=== PATIENT | male | born 1980 | race African-American/Black ===

== ENCOUNTER 2019-08-11 09:07 | Emergency (ER) | payer SELFPAY | END 2019-08-11 11:05 | disposition home or self-care (01) | LOC: EDUNIT# 09:07 → ERS 09:07 | DX: F19.10 Other psychoactive substance abuse, uncomplicated (principal); F43.10 Post-traumatic stress disorder, unspecified; Z87.891 Personal history of nicotine dependence | CPT/HCPCS: 99284 ==

== ENCOUNTER 2019-08-23 20:09 | Emergency (ER) | payer SELFPAY | END 2019-08-23 23:15 | disposition home or self-care (01) | LOC: ERS 20:09 → EDUNIT# 20:09 → ERS 23:15 | DX: F19.10 Other psychoactive substance abuse, uncomplicated (principal); Z87.891 Personal history of nicotine dependence | CPT/HCPCS: 93005 ==

== ENCOUNTER 2019-09-27 09:18 | Emergency (ER) | payer SELFPAY ==
--- NOTE | 2019-09-27 09:45 | RAD ---
EXAM: Single view of the chest HISTORY: Altered mental status COMPARISON: 04/01/2019 FINDINGS: Single view of the chest shows a normal sized cardiomediastinal silhouette. There is no zia dence of consolidation, mass, or pleural effusion. The bones are unremarkable. IMPRESSION: No evidence of acute cardiopulmonary disease
[2019-09-27 09:59] LABS: #Eosinphils 0.1 thou/uL (0.0-0.7); #Lymphocytes 1.1 thou/uL (1.20-3.40); #Monocytes 0.3 thou/uL (0.11-0.59); #Neutrophils 3.5 thou/uL (1.40-6.50); %Basophils 0.8 % (0.0-1.0); %Eosinophils 1.5 % (0.0-10.0); %Lymphocytes 21.8 % (21.0-51.0); %Monocytes 5.7 % (0.0-10.0); %Neutrophils 70.2 % (42.0-75.0); Hemoglobin 13.1 g/dL (14.0-18.0); Mean Corpuscular HGB CONC 33.8 g/dL (32.0-36.0); Mean Corpuscular Hemoglobin 31.5 pg (27.0-31.0); Mean Corpuscular Volume 92.9 fL (78.0-98.0); Mean Platelet Volume 10.2 fL (7.4-10.4); Platelet Count 141 thou/uL (130-400); RBC Distribution Width 12.2 % (11.5-14.5); Red Blood Cell (RBC) Count 4.16 mill/uL (4.70-6.10)
[2019-09-27 10:25] LABS: ALT (SGPT) 20 U/L (8-55); AST (SGOT) 16 U/L (5-34); Acetaminophen Less than 6.0 mcg/mL (10.0-30.0); Albumin 3.8 g/dL (3.5-5.0); Alcohol Less than 10 mg/dL (Less than 10); Alkaline Phosphatase 76 U/L (40-110); Anion Gap 10 mmol/L (10-20); BUN (Urea Nitrogen) 13 mg/dL (8.9-20.6); Bilirubin, Total 0.3 mg/dL (0.2-1.2); CK (CPK) 216 U/L (30-200); Calc. Creatinine Clearance 0 mL/min (70-130); Calcium 7.8 mg/dL (7.8-10.44); Carbon Dioxide 25 mmol/L (22-29); Chloride 109 mmol/L (98-107); Estimated GFR-MDRD Greater than 90; Globulin 2.4 g/dL (2.4-3.5); Glucose 113 mg/dL (70-105); Potassium 3.6 mmol/L (3.5-5.1); Protein, Total 6.2 g/dL (6.0-8.3); Salicylate Less than 8.0 mg/dL (15.0-30.0); Sodium 140 mmol/L (136-145)
--- NOTE | 2019-09-27 10:25 | CT ---
CT HEAD WITHOUT CONTRAST: Date: 09/27/2019 INDICATION: Mental status change. Comparison made to a recent head CT of 06/25/2019. FINDINGS: Prior craniotomy changes on the right again noted. Encephalomalacia involving the right frontal lobe and right temporal lobe have been previously described and remain stable in appearance. There is no evidence of acute intracranial hemorrhage, mass, or infarct. No significant interval montalvo ge. Visualized paranasal sinuses and mastoids appear clear. IMPRESSION: Stable postoperative changes with encephalomalacia involving the right frontal and temporal lobes. No acute interval change. POS: AH
[2019-09-27 12:50] LABS: Bilirubin Negative (Negative); Blood, Urine Negative (Negative); Clarity Clear (Clear); Glucose, Urine (Dipstick) Normal (Negative); Leukocyte Negative Leu/uL (Negative); Nitrite Negative (Negative); Protein, Urine (Dipstick) Negative (Neg-Trace); Urobilinogen Normal mg/dL (Less than 2)
[2019-09-27 13:00] LABS: Medtox Reader # READER 4
[2019-09-27 13:01] LABS: Amphetamine Not Detected (NotDetected); Barbiturates Screen Not Detected (NotDetected); Benzodiazepine Screen Not Detected (NotDetected); Cocaine Metabolite Screen Not Detected (NotDetected); Medtox Control Line Valid? VALID (VALID); Methadone Not Detected (NotDetected); Methamphetamine Not Detected (NotDetected); Opiate Screen Not Detected (NotDetected); Oxycodone Screen Not Detected (NotDetected); Phencyclidine (PCP) Not Detected (NotDetected); THC/Cannabinoid Screen Detected (NotDetected); Tricyclic Screen Not Detected (NotDetected)
--- NOTE | 2019-10-02 12:30 | EKG ---
Test Reason : UNRESPONSIVE Blood Pressure : / mmHG Vent. Rate : 090 BPM Atrial Rate : 090 BPM P-R Int : 160 ms QRS Dur : 080 ms QT Int : 358 ms P-R-T Axes : 044 -24 032 degrees QTc Int : 437 ms Normal sinus rhythm Normal ECG Confirmed by MATT KELLY DO ([id number]), society editor YANCI REYES ([id number]) on 10/02/2019 12:29:23 PM Referred By: Confirmed By:MATT KELLY DO
== END 2019-09-27 13:44 | disposition home or self-care (01) ==
LOC: ERS 09:18
DX: F12.10 Cannabis abuse, uncomplicated (principal); I95.9 Hypotension, unspecified; Z87.891 Personal history of nicotine dependence
CPT/HCPCS: 70450; 71045; 80053; 80306; 80307; 81003; 82550; 84484; 85025; 93005; 96360; 96361

== ENCOUNTER 2019-09-29 09:23 | Emergency (ER) | payer SELFPAY ==
[2019-09-29 10:20] LABS: #Eosinphils 0.1 thou/uL (0.0-0.7); #Lymphocytes 1.1 thou/uL (1.20-3.40); #Monocytes 0.3 thou/uL (0.11-0.59); #Neutrophils 3.6 thou/uL (1.40-6.50); %Basophils 0.5 % (0.0-1.0); %Eosinophils 1.8 % (0.0-10.0); %Lymphocytes 21.1 % (21.0-51.0); %Monocytes 6.1 % (0.0-10.0); %Neutrophils 70.5 % (42.0-75.0); Hemoglobin 13.8 g/dL (14.0-18.0); Mean Corpuscular HGB CONC 33.7 g/dL (32.0-36.0); Mean Corpuscular Hemoglobin 31.6 pg (27.0-31.0); Mean Corpuscular Volume 93.8 fL (78.0-98.0); Mean Platelet Volume 9.6 fL (7.4-10.4); Platelet Count 149 thou/uL (130-400); RBC Distribution Width 12.1 % (11.5-14.5); Red Blood Cell (RBC) Count 4.35 mill/uL (4.70-6.10); White Blood Cell (WBC) Count 5.2 thou/uL (4.8-10.8)
--- NOTE | 2019-09-29 10:31 | RAD ---
EXAM: Single view of the chest HISTORY: Altered mental status COMPARISON: 09/27/2019 FINDINGS: Single view of the chest shows a normal sized cardiomediastinal silhouette. There is no zia dence of consolidation, mass, or pleural effusion. The bones are unremarkable. IMPRESSION: No evidence of acute cardiopulmonary disease
[2019-09-29 10:59] LABS: ALT (SGPT) 20 U/L (8-55); AST (SGOT) 17 U/L (5-34); Albumin 4.1 g/dL (3.5-5.0); Alkaline Phosphatase 84 U/L (40-110); Anion Gap 13 mmol/L (10-20); BUN (Urea Nitrogen) 11 mg/dL (8.9-20.6); Bilirubin, Total 0.5 mg/dL (0.2-1.2); Calc. Creatinine Clearance 0 mL/min (70-130); Calcium 8.7 mg/dL (7.8-10.44); Carbon Dioxide 26 mmol/L (22-29); Chloride 106 mmol/L (98-107); Estimated GFR-MDRD Greater than 90; Globulin 2.8 g/dL (2.4-3.5); Glucose 110 mg/dL (70-105); Potassium 3.7 mmol/L (3.5-5.1); Protein, Total 6.9 g/dL (6.0-8.3); Sodium 141 mmol/L (136-145)
[2019-09-29 12:18] LABS: Bilirubin Negative (Negative); Blood, Urine Negative (Negative); Clarity Clear (Clear); Glucose, Urine (Dipstick) Normal (Negative); Leukocyte Negative Leu/uL (Negative); Nitrite Negative (Negative); Protein, Urine (Dipstick) 20 mg/dL (Neg-Trace); Urobilinogen Normal mg/dL (Less than 2)
[2019-09-29 12:29] LABS: Amphetamine Not Detected (NotDetected); Barbiturates Screen Not Detected (NotDetected); Benzodiazepine Screen Not Detected (NotDetected); Cocaine Metabolite Screen Not Detected (NotDetected); Medtox Control Line Valid? VALID (VALID); Medtox Reader # READER 1; Methadone Not Detected (NotDetected); Methamphetamine Not Detected (NotDetected); Opiate Screen Not Detected (NotDetected); Oxycodone Screen Not Detected (NotDetected); Phencyclidine (PCP) Not Detected (NotDetected); THC/Cannabinoid Screen Detected (NotDetected); Tricyclic Screen Not Detected (NotDetected)
--- NOTE | 2019-10-02 15:31 | EKG ---
Test Reason : Blood Pressure : / mmHG Vent. Rate : 076 BPM Atrial Rate : 076 BPM P-R Int : 174 ms QRS Dur : 092 ms QT Int : 382 ms P-R-T Axes : 047 001 039 degrees QTc Int : 429 ms Normal sinus rhythm Normal ECG Confirmed by NOA MILLER MD ([id number]), material expeditor YANCI REYES ([id number]) on 10/02/2019 3:30:48 PM Referred By: Confirmed By:NOA MILLER MD
== END 2019-09-29 12:05 | disposition home or self-care (01) ==
LOC: ERS 09:23
DX: R55 Syncope and collapse (principal); Z87.891 Personal history of nicotine dependence
CPT/HCPCS: 36415; 71045; 80053; 80306; 81003; 84484; 85025; 93005; 96360

== ENCOUNTER 2019-10-06 09:38 | Emergency (ER) | payer SELFPAY ==
--- NOTE | 2019-10-06 10:42 | CT ---
CT Brain WO Con: 10/06/2019 10:09 AM CLINICAL HISTORY: Altered mental status. IMAGING TECHNIQUE: Multiple CT images were obtained of the brain without IV contrast. COMPARISON: CT the brain dated September 27, 2019 FINDINGS: BRAIN: Evidence of acute infarct: None. Evidence of chronic ischemic change:There are areas of encephalomalacia involving the right frontal l obe and anterior right temporal lobe that are stable. Evidence of intracranial hemorrhage: None. Evidence of midline shift: Third ventricle and septum pellucidum are midline. Ventricles: Normal. No hydrocephalus. SKULL: There are stable craniotomy sites involving the right frontal and right parietal skull. VISUALIZED PARANASAL SINUSES: There are mucus retention cysts within the inferior aspects of both ma xillary sinuses. The ethmoid air cells, frontal sinus and sphenoid sinus are clear. MASTOID AIR CELLS: Clear. EXTRACRANIAL SOFT TISSUES: Normal. IMPRESSION: No acute intracranial abnormality.
[2019-10-06 11:10] LABS: #Eosinphils 0.1 thou/uL (0.0-0.7); #Lymphocytes 1.3 thou/uL (1.20-3.40); #Monocytes 0.3 thou/uL (0.11-0.59); #Neutrophils 3.7 thou/uL (1.40-6.50); %Basophils 0.3 % (0.0-1.0); %Eosinophils 1.8 % (0.0-10.0); %Lymphocytes 24.4 % (21.0-51.0); %Monocytes 5.2 % (0.0-10.0); %Neutrophils 68.3 % (42.0-75.0); Hemoglobin 15.1 g/dL (14.0-18.0); Mean Corpuscular HGB CONC 33.5 g/dL (32.0-36.0); Mean Corpuscular Hemoglobin 31.5 pg (27.0-31.0); Mean Corpuscular Volume 94.2 fL (78.0-98.0); Mean Platelet Volume 9.9 fL (7.4-10.4); Platelet Count 159 thou/uL (130-400); RBC Distribution Width 11.9 % (11.5-14.5); White Blood Cell (WBC) Count 5.4 thou/uL (4.8-10.8)
[2019-10-06 11:40] LABS: ALT (SGPT) 28 U/L (8-55); AST (SGOT) 19 U/L (5-34); Albumin 4.6 g/dL (3.5-5.0); Alkaline Phosphatase 104 U/L (40-110); Anion Gap 14 mmol/L (10-20); BUN (Urea Nitrogen) 14 mg/dL (8.9-20.6); Bilirubin, Total 0.3 mg/dL (0.2-1.2); Calc. Creatinine Clearance 0 mL/min (70-130); Calcium 9.3 mg/dL (7.8-10.44); Carbon Dioxide 27 mmol/L (22-29); Chloride 103 mmol/L (98-107); Estimated GFR-MDRD 82; Globulin 3.2 g/dL (2.4-3.5); Glucose 97 mg/dL (70-105); Potassium 4.5 mmol/L (3.5-5.1); Protein, Total 7.8 g/dL (6.0-8.3); Sodium 139 mmol/L (136-145)
== END 2019-10-06 17:42 | disposition home or self-care (01) ==
LOC: ERS 09:38
DX: T40.7X1A Poisoning by cannabis (derivatives), accidental (unintentional), initial encounter (principal); R41.82 Altered mental status, unspecified; Z87.891 Personal history of nicotine dependence
CPT/HCPCS: 70450; 80053; 85025

== ENCOUNTER 2019-10-07 10:45 | Emergency (ER) | payer SELFPAY | END 2019-10-07 17:21 | disposition home or self-care (01) | LOC: ERS 10:45 | DX: R41.82 Altered mental status, unspecified (principal); T40.7X5A Adverse effect of cannabis (derivatives), initial encounter; Z87.891 Personal history of nicotine dependence | CPT/HCPCS: 93005 ==

== ENCOUNTER 2019-10-10 14:31 | Emergency (ER) | payer SELFPAY ==
[2019-10-10] MEDS ORDERED: Naloxone HCl 2 mg/2 ml Syringe ONE (14:40)
[2019-10-10 14:59] LABS: #Eosinphils 0.1 thou/uL (0.0-0.7); #Lymphocytes 0.8 thou/uL (1.20-3.40); #Monocytes 0.5 thou/uL (0.11-0.59); %Basophils 0.3 % (0.0-1.0); %Eosinophils 1.3 % (0.0-10.0); %Lymphocytes 18.8 % (21.0-51.0); %Monocytes 11.9 % (0.0-10.0); %Neutrophils 67.8 % (42.0-75.0); Hemoglobin 13.9 g/dL (14.0-18.0); Mean Corpuscular HGB CONC 33.5 g/dL (32.0-36.0); Mean Corpuscular Hemoglobin 31.1 pg (27.0-31.0); Mean Corpuscular Volume 92.8 fL (78.0-98.0); Mean Platelet Volume 10.5 fL (7.4-10.4); Platelet Count 138 thou/uL (130-400); RBC Distribution Width 12.1 % (11.5-14.5); Red Blood Cell (RBC) Count 4.48 mill/uL (4.70-6.10); White Blood Cell (WBC) Count 4.4 thou/uL (4.8-10.8)
[2019-10-10 15:23] LABS: ALT (SGPT) 35 U/L (8-55); AST (SGOT) 26 U/L (5-34); Acetaminophen Less than 6.0 mcg/mL (10.0-30.0); Albumin 4.4 g/dL (3.5-5.0); Alcohol 32 mg/dL (Less than 10); Alkaline Phosphatase 94 U/L (40-110); Anion Gap 15 mmol/L (10-20); BUN (Urea Nitrogen) 11 mg/dL (8.9-20.6); Bilirubin, Total 0.3 mg/dL (0.2-1.2); CK (CPK) 231 U/L (30-200); Calc. Creatinine Clearance 0 mL/min (70-130); Calcium 8.7 mg/dL (7.8-10.44); Carbon Dioxide 24 mmol/L (22-29); Chloride 105 mmol/L (98-107); Estimated GFR-MDRD 87; Globulin 2.5 g/dL (2.4-3.5); Glucose 95 mg/dL (70-105); Potassium 3.9 mmol/L (3.5-5.1); Protein, Total 6.9 g/dL (6.0-8.3); Salicylate Less than 8.0 mg/dL (15.0-30.0); Sodium 140 mmol/L (136-145)
--- NOTE | 2019-10-10 15:54 | RAD ---
AP CHEST: History: Found unconscious. Comparison: 09-29-2019 FINDINGS: The lungs appear clear of infiltrate. Vascular markings upper normal, but stable from prior exam. Hea rt and mediastinum unremarkable. IMPRESSION: No acute process identified. POS: AGW
--- NOTE | 2019-10-10 17:00 | CT ---
CT HEAD WITHOUT CONTRAST: History: Mental status change. Comparison: 10-06-2019 FINDINGS: Encephalomalacia involving the left frontal lobe and left temporal lobe appears stable. No acute hemo rrhage or mass. No acute infarct. There are post-operative changes in the calvarium on the right. The paranasal sinuses and mastoids ar e clear. IMPRESSION: No acute finding or interval change. POS: AGW
[2019-10-10 18:15] LABS: Bilirubin Negative (Negative); Blood, Urine Negative (Negative); Clarity Clear (Clear); Glucose, Urine (Dipstick) Normal (Negative); Leukocyte Negative Leu/uL (Negative); Nitrite Negative (Negative); Protein, Urine (Dipstick) Negative (Neg-Trace); Urobilinogen Normal mg/dL (Less than 2)
[2019-10-10 18:25] LABS: Amphetamine Not Detected (NotDetected); Barbiturates Screen Not Detected (NotDetected); Benzodiazepine Screen Not Detected (NotDetected); Cocaine Metabolite Screen Not Detected (NotDetected); Medtox Control Line Valid? VALID (VALID); Medtox Reader # READER 1; Methadone Not Detected (NotDetected); Methamphetamine Not Detected (NotDetected); Opiate Screen Not Detected (NotDetected); Oxycodone Screen Not Detected (NotDetected); Phencyclidine (PCP) Not Detected (NotDetected); THC/Cannabinoid Screen Not Detected (NotDetected); Tricyclic Screen Not Detected (NotDetected)
== END 2019-10-10 17:47 | disposition home or self-care (01) ==
LOC: ERS 14:31
DX: F10.10 Alcohol abuse, uncomplicated (principal); E86.0 Dehydration; R41.82 Altered mental status, unspecified; Z87.891 Personal history of nicotine dependence
CPT/HCPCS: 70450; 71045; 80053; 80306; 80307; 81003; 82140; 82550; 82553; 83690; 84484; 85025; 93005; 96361; 96365; 96375; J2310; J3411

== ENCOUNTER 2019-10-18 11:45 | Emergency (ER) | payer SELFPAY ==
[2019-10-18 12:06] LABS: Analyzer IN Cardio ER; Base Excess (BEa) -2.8 mEq/L (-2.0 to +3.0); CO2 Tension 38.3 mmHg (35.0-45.0); Calcium, Ionized (arterial) 1.16 mmol/L (1.12-1.30); Carboxyhemoglobin (COHb) 0.8 gm% (0.0-3.0); Hemoglobin (Hb) 14.1 g/dL (14.0-18.0); O2 Tension (PaO2), arterial 64.1 mmHg (80.0-100.0); Potassium - ABG Lab 3.81 mmol/L (3.70-5.30); pH, Arterial 7.38 (7.35-7.45)
[2019-10-18 12:07] LABS: Puncture Site RBA
[2019-10-18 12:08] LABS: #Monocytes 0.2 thou/uL (0.11-0.59); #Neutrophils 1.7 thou/uL (1.40-6.50); %Eosinophils 0.7 % (0.0-10.0); %Lymphocytes 32.6 % (21.0-51.0); %Monocytes 7.8 % (0.0-10.0); %Neutrophils 58.9 % (42.0-75.0); Hemoglobin 14.8 g/dL (14.0-18.0); Mean Corpuscular HGB CONC 32.9 g/dL (32.0-36.0); Mean Corpuscular Hemoglobin 30.8 pg (27.0-31.0); Mean Corpuscular Volume 93.6 fL (78.0-98.0); Platelet Count 127 thou/uL (130-400); RBC Distribution Width 12.1 % (11.5-14.5); Red Blood Cell (RBC) Count 4.79 mill/uL (4.70-6.10); White Blood Cell (WBC) Count 2.9 thou/uL (4.8-10.8)
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
[2019-10-18 12:34] LABS: Bacteria/HPF None Seen HPF (None Seen); Bilirubin Negative (Negative); Blood, Urine Negative (Negative); Clarity Clear (Clear); Glucose, Urine (Dipstick) 70 mg/dL (Negative); Ketone, Urine Negative (Negative); Leukocyte Negative Leu/uL (Negative); Nitrite Negative (Negative); Protein, Urine (Dipstick) 50 mg/dL (Neg-Trace); RBC/HPF 0-3 HPF (0-3); Specific Gravity, Urine 1.029 (1.002-1.036); Squamous Epithelial 0-3 HPF (0-3); WBC/HPF 0-3 HPF (0-3); pH, Urine 5.5 (5.0-9.0)
[2019-10-18 12:39] LABS: Amphetamine Not Detected (NotDetected); Barbiturates Screen Not Detected (NotDetected); Benzodiazepine Screen Not Detected (NotDetected); Cocaine Metabolite Screen Not Detected (NotDetected); Medtox Control Line Valid? VALID (VALID); Medtox Reader # READER 4; Methadone Not Detected (NotDetected); Methamphetamine Not Detected (NotDetected); Opiate Screen Not Detected (NotDetected); Oxycodone Screen Not Detected (NotDetected); Phencyclidine (PCP) Not Detected (NotDetected); THC/Cannabinoid Screen Detected (NotDetected); Tricyclic Screen Not Detected (NotDetected)
[2019-10-18 12:39] LABS: Acetaminophen Less than 6.0 mcg/mL (10.0-30.0); Alcohol Less than 10 mg/dL (Less than 10); CK (CPK) 211 U/L (30-200); Salicylate Less than 8.0 mg/dL (15.0-30.0)
[2019-10-18 12:40] LABS: ALT (SGPT) 44 U/L (8-55); AST (SGOT) 32 U/L (5-34); Albumin 4.5 g/dL (3.5-5.0); Alkaline Phosphatase 105 U/L (40-110); Anion Gap 14 mmol/L (10-20); BUN (Urea Nitrogen) 8 mg/dL (8.9-20.6); Bilirubin, Total 0.4 mg/dL (0.2-1.2); Calc. Creatinine Clearance 0 mL/min (70-130); Calcium 9.1 mg/dL (7.8-10.44); Carbon Dioxide 23 mmol/L (22-29); Chloride 107 mmol/L (98-107); Estimated GFR-MDRD 76; Globulin 3.1 g/dL (2.4-3.5); Glucose 96 mg/dL (70-105); Lipase 25 U/L (8-78); Potassium 3.8 mmol/L (3.5-5.1); Protein, Total 7.6 g/dL (6.0-8.3); Sodium 140 mmol/L (136-145)
--- NOTE | 2019-10-18 14:15 | CT ---
BRAIN CT WITHOUT IV CONTRAST: Date: 10/18/2019 HISTORY: Altered mental status, found unresponsive on the ground. COMPARISON: 10/10/2019. FINDINGS: Postoperative craniotomy changes with some extensive right-sided frontal and temporal encephalomalaci a, stable. Bilateral maxillary and ethmoid sinus mucosal changes with bilateral artur bullosa. Small , stable right basal ganglia lacunar infarct. No mass or bleed, or other acute process. IMPRESSION: Stable postoperative changes with right-sided encephalomalacia. Stable sinus mucosal disease. No mass or bleed, or other acute process. POS: [facility]DI
== END 2019-10-18 14:40 | disposition home or self-care (01) ==
LOC: ERS 11:45
DX: F19.10 Other psychoactive substance abuse, uncomplicated (principal); Z87.891 Personal history of nicotine dependence
CPT/HCPCS: 36416; 51701; 70450; 71045; 80053; 80306; 80307; 81003; 81015; 82140; 82550; 82805; 83690; 84484; 85025; 93005; 96361; 96365; J3411

== ENCOUNTER 2019-10-27 11:39 | Emergency (ER) | payer SELFPAY ==
[2019-10-27] MEDS ORDERED: Fentanyl 100 MCG/2 ML VIAL ONE (13:22)
== END 2019-10-27 13:03 | disposition home or self-care (01) ==
LOC: ERS 11:39
DX: F12.10 Cannabis abuse, uncomplicated (principal)
CPT/HCPCS: 99284; J3010

== ENCOUNTER 2019-11-14 12:40 | Emergency (ER) | payer SELFPAY, OTHER ==
[2019-11-14] MEDS ORDERED: Ibuprofen 800 MG TAB ONE (13:16)
[2019-11-14 13:29] LABS: #Lymphocytes 1.1 thou/uL (1.20-3.40); #Monocytes 0.3 thou/uL (0.11-0.59); #Neutrophils 3.7 thou/uL (1.40-6.50); %Basophils 0.6 % (0.0-1.0); %Eosinophils 0.5 % (0.0-10.0); %Lymphocytes 22.1 % (21.0-51.0); %Monocytes 5.1 % (0.0-10.0); %Neutrophils 71.6 % (42.0-75.0); Hemoglobin 13.6 g/dL (14.0-18.0); Mean Corpuscular HGB CONC 33.4 g/dL (32.0-36.0); Mean Corpuscular Hemoglobin 31.1 pg (27.0-31.0); Mean Platelet Volume 10.2 fL (7.4-10.4); Platelet Count 150 thou/uL (130-400); RBC Distribution Width 12.2 % (11.5-14.5); Red Blood Cell (RBC) Count 4.39 mill/uL (4.70-6.10); White Blood Cell (WBC) Count 5.1 thou/uL (4.8-10.8)
[2019-11-14 13:46] LABS: ALT (SGPT) 22 U/L (8-55); AST (SGOT) 16 U/L (5-34); Albumin 4.3 g/dL (3.5-5.0); Alkaline Phosphatase 85 U/L (40-110); Anion Gap 12 mmol/L (10-20); BUN (Urea Nitrogen) 10 mg/dL (8.9-20.6); Bilirubin, Total 0.4 mg/dL (0.2-1.2); Calc. Creatinine Clearance 0 mL/min (70-130); Calcium 8.7 mg/dL (7.8-10.44); Carbon Dioxide 26 mmol/L (22-29); Chloride 107 mmol/L (98-107); Estimated GFR-MDRD 90; Globulin 2.6 g/dL (2.4-3.5); Glucose 98 mg/dL (70-105); Potassium 3.5 mmol/L (3.5-5.1); Protein, Total 6.9 g/dL (6.0-8.3); Sodium 141 mmol/L (136-145)
== END 2019-11-14 16:36 | disposition home or self-care (01) ==
LOC: ERS 12:40
DX: U07.1 COVID-19 (principal); F12.10 Cannabis abuse, uncomplicated; Z87.891 Personal history of nicotine dependence
CPT/HCPCS: 36415; 80053; 85025; 93005; 96360

== ENCOUNTER 2019-12-20 14:28 | Emergency (ER) | payer OTHER, SELFPAY ==
[2019-12-20 16:15] LABS: #Eosinphils 0.1 thou/uL (0.0-0.7); #Lymphocytes 1.7 thou/uL (1.20-3.40); #Monocytes 0.2 thou/uL (0.11-0.59); #Neutrophils 3.1 thou/uL (1.40-6.50); %Basophils 0.6 % (0.0-1.0); %Eosinophils 1.3 % (0.0-10.0); %Lymphocytes 33.1 % (21.0-51.0); %Monocytes 4.3 % (0.0-10.0); %Neutrophils 60.7 % (42.0-75.0); Hemoglobin 13.2 g/dL (14.0-18.0); Mean Corpuscular HGB CONC 34.7 g/dL (32.0-36.0); Mean Corpuscular Hemoglobin 32.4 pg (27.0-31.0); Mean Corpuscular Volume 93.3 fL (78.0-98.0); Mean Platelet Volume 10.6 fL (7.4-10.4); Platelet Count 152 thou/uL (130-400); RBC Distribution Width 11.7 % (11.5-14.5); Red Blood Cell (RBC) Count 4.08 mill/uL (4.70-6.10); White Blood Cell (WBC) Count 5.1 thou/uL (4.8-10.8)
[2019-12-20 16:34] LABS: ALT (SGPT) 19 U/L (8-55); AST (SGOT) 19 U/L (5-34); Alkaline Phosphatase 79 U/L (40-110); Anion Gap 18 mmol/L (10-20); BUN (Urea Nitrogen) 9 mg/dL (8.9-20.6); Bilirubin, Total 0.3 mg/dL (0.2-1.2); CK (CPK) 197 U/L (30-200); Calc. Creatinine Clearance 0 mL/min (70-130); Carbon Dioxide 19 mmol/L (22-29); Chloride 111 mmol/L (98-107); Estimated GFR-MDRD Greater than 90; Globulin 2.7 g/dL (2.4-3.5); Glucose 96 mg/dL (70-105); Protein, Total 6.7 g/dL (6.0-8.3); Sodium 144 mmol/L (136-145)
--- NOTE | 2019-12-20 17:07 | RAD ---
PORTABLE CHEST: Comparison: 10-18-2019 History: Covid positive. History of K2 abuse. FINDINGS: Heart size appears slightly enlarged. Some vague increased parenchymal density in the lung valladares. Th yovani could represent some minimal ground glass infiltrates, although I feel that it is probably within normal limits. Most questionable area is in the left midlung field. IMPRESSION: 1. Cardiomegaly. 2. No definitive infiltrative process. Some vague increased density in the lung bases. I feel this is more likely on the basis of chronic change. POS: OFF
--- NOTE | 2019-12-21 14:35 | EKG ---
Test Reason : Blood Pressure : / mmHG Vent. Rate : 096 BPM Atrial Rate : 096 BPM P-R Int : 174 ms QRS Dur : 092 ms QT Int : 352 ms P-R-T Axes : 039 -19 029 degrees QTc Int : 444 ms Normal sinus rhythm Normal ECG Confirmed by TONYA ALBERTS DO ([id number]), film editor ADELIA VIRK ([id number]) on 12/21/2019 2:34:28 PM Referred By: Confirmed By:TONYA ALBERTS DO
== END 2019-12-20 19:47 | disposition home or self-care (01) ==
LOC: ERS 14:28
DX: E86.0 Dehydration (principal); F19.10 Other psychoactive substance abuse, uncomplicated; Z87.891 Personal history of nicotine dependence
CPT/HCPCS: 36415; 71045; 80053; 82550; 85025; 93005; 96360; 96361

== ENCOUNTER 2020-01-07 16:31 | Emergency (ER) | payer SELFPAY ==
[~2020-01-07 16:31] MED LIST: Iopamidol-370 76% 500 ML 1 ML ONE
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
[2020-01-07 16:57] LABS: #Eosinphils 0.1 thou/uL (0.0-0.7); #Lymphocytes 2.3 thou/uL (1.20-3.40); #Monocytes 0.3 thou/uL (0.11-0.59); #Neutrophils 3.3 thou/uL (1.40-6.50); %Basophils 0.7 % (0.0-1.0); %Eosinophils 1.1 % (0.0-10.0); %Lymphocytes 37.2 % (21.0-51.0); %Monocytes 5.7 % (0.0-10.0); %Neutrophils 55.3 % (42.0-75.0); Hemoglobin 9.9 g/dL (14.0-18.0); Mean Corpuscular HGB CONC 34.7 g/dL (32.0-36.0); Mean Corpuscular Hemoglobin 32.8 pg (27.0-31.0); Mean Corpuscular Volume 94.4 fL (78.0-98.0); RBC Distribution Width 11.8 % (11.5-14.5); Red Blood Cell (RBC) Count 3.02 mill/uL (4.70-6.10)
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
[2020-01-07 17:11] LABS: ALT (SGPT) 11 U/L (8-55); AST (SGOT) 11 U/L (5-34); Albumin 2.4 g/dL (3.5-5.0); Alkaline Phosphatase 49 U/L (40-110); Anion Gap 11 mmol/L (10-20); BUN (Urea Nitrogen) 11 mg/dL (8.9-20.6); Bilirubin, Total Less than 0.2 mg/dL (0.2-1.2); Calc. Creatinine Clearance 0 mL/min (70-130); Carbon Dioxide 13 mmol/L (22-29); Chloride 125 mmol/L (98-107); Estimated GFR-MDRD Greater than 90; Globulin 1.3 g/dL (2.4-3.5); Glucose 65 mg/dL (70-105); Lipase 25 U/L (8-78); Protein, Total 3.7 g/dL (6.0-8.3); Sodium 146 mmol/L (136-145)
[2020-01-07 17:14] LABS: Acetaminophen Less than 6.0 mcg/mL (10.0-30.0); Alcohol 102 mg/dL (Less than 10); Salicylate Less than 8.0 mg/dL (15.0-30.0)
[2020-01-07 17:19] LABS: Calcium 4.8 mg/dL (7.8-10.44); Potassium 2.6 mmol/L (3.5-5.1)
[2020-01-07 17:44] LABS: MDiff Complete? YES; Mean Platelet Volume 10.5 fL (7.4-10.4); Platelet Count 114 thou/uL (130-400); Platelet Morphology Comment Appears Decreased; Polychromasia SLIGHT = 2-3 cells (100X) (0-2/hpf)
[2020-01-07 18:12] LABS: Amphetamine Not Detected (NotDetected); Barbiturates Screen Not Detected (NotDetected); Benzodiazepine Screen Not Detected (NotDetected); Cocaine Metabolite Screen Not Detected (NotDetected); Medtox Control Line Valid? VALID (VALID); Medtox Reader # READER 4; Methadone Not Detected (NotDetected); Methamphetamine Not Detected (NotDetected); Opiate Screen Not Detected (NotDetected); Oxycodone Screen Not Detected (NotDetected); Phencyclidine (PCP) Not Detected (NotDetected); THC/Cannabinoid Screen Detected (NotDetected); Tricyclic Screen Not Detected (NotDetected)
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
== END 2020-01-07 20:56 | disposition home or self-care (01) ==
LOC: ERS 16:31
DX: S09.90XA Unspecified injury of head, initial encounter (principal); S82.64XA Nondisplaced fracture of lateral malleolus of right fibula, initial encounter for closed fracture; S40.211A Abrasion of right shoulder, initial encounter; S70.311A Abrasion, right thigh, initial encounter; Z87.891 Personal history of nicotine dependence; V03.99XA Pedestrian with other conveyance injured in collision with car, pick-up truck or van, unspecified whether traffic or nontraffic accident, initial encounter
CPT/HCPCS: 29515; 36415; 70450; 71045; 71260; 72125; 74177; 80053; 80306; 80307; 83605; 83690; 85025; 86850; 86900; 86901; G0390; Q9967

== ENCOUNTER 2020-02-28 16:00 | Emergency (ER) | payer SELFPAY ==
--- NOTE | 2020-02-28 16:19 | RAD ---
XR Chest 1 View Portable History: Dyspnea Comparison: CT examination January 07, 2020 Findings: Abnormal appearance of the right costochondral junctions may be sequelae of recent injury. Scattered scar throughout the lungs. No pneumothorax. No significant effusion. Impression: Abnormally small right hemithorax relative to the left may be sequelae of recent costal c artilage junction injury and lung hypoinflation with atelectasis. Background parenchymal scarring.
[2020-02-28 16:21] LABS: #Basophils 0.1 thou/uL (0.0-0.2); #Eosinphils 0.1 thou/uL (0.0-0.7); #Lymphocytes 1.7 thou/uL (1.20-3.40); #Monocytes 0.4 thou/uL (0.11-0.59); #Neutrophils 3.7 thou/uL (1.40-6.50); %Eosinophils 1.4 % (0.0-10.0); %Lymphocytes 28.8 % (21.0-51.0); %Monocytes 6.7 % (0.0-10.0); %Neutrophils 62.1 % (42.0-75.0); Hemoglobin 13.3 g/dL (14.0-18.0); Mean Corpuscular HGB CONC 33.1 g/dL (32.0-36.0); Mean Corpuscular Hemoglobin 30.8 pg (27.0-31.0); Mean Corpuscular Volume 93.1 fL (78.0-98.0); Mean Platelet Volume 9.7 fL (7.4-10.4); Platelet Count 149 thou/uL (130-400); Red Blood Cell (RBC) Count 4.33 mill/uL (4.70-6.10); White Blood Cell (WBC) Count 5.9 thou/uL (4.8-10.8)
[2020-02-28] MEDS ORDERED: Naloxone HCl 0.4 mg/ml Vial ONE (16:24)
[2020-02-28 16:43] LABS: ALT (SGPT) 17 U/L (8-55); AST (SGOT) 17 U/L (5-34); Acetaminophen Less than 6.0 mcg/mL (10.0-30.0); Albumin 4.1 g/dL (3.5-5.0); Alcohol 65 mg/dL (Less than 10); Alkaline Phosphatase 88 U/L (40-110); Anion Gap 14 mmol/L (10-20); BUN (Urea Nitrogen) 11 mg/dL (8.9-20.6); Bilirubin, Total 0.2 mg/dL (0.2-1.2); CK (CPK) 396 U/L (30-200); Calc. Creatinine Clearance 0 mL/min (70-130); Calcium 8.7 mg/dL (7.8-10.44); Carbon Dioxide 27 mmol/L (22-29); Chloride 104 mmol/L (98-107); Estimated GFR-MDRD Greater than 90; Globulin 2.8 g/dL (2.4-3.5); Glucose 97 mg/dL (70-105); Potassium 3.6 mmol/L (3.5-5.1); Protein, Total 6.9 g/dL (6.0-8.3); Salicylate Less than 8.0 mg/dL (15.0-30.0); Sodium 141 mmol/L (136-145)
[2020-02-28 16:45] LABS: Bilirubin Negative (Negative); Blood, Urine Negative (Negative); Clarity Clear (Clear); Glucose, Urine (Dipstick) Normal (Negative); Ketone, Urine Negative (Negative); Leukocyte Negative Leu/uL (Negative); Nitrite Negative (Negative); Protein, Urine (Dipstick) Negative (Neg-Trace); Specific Gravity, Urine 1.003 (1.002-1.036); Urobilinogen Normal mg/dL (Less than 2); pH, Urine 5.5 (5.0-9.0)
[2020-02-28 16:55] LABS: Amphetamine Not Detected (NotDetected); Barbiturates Screen Not Detected (NotDetected); Benzodiazepine Screen Not Detected (NotDetected); Cocaine Metabolite Screen Not Detected (NotDetected); Medtox Control Line Valid? VALID (VALID); Medtox Reader # READER 1; Methadone Not Detected (NotDetected); Methamphetamine Not Detected (NotDetected); Opiate Screen Not Detected (NotDetected); Oxycodone Screen Not Detected (NotDetected); Phencyclidine (PCP) Not Detected (NotDetected); THC/Cannabinoid Screen Not Detected (NotDetected); Tricyclic Screen Not Detected (NotDetected)
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
[2020-02-28 19:29] LABS: Lactic Acid 1.5 mmol/L (0.5-2.2)
== END 2020-02-28 20:09 | disposition home or self-care (01) ==
LOC: ERS 16:00
DX: R41.82 Altered mental status, unspecified (principal); Z87.891 Personal history of nicotine dependence
CPT/HCPCS: 36415; 51701; 70450; 71045; 80053; 80306; 80307; 81003; 82550; 83605; 85025; 93005; 96374; J2310

== ENCOUNTER 2020-03-01 18:46 | Inpatient (IN) | payer MEDICARE, MEDICAID ==
[2020-03-01 19:23] LABS: #Lymphocytes 1.4 thou/uL (1.20-3.40); #Monocytes 0.4 thou/uL (0.11-0.59); #Neutrophils 3.9 thou/uL (1.40-6.50); %Basophils 0.3 % (0.0-1.0); %Eosinophils 0.8 % (0.0-10.0); %Lymphocytes 24.7 % (21.0-51.0); %Monocytes 6.2 % (0.0-10.0); %Neutrophils 68.1 % (42.0-75.0); Hemoglobin 11.2 g/dL (14.0-18.0); Mean Corpuscular Hemoglobin 30.9 pg (27.0-31.0); Mean Corpuscular Volume 93.6 fL (78.0-98.0); Mean Platelet Volume 10.2 fL (7.4-10.4); Platelet Count 124 thou/uL (130-400); RBC Distribution Width 11.8 % (11.5-14.5); Red Blood Cell (RBC) Count 3.62 mill/uL (4.70-6.10); White Blood Cell (WBC) Count 5.8 thou/uL (4.8-10.8)
[2020-03-01 19:36] LABS: Acetaminophen Less than 6.0 mcg/mL (10.0-30.0); Alcohol 107 mg/dL (Less than 10); CK (CPK) 122 U/L (30-200); Salicylate Less than 8.0 mg/dL (15.0-30.0)
[2020-03-01 19:50] LABS: ALT (SGPT) 7 U/L (8-55); AST (SGOT) 8 U/L (5-34); Albumin 2.1 g/dL (3.5-5.0); Alkaline Phosphatase 43 U/L (40-110); Anion Gap 11 mmol/L (10-20); BUN (Urea Nitrogen) 7 mg/dL (8.9-20.6); Bilirubin, Total Less than 0.2 mg/dL (0.2-1.2); Calc. Creatinine Clearance 0 mL/min (70-130); Carbon Dioxide 15 mmol/L (22-29); Chloride 123 mmol/L (98-107); Globulin 1.2 g/dL (2.4-3.5); Protein, Total 3.3 g/dL (6.0-8.3); Sodium 147 mmol/L (136-145)
[2020-03-01 19:56] LABS: Calcium 4.5 mg/dL (7.8-10.44); Glucose 53 mg/dL (70-105); Potassium 2.3 mmol/L (3.5-5.1)
[2020-03-01] MEDS ORDERED: Calcium Gluconate 13.8 MEQ in Sodium Chloride 0.9% 100 ML IVPB SCH (20:30)
[2020-03-01] MEDS ORDERED: NS 0.9% w/ 40 MEQ KCL 1,000 ML IV SCH (20:30)
[2020-03-01] MEDS ORDERED: D5 NS w/ 40 mEq KCl 1,000 ML IV SCH (20:45)
[2020-03-01] MEDS ORDERED: Famotidine/PF 20 mg/2ml Vial SLOW IVP SCH (21:00)
--- NOTE | 2020-03-01 21:15 | PDOC.BPN ---
- Brief Progress Note [id number] HP dictated
[2020-03-01] MEDS ORDERED: Lorazepam 2 MG/ML VIAL SLOW IVP PRN (21:17)
[2020-03-01 23:24] LABS: Amphetamine Not Detected (NotDetected); Barbiturates Screen Not Detected (NotDetected); Benzodiazepine Screen Not Detected (NotDetected); Cocaine Metabolite Screen Not Detected (NotDetected); Medtox Control Line Valid? VALID (VALID); Medtox Reader # READER 1; Methadone Not Detected (NotDetected); Methamphetamine Not Detected (NotDetected); Opiate Screen Not Detected (NotDetected); Oxycodone Screen Not Detected (NotDetected); Phencyclidine (PCP) Not Detected (NotDetected); THC/Cannabinoid Screen Not Detected (NotDetected); Tricyclic Screen Not Detected (NotDetected)
[2020-03-02] MEDS: Famotidine/PF 20 mg/2ml Vial SLOW IVP SCH ×3 (00:16→20:41)
[2020-03-02] MEDS: D5 NS w/ 40 mEq KCl 1,000 ML IV SCH ×3 (00:16→20:41)
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
[2020-03-02] MEDS ORDERED: Magnesium 2 GM/50 ML 2 GM in Premix Bag 1 BAG IVPB SCH (02:15)
[2020-03-02 04:28] LABS: #Eosinphils 0.1 thou/uL (0.0-0.7); #Lymphocytes 1.5 thou/uL (1.20-3.40); #Monocytes 0.4 thou/uL (0.11-0.59); #Neutrophils 3.5 thou/uL (1.40-6.50); %Basophils 0.3 % (0.0-1.0); %Eosinophils 1.7 % (0.0-10.0); %Lymphocytes 27.5 % (21.0-51.0); %Monocytes 6.9 % (0.0-10.0); %Neutrophils 63.7 % (42.0-75.0); Hemoglobin 14.2 g/dL (14.0-18.0); Mean Corpuscular HGB CONC 33.2 g/dL (32.0-36.0); Mean Corpuscular Hemoglobin 31.4 pg (27.0-31.0); Mean Corpuscular Volume 94.6 fL (78.0-98.0); Mean Platelet Volume 9.9 fL (7.4-10.4); Platelet Count 134 thou/uL (130-400); RBC Distribution Width 11.9 % (11.5-14.5); Red Blood Cell (RBC) Count 4.52 mill/uL (4.70-6.10); White Blood Cell (WBC) Count 5.5 thou/uL (4.8-10.8)
[2020-03-02 04:59] LABS: ALT (SGPT) 14 U/L (8-55); AST (SGOT) 13 U/L (5-34); Albumin 3.7 g/dL (3.5-5.0); Alkaline Phosphatase 82 U/L (40-110); Anion Gap 16 mmol/L (10-20); BUN (Urea Nitrogen) 10 mg/dL (8.9-20.6); Bilirubin, Total 0.3 mg/dL (0.2-1.2); Calc. Creatinine Clearance 174 mL/min (70-130); Calcium 8.7 mg/dL (7.8-10.44); Carbon Dioxide 23 mmol/L (22-29); Chloride 107 mmol/L (98-107); Globulin 2.8 g/dL (2.4-3.5); Glucose 90 mg/dL (70-105); Potassium 4.5 mmol/L (3.5-5.1); Protein, Total 6.5 g/dL (6.0-8.3); Sodium 141 mmol/L (136-145)
[2020-03-02] MEDS: Enoxaparin Sodium 40 MG/0.4 ML SYRINGE SC SCH (08:44)
[2020-03-02] MEDS ORDERED: Enoxaparin Sodium 40 MG/0.4 ML SYRINGE SC SCH (09:00)
[2020-03-02] MEDS ORDERED: FLU VACC QS2020-21(6MOS UP)/PF 60 MCG/0.5 ML SYRINGE IM ONE (09:00)
[2020-03-02] MEDS ORDERED: Lorazepam 2 MG/ML VIAL SLOW IVP PRN (09:07)
[2020-03-02 09:41] LABS: SARS-CoV-2 MS2 Positive; SARS-CoV-2 N Gene Negative; SARS-CoV-2 S Gene Negative; SARS-CoV-2 by NAA Not Detected (NotDetected); SARS-CoV-2 orf1ab Negative
[2020-03-02] MEDS: Diazepam 2 MG TAB PO SCH ×2 (10:08→20:42)
[2020-03-02] MEDS: Thiamine 100 MG TAB PO SCH (10:08)
[2020-03-02] MEDS: Folic Acid/Vit B Comp W-C PO SCH (10:08)
--- NOTE | 2020-03-02 11:36 | PDOC.HOSPP ---
- Subjective Encounter Date: 03/02/20 Encounter Time: 10:30 Subjective: Patient was seen and examined at the bedside. Patient was somewhat coherent and was able to answer my questions. Appeared to be lethargic. Patient reported no complaints. - Objective Vital Signs & Weight: Vital Signs (12 hours) Temp Pulse Resp BP Pulse Ox 03/02/20 07:49 97.3 F L 76 18 109/58 L 98 03/02/20 03:17 98.4 F 89 16 98/55 L 100 03/01/20 23:37 99 Weight Admit Weight 236 lb 9.6 oz Weight 236 lb 9.6 oz I&O: 03/01/20 03/02/20 03/03/20 06:59 06:59 06:59 Intake Total 1200 Output Total 700 Balance 500 Result Diagrams: 03/02/20 03:54 03/02/20 03:54 Additional Labs: Accuchecks 03/02/20 03/02/20 03/02/20 10:58 08:43 05:30 POC Glucose 107 H 98 99 03/02/20 03/02/20 03/01/20 03:52 01:53 23:20 POC Glucose 82 79 78 Hospitalist ROS - Review of Systems Constitutional: denies: fever, chills, weakness Respiratory: denies: cough, dry, shortness of breath, hemoptysis, SOB with excertion, pleuritic pain, sputum, wheezing Cardiovascular: denies: chest pain, palpitations, orthopnea, paroxysmal noc. dyspnea, edema, light headedness Gastrointestinal: denies: nausea, vomiting, abdominal pain, diarrhea, constipation - Medication Medications: Active Medications Generic Name Dose Route Start Last Admin Trade Name Freq PRN Reason Stop Dose Admin Diazepam 2.5 mg 03/02/20 09:00 03/02/20 10:08 Diazepam 2 Mg Tab PO 2.5 mg BID BLAZE Administration Enoxaparin Sodium 40 mg 03/02/20 09:00 03/02/20 08:44 Enoxaparin Sodium 40 Mg/0.4 Ml Syringe SC 40 mg 0900 BLAZE Administration Famotidine 20 mg 03/01/20 21:00 03/02/20 08:44 Famotidine/Pf 20 Mg/2ml Vial SLOW IVP 20 mg Q12HR BLAZE Administration Potassium Chloride/Dextrose/Sod Cl 1,000 mls @ 125 mls/hr 03/01/20 21:00 10:09 D5 Ns W/ 40 Meq Kcl IV 1,000 mls .Q8H BLAZE Administration Thiamine HCl 100 mg 03/02/20 09:00 03/02/20 10:08 Thiamine 100 Mg Tab PO 100 mg DAILY BLAZE Administration Vitamin B Complex/Vit C/Folic Acid 1 tab 03/02/20 09:00 03/02/20 10:08 Folic Acid/Vit B Comp W-C PO 1 tab DAILY BLAZE Administration - Exam General Appearance: awake alert Heart: RRR, no gallops, no rubs, normal peripheral pulses Respiratory: CTAB, no wheezes, no rales, no ronchi, normal chest expansion, no tachypnea, normal percussion Gastrointestinal: soft, non-tender, non-distended, normal bowel sounds, no palpable masses, no hepatomegaly, no splenomegaly, no bruit, no guarding, no rigidity Hosp A/P - Plan [facility] Metabolic cephalopathy -on admission patient had a blood alcohol level of 107 -could be from possible drug overdose given patient's past history of synthetic CBD use -Fall aspiration and seizure precautions -Magnesium to be replaced. -Check folate and B12 and vitamin D level and substitute as needed. Alcohol abuse -Counseling when able Care discussed with the student and agree with the plan.
[2020-03-02 16:48] LABS: Vitamin D, 25 Hydroxy 19.6 ng/ml (> 30.0)
[2020-03-02 16:53] LABS: Thyroid Stimulating Hormone 0.7478 uIU/mL (0.35-4.94)
[2020-03-03] MEDS: D5 NS w/ 40 mEq KCl 1,000 ML IV SCH ×2 (04:45→18:18)
[2020-03-03] MEDS ORDERED: Thiamine 100 MG TAB PO SCH (09:00)
[2020-03-03] MEDS ORDERED: Folic Acid/Vit B Comp W-C PO SCH (09:00)
[2020-03-03] MEDS: Diazepam 2 MG TAB PO SCH ×2 (09:42→20:22)
[2020-03-03] MEDS: Folic Acid/Vit B Comp W-C PO SCH (09:46)
[2020-03-03] MEDS: Thiamine 100 MG TAB PO SCH (09:48)
[2020-03-03] MEDS: Enoxaparin Sodium 40 MG/0.4 ML SYRINGE SC SCH (09:48)
[2020-03-03] MEDS: Famotidine/PF 20 mg/2ml Vial SLOW IVP SCH ×2 (09:49→20:23)
--- NOTE | 2020-03-03 11:32 | PDOC.HOSPP ---
- Subjective Encounter Date: 03/03/20 Encounter Time: 10:00 Subjective: Patient was seen and examined at the beside today. Patient is much more coherent than yesterday. He has no complaints and no overnight events occurred. His left arm looks quite swollen probably due to IV access x2 in the same. He is also getting more IV fluid. Him since he started to have a good p.o. intake will stop his IV fluid. - Objective Vital Signs & Weight: Vital Signs (12 hours) Temp Pulse Resp BP Pulse Ox 03/03/20 08:00 100 03/03/20 07:19 98.2 F 74 18 123/71 100 03/03/20 03:08 98.7 F 72 18 127/69 97 Weight Admit Weight 236 lb 9.6 oz Weight 236 lb 9.6 oz I&O: 03/02/20 03/03/20 03/04/20 06:59 06:59 06:59 Intake Total 1200 1290 Output Total 700 1475 Balance 500 -185 Result Diagrams: 03/02/20 03:54 03/02/20 03:54 Additional Labs: Accuchecks 03/03/20 03/03/20 03/02/20 10:39 05:45 20:41 POC Glucose 160 H 171 H 88 03/02/20 03/02/20 17:08 13:40 POC Glucose 87 100 Hospitalist ROS - Review of Systems Constitutional: denies: fever, chills Respiratory: denies: cough, dry, shortness of breath, hemoptysis, SOB with excertion, pleuritic pain, sputum, wheezing Cardiovascular: denies: chest pain, palpitations, orthopnea, paroxysmal noc. dyspnea, edema Gastrointestinal: denies: nausea, vomiting, abdominal pain, diarrhea - Medication Medications: Active Medications Generic Name Dose Route Start Last Admin Trade Name Freq PRN Reason Stop Dose Admin Diazepam 2.5 mg 03/02/20 09:00 03/03/20 09:42 Diazepam 2 Mg Tab PO 2.5 mg BID BLAZE Administration Enoxaparin Sodium 40 mg 03/02/20 09:00 03/03/20 09:48 Enoxaparin Sodium 40 Mg/0.4 Ml Syringe SC 40 mg 0900 BLAZE Administration Famotidine 20 mg 03/01/20 21:00 03/03/20 09:49 Famotidine/Pf 20 Mg/2ml Vial SLOW IVP 20 mg Q12HR BLAZE Administration Potassium Chloride/Dextrose/Sod Cl 1,000 mls @ 125 mls/hr 03/01/20 21:00 03/03/20 04:45 D5 Ns W/ 40 Meq Kcl IV 1,000 mls .Q8H BLAZE Administration Thiamine HCl 100 mg 03/02/20 09:00 03/03/20 09:48 Thiamine 100 Mg Tab PO 100 mg DAILY BLAZE Administration Vitamin B Complex/Vit C/Folic Acid 1 tab 03/02/20 09:00 03/03/20 09:46 Folic Acid/Vit B Comp W-C PO 1 tab DAILY BLAZE Administration - Exam General Appearance: awake alert Heart: RRR, no murmur, no gallops, no rubs, normal peripheral pulses Respiratory: CTAB, no wheezes, no rales, no ronchi, normal chest expansion, no tachypnea, normal percussion Gastrointestinal: soft, non-tender, non-distended, normal bowel sounds, no palpable masses, no hepatomegaly, no splenomegaly, no bruit, no guarding, no rigidity Extremities: no edema Extremities - other findings: Left arm swollen probably due to to IV access in the same arm. Neurological: no focal deficits Psychiatric: A&O x 3 Hosp A/P - Plan [facility] Metabolic cephalopathy -on admission patient had a blood alcohol level of 107 -could be from possible drug overdose given patient's past history of synthetic CBD use -Fall aspiration and seizure precautions -Magnesium to be replaced. -Check folate and B12 and vitamin D level and substitute as needed. Alcohol abuse -Counseling when able Care discussed with the student and agree with the plan. Metabolic encephalopathy -currently stable -no electrolyte abnormalities noted folate and B12 and TSH normal range vitamin D deficiency -Supplement started Regular diet Alcohol abuse -Counseling when able Physical therapy consult -If continued improvement he can be discharged home tomorrow. I discussed with the student and agree with the above management.
[2020-03-04] MEDS: Enoxaparin Sodium 40 MG/0.4 ML SYRINGE SC SCH (10:31)
[2020-03-04] MEDS: Famotidine/PF 20 mg/2ml Vial SLOW IVP SCH ×2 (10:31→20:24)
[2020-03-04] MEDS: Folic Acid/Vit B Comp W-C PO SCH (10:31)
[2020-03-04] MEDS: Thiamine 100 MG TAB PO SCH (10:32)
[2020-03-04] MEDS: Cholecalciferol 1,000 UNITS (25 MCG) TAB PO SCH (10:32)
[2020-03-04] MEDS: Diazepam 2 MG TAB PO SCH (10:54)
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
--- NOTE | 2020-03-04 15:34 | EKG ---
Test Reason : Blood Pressure : / mmHG Vent. Rate : 089 BPM Atrial Rate : 089 BPM P-R Int : 176 ms QRS Dur : 098 ms QT Int : 392 ms P-R-T Axes : 041 -14 033 degrees QTc Int : 476 ms Normal sinus rhythm Early repolarization Normal ECG Doubt ST elevation-MO Confirmed by JOSE LUIS BO, NIR Humphrey ([id number]), editor managing newspaper YANCI REYES ([id number]) on 03/04/2020 3:34:30 PM Referred By: Confirmed By:NIR AMAYA MD
[2020-03-04] MEDS: Acetaminophen 325 MG TAB PO PRN (20:22)
--- NOTE | 2020-03-04 20:34 | RAD ---
Portable frontal chest radiograph: 03/04/2020 COMPARISON: 02/28/2020 HISTORY: Evaluate for lung infection FINDINGS: Heart and mediastinal contours are stable. Nonspecific mild linear density noted in the per ihilar regions and both lung bases. No pneumothorax. No lobar consolidation or alveolar edema. Linear perihilar and bibasilar densities noted on the prior examination are less conspicuous on this examination. There is marked widening of the right acromioclavicular and coracoclavicular interspace consistent wi th a grade 3 AC joint injury. IMPRESSION: Evidence of grade 3 AC joint injury. Orthopedic consultation advised. No focal consolidat ion or alveolar edema.
[2020-03-04 22:51] LABS: Bacteria/HPF 4+ HPF (None Seen); Bilirubin Negative (Negative); Blood, Urine Negative (Negative); Clarity Clear (Clear); Glucose, Urine (Dipstick) Normal (Negative); Ketone, Urine Negative (Negative); Leukocyte Negative Leu/uL (Negative); Nitrite Negative (Negative); Protein, Urine (Dipstick) Negative (Neg-Trace); RBC/HPF None Seen HPF (0-3); Specific Gravity, Urine 1.021 (1.002-1.036); Squamous Epithelial 0-3 HPF (0-3); WBC/HPF 0-3 HPF (0-3)
[2020-03-04] MEDS ORDERED: Sodium Chloride 0.9% 1,000 ML IV SCH (23:30)
[2020-03-04] MEDS ORDERED: Ibuprofen 100 MG/5 ML UDCUP PO SCH (23:45)
[2020-03-04 23:56] LABS: Hemoglobin 14.7 g/dL (14.0-18.0); Mean Corpuscular HGB CONC 33.1 g/dL (32.0-36.0); Mean Corpuscular Hemoglobin 30.7 pg (27.0-31.0); Mean Corpuscular Volume 92.6 fL (78.0-98.0); Red Blood Cell (RBC) Count 4.79 mill/uL (4.70-6.10); White Blood Cell (WBC) Count 13.2 thou/uL (4.8-10.8)
[2020-03-04 23:57] LABS: Lactic Acid 2.2 mmol/L (0.5-2.2)
[2020-03-05 00:03] LABS: ALT (SGPT) 31 U/L (8-55); AST (SGOT) 23 U/L (5-34); Albumin 4.1 g/dL (3.5-5.0); Alkaline Phosphatase 97 U/L (40-110); Anion Gap 17 mmol/L (10-20); BUN (Urea Nitrogen) 13 mg/dL (8.9-20.6); Bilirubin, Total 0.4 mg/dL (0.2-1.2); Calc. Creatinine Clearance 122 mL/min (70-130); Carbon Dioxide 22 mmol/L (22-29); Chloride 97 mmol/L (98-107); Globulin 3.2 g/dL (2.4-3.5); Glucose 155 mg/dL (70-105); Lipase 41 U/L (8-78); Protein, Total 7.3 g/dL (6.0-8.3); Sodium 132 mmol/L (136-145)
[2020-03-05 00:04] LABS: Band 23 % (5-11); Large Platelets SLIGHT; Lymphocytes 3 % (21-51); MDiff Complete? YES; Mean Platelet Volume 9.8 fL (7.4-10.4); Monocytes 3 % (0-10); Neutrophil 71 % (42-75); Platelet Count 122 thou/uL (130-400); Platelet Morphology Comment Appears Adequate
[2020-03-05] MEDS: Piperacillin/Tazobactam 4.5 GM in Sodium Chloride 0.9% 100 ML IVPB SCH ×4 (00:51→20:56)
--- NOTE | 2020-03-05 01:04 | PDOC.EVN ---
Event Note - Event Note Event Note: Patient with Temp of 103.3, despite tylenol given for Temp of 100.1 earlier in the evening. UA done and unremarkable. CXR did not show any definite source for infection. Labs done and show WCC 14.2, bands 23, lactic acid 2.2. Blood cultures done. Will start broad spectrum coverage with Zosyn while results pending. No clear source for infection at present. Ibuprofen ordered for temp to be alternated with Tylenol. Will start IV fluids. Tachycardic, will obtain EKG. CTA Chest.
[2020-03-05] MEDS ORDERED: Diazepam 5 MG TAB PO PRN (01:11)
[2020-03-05] MEDS ORDERED: Diazepam 5 MG TAB PO SCH (01:15)
[2020-03-05] MEDS ORDERED: Thiamine HCl 200 MG/2 ML VIAL IM SCH (01:15)
[2020-03-05] MEDS: Acetaminophen 325 MG TAB PO PRN ×2 (01:34→05:38)
[2020-03-05] MEDS: Multivitamin W/ Minerals 1 TAB PO SCH (08:24)
[2020-03-05] MEDS: Folic Acid/Vit B Comp W-C PO SCH (08:24)
[2020-03-05] MEDS: Famotidine/PF 20 mg/2ml Vial SLOW IVP SCH ×2 (08:24→20:55)
[2020-03-05] MEDS: Thiamine 100 MG TAB PO SCH (08:24)
[2020-03-05] MEDS: Folic Acid 1 MG TAB PO SCH (08:24)
[2020-03-05] MEDS: Cholecalciferol 1,000 UNITS (25 MCG) TAB PO SCH (08:25)
[2020-03-05] MEDS: Enoxaparin Sodium 40 MG/0.4 ML SYRINGE SC SCH (08:35)
--- NOTE | 2020-03-05 08:40 | PDOC.HOSPP ---
- Subjective Encounter Date: 03/05/20 Encounter Time: 08:38 Subjective: F/u: fever The patient was febrile overnight to 103. Blood cultures pending, UA negative, chest Xray unremarkable. The patient denies cough, shortness of berath, abdominal pain, nausea, vomiting , diarrhea He is no longer shaking Discussed with patient that after dc, parents do not want him to come home. The patient is not wanting to go to rehab - Objective Vital Signs & Weight: Vital Signs (12 hours) Temp Pulse Resp BP BP Pulse Ox 03/05/20 07:30 98.8 F 101 H 16 100/50 L 95 03/05/20 03:10 100 F H 109 H 20 139/60 139/60 95 03/05/20 00:45 101 F H 03/04/20 23:42 103.1 F H 03/04/20 23:10 103.1 F H 160 H 32 H 130/60 130/60 94 L Weight Admit Weight 236 lb 9.6 oz Weight 231 lb 9.6 oz I&O: 03/04/20 03/05/20 03/06/20 06:59 06:59 06:59 Intake Total 2238 2660 Output Total 1999 1550 Balance 238 1110 Result Diagrams: 03/04/20 23:32 03/04/20 23:32 Additional Labs: Accuchecks 03/04/20 03/04/20 18:08 10:41 POC Glucose 156 H 130 H Hospitalist ROS - Review of Systems Constitutional: denies: fever, chills - Medication Medications: Active Medications Generic Name Dose Route Start Last Admin Trade Name Nakita PRN Reason Stop Dose Admin Acetaminophen 650 mg 03/04/20 20:01 03/05/20 05:38 Acetaminophen 325 Mg Tab PO 650 mg Q4H PRN Administration Fever or Pain Cholecalciferol 2,000 units 03/04/20 09:00 03/05/20 08:25 Cholecalciferol 1,000 Units (25 Mcg) Tab PO 2,000 units DAILY BLAZE Administration Enoxaparin Sodium 40 mg 03/02/20 09:00 03/04/20 10:31 Enoxaparin Sodium 40 Mg/0.4 Ml Syringe SC 40 mg 0900 BLAZE Administration Famotidine 20 mg 03/01/20 21:00 03/05/20 08:24 Famotidine/Pf 20 Mg/2ml Vial SLOW IVP 20 mg Q12HR BLAZE Administration Folic Acid 1 mg 03/05/20 09:00 03/05/20 08:24 Folic Acid 1 Mg Tab PO 1 mg DAILY BLAZE Administration Piperacillin Sod/Tazobactam 100 mls @ 200 mls/hr 03/05/20 02:00 03/05/20 08:23 Sod 4.5 gm/ Sodium Chloride IVPB 100 mls 0200,0800,1400,2000 BLAZE Administration Iron/Minerals/Multivitamins 1 tab 03/05/20 09:00 03/05/20 08:24 Multivitamin W/ Minerals 1 Tab PO 1 tab DAILY BLAZE Administration Thiamine HCl 100 mg 03/02/20 09:00 03/05/20 08:24 Thiamine 100 Mg Tab PO 100 mg DAILY BLAZE Administration Vitamin B Complex/Vit C/Folic Acid 1 tab 03/02/20 09:00 03/05/20 08:24 Folic Acid/Vit B Comp W-C PO 1 tab DAILY BLAZE Administration - Exam General Appearance: NAD, awake alert Eye: PERRL, anicteric sclera ENT: normocephalic atraumatic, no oropharyngeal lesions Neck: no JVD Heart: RRR, no murmur, no gallops, no rubs Respiratory: CTAB, no wheezes, no rales, no ronchi Gastrointestinal: soft, non-tender, non-distended, normal bowel sounds Extremities: no cyanosis, no clubbing, no edema Extremities - other findings: patient's arms raised above ihs head, no shoulder tenderness Skin: normal turgor, no lesions, no rashes Neurological: cranial nerve grossly intact, normal sensation to touch Musculoskeletal: normal tone, normal strength, no muscle wasting Psychiatric: A&O x 3 Hosp A/P - Plan Chest X ray: bibasilar densities less conspicuous This is a 39 year old male who presented with encephalopathy, found to be hypotensive, hypoglycemia, hypocalcemic, hypokalemic, and with alcoholic intoxication. He was originally admitted to [facility]. He was transferred to telemetry SIRS- unclear etiology - patient spiked temp to 103 overnight. Started on empiric zosyn, f/u blood cultures. UA negative - will repeat COVID swab Grade 3 AC joint injury - noted on chest X ray denies arm pain currently and has good range of motion, but will place ortho consult Acute metabolic encephalopathy - resolving - secondary to multiple electrolyte disturbances - he is oriented times three currently - B12/folate and TSH are normal Alcohol abuse with possible withdrawal - continue ASE protocol - he got benzo last night Vitamin D deficiency - continue supplementation Physical deconditioning - PT evaluated the patient and recommended a walker Developmental disability - patient's family is unable to take care of the patient - will place case management consult for [facility] placement Dispo: case management consult for [facility] placement
--- NOTE | 2020-03-05 13:54 | CON ---
DATE OF CONSULTATION: 03/05/2020 HISTORY OF PRESENT ILLNESS: The patient is a 39-year-old right-handed male, who was admitted 4 days ago for acute encephalopathy, drug overdose, hypoglycemia, hypocalcemia, hypokalemia, volume depletion that has been corrected over the last several days. The patient had a chest x-ray performed yesterday which showed the radiologist recognized grade 3 acromioclavicular separation on the right shoulder and recommended orthopedic consultation. The patient is somewhat poor historian, but reports that he has no pain in the right shoulder. He cannot tell me how long he has had this problem, but it has been for quite some time. It is not acute. PHYSICAL EXAMINATION: The distal aspect of the right clavicle is easily palpable and is seen under the skin, but is not tenting the skin. The skin is in good condition. The patient is able to fully elevate the right shoulder actively without pain. He is nontender over the acromioclavicular region. IMPRESSION: Chronic grade 3 acromioclavicular separation. PLAN: I would not recommend any surgery for this patient. He is asymptomatic with it. He is functioning quite well with the shoulder and no followup is needed. Job ID: [id number]
[2020-03-05 18:43] LABS: SARS-CoV-2 MS2 Positive; SARS-CoV-2 N Gene Negative; SARS-CoV-2 S Gene Negative; SARS-CoV-2 by NAA Not Detected (NotDetected); SARS-CoV-2 orf1ab Negative
[2020-03-06] MEDS: Piperacillin/Tazobactam 4.5 GM in Sodium Chloride 0.9% 100 ML IVPB SCH ×4 (02:25→21:09)
[2020-03-06] MEDS ORDERED: Diazepam 5 MG TAB PO PRN (04:00)
[2020-03-06 04:49] LABS: Hemoglobin 13.6 g/dL (14.0-18.0); Mean Corpuscular HGB CONC 31.2 g/dL (32.0-36.0); Mean Corpuscular Hemoglobin 29.1 pg (27.0-31.0); Mean Corpuscular Volume 93.2 fL (78.0-98.0); Mean Platelet Volume 10.1 fL (7.4-10.4); Platelet Count 112 thou/uL (130-400); RBC Distribution Width 11.9 % (11.5-14.5); Red Blood Cell (RBC) Count 4.69 mill/uL (4.70-6.10); White Blood Cell (WBC) Count 6.5 thou/uL (4.8-10.8)
[2020-03-06 05:08] LABS: ALT (SGPT) 44 U/L (8-55); AST (SGOT) 40 U/L (5-34); Albumin 3.7 g/dL (3.5-5.0); Alkaline Phosphatase 111 U/L (40-110); Anion Gap 16 mmol/L (10-20); BUN (Urea Nitrogen) 13 mg/dL (8.9-20.6); Bilirubin, Total 0.3 mg/dL (0.2-1.2); Calc. Creatinine Clearance 118 mL/min (70-130); Calcium 8.5 mg/dL (7.8-10.44); Carbon Dioxide 21 mmol/L (22-29); Chloride 103 mmol/L (98-107); Globulin 3.3 g/dL (2.4-3.5); Glucose 181 mg/dL (70-105); Potassium 4.1 mmol/L (3.5-5.1); Sodium 136 mmol/L (136-145)
[2020-03-06] MEDS: Famotidine/PF 20 mg/2ml Vial SLOW IVP SCH ×2 (08:23→21:09)
[2020-03-06] MEDS: Folic Acid 1 MG TAB PO SCH (08:24)
[2020-03-06] MEDS: Magnesium Oxide 400 MG TAB PO SCH (08:24)
[2020-03-06] MEDS: Folic Acid/Vit B Comp W-C PO SCH (08:24)
[2020-03-06] MEDS: Multivitamin W/ Minerals 1 TAB PO SCH (08:24)
[2020-03-06] MEDS: Thiamine 100 MG TAB PO SCH (08:24)
[2020-03-06] MEDS: Cholecalciferol 1,000 UNITS (25 MCG) TAB PO SCH (08:25)
[2020-03-06] MEDS ORDERED: Thiamine 100 MG TAB PO SCH (09:00)
[2020-03-06] MEDS: Enoxaparin Sodium 40 MG/0.4 ML SYRINGE SC SCH (09:03)
--- NOTE | 2020-03-06 17:55 | PDOC.HOSPP ---
- Subjective Encounter Date: 03/06/20 Encounter Time: 11:45 Subjective: F/u: sepsis The patient is sitting in bed with no complaints. He denies tremors, hallucinations, chest pain, dysuria, cough, shortness of breath. I met with the patient's mother today and she is still wanting him to go to a prison. She states she just got [employer] insurance. I advised her to go to financial services to have her insurance card uploaded so we can expedite placement. The patient states he does not want to go to a prison. I advised the patient to convince her son to be on the same page. - Objective Vital Signs & Weight: Vital Signs (12 hours) Temp Pulse Pulse Pulse Resp BP BP 03/06/20 15:39 98.3 F 89 14 03/06/20 13:18 91 86 135/79 122/62 03/06/20 12:48 98.5 F 92 15 03/06/20 07:16 98.7 F 103 H 16 BP BP BP BP Pulse Ox Pulse Ox Pulse Ox 03/06/20 15:39 111/62 96 03/06/20 13:18 99 98 03/06/20 12:48 118/77 124/80 129/87 97 03/06/20 07:16 116/66 93 L Weight Admit Weight 236 lb 9.6 oz Weight 237 lb I&O: 03/05/20 03/06/20 03/07/20 06:59 06:59 06:59 Intake Total 2660 1880 640 Output Total 1550 850 600 Balance 1110 1030 40 Result Diagrams: 03/06/20 03:55 03/06/20 03:55 Hospitalist ROS - Review of Systems Constitutional: denies: fever, chills - Medication Medications: Active Medications Generic Name Dose Route Start Last Admin Trade Name Freq PRN Reason Stop Dose Admin Acetaminophen 650 mg 03/04/20 20:01 03/05/20 05:38 Acetaminophen 325 Mg Tab PO 650 mg Q4H PRN Administration Fever or Pain Cholecalciferol 2,000 units 03/04/20 09:00 03/06/20 08:25 Cholecalciferol 1,000 Units (25 Mcg) Tab PO 2,000 units DAILY BLAZE Administration Enoxaparin Sodium 40 mg 03/02/20 09:00 03/06/20 09:03 Enoxaparin Sodium 40 Mg/0.4 Ml Syringe SC Not Given 0900 PENDING SALE TO [facility] Famotidine 20 mg 03/01/20 21:00 03/06/20 08:23 Famotidine/Pf 20 Mg/2ml Vial SLOW IVP 20 mg Q12HR BLAZE Administration Folic Acid 1 mg 03/05/20 09:00 03/06/20 08:24 Folic Acid 1 Mg Tab PO 1 mg DAILY BLAZE Administration Piperacillin Sod/Tazobactam 100 mls @ 200 mls/hr 03/05/20 02:00 03/06/20 15:33 Sod 4.5 gm/ Sodium Chloride IVPB 100 mls 0200,0800,1400,2000 BLAZE Administration Iron/Minerals/Multivitamins 1 tab 03/05/20 09:00 03/06/20 08:24 Multivitamin W/ Minerals 1 Tab PO 1 tab DAILY BLAZE Administration Magnesium Oxide 400 mg 03/06/20 09:00 03/06/20 08:24 Magnesium Oxide 400 Mg Tab PO 400 mg DAILY BLAZE Administration Thiamine HCl 100 mg 03/02/20 09:00 03/06/20 08:24 Thiamine 100 Mg Tab PO 100 mg DAILY BLAZE Administration Vitamin B Complex/Vit C/Folic Acid 1 tab 03/02/20 09:00 03/06/20 08:24 Folic Acid/Vit B Comp W-C PO 1 tab DAILY BLAZE Administration - Exam General Appearance: NAD, awake alert Eye: PERRL, anicteric sclera ENT: normocephalic atraumatic, no oropharyngeal lesions Neck: no JVD Heart: RRR, no murmur, no gallops, no rubs Respiratory: CTAB, no wheezes, no rales, no ronchi Gastrointestinal: soft, non-tender, non-distended, normal bowel sounds Extremities: no cyanosis, no clubbing, no edema Skin: normal turgor, no lesions, no rashes Neurological: cranial nerve grossly intact, normal sensation to touch, no weakness Musculoskeletal: normal tone, normal strength, no muscle wasting Musculoskeletal - other findings: no arm tremors on extension Psychiatric: normal affect, oriented to person Hosp A/P - Plan Chest X ray: bibasilar densities less conspicuous This is a 39 year old male who presented with encephalopathy, found to be hypotensive, hypoglycemia, hypocalcemic, hypokalemic, and with alcoholic intoxication. He was originally admitted to [facility]. He was transferred to telemetry Sepsis secondary to Klebsiella pneumonia - continue IV zosyn pending blood cultures and sensitivities. Repeat UA negative - two COVID swabs are negative Grade 3 AC joint injury - noted on chest X ray denies arm pain currently and has good range of motion. Ortho consulted, no intervention Acute metabolic encephalopathy - resolving - secondary to multiple electrolyte disturbances - he is oriented times three currently - B12/folate and TSH are normal Alcohol abuse with possible withdrawal - continue ASE protocol - he got benzo last night Vitamin D deficiency - continue supplementation Physical deconditioning - PT evaluated the patient and recommended a walker Developmental disability - patient's family is unable to take care of the patient - will place case management consult for prison placement Dispo: transfer to medical , will need placement
[2020-03-07] MEDS: Piperacillin/Tazobactam 4.5 GM in Sodium Chloride 0.9% 100 ML IVPB SCH ×4 (01:39→20:11)
[2020-03-07] MEDS: Magnesium Oxide 400 MG TAB PO SCH (08:25)
[2020-03-07] MEDS: Multivitamin W/ Minerals 1 TAB PO SCH (08:25)
[2020-03-07] MEDS: Thiamine 100 MG TAB PO SCH (08:25)
[2020-03-07] MEDS: Cholecalciferol 1,000 UNITS (25 MCG) TAB PO SCH (08:25)
[2020-03-07] MEDS: Folic Acid 1 MG TAB PO SCH (08:25)
[2020-03-07] MEDS: Folic Acid/Vit B Comp W-C PO SCH (08:25)
[2020-03-07] MEDS: Enoxaparin Sodium 40 MG/0.4 ML SYRINGE SC SCH (08:26)
[2020-03-07] MEDS: Famotidine/PF 20 mg/2ml Vial SLOW IVP SCH ×2 (08:51→20:11)
--- NOTE | 2020-03-07 17:34 | PDOC.HOSPP ---
- Subjective Encounter Date: 03/07/20 Encounter Time: 09:00 Subjective: F/u: sepsis Patient is afebrile. He denies any cough, shortness of breath, abdominal pain, nausea vomiting or dysuria. Patient is currently pending placement. Patient's insurance card was not verified appropriately therefore unable to place referrals for placement. Patient does not want to go to a alf, however his parents are not able to take care of him - Objective Vital Signs & Weight: Vital Signs (12 hours) Temp Pulse Resp BP BP Pulse Ox 03/07/20 12:00 97.9 F 88 18 114/73 95 03/07/20 08:00 96 03/07/20 07:34 98.2 F 82 20 105/68 96 Weight Admit Weight 236 lb 9.6 oz Weight 232 lb 3.2 oz I&O: 03/06/20 03/07/20 03/08/20 06:59 06:59 06:59 Intake Total 1880 1520 Output Total 850 1500 Balance 1030 20 Result Diagrams: 03/06/20 03:55 03/06/20 03:55 Hospitalist ROS - Review of Systems Constitutional: denies: fever, chills - Medication Medications: Active Medications Generic Name Dose Route Start Last Admin Trade Name Freq PRN Reason Stop Dose Admin Acetaminophen 650 mg 03/04/20 20:01 03/05/20 05:38 Acetaminophen 325 Mg Tab PO 650 mg Q4H PRN Administration Fever or Pain Cholecalciferol 2,000 units 03/04/20 09:00 03/07/20 08:25 Cholecalciferol 1,000 Units (25 Mcg) Tab PO 2,000 units DAILY BLAZE Administration Enoxaparin Sodium 40 mg 03/02/20 09:00 03/07/20 08:26 Enoxaparin Sodium 40 Mg/0.4 Ml Syringe SC Not Given 09 BLAZE Famotidine 20 mg 03/01/20 21:00 03/07/20 08:51 Famotidine/Pf 20 Mg/2ml Vial SLOW IVP 20 mg Q12HR BLAZE Administration Folic Acid 1 mg 03/05/20 09:00 03/07/20 08:25 Folic Acid 1 Mg Tab PO 1 mg DAILY BLAZE Administration Piperacillin Sod/Tazobactam 100 mls @ 200 mls/hr 03/05/20 02:00 03/07/20 14:18 Sod 4.5 gm/ Sodium Chloride IVPB 100 mls 0200,0800,1400,2000 BLAZE Administration Iron/Minerals/Multivitamins 1 tab 03/05/20 09:00 03/07/20 08:25 Multivitamin W/ Minerals 1 Tab PO 1 tab DAILY BLAZE Administration Magnesium Oxide 400 mg 03/06/20 09:00 03/07/20 08:25 Magnesium Oxide 400 Mg Tab PO 400 mg DAILY BLAZE Administration Thiamine HCl 100 mg 03/02/20 09:00 03/07/20 08:25 Thiamine 100 Mg Tab PO 100 mg DAILY BLAZE Administration Vitamin B Complex/Vit C/Folic Acid 1 tab 03/02/20 09:00 03/07/20 08:25 Folic Acid/Vit B Comp W-C PO 1 tab DAILY BLAZE Administration - Exam General Appearance: NAD, awake alert Eye: PERRL, anicteric sclera ENT: normocephalic atraumatic, no oropharyngeal lesions Neck: no JVD Heart: RRR, no murmur, no gallops, no rubs Respiratory: CTAB, no wheezes, no rales, no ronchi Gastrointestinal: soft, non-tender, non-distended, normal bowel sounds Extremities: no cyanosis, no clubbing, no edema Skin: normal turgor, no lesions, no rashes Neurological: cranial nerve grossly intact, normal sensation to touch, no weakness Hosp A/P - Plan Chest X ray: bibasilar densities less conspicuous This is a 39 year old male who presented with encephalopathy, found to be hypotensive, hypoglycemia, hypocalcemic, hypokalemic, and with alcoholic intoxication. He was originally admitted to [facility]. He was transferred to telemetry Sepsis secondary to Klebsiella pneumonia - continue IV zosyn pending blood cultures and sensitivities. Repeat UA negative - two COVID swabs are negative Grade 3 AC joint injury - noted on chest X ray denies arm pain currently and has good range of motion. Ortho consulted, no intervention Acute metabolic encephalopathy - resolving - secondary to multiple electrolyte disturbances - he is oriented times three currently - B12/folate and TSH are normal Alcohol abuse with possible withdrawal - continue ASE protocol - he got benzo last night Vitamin D deficiency - continue supplementation Physical deconditioning - PT evaluated the patient and recommended a walker Developmental disability - patient's family is unable to take care of the patient -case management consult for alf placement Dispo: Pending placement and blood culture sensitivities
[2020-03-08] MEDS: Piperacillin/Tazobactam 4.5 GM in Sodium Chloride 0.9% 100 ML IVPB SCH ×2 (01:24→08:33)
[2020-03-08 07:39] LABS: Hemoglobin 14.5 g/dL (14.0-18.0); Mean Corpuscular HGB CONC 32.9 g/dL (32.0-36.0); Mean Corpuscular Hemoglobin 31.1 pg (27.0-31.0); Mean Corpuscular Volume 94.5 fL (78.0-98.0); Mean Platelet Volume 9.7 fL (7.4-10.4); Platelet Count 149 thou/uL (130-400); RBC Distribution Width 12.1 % (11.5-14.5); Red Blood Cell (RBC) Count 4.68 mill/uL (4.70-6.10)
[2020-03-08] MEDS: Cholecalciferol 1,000 UNITS (25 MCG) TAB PO SCH (08:47)
[2020-03-08] MEDS: Enoxaparin Sodium 40 MG/0.4 ML SYRINGE SC SCH (08:48)
[2020-03-08] MEDS: Magnesium Oxide 400 MG TAB PO SCH (08:48)
[2020-03-08] MEDS: Folic Acid/Vit B Comp W-C PO SCH (08:48)
[2020-03-08] MEDS: Thiamine 100 MG TAB PO SCH (08:49)
[2020-03-08] MEDS: Folic Acid 1 MG TAB PO SCH (08:49)
[2020-03-08] MEDS: Multivitamin W/ Minerals 1 TAB PO SCH (08:49)
[2020-03-08] MEDS: Famotidine/PF 20 mg/2ml Vial SLOW IVP SCH ×2 (08:51→20:06)
--- NOTE | 2020-03-08 09:19 | EKG ---
Test Reason : Blood Pressure : / mmHG Vent. Rate : 112 BPM Atrial Rate : 112 BPM P-R Int : 154 ms QRS Dur : 080 ms QT Int : 314 ms P-R-T Axes : 055 -25 055 degrees QTc Int : 428 ms Sinus tachycardia Otherwise normal ECG When compared with ECG of 04-MAR-2020 17:33, (Unconfirmed) No significant change was found Confirmed by RICCI TOLEDO MD ([id number]) on 03/08/2020 9:18:57 AM Referred By: PINKY Confirmed By:RICCI TOLEDO MD
--- NOTE | 2020-03-08 09:19 | EKG ---
Test Reason : Blood Pressure : / mmHG Vent. Rate : 116 BPM Atrial Rate : 116 BPM P-R Int : 160 ms QRS Dur : 074 ms QT Int : 308 ms P-R-T Axes : 064 -46 072 degrees QTc Int : 428 ms Sinus tachycardia Left axis deviation Abnormal ECG Confirmed by RICCI TOLEDO MD ([id number]) on 03/08/2020 9:18:37 AM Referred By: PINKY Confirmed By:RICCI TOLEDO MD
--- NOTE | 2020-03-08 16:46 | PDOC.HOSPP ---
- Subjective Encounter Date: 03/08/20 Encounter Time: 09:00 Subjective: F/u: sepsis The patient has been afebrile. Blood culture sensitivities have resulted . He denies abdominal pain, fevers, chills, dysuria The patient has no complaints. He is oriented times three. Per case management, the patient doesn't qualify for senior care or rehab because he does not have a skilled need. Family refuses to take him home because of his impulsivity, agitation and danger to himself. [facility] has been consulted and are planning on sending a referral to [facility] - Objective Vital Signs & Weight: Vital Signs (12 hours) Temp Pulse Resp BP Pulse Ox 03/08/20 08:00 98.2 F 95 18 131/78 95 Weight Admit Weight 236 lb 9.6 oz Weight 232 lb 3.2 oz I&O: 03/07/20 03/08/20 03/09/20 06:59 06:59 06:59 Intake Total 1520 1320 720 Output Total 1500 3450 Balance 20 -2130 720 Result Diagrams: 03/08/20 07:08 03/06/20 03:55 Additional Labs: Accuchecks 03/07/20 19:28 POC Glucose 149 H Hospitalist ROS - Review of Systems Constitutional: denies: fever, chills - Medication Medications: Active Medications Generic Name Dose Route Start Last Admin Trade Name Freq PRN Reason Stop Dose Admin Acetaminophen 650 mg 03/04/20 20:01 03/05/20 05:38 Acetaminophen 325 Mg Tab PO 650 mg Q4H PRN Administration Fever or Pain Cholecalciferol 2,000 units 03/04/20 09:00 03/08/20 08:47 Cholecalciferol 1,000 Units (25 Mcg) Tab PO 2,000 units DAILY BLAZE Administration Enoxaparin Sodium 40 mg 03/02/20 09:00 03/08/20 08:48 Enoxaparin Sodium 40 Mg/0.4 Ml Syringe SC 40 mg 0900 BLAZE Administration Famotidine 20 mg 03/01/20 21:00 03/08/20 08:51 Famotidine/Pf 20 Mg/2ml Vial SLOW IVP 20 mg Q12HR BLAZE Administration Folic Acid 1 mg 03/05/20 09:00 03/08/20 08:49 Folic Acid 1 Mg Tab PO 1 mg DAILY BLAZE Administration Iron/Minerals/Multivitamins 1 tab 03/05/20 09:00 03/08/20 08:49 Multivitamin W/ Minerals 1 Tab PO 1 tab DAILY BLAZE Administration Magnesium Oxide 400 mg 03/06/20 09:00 03/08/20 08:48 Magnesium Oxide 400 Mg Tab PO 400 mg DAILY BLAZE Administration Thiamine HCl 100 mg 03/02/20 09:00 03/08/20 08:49 Thiamine 100 Mg Tab PO 100 mg DAILY BLAZE Administration Vitamin B Complex/Vit C/Folic Acid 1 tab 03/02/20 09:00 03/08/20 08:48 Folic Acid/Vit B Comp W-C PO 1 tab DAILY BLAZE Administration - Exam General Appearance: NAD, awake alert Eye: anicteric sclera ENT: normocephalic atraumatic, no oropharyngeal lesions Neck: no JVD Heart: RRR, no murmur, no gallops, no rubs Respiratory: CTAB, no wheezes, no rales, no ronchi Gastrointestinal: soft, non-tender, non-distended, normal bowel sounds Extremities: no cyanosis, no clubbing, no edema Skin: no lesions, no rashes Hosp A/P - Plan Chest X ray: bibasilar densities less conspicuous This is a 39 year old male who presented with encephalopathy, found to be hypotensive, hypoglycemia, hypocalcemic, hypokalemic, and with alcoholic intoxication. He was originally admitted to [facility]. He was transferred to [facility]. He developed sepsis on 03/05 and was started on IV zosyn. Heart rate has stabiliazed and he is now transferred to medical. He is pending placement. Sepsis secondary to Klebsiella pneumonia - patient had fever, tachycardia, blood cultures positive for Klebsiella. Repeat blood cultures negative. Two COVID swabs negative - Patient will be switched to oral levaquin today since blood culture sensitivities have resulted. He will need 11 more days of antibiotics. Grade 3 AC joint injury - noted on chest X ray denies arm pain currently and has good range of motion. Ortho consulted, no intervention Acute metabolic encephalopathy - resolved - secondary to multiple electrolyte disturbances - he is oriented times three currently - B12/folate and TSH are normal Developmental disability - patient's family is unable to take care of the patient. He does not qualify for senior care - [facility] consulted, they will look into sending him to [facility] Alcohol abuse - continue ASE protocol. Does not appear to be withdrawing any longer Vitamin D deficiency - continue supplementation Physical deconditioning - PT evaluated the patient and recommended a walker Dispo: pending referral to [facility] for placement
[2020-03-09] MEDS: Thiamine 100 MG TAB PO SCH (08:37)
[2020-03-09] MEDS: Multivitamin W/ Minerals 1 TAB PO SCH (08:37)
[2020-03-09] MEDS: Folic Acid 1 MG TAB PO SCH (08:37)
[2020-03-09] MEDS: Folic Acid/Vit B Comp W-C PO SCH (08:37)
[2020-03-09] MEDS: Magnesium Oxide 400 MG TAB PO SCH (08:37)
[2020-03-09] MEDS: Cholecalciferol 1,000 UNITS (25 MCG) TAB PO SCH (08:38)
[2020-03-09] MEDS: Enoxaparin Sodium 40 MG/0.4 ML SYRINGE SC SCH (08:39)
[2020-03-09] MEDS: Famotidine/PF 20 mg/2ml Vial SLOW IVP SCH (08:39)
--- NOTE | 2020-03-09 10:19 | PDOC.HOSPP ---
- Subjective Encounter Date: 03/09/20 Encounter Time: 10:15 Subjective: f/u for ETOH abuse/intoxication/sepsis with Klebsiella spp awaiting placement at [facility]. No new events reported. - Objective Vital Signs & Weight: Vital Signs (12 hours) Temp Pulse Resp BP BP BP BP 03/09/20 08:00 98.1 F 95 16 128/88 03/09/20 04:25 97.9 F 92 16 129/88 03/09/20 04:00 129/88 03/09/20 00:00 120/74 03/08/20 23:39 98.1 F 89 16 120/74 Pulse Ox 03/09/20 08:00 96 03/09/20 04:25 95 03/09/20 04:00 03/09/20 00:00 03/08/20 23:39 95 Weight Admit Weight 236 lb 9.6 oz Weight 232 lb 3.2 oz I&O: 03/08/20 03/09/20 03/10/20 06:59 06:59 06:59 Intake Total 1320 2770 Output Total 3450 1400 Balance -2130 1370 Result Diagrams: 03/08/20 07:08 03/06/20 03:55 Additional Labs: Microbiology 03/04/20 20:46 Venous blood - Right Hand Blood Culture - Final Klebsiella pneumoniae ssp pneu 03/04/20 20:46 Venous blood - Right Arm Blood Culture - Final Klebsiella pneumoniae ssp pneu 03/07/20 09:14 Venous blood - Right Arm Blood Culture - Preliminary Specimen has been received and culture in progress. No Growth to date. 03/07/20 09:14 Venous blood - Left Arm Blood Culture - Preliminary Specimen has been received and culture in progress. No Growth to date. Laboratory Tests 03/01/20 03/01/20 03/05/20 18:54 22:41 12:00 Plasma Alcohol 107 H SARS-CoV-2 (PCR) Not Detected Not Detected Hospitalist ROS - Medication Medications: Active Medications Generic Name Dose Route Start Last Admin Trade Name Freq PRN Reason Stop Dose Admin Acetaminophen 650 mg 03/04/20 20:01 03/05/20 05:38 Acetaminophen 325 Mg Tab PO 650 mg Q4H PRN Administration Fever or Pain Cholecalciferol 2,000 units 03/04/20 09:00 03/09/20 08:38 Cholecalciferol 1,000 Units (25 Mcg) Tab PO 2,000 units DAILY BLAZE Administration Enoxaparin Sodium 40 mg 03/02/20 09:00 03/09/20 08:39 Enoxaparin Sodium 40 Mg/0.4 Ml Syringe SC 40 mg 0900 BLAZE Administration Famotidine 20 mg 03/01/20 21:00 03/09/20 08:39 Famotidine/Pf 20 Mg/2ml Vial SLOW IVP 20 mg Q12HR BLAZE Administration Folic Acid 1 mg 03/05/20 09:00 03/09/20 08:37 Folic Acid 1 Mg Tab PO 1 mg DAILY BLAZE Administration Iron/Minerals/Multivitamins 1 tab 03/05/20 09:00 03/09/20 08:37 Multivitamin W/ Minerals 1 Tab PO 1 tab DAILY BLAZE Administration Levofloxacin 750 mg 03/09/20 06:00 03/09/20 05:15 Levofloxacin 750 Mg Tab PO 750 mg 0600 BLAZE Administration Magnesium Oxide 400 mg 03/06/20 09:00 03/09/20 08:37 Magnesium Oxide 400 Mg Tab PO 400 mg DAILY BLAZE Administration Thiamine HCl 100 mg 03/02/20 09:00 03/09/20 08:37 Thiamine 100 Mg Tab PO 100 mg DAILY BLAZE Administration Vitamin B Complex/Vit C/Folic Acid 1 tab 03/02/20 09:00 03/09/20 08:37 Folic Acid/Vit B Comp W-C PO 1 tab DAILY BLAZE Administration - Exam General Appearance: NAD, awake alert Eye: PERRL, anicteric sclera ENT: normocephalic atraumatic, no oropharyngeal lesions Neck: supple, symmetric, no JVD, no thyromegaly, no lymphadenopathy Heart: RRR, no murmur, no gallops, no rubs, normal peripheral pulses Heart - other findings: S1, S2 Respiratory: CTAB, no wheezes, no rales, no ronchi, normal chest expansion, no tachypnea Gastrointestinal: soft, non-tender, non-distended, normal bowel sounds, no palpable masses Extremities: no cyanosis, no clubbing, no edema Skin: normal turgor, no lesions Neurological: cranial nerve grossly intact, no new deficit Musculoskeletal: normal tone, normal strength, no muscle wasting Psychiatric: A&O x 3, flat affect Hosp A/P (1) Klebsiella pneumoniae sepsis Code(s): A41.4 - SEPSIS DUE TO ANAEROBES Status: Acute Plan: Continue Levaquin for total of 2 weeks of therapy (2) Alcohol abuse Code(s): F10.10 - ALCOHOL ABUSE, UNCOMPLICATED Status: Acute Plan: Awaiting approval for [facility], continue MVI/Thiamine/Folate (3) Acute metabolic encephalopathy Code(s): G93.41 - METABOLIC ENCEPHALOPATHY Status: Acute Plan: Improved, continue supportive mgmt (4) Developmental disability Status: Chronic (5) Acromioclavicular joint injury Code(s): S49.90XA - UNSP INJURY OF SHOULDER AND UPPER ARM, UNSP ARM, INIT ENCNTR Status: Acute Qualifiers: Laterality: right Plan: Non-operative mgmt per Ortho recommendations - Plan continue antibiotics, 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
[2020-03-09] MEDS: Famotidine 20 MG TAB PO SCH (20:01)
[2020-03-10] MEDS: Famotidine 20 MG TAB PO SCH ×2 (08:31→20:39)
[2020-03-10] MEDS: Multivitamin W/ Minerals 1 TAB PO SCH (08:31)
[2020-03-10] MEDS: Cholecalciferol 1,000 UNITS (25 MCG) TAB PO SCH (08:31)
[2020-03-10] MEDS: Folic Acid/Vit B Comp W-C PO SCH (08:31)
[2020-03-10] MEDS: Folic Acid 1 MG TAB PO SCH (08:31)
[2020-03-10] MEDS: Enoxaparin Sodium 40 MG/0.4 ML SYRINGE SC SCH (08:31)
[2020-03-10] MEDS: Thiamine 100 MG TAB PO SCH (08:31)
[2020-03-10] MEDS: Magnesium Oxide 400 MG TAB PO SCH (08:31)
--- NOTE | 2020-03-10 09:13 | PDOC.HOSPP ---
- Subjective Encounter Date: 03/10/20 Encounter Time: 09:10 Subjective: f/u for AMS/ETOH abuse/cognitive delay/sepsis with Klebsiella spp and pending transfer to [facility] as family unable to care for pt at home. - Objective Vital Signs & Weight: Vital Signs (12 hours) Temp Pulse Resp BP BP Pulse Ox 03/10/20 07:22 97.6 F 78 18 112/70 97 03/10/20 04:00 97.9 F 80 16 120/82 97 03/10/20 00:00 106/66 03/09/20 23:57 98.2 F 81 16 106/66 96 Weight Admit Weight 236 lb 9.6 oz Weight 232 lb 3.2 oz I&O: 03/09/20 03/10/20 03/11/20 06:59 06:59 06:59 Intake Total 2770 1500 Output Total 1400 Balance 1370 1500 Result Diagrams: 03/08/20 07:08 03/06/20 03:55 Additional Labs: Microbiology 03/04/20 20:46 Venous blood - Right Hand Blood Culture - Final Klebsiella pneumoniae ssp pneu 03/04/20 20:46 Venous blood - Right Arm Blood Culture - Final Klebsiella pneumoniae ssp pneu 03/07/20 09:14 Venous blood - Right Arm Blood Culture - Preliminary Specimen has been received and culture in pr ogress. No Growth to date. 03/07/20 09:14 Venous blood - Left Arm Blood Culture - Preliminary Specimen has been received and culture in progress. No Growth to date. Laboratory Tests 03/01/20 03/01/20 03/05/20 18:54 22:41 12:00 Plasma Alcohol 107 H SARS-CoV-2 (PCR) Not Detected Not Detected Hospitalist ROS - Medication Medications: Active Medications Generic Name Dose Route Start Last Admin Trade Name Freq PRN Reason Stop Dose Admin Acetaminophen 650 mg 03/04/20 20:01 03/05/20 05:38 Acetaminophen 325 Mg Tab PO 650 mg Q4H PRN Administration Fever or Pain Cholecalciferol 2,000 units 03/04/20 09:00 03/10/20 08:31 Cholecalciferol 1,000 Units (25 Mcg) Tab PO 2,000 units DAILY BLAZE Administration Enoxaparin Sodium 40 mg 03/02/20 09:00 03/10/20 08:31 Enoxaparin Sodium 40 Mg/0.4 Ml Syringe SC 40 mg 0900 BLAZE Administration Famotidine 20 mg 03/09/20 21:00 03/10/20 08:31 Famotidine 20 Mg Tab PO 20 mg BID BLAZE Administration Folic Acid 1 mg 03/05/20 09:00 03/10/20 08:31 Folic Acid 1 Mg Tab PO 1 mg DAILY BLAZE Administration Iron/Minerals/Multivitamins 1 tab 03/05/20 09:00 03/10/20 08:31 Multivitamin W/ Minerals 1 Tab PO 1 tab DAILY BLAZE Administration Levofloxacin 750 mg 03/09/20 06:00 03/10/20 05:03 Levofloxacin 750 Mg Tab PO 750 mg 0600 BLAZE Administration Magnesium Oxide 400 mg 03/06/20 09:00 03/10/20 08:31 Magnesium Oxide 400 Mg Tab PO 400 mg DAILY BLAZE Administration Thiamine HCl 100 mg 03/02/20 09:00 03/10/20 08:31 Thiamine 100 Mg Tab PO 100 mg DAILY BLAZE Administration Vitamin B Complex/Vit C/Folic Acid 1 tab 03/02/20 09:00 03/10/20 08:31 Folic Acid/Vit B Comp W-C PO 1 tab DAILY BLAZE Administration - Exam General Appearance: NAD, awake alert Eye: PERRL, anicteric sclera ENT: normocephalic atraumatic, no oropharyngeal lesions Neck: supple, symmetric, no JVD, no thyromegaly, no lymphadenopathy Heart: RRR, no murmur, no gallops, no rubs, normal peripheral pulses Heart - other findings: S1, S2 Respiratory: CTAB, no wheezes, no rales, no ronchi, normal chest expansion, no tachypnea Gastrointestinal: soft, non-tender, non-distended, normal bowel sounds, no palpable masses Extremities: no cyanosis, no clubbing, no edema Skin: normal turgor, no lesions Neurological: cranial nerve grossly intact, no new deficit Musculoskeletal: normal tone, normal strength, no muscle wasting Psychiatric: A&O x 3, flat affect Hosp A/P (1) Klebsiella pneumoniae sepsis Code(s): A41.4 - SEPSIS DUE TO ANAEROBES Status: Acute Plan: Continue Levaquin for 2 week course of treatment (2) Alcohol abuse Code(s): F10.10 - ALCOHOL ABUSE, UNCOMPLICATED Status: Acute Plan: Cessation resources, pending [facility] placement (3) Acute metabolic encephalopathy Code(s): G93.41 - METABOLIC ENCEPHALOPATHY Status: Acute Plan: Improved, baseline cognitive/developemental delay (4) Developmental disability Status: Chronic Plan: Family unable to continue to care for pt at home, [facility] placement pending with [facility] (5) Acromioclavicular joint injury Code(s): S49.90XA - UNSP INJURY OF SHOULDER AND UPPER ARM, UNSP ARM, INIT ENCNTR Status: Acute Qualifiers: Laterality: right Plan: Non-operative mgmt, supportive care - 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
--- NOTE | 2020-03-11 08:40 | PDOC.HOSPP ---
- Subjective Encounter Date: 03/11/20 Encounter Time: 11:30 Subjective: Patient without complaints. Awaiting placement. - Objective Vital Signs & Weight: Vital Signs (12 hours) Temp Pulse Resp BP BP BP Pulse Ox 03/11/20 08:04 98.1 F 81 18 114/73 96 03/11/20 08:00 98.1 F 81 18 114/73 96 03/11/20 04:00 97.6 F 60 18 132/75 132/75 96 03/11/20 00:00 98.0 F 82 16 107/66 107/66 99 Weight Admit Weight 236 lb 9.6 oz Weight 232 lb 3.2 oz I&O: 03/10/20 03/11/20 03/12/20 06:59 06:59 06:59 Intake Total 1500 1950 Output Total 1425 Balance 1500 525 Result Diagrams: 03/08/20 07:08 03/06/20 03:55 Hospitalist ROS - Review of Systems Constitutional: denies: fever, chills Respiratory: denies: cough, shortness of breath Cardiovascular: denies: chest pain, palpitations Gastrointestinal: denies: nausea, vomiting, abdominal pain - Medication Medications: Active Medications Generic Name Dose Route Start Last Admin Trade Name Freq PRN Reason Stop Dose Admin Acetaminophen 650 mg 03/04/20 20:01 03/05/20 05:38 Acetaminophen 325 Mg Tab PO 650 mg Q4H PRN Administration Fever or Pain Cholecalciferol 2,000 units 03/04/20 09:00 03/10/20 08:31 Cholecalciferol 1,000 Units (25 Mcg) Tab PO 2,000 units DAILY BLAZE Administration Enoxaparin Sodium 40 mg 03/02/20 09:00 03/10/20 08:31 Enoxaparin Sodium 40 Mg/0.4 Ml Syringe SC 40 mg 0900 BLAZE Administration Famotidine 20 mg 03/09/20 21:00 03/10/20 20:39 Famotidine 20 Mg Tab PO 20 mg BID BLAZE Administration Folic Acid 1 mg 03/05/20 09:00 03/10/20 08:31 Folic Acid 1 Mg Tab PO 1 mg DAILY BLAZE Administration Iron/Minerals/Multivitamins 1 tab 03/05/20 09:00 03/10/20 08:31 Multivitamin W/ Minerals 1 Tab PO 1 tab DAILY BLAZE Administration Levofloxacin 750 mg 03/09/20 06:00 03/11/20 05:38 Levofloxacin 750 Mg Tab PO 750 mg 0600 [facility] Administration Magnesium Oxide 400 mg 03/06/20 09:00 03/10/20 08:31 Magnesium Oxide 400 Mg Tab PO 400 mg DAILY BLAZE Administration Thiamine HCl 100 mg 03/02/20 09:00 03/10/20 08:31 Thiamine 100 Mg Tab PO 100 mg DAILY BLAZE Administration Vitamin B Complex/Vit C/Folic Acid 1 tab 03/02/20 09:00 03/10/20 08:31 Folic Acid/Vit B Comp W-C PO 1 tab DAILY BLAZE Administration - Exam General Appearance: NAD, awake alert ENT: moist mucosa Heart: RRR, no murmur, no gallops, no rubs Respiratory: CTAB, no wheezes, no rales, no ronchi Gastrointestinal: soft, non-tender, non-distended, normal bowel sounds Psychiatric: normal affect, normal behavior Hosp A/P - Plan (1) Klebsiella pneumoniae sepsis Code(s): A41.4 - SEPSIS DUE TO ANAEROBES Status: Acute Plan: Continue Levaquin for 2 week course of treatment (2) Alcohol abuse Code(s): F10.10 - ALCOHOL ABUSE, UNCOMPLICATED Status: Acute Plan: Cessation resources, pending [facility] placement (3) Acute metabolic encephalopathy Code(s): G93.41 - METABOLIC ENCEPHALOPATHY Status: Acute Plan: Improved, baseline cognitive/developemental delay (4) Developmental disability Status: Chronic Plan: Family unable to continue to care for pt at home, [facility] placement pending with [facility] (5) Acromioclavicular joint injury Code(s): S49.90XA - UNSP INJURY OF SHOULDER AND UPPER ARM, UNSP ARM, INIT ENCNTR Status: Chronic per ortho Qualifiers: Laterality: right Plan: Non-operative mgmt, supportive care - Plan Stable currently Continue Levaquin 750mg po daily OOB/ambulate [facility] for placement option at [facility] Pepcid 20mg po BID
[2020-03-11] MEDS: Magnesium Oxide 400 MG TAB PO SCH (09:04)
[2020-03-11] MEDS: Folic Acid/Vit B Comp W-C PO SCH (09:05)
[2020-03-11] MEDS: Thiamine 100 MG TAB PO SCH (09:05)
[2020-03-11] MEDS: Folic Acid 1 MG TAB PO SCH (09:05)
[2020-03-11] MEDS: Cholecalciferol 1,000 UNITS (25 MCG) TAB PO SCH (09:05)
[2020-03-11] MEDS: Enoxaparin Sodium 40 MG/0.4 ML SYRINGE SC SCH (09:05)
[2020-03-11] MEDS: Famotidine 20 MG TAB PO SCH ×2 (09:05→19:42)
[2020-03-11] MEDS: Multivitamin W/ Minerals 1 TAB PO SCH (09:05)
[2020-03-12] MEDS: Enoxaparin Sodium 40 MG/0.4 ML SYRINGE SC SCH (07:58)
[2020-03-12] MEDS: Multivitamin W/ Minerals 1 TAB PO SCH (07:59)
[2020-03-12] MEDS: Magnesium Oxide 400 MG TAB PO SCH (07:59)
[2020-03-12] MEDS: Famotidine 20 MG TAB PO SCH ×2 (07:59→19:41)
[2020-03-12] MEDS: Folic Acid 1 MG TAB PO SCH (07:59)
[2020-03-12] MEDS: Thiamine 100 MG TAB PO SCH (07:59)
[2020-03-12] MEDS: Cholecalciferol 1,000 UNITS (25 MCG) TAB PO SCH (07:59)
[2020-03-12] MEDS: Folic Acid/Vit B Comp W-C PO SCH (07:59)
--- NOTE | 2020-03-12 15:07 | PDOC.HOSPP ---
- Subjective Encounter Date: 03/12/20 Encounter Time: 15:00 Subjective: f/u for ETOH abuse/Klebsiella sepsis on Levaquin/AMS now awaiting transfer to [facility]. No new issues reported. - Objective Vital Signs & Weight: Vital Signs (12 hours) Temp Pulse Resp BP BP Pulse Ox 03/12/20 12:37 97.9 F 102 H 18 121/79 95 03/12/20 08:00 114/74 94 L 03/12/20 07:53 97.9 F 86 18 114/74 94 L 03/12/20 05:00 97.6 F 85 16 113/74 96 Weight Admit Weight 236 lb 9.6 oz Weight 232 lb 3.2 oz I&O: 03/11/20 03/12/20 03/13/20 06:59 06:59 06:59 Intake Total 1950 960 Output Total 1425 1150 Balance 525 -190 Result Diagrams: 03/08/20 07:08 03/06/20 03:55 Additional Labs: Microbiology 03/04/20 20:46 Venous blood - Right Hand Blood Culture - Final Klebsiella pneumoniae ssp pneu 03/04/20 20:46 Venous blood - Right Arm Blood Culture - Final Klebsiella pneumoniae ssp pneu 03/07/20 09:14 Venous blood - Right Arm Blood Culture - Preliminary Specimen has been received and culture in progress. No Growth to date. 03/07/20 09:14 Venous blood - Left Arm Blood Culture - Preliminary Specimen has been received and culture in progress. No Growth to date. Laboratory Tests 03/01/20 03/01/20 03/05/20 18:54 22:41 12:00 Plasma Alcohol 107 H SARS-CoV-2 (PCR) Not Detected Not Detected Hospitalist ROS - Medication Medications: Active Medications Generic Name Dose Route Start Last Admin Trade Name Freq PRN Reason Stop Dose Admin Acetaminophen 650 mg 03/04/20 20:01 03/05/20 05:38 Acetaminophen 325 Mg Tab PO 650 mg Q4H PRN Administration Fever or Pain Cholecalciferol 2,000 units 03/04/20 09:00 03/12/20 07:59 Cholecalciferol 1,000 Units (25 Mcg) Tab PO 2,000 units DAILY BLAZE Administration Enoxaparin Sodium 40 mg 03/02/20 09:00 03/12/20 07:58 Enoxaparin Sodium 40 Mg/0.4 Ml Syringe SC 40 mg 0900 BLAZE Administration Famotidine 20 mg 03/09/20 21:00 03/12/20 07:59 Famotidine 20 Mg Tab PO 20 mg BID BLAZE Administration Folic Acid 1 mg 03/05/20 09:00 03/12/20 07:59 Folic Acid 1 Mg Tab PO 1 mg DAILY BLAZE Administration Iron/Minerals/Multivitamins 1 tab 03/05/20 09:00 03/12/20 07:59 Multivitamin W/ Minerals 1 Tab PO 1 tab DAILY BLAZE Administration Levofloxacin 750 mg 03/09/20 06:00 03/12/20 05:03 Levofloxacin 750 Mg Tab PO 750 mg 0600 BLAZE Administration Magnesium Oxide 400 mg 03/06/20 09:00 03/12/20 07:59 Magnesium Oxide 400 Mg Tab PO 400 mg DAILY BLAZE Administration Thiamine HCl 100 mg 03/02/20 09:00 03/12/20 07:59 Thiamine 100 Mg Tab PO 100 mg DAILY BLAZE Administration Vitamin B Complex/Vit C/Folic Acid 1 tab 03/02/20 09:00 03/12/20 07:59 Folic Acid/Vit B Comp W-C PO 1 tab DAILY BLAZE Administration - Exam General Appearance: NAD, awake alert Eye: PERRL, anicteric sclera ENT: normocephalic atraumatic, no oropharyngeal lesions Neck: supple, symmetric, no JVD, no thyromegaly, no lymphadenopathy Heart: RRR, no murmur, no gallops, no rubs, normal peripheral pulses Heart - other findings: S1, S2 Respiratory: CTAB, no wheezes, no rales, no ronchi, normal chest expansion, no tachypnea Gastrointestinal: soft, non-tender, non-distended, normal bowel sounds, no palpable masses Extremities: no cyanosis, no clubbing, no edema Skin: normal turgor, no lesions Neurological: cranial nerve grossly intact, no new deficit Musculoskeletal: normal tone, normal strength, no muscle wasting Psychiatric: A&O x 3, flat affect Hosp A/P (1) Klebsiella pneumoniae sepsis Code(s): A41.4 - SEPSIS DUE TO ANAEROBES Status: Acute Plan: Continue Levaquin 750mg po daily for 2-week course (2) Alcohol abuse Code(s): F10.10 - ALCOHOL ABUSE, UNCOMPLICATED Status: Acute Plan: Continue MVI/Thiamine/Folate/Ativan PRN (3) Acute metabolic encephalopathy Code(s): G93.41 - METABOLIC ENCEPHALOPATHY Status: Acute (4) Developmental disability Status: Chronic (5) Acromioclavicular joint injury Code(s): S49.90XA - UNSP INJURY OF SHOULDER AND UPPER ARM, UNSP ARM, INIT ENCNTR Status: Acute Qualifiers: Laterality: right Plan: Conservative mgmt, non-operative - 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 transfer in 24h
[2020-03-13] MEDS: Cholecalciferol 1,000 UNITS (25 MCG) TAB PO SCH (08:25)
[2020-03-13] MEDS: Famotidine 20 MG TAB PO SCH ×2 (08:25→21:52)
[2020-03-13] MEDS: Magnesium Oxide 400 MG TAB PO SCH (08:25)
[2020-03-13] MEDS: Folic Acid/Vit B Comp W-C PO SCH (08:25)
[2020-03-13] MEDS: Multivitamin W/ Minerals 1 TAB PO SCH (08:25)
[2020-03-13] MEDS: Folic Acid 1 MG TAB PO SCH (08:26)
[2020-03-13] MEDS: Thiamine 100 MG TAB PO SCH (08:26)
[2020-03-13] MEDS: Enoxaparin Sodium 40 MG/0.4 ML SYRINGE SC SCH (10:03)
[2020-03-13 13:00] VITALS: BMI 35.3
--- NOTE | 2020-03-13 16:57 | PDOC.HOSPP ---
- Subjective Encounter Date: 03/13/20 Encounter Time: 16:45 Subjective: f/u for AMS/ETOH intoxication/Developemental delay awaiting [facility] transfer. No new issues reported. - Objective Vital Signs & Weight: Vital Signs (12 hours) Temp Pulse Resp BP BP Pulse Ox 03/13/20 16:13 97.9 F 82 16 113/73 98 03/13/20 16:00 97.9 F 113/73 03/13/20 12:00 98.0 F 87 101/65 03/13/20 11:03 98.0 F 87 16 101/65 98 03/13/20 08:00 98.1 F 85 111/75 96 03/13/20 07:33 98.1 F 85 16 111/73 96 Weight Admit Weight 236 lb 9.6 oz Weight 232 lb 3.2 oz I&O: 03/12/20 03/13/20 03/14/20 06:59 06:59 06:59 Intake Total 960 2200 960 Output Total 1150 1300 700 Balance -190 900 260 Result Diagrams: 03/08/20 07:08 03/06/20 03:55 Additional Labs: Microbiology 03/04/20 20:46 Venous blood - Right Hand Blood Culture - Final Klebsiella pneumoniae ssp pneu 03/04/20 20:46 Venous blood - Right Arm Blood Culture - Final Klebsiella pneumoniae ssp pneu 03/07/20 09:14 Venous blood - Right Arm Blood Culture - Preliminary Specimen has been received and culture in progress. No Growth to date. 03/07/20 09:14 Venous blood - Left Arm Blood Culture - Preliminary Specimen has been received and culture in progress. No Growth to date. Laboratory Tests 03/01/20 03/01/20 03/05/20 18:54 22:41 12:00 Plasma Alcohol 107 H SARS-CoV-2 (PCR) Not Detected Not Detected Hospitalist ROS - Medication Medications: Active Medications Generic Name Dose Route Start Last Admin Trade Name Freq PRN Reason Stop Dose Admin Acetaminophen 650 mg 03/04/20 20:01 03/05/20 05:38 Acetaminophen 325 Mg Tab PO 650 mg Q4H PRN Administration Fever or Pain Cholecalciferol 2,000 units 03/04/20 09:00 03/13/20 08:25 Cholecalciferol 1,000 Units (25 Mcg) Tab PO 2,000 units DAILY BLAZE Administration Enoxaparin Sodium 40 mg 03/02/20 09:00 03/13/20 10:03 Enoxaparin Sodium 40 Mg/0.4 Ml Syringe SC 40 mg 0900 BLAZE Administration Famotidine 20 mg 03/09/20 21:00 03/13/20 08:25 Famotidine 20 Mg Tab PO 20 mg BID BLAZE Administration Folic Acid 1 mg 03/05/20 09:00 03/13/20 08:26 Folic Acid 1 Mg Tab PO 1 mg DAILY BLAZE Administration Iron/Minerals/Multivitamins 1 tab 03/05/20 09:00 03/13/20 08:25 Multivitamin W/ Minerals 1 Tab PO 1 tab DAILY BLAZE Administration Levofloxacin 750 mg 03/09/20 06:00 03/13/20 05:08 Levofloxacin 750 Mg Tab PO 03/20/20 09:00 750 mg 0600 BLAZE Administration Magnesium Oxide 400 mg 03/06/20 09:00 03/13/20 08:25 Magnesium Oxide 400 Mg Tab PO 400 mg DAILY BLAZE Administration Thiamine HCl 100 mg 03/02/20 09:00 03/13/20 08:26 Thiamine 100 Mg Tab PO 100 mg DAILY BLAZE Administration Vitamin B Complex/Vit C/Folic Acid 1 tab 03/02/20 09:00 03/13/20 08:25 Folic Acid/Vit B Comp W-C PO 1 tab DAILY BLAZE Administration - Exam General Appearance: NAD, awake alert Eye: PERRL, anicteric sclera ENT: normocephalic atraumatic, no oropharyngeal lesions Neck: supple, symmetric, no JVD, no thyromegaly, no lymphadenopathy Heart: RRR, no murmur, no gallops, no rubs, normal peripheral pulses Heart - other findings: S1, S2 Respiratory: CTAB, no wheezes, no rales, no ronchi, normal chest expansion, no tachypnea Gastrointestinal: soft, non-tender, non-distended, normal bowel sounds, no palpable masses Extremities: no cyanosis, no clubbing, no edema Skin: normal turgor, no lesions Neurological: cranial nerve grossly intact, no new deficit Musculoskeletal: normal tone, no muscle wasting Psychiatric: A&O x 3, flat affect Hosp A/P (1) Klebsiella pneumoniae sepsis Code(s): A41.4 - SEPSIS DUE TO ANAEROBES Status: Acute Plan: Stable currently, continue Levaquin (2) Alcohol abuse Code(s): F10.10 - ALCOHOL ABUSE, UNCOMPLICATED Status: Acute (3) Acute metabolic encephalopathy Code(s): G93.41 - METABOLIC ENCEPHALOPATHY Status: Acute (4) Developmental disability Status: Chronic (5) Acromioclavicular joint injury Code(s): S49.90XA - UNSP INJURY OF SHOULDER AND UPPER ARM, UNSP ARM, INIT ENCNTR Status: Acute Qualifiers: Laterality: right - Plan continue antibiotics, PT/OT, foster care social worker, out of bed/ambulate, DVT proph w/SCDs Stable currently Continue Levaquin 750mg po daily OOB/ambulate MH for placement option at [facility] Pepcid 20mg po BID Care delay on [facility]
[2020-03-14] MEDS: Folic Acid 1 MG TAB PO SCH (08:15)
[2020-03-14] MEDS: Famotidine 20 MG TAB PO SCH ×2 (08:15→21:16)
[2020-03-14] MEDS: Cholecalciferol 1,000 UNITS (25 MCG) TAB PO SCH (08:15)
[2020-03-14] MEDS: Multivitamin W/ Minerals 1 TAB PO SCH (08:16)
[2020-03-14] MEDS: Thiamine 100 MG TAB PO SCH (08:16)
[2020-03-14] MEDS: Enoxaparin Sodium 40 MG/0.4 ML SYRINGE SC SCH (08:16)
[2020-03-14] MEDS: Magnesium Oxide 400 MG TAB PO SCH (08:16)
[2020-03-14] MEDS: Folic Acid/Vit B Comp W-C PO SCH (08:16)
--- NOTE | 2020-03-14 12:03 | PDOC.HOSPP ---
- Subjective Encounter Date: 03/14/20 Encounter Time: 12:00 Subjective: f/u for AMS/Developemental delay/hx of SI and ? HI per [facility]. Awaiting inpt psych options. No new issues reported. - Objective Vital Signs & Weight: Vital Signs (12 hours) Temp Pulse Resp BP BP BP Pulse Ox 03/14/20 11:32 97.8 F 72 17 108/74 96 03/14/20 08:15 94 L 03/14/20 08:00 114/78 03/14/20 07:19 98 F 87 19 114/78 94 L 03/14/20 04:00 98.0 F 82 20 110/70 110/70 96 Weight Admit Weight 236 lb 9.6 oz Weight 232 lb 3.2 oz I&O: 03/13/20 03/14/20 03/15/20 06:59 06:59 06:59 Intake Total 2200 1440 Output Total 1300 1120 Balance 900 320 Result Diagrams: 03/08/20 07:08 03/06/20 03:55 Additional Labs: Microbiology 03/04/20 20:46 Venous blood - Right Hand Blood Culture - Final Klebsiella pneumoniae ssp pneu 03/04/20 20:46 Venous blood - Right Arm Blood Culture - Final Klebsiella pneumoniae ssp pneu 03/07/20 09:14 Venous blood - Right Arm Blood Culture - Preliminary Specimen has been received and culture in progress. No Growth to date. 03/07/20 09:14 Venous blood - Left Arm Blood Culture - Preliminary Specimen has been received and culture in progress. No Growth to date. Laboratory Tests 03/01/20 03/01/20 03/05/20 18:54 22:41 12:00 Plasma Alcohol 107 H SARS-CoV-2 (PCR) Not Detected Not Detected Hospitalist ROS - Medication Medications: Active Medications Generic Name Dose Route Start Last Admin Trade Name Freq PRN Reason Stop Dose Admin Acetaminophen 650 mg 03/04/20 20:01 03/05/20 05:38 Acetaminophen 325 Mg Tab PO 650 mg Q4H PRN Administration Fever or Pain Cholecalciferol 2,000 units 03/04/20 09:00 03/14/20 08:15 Cholecalciferol 1,000 Units (25 Mcg) Tab PO 2,000 units DAILY BLAZE Administration Enoxaparin Sodium 40 mg 03/02/20 09:00 03/14/20 08:16 Enoxaparin Sodium 40 Mg/0.4 Ml Syringe SC 40 mg 0900 BLAZE Administration Famotidine 20 mg 03/09/20 21:00 03/14/20 08:15 Famotidine 20 Mg Tab PO 20 mg BID BLAZE Administration Folic Acid 1 mg 03/05/20 09:00 03/14/20 08:15 Folic Acid 1 Mg Tab PO 1 mg DAILY BLAZE Administration Iron/Minerals/Multivitamins 1 tab 03/05/20 09:00 03/14/20 08:16 Multivitamin W/ Minerals 1 Tab PO 1 tab DAILY BLAZE Administration Levofloxacin 750 mg 03/09/20 06:00 03/14/20 05:57 Levofloxacin 750 Mg Tab PO 03/20/20 09:00 750 mg 0600 BLAZE Administration Magnesium Oxide 400 mg 03/06/20 09:00 03/14/20 08:16 Magnesium Oxide 400 Mg Tab PO 400 mg DAILY BLAZE Administration Thiamine HCl 100 mg 03/02/20 09:00 03/14/20 08:16 Thiamine 100 Mg Tab PO 100 mg DAILY BLAZE Administration Vitamin B Complex/Vit C/Folic Acid 1 tab 03/02/20 09:00 03/14/20 08:16 Folic Acid/Vit B Comp W-C PO 1 tab DAILY BLAZE Administration - Exam General Appearance: NAD, awake alert Eye: PERRL, anicteric sclera ENT: normocephalic atraumatic, no oropharyngeal lesions Neck: supple, symmetric, no JVD, no thyromegaly, no lymphadenopathy Heart: RRR, no murmur, no gallops, no rubs, normal peripheral pulses Heart - other findings: S1, S2 Respiratory: CTAB, no wheezes, no rales, no ronchi, normal chest expansion, no tachypnea Gastrointestinal: soft, non-tender, non-distended, normal bowel sounds, no palpable masses Extremities: no cyanosis, no clubbing, no edema Skin: normal turgor, no lesions Neurological: cranial nerve grossly intact, no new deficit Musculoskeletal: normal tone, normal strength Psychiatric: A&O x 3, flat affect Hosp A/P (1) Klebsiella pneumoniae sepsis Code(s): A41.4 - SEPSIS DUE TO ANAEROBES Status: Acute Plan: Resolving, continue Levaquin another 24h then d/c (2) Alcohol abuse Code(s): F10.10 - ALCOHOL ABUSE, UNCOMPLICATED Status: Acute (3) Acute metabolic encephalopathy Code(s): G93.41 - METABOLIC ENCEPHALOPATHY Status: Acute (4) Developmental disability Status: Chronic (5) Acromioclavicular joint injury Code(s): S49.90XA - UNSP INJURY OF SHOULDER AND UPPER ARM, UNSP ARM, INIT ENCNTR Status: Acute Qualifiers: Laterality: right - Plan continue antibiotics, 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
[2020-03-15] MEDS: Folic Acid/Vit B Comp W-C PO SCH (09:27)
[2020-03-15] MEDS: Multivitamin W/ Minerals 1 TAB PO SCH (09:27)
[2020-03-15] MEDS: Cholecalciferol 1,000 UNITS (25 MCG) TAB PO SCH (09:27)
[2020-03-15] MEDS: Magnesium Oxide 400 MG TAB PO SCH (09:27)
[2020-03-15] MEDS: Enoxaparin Sodium 40 MG/0.4 ML SYRINGE SC SCH (09:28)
[2020-03-15] MEDS: Famotidine 20 MG TAB PO SCH ×2 (09:29→20:08)
[2020-03-15] MEDS: Thiamine 100 MG TAB PO SCH (09:29)
[2020-03-15] MEDS: Folic Acid 1 MG TAB PO SCH (09:29)
--- NOTE | 2020-03-15 12:45 | PDOC.HOSPP ---
- Subjective Encounter Date: 03/15/20 Encounter Time: 12:30 Subjective: f/u for AMS/ETOH abuse/? SI/HI per MR. Awaiting inpt psych approval. No new complaints. - Objective Vital Signs & Weight: Vital Signs (12 hours) Temp Pulse Resp BP BP Pulse Ox 03/15/20 11:53 98.0 F 76 16 128/80 97 03/15/20 08:00 98.1 F 80 16 119/85 95 Weight Admit Weight 236 lb 9.6 oz Weight 232 lb 3.2 oz I&O: 03/14/20 03/15/20 03/16/20 06:59 06:59 06:59 Intake Total 1440 480 Output Total 1120 Balance 320 480 Result Diagrams: 03/08/20 07:08 03/06/20 03:55 Additional Labs: Microbiology 03/04/20 20:46 Venous blood - Right Hand Blood Culture - Final Klebsiella pneumoniae ssp pneu 03/04/20 20:46 Venous blood - Right Arm Blood Culture - Final Klebsiella pneumoniae ssp pneu 03/07/20 09:14 Venous blood - Right Arm Blood Culture - Preliminary Specimen has been received and culture in progress. No Growth to date. 03/07/20 09:14 Venous blood - Left Arm Blood Culture - Preliminary Specimen has been received and culture in progress. No Growth to date. Laboratory Tests 03/01/20 03/01/20 03/05/20 18:54 22:41 12:00 Plasma Alcohol 107 H SARS-CoV-2 (PCR) Not Detected Not Detected Hospitalist ROS - Medication Medications: Active Medications Generic Name Dose Route Start Last Admin Trade Name Jimq PRN Reason Stop Dose Admin Acetaminophen 650 mg 03/04/20 20:01 03/05/20 05:38 Acetaminophen 325 Mg Tab PO 650 mg Q4H PRN Administration Fever or Pain Cholecalciferol 2,000 units 03/04/20 09:00 03/15/20 09:27 Cholecalciferol 1,000 Units (25 Mcg) Tab PO 2,000 units DAILY BLAZE Administration Enoxaparin Sodium 40 mg 03/02/20 09:00 03/15/20 09:28 Enoxaparin Sodium 40 Mg/0.4 Ml Syringe SC 40 mg 0900 BLAZE Administration Famotidine 20 mg 03/09/20 21:00 03/15/20 09:29 Famotidine 20 Mg Tab PO 20 mg BID BLAZE Administration Folic Acid 1 mg 03/05/20 09:00 03/15/20 09:29 Folic Acid 1 Mg Tab PO 1 mg DAILY BLAZE Administration Iron/Minerals/Multivitamins 1 tab 03/05/20 09:00 03/15/20 09:27 Multivitamin W/ Minerals 1 Tab PO 1 tab DAILY BLAZE Administration Levofloxacin 750 mg 03/09/20 06:00 03/15/20 05:42 Levofloxacin 750 Mg Tab PO 03/20/20 09:00 750 mg 0600 BLAZE Administration Magnesium Oxide 400 mg 03/06/20 09:00 03/15/20 09:27 Magnesium Oxide 400 Mg Tab PO 400 mg DAILY BLAZE Administration Thiamine HCl 100 mg 03/02/20 09:00 03/15/20 09:29 Thiamine 100 Mg Tab PO 100 mg DAILY BLAZE Administration Vitamin B Complex/Vit C/Folic Acid 1 tab 03/02/20 09:00 03/15/20 09:27 Folic Acid/Vit B Comp W-C PO 1 tab DAILY BLAZE Administration - Exam General Appearance: NAD, awake alert Eye: PERRL, anicteric sclera ENT: normocephalic atraumatic, no oropharyngeal lesions Neck: supple, symmetric, no JVD, no thyromegaly, no lymphadenopathy Heart: RRR, no murmur, no gallops, no rubs, normal peripheral pulses Heart - other findings: S1, S2 Respiratory: CTAB, no wheezes, no rales, no ronchi, normal chest expansion, no tachypnea Gastrointestinal: soft, non-tender, non-distended, normal bowel sounds, no palpable masses Extremities: no cyanosis, no clubbing, no edema Skin: normal turgor, no lesions Neurological: cranial nerve grossly intact, no new deficit Musculoskeletal: normal tone, generalized weakness Psychiatric: A&O x 3, flat affect Hosp A/P (1) Klebsiella pneumoniae sepsis Code(s): A41.4 - SEPSIS DUE TO ANAEROBES Status: Acute Plan: D/C Levaquin, resolved (2) Alcohol abuse Code(s): F10.10 - ALCOHOL ABUSE, UNCOMPLICATED Status: Acute Plan: Cessation resources, await inpt psych approval (3) Acute metabolic encephalopathy Code(s): G93.41 - METABOLIC ENCEPHALOPATHY Status: Acute (4) Developmental disability Status: Chronic (5) Acromioclavicular joint injury Code(s): S49.90XA - UNSP INJURY OF SHOULDER AND UPPER ARM, UNSP ARM, INIT ENCNTR Status: Acute Qualifiers: Laterality: right - Plan bilingual social worker, out of bed/ambulate, DVT proph w/SCDs Stable currently D/C Levaquin OOB/ambulate [facility] for placement options, likely inpt psych unit Pepcid 20mg po BID Care delay on placement options
[2020-03-16] MEDS: Folic Acid 1 MG TAB PO SCH (08:19)
[2020-03-16] MEDS: Folic Acid/Vit B Comp W-C PO SCH (08:19)
[2020-03-16] MEDS: Famotidine 20 MG TAB PO SCH ×2 (08:19→19:39)
[2020-03-16] MEDS: Magnesium Oxide 400 MG TAB PO SCH (08:19)
[2020-03-16] MEDS: Cholecalciferol 1,000 UNITS (25 MCG) TAB PO SCH (08:19)
[2020-03-16] MEDS: Multivitamin W/ Minerals 1 TAB PO SCH (08:19)
[2020-03-16] MEDS: Thiamine 100 MG TAB PO SCH (08:20)
[2020-03-16] MEDS: Enoxaparin Sodium 40 MG/0.4 ML SYRINGE SC SCH (08:20)
--- NOTE | 2020-03-16 10:44 | PDOC.HOSPP ---
- Subjective Encounter Date: 03/16/20 Encounter Time: 09:30 Subjective: f/u for metabolic encephalopathy, alcohol abuse, suicidal/homicidal ideations per [facility] - today condition stable and awaiting placement at an inpatient psychiatric facility. No new complaints. - Objective Vital Signs & Weight: Vital Signs (12 hours) Temp Pulse Resp BP Pulse Ox 03/16/20 07:27 97.8 F 87 18 120/80 94 L Weight Admit Weight 236 lb 9.6 oz Weight 232 lb 3.2 oz I&O: 03/15/20 03/16/20 03/17/20 06:59 06:59 06:59 Intake Total 480 Output Total 2500 Balance 480 -2500 Result Diagrams: 03/08/20 07:08 03/06/20 03:55 Hospitalist ROS - Review of Systems Constitutional: denies: fever, chills, sweats, weakness, malaise, other Respiratory: denies: cough, dry, shortness of breath, hemoptysis, SOB with excertion, pleuritic pain, sputum, wheezing, other Cardiovascular: denies: chest pain, palpitations, orthopnea, paroxysmal noc. dyspnea, edema, light headedness, other - Medication Medications: Active Medications Generic Name Dose Route Start Last Admin Trade Name Freq PRN Reason Stop Dose Admin Acetaminophen 650 mg 03/04/20 20:01 03/05/20 05:38 Acetaminophen 325 Mg Tab PO 650 mg Q4H PRN Administration Fever or Pain Cholecalciferol 2,000 units 03/04/20 09:00 03/16/20 08:19 Cholecalciferol 1,000 Units (25 Mcg) Tab PO 2,000 units DAILY BLAZE Administration Enoxaparin Sodium 40 mg 03/02/20 09:00 03/16/20 08:20 Enoxaparin Sodium 40 Mg/0.4 Ml Syringe SC 40 mg 0900 BLAZE Administration Famotidine 20 mg 03/09/20 21:00 03/16/20 08:19 Famotidine 20 Mg Tab PO 20 mg BID BLAZE Administration Folic Acid 1 mg 03/05/20 09:00 03/16/20 08:19 Folic Acid 1 Mg Tab PO 1 mg DAILY BLAZE Administration Iron/Minerals/Multivitamins 1 tab 03/05/20 09:00 03/16/20 08:19 Multivitamin W/ Minerals 1 Tab PO 1 tab DAILY BLAZE Administration Magnesium Oxide 400 mg 03/06/20 09:00 03/16/20 08:19 Magnesium Oxide 400 Mg Tab PO 400 mg DAILY BLAZE Administration Thiamine HCl 100 mg 03/02/20 09:00 03/16/20 08:20 Thiamine 100 Mg Tab PO 100 mg DAILY BLAZE Administration Vitamin B Complex/Vit C/Folic Acid 1 tab 03/02/20 09:00 03/16/20 08:19 Folic Acid/Vit B Comp W-C PO 1 tab DAILY BLAZE Administration - Exam General Appearance: awake alert Heart: RRR, no murmur, no gallops, no rubs, normal peripheral pulses Respiratory: CTAB, no wheezes, no rales, no ronchi, normal chest expansion, no tachypnea, normal percussion Gastrointestinal: soft, non-tender, non-distended, normal bowel sounds, no palpable masses, no hepatomegaly, no splenomegaly, no bruit Hosp A/P (1) Klebsiella pneumoniae sepsis Code(s): A41.4 - SEPSIS DUE TO ANAEROBES Status: Acute Plan: resolved (2) Alcohol abuse Code(s): F10.10 - ALCOHOL ABUSE, UNCOMPLICATED Status: Acute Plan: awaiting inpatient psych approval (3) Acute metabolic encephalopathy Code(s): G93.41 - METABOLIC ENCEPHALOPATHY Status: Acute (4) Developmental disability Status: Chronic (5) Acromioclavicular joint injury Code(s): S49.90XA - UNSP INJURY OF SHOULDER AND UPPER ARM, UNSP ARM, INIT ENCNTR Status: Acute Qualifiers: Laterality: right - Plan old records reviewed/req, social work msw, out of bed/ambulate, DVT proph w/SCDs Condition stable OOB/ambulate Awaiting on [facility] for placement options, probably at an inpatient psych facility Care delayed by placement options
[2020-03-17] MEDS: Enoxaparin Sodium 40 MG/0.4 ML SYRINGE SC SCH (08:11)
[2020-03-17] MEDS: Cholecalciferol 1,000 UNITS (25 MCG) TAB PO SCH (08:11)
[2020-03-17] MEDS: Famotidine 20 MG TAB PO SCH ×2 (08:12→19:43)
[2020-03-17] MEDS: Folic Acid 1 MG TAB PO SCH (08:12)
[2020-03-17] MEDS: Folic Acid/Vit B Comp W-C PO SCH (08:12)
[2020-03-17] MEDS: Multivitamin W/ Minerals 1 TAB PO SCH (08:12)
[2020-03-17] MEDS: Magnesium Oxide 400 MG TAB PO SCH (08:12)
[2020-03-17] MEDS: Thiamine 100 MG TAB PO SCH (08:12)
--- NOTE | 2020-03-17 10:01 | PDOC.HOSPP ---
- Subjective Encounter Date: 03/17/20 Encounter Time: 07:30 Subjective: Patient seen and examined. No new complaints. No overnight events - Objective Vital Signs & Weight: Vital Signs (12 hours) Temp Pulse Resp BP Pulse Ox 03/17/20 07:24 79 19 116/76 96 03/17/20 05:23 97.7 F 101 H 18 120/83 96 Weight Admit Weight 236 lb 9.6 oz Weight 232 lb 3.2 oz I&O: 03/16/20 03/17/20 03/18/20 06:59 06:59 06:59 Intake Total 960 Output Total 2500 750 Balance -2500 210 Result Diagrams: 03/08/20 07:08 03/06/20 03:55 Hospitalist ROS - Review of Systems Respiratory: denies: cough, dry, shortness of breath, hemoptysis, SOB with excertion, pleuritic pain, sputum, wheezing, other Cardiovascular: denies: chest pain, palpitations, orthopnea, paroxysmal noc. dyspnea, edema, light headedness, other Gastrointestinal: denies: nausea, vomiting, abdominal pain, diarrhea, constipation, melena, hematochezia, other Genitourinary: denies: dysuria, frequency, incontinence, hematuria, retention, other Musculoskeletal: denies: neck pain, shoulder pain, arm pain, back pain, hand pain, leg pain, foot pain, other - Medication Medications: Active Medications Generic Name Dose Route Start Last Admin Trade Name Freq PRN Reason Stop Dose Admin Acetaminophen 650 mg 03/04/20 20:01 03/05/20 05:38 Acetaminophen 325 Mg Tab PO 650 mg Q4H PRN Administration Fever or Pain Cholecalciferol 2,000 units 03/04/20 09:00 03/17/20 08:11 Cholecalciferol 1,000 Units (25 Mcg) Tab PO 2,000 units DAILY BLAZE Administration Enoxaparin Sodium 40 mg 03/02/20 09:00 03/17/20 08:11 Enoxaparin Sodium 40 Mg/0.4 Ml Syringe SC 40 mg 0900 BLAZE Administration Famotidine 20 mg 03/09/20 21:00 03/17/20 08:12 Famotidine 20 Mg Tab PO 20 mg BID BLAZE Administration Folic Acid 1 mg 03/05/20 09:00 03/17/20 08:12 Folic Acid 1 Mg Tab PO 1 mg DAILY BLAZE Administration Iron/Minerals/Multivitamins 1 tab 03/05/20 09:00 03/17/20 08:12 Multivitamin W/ Minerals 1 Tab PO 1 tab DAILY BLAZE Administration Magnesium Oxide 400 mg 03/06/20 09:00 03/17/20 08:12 Magnesium Oxide 400 Mg Tab PO 400 mg DAILY BLAZE Administration Thiamine HCl 100 mg 03/02/20 09:00 03/17/20 08:12 Thiamine 100 Mg Tab PO 100 mg DAILY BLAZE Administration Vitamin B Complex/Vit C/Folic Acid 1 tab 03/02/20 09:00 03/17/20 08:12 Folic Acid/Vit B Comp W-C PO 1 tab DAILY BLAZE Administration - Exam General Appearance: NAD, awake alert Eye: PERRL, anicteric sclera ENT: normocephalic atraumatic, no oropharyngeal lesions Neck: supple, symmetric, no JVD, no thyromegaly Heart: RRR, no murmur, no gallops, no rubs Respiratory: no wheezes, no rales, no ronchi Gastrointestinal: soft, non-tender, non-distended, normal bowel sounds, no palpable masses, no hepatomegaly, no splenomegaly, no bruit Extremities: no clubbing, no edema Skin: normal turgor, no lesions Neurological: no focal deficits Musculoskeletal: normal tone, normal strength Psychiatric: normal affect, normal behavior Hosp A/P (1) Klebsiella pneumoniae sepsis Code(s): A41.4 - SEPSIS DUE TO ANAEROBES Status: Resolved (2) Alcohol abuse Code(s): F10.10 - ALCOHOL ABUSE, UNCOMPLICATED Status: Chronic (3) Acute metabolic encephalopathy Code(s): G93.41 - METABOLIC ENCEPHALOPATHY Status: Resolved (4) Developmental disability Status: Chronic (5) Acromioclavicular joint injury Code(s): S49.90XA - UNSP INJURY OF SHOULDER AND UPPER ARM, UNSP ARM, INIT ENCNTR Status: Acute Qualifiers: Laterality: right (6) Obesity (BMI 30-39.9) Code(s): E66.9 - OBESITY, UNSPECIFIED Status: Chronic - Plan old records reviewed/req Patient has completed antibiotic course while in hospital, his repeat blood culture is negative, At this point [facility] trying to find inpatient psych given his suicidal and homicidal ideation, patient currently denies any suicidal homicidal ideation at this point, Because of difficulty finding inpatient psych, his care delay significantly delayed.
[2020-03-18] MEDS: Famotidine 20 MG TAB PO SCH ×2 (08:44→20:01)
[2020-03-18] MEDS: Enoxaparin Sodium 40 MG/0.4 ML SYRINGE SC SCH (08:44)
[2020-03-18] MEDS: Folic Acid/Vit B Comp W-C PO SCH (08:44)
[2020-03-18] MEDS: Magnesium Oxide 400 MG TAB PO SCH (08:44)
[2020-03-18] MEDS: Folic Acid 1 MG TAB PO SCH (08:44)
[2020-03-18] MEDS: Multivitamin W/ Minerals 1 TAB PO SCH (08:45)
[2020-03-18] MEDS: Cholecalciferol 1,000 UNITS (25 MCG) TAB PO SCH (08:45)
[2020-03-18] MEDS: Thiamine 100 MG TAB PO SCH (08:45)
--- NOTE | 2020-03-18 09:46 | PDOC.HOSPP ---
- Subjective Encounter Date: 03/18/20 Encounter Time: 08:00 Subjective: Patient seen and examined bedside today, no overnight event, no new complaint, patient does not have any suicidal or homicidal ideation - Objective Vital Signs & Weight: Vital Signs (12 hours) Temp Pulse Resp BP Pulse Ox 03/18/20 08:00 96 03/18/20 07:29 97.5 F L 89 16 124/86 96 Weight Admit Weight 236 lb 9.6 oz Weight 232 lb 3.2 oz I&O: 03/17/20 03/18/20 03/19/20 06:59 06:59 06:59 Intake Total 960 1680 Output Total 750 2800 Balance 210 -1120 Result Diagrams: 03/08/20 07:08 03/06/20 03:55 Hospitalist ROS - Review of Systems ENT: denies: ear pain, ear discharge, nose pain, nose discharge, nose con gestion, mouth pain, mouth swelling, throat pain, throat swelling, other Respiratory: denies: cough, dry, shortness of breath, hemoptysis, SOB with excertion, pleuritic pain, sputum, wheezing, other Cardiovascular: denies: chest pain, palpitations, orthopnea, paroxysmal noc. dyspnea, edema, light headedness, other Gastrointestinal: denies: nausea, vomiting, abdominal pain, diarrhea, constipation, melena, hematochezia, other Genitourinary: denies: dysuria, frequency, incontinence, hematuria, retention, other Musculoskeletal: denies: neck pain, shoulder pain, arm pain, back pain, hand pain, leg pain, foot pain, other - Medication Medications: Active Medications Generic Name Dose Route Start Last Admin Trade Name aNkita PRN Reason Stop Dose Admin Acetaminophen 650 mg 03/04/20 20:01 03/05/20 05:38 Acetaminophen 325 Mg Tab PO 650 mg Q4H PRN Administration Fever or Pain Cholecalciferol 2,000 units 03/04/20 09:00 03/18/20 08:45 Cholecalciferol 1,000 Units (25 Mcg) Tab PO 2,000 units DAILY BLAZE Administration Enoxaparin Sodium 40 mg 03/02/20 09:00 03/18/20 08:44 Enoxaparin Sodium 40 Mg/0.4 Ml Syringe SC 40 mg 09 BLAZE Administration Famotidine 20 mg 03/09/20 21:00 03/18/20 08:44 Famotidine 20 Mg Tab PO 20 mg BID BLAZE Administration Folic Acid 1 mg 03/05/20 09:00 03/18/20 08:44 Folic Acid 1 Mg Tab PO 1 mg DAILY BLAZE Administration Iron/Minerals/Multivitamins 1 tab 03/05/20 09:00 03/18/20 08:45 Multivitamin W/ Minerals 1 Tab PO 1 tab DAILY BLAZE Administration Magnesium Oxide 400 mg 03/06/20 09:00 03/18/20 08:44 Magnesium Oxide 400 Mg Tab PO 400 mg DAILY BLAZE Administration Thiamine HCl 100 mg 03/02/20 09:00 03/18/20 08:45 Thiamine 100 Mg Tab PO 100 mg DAILY BLAZE Administration Vitamin B Complex/Vit C/Folic Acid 1 tab 03/02/20 09:00 03/18/20 08:44 Folic Acid/Vit B Comp W-C PO 1 tab DAILY BLAZE Administration - Exam General Appearance: NAD, awake alert Eye: PERRL, anicteric sclera ENT: normocephalic atraumatic, no oropharyngeal lesions Neck: supple, symmetric, no JVD, no thyromegaly Heart: RRR, no murmur, no gallops, no rubs Respiratory: no wheezes, no rales, no ronchi Gastrointestinal: soft, non-tender, non-distended, normal bowel sounds Extremities: no cyanosis, no clubbing, no edema Skin: normal turgor, no lesions Neurological: no focal deficits Musculoskeletal: normal tone, normal strength Psychiatric: normal affect, normal behavior Hosp A/P (1) Klebsiella pneumoniae sepsis Code(s): A41.4 - SEPSIS DUE TO ANAEROBES Status: Resolved (2) Alcohol abuse Code(s): F10.10 - ALCOHOL ABUSE, UNCOMPLICATED Status: Chronic (3) Acute metabolic encephalopathy Code(s): G93.41 - METABOLIC ENCEPHALOPATHY Status: Resolved (4) Developmental disability Status: Chronic (5) Acromioclavicular joint injury Code(s): S49.90XA - UNSP INJURY OF SHOULDER AND UPPER ARM, UNSP ARM, INIT ENCNTR Status: Acute Qualifiers: Laterality: right (6) Obesity (BMI 30-39.9) Code(s): E66.9 - OBESITY, UNSPECIFIED Status: Chronic - Plan 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
[2020-03-19] MEDS: Multivitamin W/ Minerals 1 TAB PO SCH (09:13)
[2020-03-19] MEDS: Thiamine 100 MG TAB PO SCH (09:13)
[2020-03-19] MEDS: Folic Acid 1 MG TAB PO SCH (09:13)
[2020-03-19] MEDS: Cholecalciferol 1,000 UNITS (25 MCG) TAB PO SCH (09:13)
[2020-03-19] MEDS: Famotidine 20 MG TAB PO SCH ×2 (09:13→19:45)
[2020-03-19] MEDS: Folic Acid/Vit B Comp W-C PO SCH (09:13)
[2020-03-19] MEDS: Magnesium Oxide 400 MG TAB PO SCH (09:13)
[2020-03-19] MEDS: Enoxaparin Sodium 40 MG/0.4 ML SYRINGE SC SCH (12:00)
--- NOTE | 2020-03-19 14:48 | PDOC.HOSPP ---
- Subjective Encounter Date: 03/19/20 Encounter Time: 10:00 Subjective: F/u: encephalopathy, placement The patient has no complaints today. He is oriented times three. He asked me to call his mother while in the room to pick him up, but she did not answer. I called a second time and was not able to get a hold of her. He denies suicidal or homicidal thoughts Still pending psych placement - Objective Vital Signs & Weight: Vital Signs (12 hours) Temp Pulse Resp BP BP Pulse Ox 03/19/20 12:00 97.6 F 80 16 128/79 94 L 03/19/20 08:00 93 L 03/19/20 07:55 98.1 F 90 16 128/78 93 L Weight Admit Weight 236 lb 9.6 oz Weight 232 lb 3.2 oz I&O: 03/18/20 03/19/20 03/20/20 06:59 06:59 06:59 Intake Total 1680 960 Output Total 2800 600 Balance -1120 360 Result Diagrams: 03/08/20 07:08 03/06/20 03:55 Hospitalist ROS - Review of Systems Constitutional: denies: fever, chills - Medication Medications: Active Medications Generic Name Dose Route Start Last Admin Trade Name Freq PRN Reason Stop Dose Admin Acetaminophen 650 mg 03/04/20 20:01 03/05/20 05:38 Acetaminophen 325 Mg Tab PO 650 mg Q4H PRN Administration Fever or Pain Cholecalciferol 2,000 units 03/04/20 09:00 03/19/20 09:13 Cholecalciferol 1,000 Units (25 Mcg) Tab PO 2,000 units DAILY BLAZE Administration Enoxaparin Sodium 40 mg 03/02/20 09:00 03/19/20 12:00 Enoxaparin Sodium 40 Mg/0.4 Ml Syringe SC 40 mg 0900 BLAZE Administration Famotidine 20 mg 03/09/20 21:00 03/19/20 09:13 Famotidine 20 Mg Tab PO 20 mg BID BLAZE Administration Folic Acid 1 mg 03/05/20 09:00 03/19/20 09:13 Folic Acid 1 Mg Tab PO 1 mg DAILY BLAZE Administration Iron/Minerals/Multivitamins 1 tab 03/05/20 09:00 03/19/20 09:13 Multivitamin W/ Minerals 1 Tab PO 1 tab DAILY BLAZE Administration Magnesium Oxide 400 mg 03/06/20 09:00 03/19/20 09:13 Magnesium Oxide 400 Mg Tab PO 400 mg DAILY BLAZE Administration Thiamine HCl 100 mg 03/02/20 09:00 03/19/20 09:13 Thiamine 100 Mg Tab PO 100 mg DAILY BLAZE Administration Vitamin B Complex/Vit C/Folic Acid 1 tab 03/02/20 09:00 03/19/20 09:13 Folic Acid/Vit B Comp W-C PO 1 tab DAILY BLAZE Administration - Exam General Appearance: NAD, awake alert Eye: PERRL, anicteric sclera ENT: normocephalic atraumatic, no oropharyngeal lesions Neck: no JVD Heart: RRR, no murmur, no gallops, no rubs Respiratory: CTAB, no wheezes, no rales, no ronchi Gastrointestinal: soft, non-tender, non-distended, normal bowel sounds Extremities: no cyanosis, no clubbing, no edema Skin: normal turgor, no lesions, no rashes Neurological: cranial nerve grossly intact, normal sensation to touch, no weakness Musculoskeletal: normal tone, normal strength, no muscle wasting Hosp A/P - Plan Chest X ray: bibasilar densities less conspicuous This is a 39 year old male who presented with encephalopathy, found to be hypotensive, hypoglycemia, hypocalcemic, hypokalemic, and with alcoholic intoxication. He was originally admitted to [facility]. He was transferred to telemet . He developed sepsis on 03/05 and was started on IV zosyn. Heart rate has stabiliazed and he is now transferred to medical. He is pending placement. Sepsis secondary to Klebsiella pneumonia - patient had fever, tachycardia, blood cultures positive for Klebsiella. Re peat blood cultures negative. Two COVID swabs negative - he received seven days of levaquin, discontinued Developmental disability - patient's family is unable to take care of the patient. He does not qualify for longterm - [facility] consulted, they will look into sending him to [facility] Grade 3 AC joint injury - noted on chest X ray denies arm pain currently and has good range of motion. Ortho consulted, no intervention Acute metabolic encephalopathy - resolved - secondary to multiple electrolyte disturbances - he is oriented times three currently - B12/folate and TSH are normal Alcohol abuse - no longer withdrawing Vitamin D deficiency - continue supplementation Physical deconditioning - PT evaluated the patient and recommended a walker Dispo: pending referral to [facility] for placement
[2020-03-20] MEDS: Folic Acid/Vit B Comp W-C PO SCH (09:20)
[2020-03-20] MEDS: Thiamine 100 MG TAB PO SCH (09:20)
[2020-03-20] MEDS: Magnesium Oxide 400 MG TAB PO SCH (09:20)
[2020-03-20] MEDS: Folic Acid 1 MG TAB PO SCH (09:20)
[2020-03-20] MEDS: Enoxaparin Sodium 40 MG/0.4 ML SYRINGE SC SCH (09:20)
[2020-03-20] MEDS: Cholecalciferol 1,000 UNITS (25 MCG) TAB PO SCH (09:20)
[2020-03-20] MEDS: Famotidine 20 MG TAB PO SCH ×2 (09:20→19:52)
[2020-03-20] MEDS: Multivitamin W/ Minerals 1 TAB PO SCH (09:20)
--- NOTE | 2020-03-20 18:34 | PDOC.HOSPP ---
- Subjective Encounter Date: 03/21/20 Encounter Time: 09:00 Subjective: F/u: encephalopathy Patient oriented times three. He has no complaints. He is pending placement still. He asked for his mom to pick him up, his mother did not answer the phone. He asked me to call his sister. His sister explained to him that his mother is not coming to pick him up, and sister stated she cannot take care of him either. Patient then shut down and appeared angry - Objective Vital Signs & Weight: Vital Signs (12 hours) Temp Pulse Resp BP Pulse Ox 03/20/20 08:00 95 03/20/20 07:38 98.0 F 80 20 122/79 95 Weight Admit Weight 236 lb 9.6 oz Weight 232 lb 3.2 oz I&O: 03/19/20 03/20/20 03/21/20 06:59 06:59 06:59 Intake Total 960 1000 Output Total 600 700 Balance 360 300 Result Diagrams: 03/08/20 07:08 03/06/20 03:55 Hospitalist ROS - Review of Systems Constitutional: reports: fever, chills - Medication Medications: Active Medications Generic Name Dose Route Start Last Admin Trade Name Freq PRN Reason Stop Dose Admin Acetaminophen 650 mg 03/04/20 20:01 03/05/20 05:38 Acetaminophen 325 Mg Tab PO 650 mg Q4H PRN Administration Fever or Pain Cholecalciferol 2,000 units 03/04/20 09:00 03/20/20 09:20 Cholecalciferol 1,000 Units (25 Mcg) Tab PO 2,000 units DAILY BLAZE Administration Enoxaparin Sodium 40 mg 03/02/20 09:00 03/20/20 09:20 Enoxaparin Sodium 40 Mg/0.4 Ml Syringe SC 40 mg 0900 BLAZE Administration Famotidine 20 mg 03/09/20 21:00 03/20/20 09:20 Famotidine 20 Mg Tab PO 20 mg BID BLAZE Administration Folic Acid 1 mg 03/05/20 09:00 03/20/20 09:20 Folic Acid 1 Mg Tab PO 1 mg DAILY BLAZE Administration Iron/Minerals/Multivitamins 1 tab 03/05/20 09:00 03/20/20 09:20 Multivitamin W/ Minerals 1 Tab PO 1 tab DAILY BLAZE Administration Magnesium Oxide 400 mg 03/06/20 09:00 03/20/20 09:20 Magnesium Oxide 400 Mg Tab PO 400 mg DAILY BLAZE Administration Thiamine HCl 100 mg 03/02/20 09:00 03/20/20 09:20 Thiamine 100 Mg Tab PO 100 mg DAILY BLAZE Administration Vitamin B Complex/Vit C/Folic Acid 1 tab 03/02/20 09:00 03/20/20 09:20 Folic Acid/Vit B Comp W-C PO 1 tab DAILY BLAZE Administration - Exam General Appearance: NAD, awake alert Eye: PERRL, anicteric sclera ENT: normocephalic atraumatic, no oropharyngeal lesions Neck: symmetric, no lymphadenopathy. negative: supple, no JVD, no thyromegaly, no carotid bruit, JVD Heart: RRR, no murmur, no gallops Respiratory: CTAB, no wheezes, no rales, normal chest expansion Gastrointestinal: soft, non-tender, non-distended, normal bowel sounds Extremities: no cyanosis, no clubbing, no edema Skin: normal turgor, no lesions, no rashes Neurological: cranial nerve grossly intact, normal sensation to touch, no weakness, no focal deficits Musculoskeletal: normal tone, normal strength, no muscle wasting Psychiatric: normal affect, normal behavior, A&O x 3 Hosp A/P - Plan Chest X ray: bibasilar densities less conspicuous This is a 39 year old male who presented with encephalopathy, found to be hypotensive, hypoglycemia, hypocalcemic, hypokalemic, and with alcoholic intoxication. He was originally admitted to [facility]. He was transferred to telemetry. He developed sepsis on 03/05 and was started on IV zosyn. Heart rate has stabiliazed and he is now transferred to medical. He is pending placement. Sepsis secondary to Klebsiella pneumonia - s/p 7 days of levaquin Developmental disability - patient's family is unable to take care of the patient. He does not qualify for half-way - [facility] consulted, they will look into sending him to [facility] Grade 3 AC joint injury - noted on chest X ray denies arm pain currently and has good range of motion. Ortho consulted, no intervention Acute metabolic encephalopathy - resolved - secondary to multiple electrolyte disturbances - he is oriented times three currently - B12/folate and TSH are normal Alcohol abuse - no longer withdrawing Vitamin D deficiency - continue supplementation Physical deconditioning - PT evaluated the patient and recommended a walker Dispo: pending referral to [facility] for placement
[2020-03-21] MEDS: Folic Acid/Vit B Comp W-C PO SCH (08:39)
[2020-03-21] MEDS: Magnesium Oxide 400 MG TAB PO SCH (08:39)
[2020-03-21] MEDS: Famotidine 20 MG TAB PO SCH ×2 (08:39→20:53)
[2020-03-21] MEDS: Cholecalciferol 1,000 UNITS (25 MCG) TAB PO SCH (08:40)
[2020-03-21] MEDS: Enoxaparin Sodium 40 MG/0.4 ML SYRINGE SC SCH (08:40)
[2020-03-21] MEDS: Multivitamin W/ Minerals 1 TAB PO SCH (08:40)
[2020-03-21] MEDS: Folic Acid 1 MG TAB PO SCH (08:40)
[2020-03-21] MEDS: Thiamine 100 MG TAB PO SCH (08:40)
--- NOTE | 2020-03-21 11:21 | PDOC.HOSPP ---
- Subjective Encounter Date: 03/21/20 Encounter Time: 09:00 Subjective: F/u: Psych placement The patient has no complaints. Still awaiting placement. I contacted patient's aunt who did not answer the phone. Explained to the patient that family does not want him back because he is impulsive and a threat to himself. THe patient states that his family is lying - Objective Vital Signs & Weight: Vital Signs (12 hours) Temp Pulse Resp BP Pulse Ox 03/21/20 07:06 97.5 F L 75 18 105/66 95 Weight Admit Weight 236 lb 9.6 oz Weight 232 lb 3.2 oz I&O: 03/20/20 03/21/20 03/22/20 06:59 06:59 06:59 Intake Total 1000 960 Output Total 700 800 Balance 300 160 Result Diagrams: 03/08/20 07:08 03/06/20 03:55 Hospitalist ROS - Review of Systems Constitutional: denies: fever, chills - Medication Medications: Active Medications Generic Name Dose Route Start Last Admin Trade Name Freq PRN Reason Stop Dose Admin Acetaminophen 650 mg 03/04/20 20:01 03/05/20 05:38 Acetaminophen 325 Mg Tab PO 650 mg Q4H PRN Administration Fever or Pain Cholecalciferol 2,000 units 03/04/20 09:00 03/21/20 08:40 Cholecalciferol 1,000 Units (25 Mcg) Tab PO 2,000 units DAILY BLAZE Administration Enoxaparin Sodium 40 mg 03/02/20 09:00 03/21/20 08:40 Enoxaparin Sodium 40 Mg/0.4 Ml Syringe SC 40 mg 09 BLAZE Administration Famotidine 20 mg 03/09/20 21:00 03/21/20 08:39 Famotidine 20 Mg Tab PO 20 mg BID BLAZE Administration Folic Acid 1 mg 03/05/20 09:00 03/21/20 08:40 Folic Acid 1 Mg Tab PO 1 mg DAILY BLAZE Administration Iron/Minerals/Multivitamins 1 tab 03/05/20 09:00 03/21/20 08:40 Multivitamin W/ Minerals 1 Tab PO 1 tab DAILY BLAZE Administration Magnesium Oxide 400 mg 03/06/20 09:00 03/21/20 08:39 Magnesium Oxide 400 Mg Tab PO 400 mg DAILY BLAZE Administration Thiamine HCl 100 mg 03/02/20 09:00 03/21/20 08:40 Thiamine 100 Mg Tab PO 100 mg DAILY BLAZE Administration Vitamin B Complex/Vit C/Folic Acid 1 tab 03/02/20 09:00 03/21/20 08:39 Folic Acid/Vit B Comp W-C PO 1 tab DAILY BLAZE Administration - Exam General Appearance: NAD, awake alert Eye: PERRL, anicteric sclera ENT: normocephalic atraumatic, no oropharyngeal lesions Neck: no JVD Heart: RRR, normal peripheral pulses Respiratory: CTAB, no wheezes, no rales, no ronchi, rales Gastrointestinal: soft, non-tender, non-distended, normal bowel sounds Extremities: no cyanosis, no clubbing, no edema Skin: normal turgor, no lesions, no rashes Neurological: cranial nerve grossly intact, normal sensation to touch, no weakness Psychiatric: normal affect, normal behavior, A&O x 3, oriented to person Hosp A/P - Plan Chest X ray: bibasilar densities less conspicuous This is a 39 year old male who presented with encephalopathy, found to be hypotensive, hypoglycemia, hypocalcemic, hypokalemic, and with alcoholic intoxication. He was originally admitted to [facility]. He was transferred to telemetry. He developed sepsis on 03/05 and was started on IV zosyn. Heart rate has stabiliazed and he is now transferred to medical. He is pending placement. Sepsis secondary to Klebsiella pneumonia - s/p 7 days of levaquin Developmental disability - patient's family is unable to take care of the patient. He does not qualify for alf - [facility] consulted, they will look into sending him to [facility] Grade 3 AC joint injury - noted on chest X ray denies arm pain currently and has good range of motion. Ortho consulted, no intervention Acute metabolic encephalopathy - resolved - secondary to multiple electrolyte disturbances - he is oriented times three currently - B12/folate and TSH are normal Alcohol abuse - no longer withdrawing Vitamin D deficiency - continue supplementation Physical deconditioning - PT evaluated the patient and recommended a walker Dispo: pending placement
[2020-03-22] MEDS: Folic Acid/Vit B Comp W-C PO SCH (07:47)
[2020-03-22] MEDS: Thiamine 100 MG TAB PO SCH (07:48)
[2020-03-22] MEDS: Cholecalciferol 1,000 UNITS (25 MCG) TAB PO SCH (07:48)
[2020-03-22] MEDS: Famotidine 20 MG TAB PO SCH ×2 (07:49→19:52)
[2020-03-22] MEDS: Enoxaparin Sodium 40 MG/0.4 ML SYRINGE SC SCH (07:49)
[2020-03-22] MEDS: Folic Acid 1 MG TAB PO SCH (07:49)
[2020-03-22] MEDS: Multivitamin W/ Minerals 1 TAB PO SCH (07:49)
[2020-03-22] MEDS: Magnesium Oxide 400 MG TAB PO SCH (07:49)
--- NOTE | 2020-03-22 17:25 | PDOC.HOSPP ---
- Subjective Encounter Date: 03/22/20 Encounter Time: 09:00 Subjective: F/u: placement The patient has no complaints, denies suicidal or homicidal ideation. Case management looking into [facility] setting, however this may take a long time so MR trying to convince family to take him home temporarily - Objective Vital Signs & Weight: Vital Signs (12 hours) Temp Pulse Resp BP BP Pulse Ox 03/22/20 08:00 96 03/22/20 07:56 97.8 F 88 17 125/87 94 L 03/22/20 07:21 97.5 F L 83 18 125/83 96 03/22/20 04:00 97.4 F L 81 20 109/72 96 Weight Admit Weight 236 lb 9.6 oz Weight 232 lb 3.2 oz I&O: 03/21/20 03/22/20 03/23/20 06:59 06:59 06:59 Intake Total 960 500 Output Total 800 700 Balance 160 -200 Result Diagrams: 03/08/20 07:08 03/06/20 03:55 Hospitalist ROS - Review of Systems Constitutional: denies: fever, chills - Medication Medications: Active Medications Generic Name Dose Route Start Last Admin Trade Name Freq PRN Reason Stop Dose Admin Acetaminophen 650 mg 03/04/20 20:01 03/05/20 05:38 Acetaminophen 325 Mg Tab PO 650 mg Q4H PRN Administration Fever or Pain Cholecalciferol 2,000 units 03/04/20 09:00 03/22/20 07:48 Cholecalciferol 1,000 Units (25 Mcg) Tab PO 2,000 units DAILY BLAZE Administration Enoxaparin Sodium 40 mg 03/02/20 09:00 03/22/20 07:49 Enoxaparin Sodium 40 Mg/0.4 Ml Syringe SC 40 mg 09 BLAZE Administration Famotidine 20 mg 03/09/20 21:00 03/22/20 07:49 Famotidine 20 Mg Tab PO 20 mg BID BLAZE Administration Folic Acid 1 mg 03/05/20 09:00 03/22/20 07:49 Folic Acid 1 Mg Tab PO 1 mg DAILY BLAZE Administration Iron/Minerals/Multivitamins 1 tab 03/05/20 09:00 03/22/20 07:49 Multivitamin W/ Minerals 1 Tab PO 1 tab DAILY BLAZE Administration Magnesium Oxide 400 mg 03/06/20 09:00 03/22/20 07:49 Magnesium Oxide 400 Mg Tab PO 400 mg DAILY BLAZE Administration Thiamine HCl 100 mg 03/02/20 09:00 03/22/20 07:48 Thiamine 100 Mg Tab PO 100 mg DAILY BLAZE Administration Vitamin B Complex/Vit C/Folic Acid 1 tab 03/02/20 09:00 03/22/20 07:47 Folic Acid/Vit B Comp W-C PO 1 tab DAILY BLAZE Administration - Exam General Appearance: NAD, awake alert Heart: normal peripheral pulses Respiratory: normal chest expansion Gastrointestinal: non-distended Extremities: no edema Hosp A/P - Plan Chest X ray: bibasilar densities less conspicuous This is a 39 year old male who presented with encephalopathy, found to be hypotensive, hypoglycemia, hypocalcemic, hypokalemic, and with alcoholic intoxication. He was originally admitted to [facility]. He was transferred to telemetry. He developed sepsis on 03/05 and was started on IV zosyn. Heart rate has stabiliazed and he is now transferred to medical. He is pending placement. Sepsis secondary to Klebsiella pneumonia - s/p 7 days of levaquin Developmental disability - patient's family is unable to take care of the patient. He does not qualify for retirement. He has been denied from over 9 psychiatric hospitals. Trying to look into setting him up in a [facility] Grade 3 AC joint injury - noted on chest X ray denies arm pain currently and has good range of motion. Ortho consulted, no intervention Acute metabolic encephalopathy - resolved - secondary to multiple electrolyte disturbances - he is oriented times three currently - B12/folate and TSH are normal Alcohol abuse - no longer withdrawing Vitamin D deficiency - continue supplementation Physical deconditioning - PT evaluated the patient and recommended a walker Dispo: pending placement at a [facility]
[2020-03-23] MEDS: Enoxaparin Sodium 40 MG/0.4 ML SYRINGE SC SCH (08:50)
[2020-03-23] MEDS: Folic Acid/Vit B Comp W-C PO SCH (08:50)
[2020-03-23] MEDS: Magnesium Oxide 400 MG TAB PO SCH (08:50)
[2020-03-23] MEDS: Cholecalciferol 1,000 UNITS (25 MCG) TAB PO SCH (08:50)
[2020-03-23] MEDS: Thiamine 100 MG TAB PO SCH (08:50)
[2020-03-23] MEDS: Multivitamin W/ Minerals 1 TAB PO SCH (08:50)
[2020-03-23] MEDS: Famotidine 20 MG TAB PO SCH ×2 (08:50→20:46)
[2020-03-23] MEDS: Folic Acid 1 MG TAB PO SCH (08:51)
--- NOTE | 2020-03-23 16:34 | PDOC.HOSPP ---
- Subjective Encounter Date: 03/23/20 Encounter Time: 11:00 Subjective: F/u: placement The patient has no complaints. Per case management, [facility] is trying to do a family meeting with the family to take the patient back home temporarily - Objective Vital Signs & Weight: Vital Signs (12 hours) Temp Pulse Resp BP Pulse Ox 03/23/20 08:00 94 L 03/23/20 07:57 97.9 F 99 16 115/75 94 L Weight Admit Weight 236 lb 9.6 oz Weight 232 lb 3.2 oz I&O: 03/22/20 03/23/20 03/24/20 06:59 06:59 06:59 Intake Total 500 440 Output Total 700 Balance -200 440 Result Diagrams: 03/08/20 07:08 03/06/20 03:55 Hospitalist ROS - Review of Systems Constitutional: denies: fever, chills - Medication Medications: Active Medications Generic Name Dose Route Start Last Admin Trade Name Freq PRN Reason Stop Dose Admin Acetaminophen 650 mg 03/04/20 20:01 03/05/20 05:38 Acetaminophen 325 Mg Tab PO 650 mg Q4H PRN Administration Fever or Pain Cholecalciferol 2,000 units 03/04/20 09:00 03/23/20 08:50 Cholecalciferol 1,000 Units (25 Mcg) Tab PO 2,000 units DAILY BLAZE Administration Enoxaparin Sodium 40 mg 03/02/20 09:00 03/23/20 08:50 Enoxaparin Sodium 40 Mg/0.4 Ml Syringe SC 40 mg 0900 BLAZE Administration Famotidine 20 mg 03/09/20 21:00 03/23/20 08:50 Famotidine 20 Mg Tab PO 20 mg BID BLAZE Administration Folic Acid 1 mg 03/05/20 09:00 03/23/20 08:51 Folic Acid 1 Mg Tab PO 1 mg DAILY BLAZE Administration Iron/Minerals/Multivitamins 1 tab 03/05/20 09:00 03/23/20 08:50 Multivitamin W/ Minerals 1 Tab PO 1 tab DAILY BLAZE Administration Magnesium Oxide 400 mg 03/06/20 09:00 03/23/20 08:50 Magnesium Oxide 400 Mg Tab PO 400 mg DAILY BLAZE Administration Thiamine HCl 100 mg 03/02/20 09:00 03/23/20 08:50 Thiamine 100 Mg Tab PO 100 mg DAILY BLAZE Administration Vitamin B Complex/Vit C/Folic Acid 1 tab 03/02/20 09:00 03/23/20 08:50 Folic Acid/Vit B Comp W-C PO 1 tab DAILY BLAZE Administration - Exam General Appearance: NAD, awake alert Eye: PERRL, anicteric sclera ENT: normocephalic atraumatic, no oropharyngeal lesions Neck: no JVD Heart: RRR, no murmur, no gallops, no rubs Respiratory - other findings: lungs clear to auscultation Gastrointestinal: soft, non-distended Extremities: no edema Hosp A/P - Plan Chest X ray: bibasilar densities less conspicuous This is a 39 year old male who presented with encephalopathy, found to be hypotensive, hypoglycemia, hypocalcemic, hypokalemic, and with alcoholic intoxication. He was originally admitted to [facility]. He was transferred to telemetry. He developed sepsis on 03/05 and was started on IV zosyn. Heart rate has stabiliazed and he is now transferred to medical. He is pending placement. Sepsis secondary to Klebsiella pneumonia - s/p 7 days of levaquin Developmental disability - patient's family is unable to take care of the patient. He does not qualify for correction. He has been denied from over 9 psychiatric hospitals. [facility] to look into trying to get into go home, alternatively consider filing APS case Grade 3 AC joint injury - noted on chest X ray denies arm pain currently and has good range of motion. Ortho consulted, no intervention Acute metabolic encephalopathy - resolved - secondary to multiple electrolyte disturbances - he is oriented times three currently - B12/folate and TSH are normal Alcohol abuse - no longer withdrawing Vitamin D deficiency - continue supplementation Physical deconditioning - PT evaluated the patient and recommended a walker Dispo: pending placement at a [facility]
[2020-03-24] MEDS: Magnesium Oxide 400 MG TAB PO SCH (08:44)
[2020-03-24] MEDS: Folic Acid 1 MG TAB PO SCH (08:45)
[2020-03-24] MEDS: Thiamine 100 MG TAB PO SCH (08:45)
[2020-03-24] MEDS: Multivitamin W/ Minerals 1 TAB PO SCH (08:45)
[2020-03-24] MEDS: Folic Acid/Vit B Comp W-C PO SCH (08:45)
[2020-03-24] MEDS: Cholecalciferol 1,000 UNITS (25 MCG) TAB PO SCH (08:45)
[2020-03-24] MEDS: Enoxaparin Sodium 40 MG/0.4 ML SYRINGE SC SCH (08:45)
[2020-03-24] MEDS: Famotidine 20 MG TAB PO SCH ×2 (08:46→19:51)
--- NOTE | 2020-03-24 16:11 | PDOC.HOSPP ---
- Subjective Encounter Date: 03/24/20 Encounter Time: 10:00 Subjective: F/u: placement The patient is doing well, has no complaints. APS was filed this morning and they offered for him to go to a nursing home, but the patient declined. They are discussing with [facility] again about alternative placement options - Objective Vital Signs & Weight: Vital Signs (12 hours) Pulse Resp BP Pulse Ox 03/24/20 08:00 95 03/24/20 07:13 91 16 125/74 95 Weight Admit Weight 236 lb 9.6 oz Weight 232 lb 3.2 oz I&O: 03/23/20 03/24/20 03/25/20 06:59 06:59 06:59 Intake Total 680 480 Balance 680 480 Result Diagrams: 03/08/20 07:08 03/06/20 03:55 Hospitalist ROS - Review of Systems Constitutional: denies: fever, chills - Medication Medications: Active Medications Generic Name Dose Route Start Last Admin Trade Name Freq PRN Reason Stop Dose Admin Acetaminophen 650 mg 03/04/20 20:01 03/05/20 05:38 Acetaminophen 325 Mg Tab PO 650 mg Q4H PRN Administration Fever or Pain Cholecalciferol 2,000 units 03/04/20 09:00 03/24/20 08:45 Cholecalciferol 1,000 Units (25 Mcg) Tab PO 2,000 units DAILY BLAZE Administration Enoxaparin Sodium 40 mg 03/02/20 09:00 03/24/20 08:45 Enoxaparin Sodium 40 Mg/0.4 Ml Syringe SC 40 mg 0900 BLAZE Administration Famotidine 20 mg 03/09/20 21:00 03/24/20 08:46 Famotidine 20 Mg Tab PO 20 mg BID BLAZE Administration Folic Acid 1 mg 03/05/20 09:00 03/24/20 08:45 Folic Acid 1 Mg Tab PO 1 mg DAILY BLAZE Administration Iron/Minerals/Multivitamins 1 tab 03/05/20 09:00 03/24/20 08:45 Multivitamin W/ Minerals 1 Tab PO 1 tab DAILY BLAZE Administration Magnesium Oxide 400 mg 03/06/20 09:00 03/24/20 08:44 Magnesium Oxide 400 Mg Tab PO 400 mg DAILY BLAZE Administration Thiamine HCl 100 mg 03/02/20 09:00 03/24/20 08:45 Thiamine 100 Mg Tab PO 100 mg DAILY BLAZE Administration Vitamin B Complex/Vit C/Folic Acid 1 tab 03/02/20 09:00 03/24/20 08:45 Folic Acid/Vit B Comp W-C PO 1 tab DAILY BLAZE Administration - Exam General Appearance: NAD, awake alert Eye: PERRL, anicteric sclera ENT: normocephalic atraumatic, no oropharyngeal lesions Heart: RRR Respiratory: normal chest expansion Gastrointestinal: non-distended Extremities: no edema Hosp A/P - Plan Chest X ray: bibasilar densities less conspicuous This is a 39 year old male who presented with encephalopathy, found to be hypotensive, hypoglycemia, hypocalcemic, hypokalemic, and with alcoholic intoxication. He was originally admitted to [facility]. He was transferred to [facility]. He developed sepsis on 03/05 and was started on IV zosyn. Heart rate has stabiliazed and he is now transferred to medical. He is pending placement. Sepsis secondary to Klebsiella pneumonia - s/p 7 days of levaquin Developmental disability - patient's family is unable to take care of the patient. Mother and sister do not want to take the patient home. He does not qualify for prison. He has been denied from over 9 psychiatric hospitals. APS has been filed, still working with [facility] for placement Grade 3 AC joint injury - noted on chest X ray denies arm pain currently and has good range of motion. Ortho consulted, no intervention Acute metabolic encephalopathy - resolved - secondary to multiple electrolyte disturbances. B12/folate and TSH are normal Alcohol abuse - no longer withdrawing Vitamin D deficiency: - continue supplementation Physical deconditioning: PT evaluated the patient and recommended a walker. Does not need rehab. Dispo: pending placement at a nursing home??
[2020-03-25] MEDS: Multivitamin W/ Minerals 1 TAB PO SCH (08:38)
[2020-03-25] MEDS: Famotidine 20 MG TAB PO SCH ×2 (08:38→21:38)
[2020-03-25] MEDS: Folic Acid 1 MG TAB PO SCH (08:39)
[2020-03-25] MEDS: Folic Acid/Vit B Comp W-C PO SCH (08:39)
[2020-03-25] MEDS: Cholecalciferol 1,000 UNITS (25 MCG) TAB PO SCH (08:39)
[2020-03-25] MEDS: Enoxaparin Sodium 40 MG/0.4 ML SYRINGE SC SCH (08:39)
[2020-03-25] MEDS: Magnesium Oxide 400 MG TAB PO SCH (08:39)
[2020-03-25] MEDS: Thiamine 100 MG TAB PO SCH (08:39)
--- NOTE | 2020-03-25 10:15 | PDOC.HOSPP ---
- Subjective Encounter Date: 03/25/20 Subjective: The patient denies any new complaints today. - Objective Vital Signs & Weight: Vital Signs (12 hours) Temp Pulse Resp BP Pulse Ox 03/25/20 07:38 97.9 F 75 20 104/67 98 Weight Admit Weight 236 lb 9.6 oz Weight 232 lb 3.2 oz I&O: 03/24/20 03/25/20 03/26/20 06:59 06:59 06:59 Intake Total 680 720 Balance 680 720 Result Diagrams: 03/08/20 07:08 03/06/20 03:55 Hospitalist ROS - Medication Medications: Active Medications Generic Name Dose Route Start Last Admin Trade Name Freq PRN Reason Stop Dose Admin Acetaminophen 650 mg 03/04/20 20:01 03/05/20 05:38 Acetaminophen 325 Mg Tab PO 650 mg Q4H PRN Administration Fever or Pain Cholecalciferol 2,000 units 03/04/20 09:00 03/25/20 08:39 Cholecalciferol 1,000 Units (25 Mcg) Tab PO 2,000 units DAILY BLAZE Administration Enoxaparin Sodium 40 mg 03/02/20 09:00 03/25/20 08:39 Enoxaparin Sodium 40 Mg/0.4 Ml Syringe SC 40 mg 0900 BLAZE Administration Famotidine 20 mg 03/09/20 21:00 03/25/20 08:38 Famotidine 20 Mg Tab PO 20 mg BID BLAZE Administration Folic Acid 1 mg 03/05/20 09:00 03/25/20 08:39 Folic Acid 1 Mg Tab PO 1 mg DAILY BLAZE Administration Iron/Minerals/Multivitamins 1 tab 03/05/20 09:00 03/25/20 08:38 Multivitamin W/ Minerals 1 Tab PO 1 tab DAILY BLAZE Administration Magnesium Oxide 400 mg 03/06/20 09:00 03/25/20 08:39 Magnesium Oxide 400 Mg Tab PO 400 mg DAILY BLAZE Administration Thiamine HCl 100 mg 03/02/20 09:00 03/25/20 08:39 Thiamine 100 Mg Tab PO 100 mg DAILY BLAZE Administration Vitamin B Complex/Vit C/Folic Acid 1 tab 03/02/20 09:00 03/25/20 08:39 Folic Acid/Vit B Comp W-C PO 1 tab DAILY BLAZE Administration - Exam General Appearance: awake alert ENT: normocephalic atraumatic Neck: supple, no JVD Respiratory: normal chest expansion, no tachypnea Gastrointestinal: soft Neurological: cranial nerve grossly intact Hosp A/P (1) Klebsiella pneumoniae sepsis Code(s): A41.4 - SEPSIS DUE TO ANAEROBES Status: Resolved (2) Acromioclavicular joint injury Code(s): S49.90XA - UNSP INJURY OF SHOULDER AND UPPER ARM, UNSP ARM, INIT ENCNTR Status: Acute Qualifiers: Laterality: right (3) Alcohol abuse Code(s): F10.10 - ALCOHOL ABUSE, UNCOMPLICATED Status: Chronic (4) Developmental disability Status: Chronic (5) Acute metabolic encephalopathy Code(s): G93.41 - METABOLIC ENCEPHALOPATHY Status: Resolved - Plan This patient is a 39-year-old male with history of mental disability, drug abuse, alcohol abuse, and seizures who was admitted to the hospital initially for altered mental status and intoxication with alcohol and presumptively K2 and spice illicit drugs. He was found to be volume depleted and multiple alkali disturbances were noted. He was managed supportively with fluids and elec trolyte replacements. His hospitalization was complicated by sepsis due to Klebsiella infection status post completed course of antibiotics. His repeat cultures were negative. During his initial work-up chest x-ray revealed grade 3 acromioclavicular joint separation on the right shoulder. Orthopedic service consulted and did not recommend any surgical intervention at this time as the patient is functioning well and is asymptomatic. The patient's family apparently unable to take care of the patient and placement was requested and currently pending.
[2020-03-26] MEDS: Magnesium Oxide 400 MG TAB PO SCH (08:58)
[2020-03-26] MEDS: Multivitamin W/ Minerals 1 TAB PO SCH (08:59)
[2020-03-26] MEDS: Famotidine 20 MG TAB PO SCH ×2 (08:59→19:57)
[2020-03-26] MEDS: Folic Acid 1 MG TAB PO SCH (09:00)
[2020-03-26] MEDS: Thiamine 100 MG TAB PO SCH (09:00)
[2020-03-26] MEDS: Enoxaparin Sodium 40 MG/0.4 ML SYRINGE SC SCH (09:02)
[2020-03-26] MEDS: Cholecalciferol 1,000 UNITS (25 MCG) TAB PO SCH (09:06)
[2020-03-26] MEDS: Folic Acid/Vit B Comp W-C PO SCH (09:10)
--- NOTE | 2020-03-26 14:20 | PDOC.HOSPP ---
- Subjective Encounter Date: 03/26/20 Subjective: No new events overnight. The patient is ambulating well and has no new complaints. We are awaiting placement. - Objective Vital Signs & Weight: Vital Signs (12 hours) Temp Pulse Resp BP Pulse Ox 03/26/20 08:35 98.1 F 93 20 118/81 97 Weight Admit Weight 236 lb 9.6 oz Weight 232 lb 3.2 oz I&O: 03/25/20 03/26/20 03/27/20 06:59 06:59 06:59 Intake Total 720 Balance 720 Result Diagrams: 03/08/20 07:08 03/06/20 03:55 Hospitalist ROS - Medication Medications: Active Medications Generic Name Dose Route Start Last Admin Trade Name Freq PRN Reason Stop Dose Admin Acetaminophen 650 mg 03/04/20 20:01 03/05/20 05:38 Acetaminophen 325 Mg Tab PO 650 mg Q4H PRN Administration Fever or Pain Cholecalciferol 2,000 units 03/04/20 09:00 03/26/20 09:06 Cholecalciferol 1,000 Units (25 Mcg) Tab PO 2,000 units DAILY BLAZE Administration Enoxaparin Sodium 40 mg 03/02/20 09:00 03/26/20 09:02 Enoxaparin Sodium 40 Mg/0.4 Ml Syringe SC 40 mg 09 BLAZE Administration Famotidine 20 mg 03/09/20 21:00 03/26/20 08:59 Famotidine 20 Mg Tab PO 20 mg BID BLAZE Administration Folic Acid 1 mg 03/05/20 09:00 03/26/20 09:00 Folic Acid 1 Mg Tab PO 1 mg DAILY BLAZE Administration Iron/Minerals/Multivitamins 1 tab 03/05/20 09:00 03/26/20 08:59 Multivitamin W/ Minerals 1 Tab PO 1 tab DAILY BLAZE Administration Magnesium Oxide 400 mg 03/06/20 09:00 03/26/20 08:58 Magnesium Oxide 400 Mg Tab PO 400 mg DAILY BLAZE Administration Thiamine HCl 100 mg 03/02/20 09:00 03/26/20 09:00 Thiamine 100 Mg Tab PO 100 mg DAILY BLAZE Administration Vitamin B Complex/Vit C/Folic Acid 1 tab 03/02/20 09:00 03/26/20 09:10 Folic Acid/Vit B Comp W-C PO 1 tab DAILY BLAZE Administration Hosp A/P (1) Klebsiella pneumoniae sepsis Code(s): A41.4 - SEPSIS DUE TO ANAEROBES Status: Resolved (2) Acromioclavicular joint injury Code(s): S49.90XA - UNSP INJURY OF SHOULDER AND UPPER ARM, UNSP ARM, INIT ENCNTR Status: Acute Qualifiers: Laterality: right (3) Alcohol abuse Code(s): F10.10 - ALCOHOL ABUSE, UNCOMPLICATED Status: Chronic (4) Developmental disability Status: Chronic (5) Acute metabolic encephalopathy Code(s): G93.41 - METABOLIC ENCEPHALOPATHY Status: Resolved - Plan This patient is a 39-year-old male with history of mental disability, drug abuse, alcohol abuse, and seizures who was admitted to the hospital initially for altered mental status and intoxication with alcohol and presumptively K2 and spice illicit drugs. He was found to be volume depleted and multiple alkali disturbances were noted. He was managed supportively with fluids and electrolyte replacements. His hospitalization was complicated by sepsis due to Klebsiella infection status post completed course of antibiotics. His repeat cultures were negative. During his initial work-up chest x-ray revealed grade 3 acromioclavicular joint separation on the right shoulder. Orthopedic service consulted and did not recommend any surgical intervention at this time as the patient is functioning well and is asymptomatic. The patient's family apparently unable to take care of the patient and placement was requested and currently pending.
[2020-03-27] MEDS: Famotidine 20 MG TAB PO SCH ×2 (08:43→20:19)
[2020-03-27] MEDS: Cholecalciferol 1,000 UNITS (25 MCG) TAB PO SCH (08:43)
[2020-03-27] MEDS: Multivitamin W/ Minerals 1 TAB PO SCH (08:43)
[2020-03-27] MEDS: Thiamine 100 MG TAB PO SCH (08:43)
[2020-03-27] MEDS: Folic Acid 1 MG TAB PO SCH (08:44)
[2020-03-27] MEDS: Folic Acid/Vit B Comp W-C PO SCH (08:44)
[2020-03-27] MEDS: Enoxaparin Sodium 40 MG/0.4 ML SYRINGE SC SCH (08:44)
[2020-03-27] MEDS: Magnesium Oxide 400 MG TAB PO SCH (08:44)
--- NOTE | 2020-03-27 18:52 | PDOC.HOSPP ---
- Subjective Encounter Date: 03/27/20 Subjective: No new events since yesterday. The patient is clinically stable. Pending placement. - Objective Vital Signs & Weight: Vital Signs (12 hours) Temp Pulse Resp BP Pulse Ox 03/27/20 08:00 98 03/27/20 07:24 97.0 F L 78 18 126/77 98 Weight Admit Weight 236 lb 9.6 oz Weight 232 lb 3.2 oz I&O: 03/26/20 03/27/20 03/28/20 06:59 06:59 06:59 Intake Total 1570 1100 Balance 1570 1100 Result Diagrams: 03/08/20 07:08 03/06/20 03:55 Hospitalist ROS - Medication Medications: Active Medications Generic Name Dose Route Start Last Admin Trade Name Freq PRN Reason Stop Dose Admin Acetaminophen 650 mg 03/04/20 20:01 03/05/20 05:38 Acetaminophen 325 Mg Tab PO 650 mg Q4H PRN Administration Fever or Pain Cholecalciferol 2,000 units 03/04/20 09:00 03/27/20 08:43 Cholecalciferol 1,000 Units (25 Mcg) Tab PO 2,000 units DAILY BLAZE Administration Enoxaparin Sodium 40 mg 03/02/20 09:00 03/27/20 08:44 Enoxaparin Sodium 40 Mg/0.4 Ml Syringe SC 40 mg 09 BLAZE Administration Famotidine 20 mg 03/09/20 21:00 03/27/20 08:43 Famotidine 20 Mg Tab PO 20 mg BID BLAZE Administration Folic Acid 1 mg 03/05/20 09:00 03/27/20 08:44 Folic Acid 1 Mg Tab PO 1 mg DAILY BLAZE Administration Iron/Minerals/Multivitamins 1 tab 03/05/20 09:00 03/27/20 08:43 Multivitamin W/ Minerals 1 Tab PO 1 tab DAILY BLAZE Administration Magnesium Oxide 400 mg 03/06/20 09:00 03/27/20 08:44 Magnesium Oxide 400 Mg Tab PO 400 mg DAILY BLAZE Administration Thiamine HCl 100 mg 03/02/20 09:00 03/27/20 08:43 Thiamine 100 Mg Tab PO 100 mg DAILY BLAZE Administration Vitamin B Complex/Vit C/Folic Acid 1 tab 03/02/20 09:00 03/27/20 08:44 Folic Acid/Vit B Comp W-C PO 1 tab DAILY BLAZE Administration - Exam General Appearance: awake alert ENT: normocephalic atraumatic Neck: supple, no JVD Respiratory: normal chest expansion, no tachypnea Extremities: no cyanosis, no clubbing Neurological: cranial nerve grossly intact, no focal deficits Hosp A/P (1) Klebsiella pneumoniae sepsis Code(s): A41.4 - SEPSIS DUE TO ANAEROBES Status: Resolved (2) Acromioclavicular joint injury Code(s): S49.90XA - UNSP INJURY OF SHOULDER AND UPPER ARM, UNSP ARM, INIT ENCNTR Status: Acute Qualifiers: Laterality: right (3) Alcohol abuse Code(s): F10.10 - ALCOHOL ABUSE, UNCOMPLICATED Status: Chronic (4) Developmental disability Status: Chronic (5) Acute metabolic encephalopathy Code(s): G93.41 - METABOLIC ENCEPHALOPATHY Status: Resolved - Plan This patient is a 39-year-old male with history of mental disability, drug abuse , alcohol abuse, and seizures who was admitted to the hospital initially for altered mental status and intoxication with alcohol and presumptively K2 and spice illicit drugs. He was found to be volume depleted and multiple alkali disturbances were noted. He was managed supportively with fluids and electrolyte replacements. His hospitalization was complicated by sepsis due to Klebsiella infection status post completed course of antibiotics. His repeat cultures were negative. During his initial work-up chest x-ray revealed grade 3 acromioclavicular joint separation on the right shoulder. Orthopedic service consulted and did not recommend any surgical intervention at this time as the patient is functioning well and is asymptomatic. The patient's family apparently unable to take care of the patient and placement was requested and currently pending.
[2020-03-28] MEDS: Thiamine 100 MG TAB PO SCH (08:32)
[2020-03-28] MEDS: Multivitamin W/ Minerals 1 TAB PO SCH (08:32)
[2020-03-28] MEDS: Famotidine 20 MG TAB PO SCH ×2 (08:32→20:48)
[2020-03-28] MEDS: Magnesium Oxide 400 MG TAB PO SCH (08:32)
[2020-03-28] MEDS: Enoxaparin Sodium 40 MG/0.4 ML SYRINGE SC SCH (08:32)
[2020-03-28] MEDS: Folic Acid 1 MG TAB PO SCH (08:32)
[2020-03-28] MEDS: Cholecalciferol 1,000 UNITS (25 MCG) TAB PO SCH (08:32)
[2020-03-28] MEDS: Folic Acid/Vit B Comp W-C PO SCH (08:32)
--- NOTE | 2020-03-28 17:51 | PDOC.HOSPP ---
- Subjective Encounter Date: 03/28/20 Subjective: No new complaints. Pending placement. - Objective Vital Signs & Weight: Vital Signs (12 hours) Temp Pulse Resp BP Pulse Ox 03/28/20 08:00 97 03/28/20 07:14 98.3 F 84 16 122/89 97 Weight Admit Weight 236 lb 9.6 oz Weight 232 lb 3.2 oz I&O: 03/27/20 03/28/20 03/29/20 06:59 06:59 06:59 Intake Total 1570 1100 Balance 1570 1100 Result Diagrams: 03/08/20 07:08 03/06/20 03:55 Hospitalist ROS - Medication Medications: Active Medications Generic Name Dose Route Start Last Admin Trade Name Freq PRN Reason Stop Dose Admin Acetaminophen 650 mg 03/04/20 20:01 03/05/20 05:38 Acetaminophen 325 Mg Tab PO 650 mg Q4H PRN Administration Fever or Pain Cholecalciferol 2,000 units 03/04/20 09:00 03/28/20 08:32 Cholecalciferol 1,000 Units (25 Mcg) Tab PO 2,000 units DAILY BLAZE Administration Enoxaparin Sodium 40 mg 03/02/20 09:00 03/28/20 08:32 Enoxaparin Sodium 40 Mg/0.4 Ml Syringe SC 40 mg 09 BLAZE Administration Famotidine 20 mg 03/09/20 21:00 03/28/20 08:32 Famotidine 20 Mg Tab PO 20 mg BID BLAZE Administration Folic Acid 1 mg 03/05/20 09:00 03/28/20 08:32 Folic Acid 1 Mg Tab PO 1 mg DAILY BLAZE Administration Iron/Minerals/Multivitamins 1 tab 03/05/20 09:00 03/28/20 08:32 Multivitamin W/ Minerals 1 Tab PO 1 tab DAILY BLAZE Administration Magnesium Oxide 400 mg 03/06/20 09:00 03/28/20 08:32 Magnesium Oxide 400 Mg Tab PO 400 mg DAILY BLAZE Administration Thiamine HCl 100 mg 03/02/20 09:00 03/28/20 08:32 Thiamine 100 Mg Tab PO 100 mg DAILY BLAZE Administration Vitamin B Complex/Vit C/Folic Acid 1 tab 03/02/20 09:00 03/28/20 08:32 Folic Acid/Vit B Comp W-C PO 1 tab DAILY BLAZE Administration - Exam General Appearance: awake alert ENT: normocephalic atraumatic Neck: supple Respiratory: normal chest expansion, no tachypnea Extremities: no cyanosis, no clubbing Hosp A/P (1) Klebsiella pneumoniae sepsis Code(s): A41.4 - SEPSIS DUE TO ANAEROBES Status: Resolved (2) Acromioclavicular joint injury Code(s): S49.90XA - UNSP INJURY OF SHOULDER AND UPPER ARM, UNSP ARM, INIT ENCNTR Status: Acute Qualifiers: Laterality: right (3) Alcohol abuse Code(s): F10.10 - ALCOHOL ABUSE, UNCOMPLICATED Status: Chronic (4) Developmental disability Status: Chronic (5) Acute metabolic encephalopathy Code(s): G93.41 - METABOLIC ENCEPHALOPATHY Status: Resolved - Plan This patient is a 39-year-old male with history of mental disability, drug abuse, alcohol abuse, and seizures who was admitted to the hospital initially for altered mental status and intoxication with alcohol and presumptively K2 and spice illicit drugs. He was found to be volume depleted and multiple alkali disturbances were noted. He was managed supportively with fluids and electrolyte replacements. His hospitalization was complicated by sepsis due to Klebsiella infection status post completed course of antibiotics. His repeat cultures were negative. During his initial work-up chest x-ray revealed grade 3 acromioclavicular joint separation on the right shoulder. Orthopedic service consulted and did not recommend any surgical intervention at this time as the patient is functioning well and is asymptomatic. The patient's family apparently unable to take care of the patient and placement was requested and currently pending.
[2020-03-29] MEDS: Folic Acid/Vit B Comp W-C PO SCH (08:34)
[2020-03-29] MEDS: Folic Acid 1 MG TAB PO SCH (08:34)
[2020-03-29] MEDS: Cholecalciferol 1,000 UNITS (25 MCG) TAB PO SCH (08:34)
[2020-03-29] MEDS: Multivitamin W/ Minerals 1 TAB PO SCH (08:34)
[2020-03-29] MEDS: Thiamine 100 MG TAB PO SCH (08:34)
[2020-03-29] MEDS: Enoxaparin Sodium 40 MG/0.4 ML SYRINGE SC SCH (08:35)
[2020-03-29] MEDS: Magnesium Oxide 400 MG TAB PO SCH (08:35)
[2020-03-29] MEDS: Famotidine 20 MG TAB PO SCH ×2 (08:35→19:36)
--- NOTE | 2020-03-29 16:23 | PDOC.HOSPP ---
- Subjective Encounter Date: 03/29/20 Subjective: No acute events since yesterday. Awaiting placement. Ethics committee consulted. - Objective Vital Signs & Weight: Vital Signs (12 hours) Temp Pulse Resp BP Pulse Ox 03/29/20 07:20 98.6 F 104 H 16 132/85 96 03/29/20 05:37 100 16 130/71 95 Weight Admit Weight 236 lb 9.6 oz Weight 232 lb 3.2 oz I&O: 03/28/20 03/29/20 03/30/20 06:59 06:59 06:59 Intake Total 1100 1200 120 Balance 1100 1200 120 Result Diagrams: 03/08/20 07:08 03/06/20 03:55 Hospitalist ROS - Medication Medications: Active Medications Generic Name Dose Route Start Last Admin Trade Name Freq PRN Reason Stop Dose Admin Acetaminophen 650 mg 03/04/20 20:01 03/05/20 05:38 Acetaminophen 325 Mg Tab PO 650 mg Q4H PRN Administration Fever or Pain Cholecalciferol 2,000 units 03/04/20 09:00 03/29/20 08:34 Cholecalciferol 1,000 Units (25 Mcg) Tab PO 2,000 units DAILY BLAZE Administration Enoxaparin Sodium 40 mg 03/02/20 09:00 03/29/20 08:35 Enoxaparin Sodium 40 Mg/0.4 Ml Syringe SC 40 mg 0900 BLAZE Administration Famotidine 20 mg 03/09/20 21:00 03/29/20 08:35 Famotidine 20 Mg Tab PO 20 mg BID BLAZE Administration Folic Acid 1 mg 03/05/20 09:00 03/29/20 08:34 Folic Acid 1 Mg Tab PO 1 mg DAILY BLAZE Administration Iron/Minerals/Multivitamins 1 tab 03/05/20 09:00 03/29/20 08:34 Multivitamin W/ Minerals 1 Tab PO 1 tab DAILY BLAZE Administration Magnesium Oxide 400 mg 03/06/20 09:00 03/29/20 08:35 Magnesium Oxide 400 Mg Tab PO 400 mg DAILY BLAZE Administration Thiamine HCl 100 mg 03/02/20 09:00 03/29/20 08:34 Thiamine 100 Mg Tab PO 100 mg DAILY BLAZE Administration Vitamin B Complex/Vit C/Folic Acid 1 tab 03/02/20 09:00 03/29/20 08:34 Folic Acid/Vit B Comp W-C PO 1 tab DAILY BLAZE Administration - Exam General Appearance: awake alert Neck: supple, no JVD Respiratory: normal chest expansion, no tachypnea Extremities: no cyanosis, no clubbing Hosp A/P (1) Klebsiella pneumoniae sepsis Code(s): A41.4 - SEPSIS DUE TO ANAEROBES Status: Resolved (2) Acromioclavicular joint injury Code(s): S49.90XA - UNSP INJURY OF SHOULDER AND UPPER ARM, UNSP ARM, INIT ENCNTR Status: Acute Qualifiers: Laterality: right (3) Alcohol abuse Code(s): F10.10 - ALCOHOL ABUSE, UNCOMPLICATED Status: Chronic (4) Developmental disability Status: Chronic (5) Acute metabolic encephalopathy Code(s): G93.41 - METABOLIC ENCEPHALOPATHY Status: Resolved - Plan This patient is a 39-year-old male with history of mental disability, drug abuse, alcohol abuse, and seizures who was admitted to the hospital initially for altered mental status and intoxication with alcohol and presumptively K2 and spice illicit drugs. He was found to be volume depleted and multiple alkali disturbances were noted. He was managed supportively with fluids and electrolyte replacements. His hospitalization was complicated by sepsis due to Klebsiella infection status post completed course of antibiotics. His repeat cultures were negative. During his initial work-up chest x-ray revealed grade 3 acromioclavicular joint separation on the right shoulder. Orthopedic service consulted and did not recommend any surgical intervention at this time as the patient is functioning well and is asymptomatic. The patient's family apparently unable to take care of the patient and placement was requested and currently pending.
[2020-03-30] MEDS: Folic Acid/Vit B Comp W-C PO SCH (08:06)
[2020-03-30] MEDS: Folic Acid 1 MG TAB PO SCH (08:06)
[2020-03-30] MEDS: Magnesium Oxide 400 MG TAB PO SCH (08:06)
[2020-03-30] MEDS: Thiamine 100 MG TAB PO SCH (08:06)
[2020-03-30] MEDS: Multivitamin W/ Minerals 1 TAB PO SCH (08:06)
[2020-03-30] MEDS: Cholecalciferol 1,000 UNITS (25 MCG) TAB PO SCH (08:06)
[2020-03-30] MEDS: Famotidine 20 MG TAB PO SCH ×2 (08:06→20:09)
[2020-03-30] MEDS: Enoxaparin Sodium 40 MG/0.4 ML SYRINGE SC SCH (08:06)
--- NOTE | 2020-03-30 16:35 | PDOC.HOSPP ---
- Subjective Encounter Date: 03/30/20 Subjective: The patient is ambulating well and has no new complaints. Disposition remains pending. Ethics committee consulted yesterday. - Objective Vital Signs & Weight: Vital Signs (12 hours) Temp Pulse Resp BP Pulse Ox 03/30/20 07:27 98.0 F 86 16 123/82 98 Weight Admit Weight 236 lb 9.6 oz Weight 232 lb 3.2 oz I&O: 03/29/20 03/30/20 03/31/20 06:59 06:59 06:59 Intake Total 1200 360 480 Balance 1200 360 480 Result Diagrams: 03/08/20 07:08 03/06/20 03:55 Hospitalist ROS - Medication Medications: Active Medications Generic Name Dose Route Start Last Admin Trade Name Freq PRN Reason Stop Dose Admin Acetaminophen 650 mg 03/04/20 20:01 03/05/20 05:38 Acetaminophen 325 Mg Tab PO 650 mg Q4H PRN Administration Fever or Pain Cholecalciferol 2,000 units 03/04/20 09:00 03/30/20 08:06 Cholecalciferol 1,000 Units (25 Mcg) Tab PO 2,000 units DAILY BLAZE Administration Enoxaparin Sodium 40 mg 03/02/20 09:00 03/30/20 08:06 Enoxaparin Sodium 40 Mg/0.4 Ml Syringe SC 40 mg 0900 BLAZE Administration Famotidine 20 mg 03/09/20 21:00 03/30/20 08:06 Famotidine 20 Mg Tab PO 20 mg BID BLAZE Administration Folic Acid 1 mg 03/05/20 09:00 03/30/20 08:06 Folic Acid 1 Mg Tab PO 1 mg DAILY BLAZE Administration Iron/Minerals/Multivitamins 1 tab 03/05/20 09:00 03/30/20 08:06 Multivitamin W/ Minerals 1 Tab PO 1 tab DAILY BLAZE Administration Magnesium Oxide 400 mg 03/06/20 09:00 03/30/20 08:06 Magnesium Oxide 400 Mg Tab PO 400 mg DAILY BLAZE Administration Thiamine HCl 100 mg 03/02/20 09:00 03/30/20 08:06 Thiamine 100 Mg Tab PO 100 mg DAILY BLAZE Administration Vitamin B Complex/Vit C/Folic Acid 1 tab 03/02/20 09:00 03/30/20 08:06 Folic Acid/Vit B Comp W-C PO 1 tab DAILY BLAZE Administration - Exam General Appearance: awake alert ENT: normocephalic atraumatic Neck: supple Respiratory: normal chest expansion, no tachypnea Extremities: no cyanosis, no clubbing Hosp A/P (1) Klebsiella pneumoniae sepsis Code(s): A41.4 - SEPSIS DUE TO ANAEROBES Status: Resolved (2) Acromioclavicular joint injury Code(s): S49.90XA - UNSP INJURY OF SHOULDER AND UPPER ARM, UNSP ARM, INIT ENCNTR Status: Acute Qualifiers: Laterality: right (3) Alcohol abuse Code(s): F10.10 - ALCOHOL ABUSE, UNCOMPLICATED Status: Chronic (4) Developmental disability Status: Chronic (5) Acute metabolic encephalopathy Code(s): G93.41 - METABOLIC ENCEPHALOPATHY Status: Resolved - Plan This patient is a 39-year-old male with history of mental disability, drug abuse, alcohol abuse, and seizures who was admitted to the hospital initially for altered mental status and intoxication with alcohol and presumptively K2 and spice illicit drugs. He was found to be volume depleted and multiple alkali disturbances were noted. He was managed supportively with fluids and electrolyte replacements. His hospitalization was complicated by sepsis due to Klebsiella infection status post completed course of antibiotics. His repeat cultures were negative. During his initial work-up chest x-ray revealed grade 3 acromioclavicular joint separation on the right shoulder. Orthopedic service consulted and did not recommend any surgical intervention at this time as the patient is functioning well and is asymptomatic. The patient's family apparently unable to take care of the patient and placement was requested and currently pending.
[2020-03-31] MEDS: Magnesium Oxide 400 MG TAB PO SCH (08:52)
[2020-03-31] MEDS: Folic Acid 1 MG TAB PO SCH (08:53)
[2020-03-31] MEDS: Thiamine 100 MG TAB PO SCH (08:53)
[2020-03-31] MEDS: Cholecalciferol 1,000 UNITS (25 MCG) TAB PO SCH (08:53)
[2020-03-31] MEDS: Multivitamin W/ Minerals 1 TAB PO SCH (08:53)
[2020-03-31] MEDS: Famotidine 20 MG TAB PO SCH ×2 (08:53→20:18)
[2020-03-31] MEDS: Enoxaparin Sodium 40 MG/0.4 ML SYRINGE SC SCH (08:53)
[2020-03-31] MEDS: Folic Acid/Vit B Comp W-C PO SCH (09:01)
--- NOTE | 2020-03-31 14:45 | PDOC.HOSPP ---
- Subjective Encounter Date: 03/31/20 Subjective: No new complaints. Pending placement. - Objective Vital Signs & Weight: Vital Signs (12 hours) Temp Pulse Resp BP Pulse Ox 03/31/20 11:41 97.7 F 112 H 18 141/82 H 95 03/31/20 07:59 96.2 F L 97 18 140/97 H 95 Weight Admit Weight 236 lb 9.6 oz Weight 232 lb 3.2 oz I&O: 03/30/20 03/31/20 04/01/20 06:59 06:59 06:59 Intake Total 360 1000 Balance 360 1000 Result Diagrams: 03/08/20 07:08 03/06/20 03:55 Hospitalist ROS - Medication Medications: Active Medications Generic Name Dose Route Start Last Admin Trade Name Freq PRN Reason Stop Dose Admin Acetaminophen 650 mg 03/04/20 20:01 03/05/20 05:38 Acetaminophen 325 Mg Tab PO 650 mg Q4H PRN Administration Fever or Pain Cholecalciferol 2,000 units 03/04/20 09:00 03/31/20 08:53 Cholecalciferol 1,000 Units (25 Mcg) Tab PO 2,000 units DAILY BLAZE Administration Enoxaparin Sodium 40 mg 03/02/20 09:00 03/31/20 08:53 Enoxaparin Sodium 40 Mg/0.4 Ml Syringe SC 40 mg 0900 BLAZE Administration Famotidine 20 mg 03/09/20 21:00 03/31/20 08:53 Famotidine 20 Mg Tab PO 20 mg BID BLAZE Administration Folic Acid 1 mg 03/05/20 09:00 03/31/20 08:53 Folic Acid 1 Mg Tab PO 1 mg DAILY BLAZE Administration Iron/Minerals/Multivitamins 1 tab 03/05/20 09:00 03/31/20 08:53 Multivitamin W/ Minerals 1 Tab PO 1 tab DAILY BLAZE Administration Magnesium Oxide 400 mg 03/06/20 09:00 03/31/20 08:52 Magnesium Oxide 400 Mg Tab PO 400 mg DAILY BLAZE Administration Thiamine HCl 100 mg 03/02/20 09:00 03/31/20 08:53 Thiamine 100 Mg Tab PO 100 mg DAILY BLAZE Administration Vitamin B Complex/Vit C/Folic Acid 1 tab 03/02/20 09:00 03/31/20 09:01 Folic Acid/Vit B Comp W-C PO 1 tab DAILY BLAZE Administration - Exam General Appearance: awake alert Neck: supple Respiratory: normal chest expansion, no tachypnea Hosp A/P (1) Klebsiella pneumoniae sepsis Code(s): A41.4 - SEPSIS DUE TO ANAEROBES Status: Resolved (2) Acromioclavicular joint injury Code(s): S49.90XA - UNSP INJURY OF SHOULDER AND UPPER ARM, UNSP ARM, INIT ENCNTR Status: Acute Qualifiers: Laterality: right (3) Alcohol abuse Code(s): F10.10 - ALCOHOL ABUSE, UNCOMPLICATED Status: Chronic (4) Developmental disability Status: Chronic (5) Acute metabolic encephalopathy Code(s): G93.41 - METABOLIC ENCEPHALOPATHY Status: Resolved - Plan This patient is a 39-year-old male with history of mental disability, drug abuse, alcohol abuse, and seizures who was admitted to the hospital initially for altered mental status and intoxication with alcohol and presumptively K2 and spice illicit drugs. He was found to be volume depleted and multiple alkali dis turbances were noted. He was managed supportively with fluids and electrolyte replacements. His hospitalization was complicated by sepsis due to Klebsiella infection status post completed course of antibiotics. His repeat cultures were negative. During his initial work-up chest x-ray revealed grade 3 acromioclavicular joint separation on the right shoulder. Orthopedic service consulted and did not recommend any surgical intervention at this time as the patient is functioning well and is asymptomatic. The patient's family apparently unable to take care of the patient and placement was requested and currently pending. The patient is clinically stable and ready for discharge once placement is available.
[2020-04-01] MEDS: Cholecalciferol 1,000 UNITS (25 MCG) TAB PO SCH (08:26)
[2020-04-01] MEDS: Folic Acid/Vit B Comp W-C PO SCH (08:26)
[2020-04-01] MEDS: Magnesium Oxide 400 MG TAB PO SCH (08:26)
[2020-04-01] MEDS: Folic Acid 1 MG TAB PO SCH (08:26)
[2020-04-01] MEDS: Enoxaparin Sodium 40 MG/0.4 ML SYRINGE SC SCH (08:26)
[2020-04-01] MEDS: Famotidine 20 MG TAB PO SCH ×2 (08:26→20:21)
[2020-04-01] MEDS: Multivitamin W/ Minerals 1 TAB PO SCH (08:26)
[2020-04-01] MEDS: Thiamine 100 MG TAB PO SCH (08:26)
--- NOTE | 2020-04-01 14:07 | PDOC.HOSPP ---
- Subjective Encounter Date: 04/01/20 Subjective: The patient was walking down the [place] today with out any difficulty. No new events since yesterday. - Objective Vital Signs & Weight: Vital Signs (12 hours) Temp Pulse Resp BP Pulse Ox 04/01/20 11:16 97.1 F L 81 20 125/77 96 04/01/20 08:00 97 04/01/20 07:53 97.3 F L 79 18 106/72 97 04/01/20 04:35 98.2 F 82 16 112/73 98 Weight Admit Weight 236 lb 9.6 oz Weight 232 lb 3.2 oz I&O: 03/31/20 04/01/20 04/02/20 06:59 06:59 06:59 Intake Total 1000 Balance 1000 Result Diagrams: 03/08/20 07:08 03/06/20 03:55 Hospitalist ROS - Medication Medications: Active Medications Generic Name Dose Route Start Last Admin Trade Name Freq PRN Reason Stop Dose Admin Acetaminophen 650 mg 03/04/20 20:01 03/05/20 05:38 Acetaminophen 325 Mg Tab PO 650 mg Q4H PRN Administration Fever or Pain Cholecalciferol 2,000 units 03/04/20 09:00 04/01/20 08:26 Cholecalciferol 1,000 Units (25 Mcg) Tab PO 2,000 units DAILY BLAZE Administration Enoxaparin Sodium 40 mg 03/02/20 09:00 04/01/20 08:26 Enoxaparin Sodium 40 Mg/0.4 Ml Syringe SC 40 mg 0900 LBAZE Administration Famotidine 20 mg 03/09/20 21:00 04/01/20 08:26 Famotidine 20 Mg Tab PO 20 mg BID BLAZE Administration Folic Acid 1 mg 03/05/20 09:00 04/01/20 08:26 Folic Acid 1 Mg Tab PO 1 mg DAILY BLAZE Administration Iron/Minerals/Multivitamins 1 tab 03/05/20 09:00 04/01/20 08:26 Multivitamin W/ Minerals 1 Tab PO 1 tab DAILY BLAZE Administration Magnesium Oxide 400 mg 03/06/20 09:00 04/01/20 08:26 Magnesium Oxide 400 Mg Tab PO 400 mg DAILY BLAZE Administration Thiamine HCl 100 mg 03/02/20 09:00 04/01/20 08:26 Thiamine 100 Mg Tab PO 100 mg DAILY BLAZE Administration Vitamin B Complex/Vit C/Folic Acid 1 tab 03/02/20 09:00 04/01/20 08:26 Folic Acid/Vit B Comp W-C PO 1 tab DAILY BLAZE Administration - Exam General Appearance: awake alert ENT: normocephalic atraumatic Neck: supple, no JVD Respiratory: normal chest expansion, no tachypnea Extremities: no cyanosis, no clubbing Neurological: cranial nerve grossly intact, no focal deficits Hosp A/P (1) Klebsiella pneumoniae sepsis Code(s): A41.4 - SEPSIS DUE TO ANAEROBES Status: Resolved (2) Acromioclavicular joint injury Code(s): S49.90XA - UNSP INJURY OF SHOULDER AND UPPER ARM, UNSP ARM, INIT ENCNTR Status: Acute Qualifiers: Laterality: right (3) Alcohol abuse Code(s): F10.10 - ALCOHOL ABUSE, UNCOMPLICATED Status: Chronic (4) Developmental disability Status: Chronic (5) Acute metabolic encephalopathy Code(s): G93.41 - METABOLIC ENCEPHALOPATHY Status: Resolved - Plan This patient is a 39-year-old male with history of mental disability, drug abu se, alcohol abuse, and seizures who was admitted to the hospital initially for altered mental status and intoxication with alcohol and presumptively K2 and spice illicit drugs. He was found to be volume depleted and multiple alkali disturbances were noted. He was managed supportively with fluids and electrolyte replacements. His hospitalization was complicated by sepsis due to Klebsiella infection status post completed course of antibiotics. His repeat cultures were negative. During his initial work-up chest x-ray revealed grade 3 acromioclavicular joint separation on the right shoulder. Orthopedic service consulted and did not recommend any surgical intervention at this time as the pa tient is functioning well and is asymptomatic. The patient's family apparently unable to take care of the patient and placement was requested and currently pending. The patient is clinically stable and ready for discharge once placement is available.
[2020-04-02] MEDS: Magnesium Oxide 400 MG TAB PO SCH (07:57)
[2020-04-02] MEDS: Cholecalciferol 1,000 UNITS (25 MCG) TAB PO SCH (07:57)
[2020-04-02] MEDS: Thiamine 100 MG TAB PO SCH (07:57)
[2020-04-02] MEDS: Folic Acid/Vit B Comp W-C PO SCH (07:57)
[2020-04-02] MEDS: Multivitamin W/ Minerals 1 TAB PO SCH (07:57)
[2020-04-02] MEDS: Famotidine 20 MG TAB PO SCH ×2 (07:57→20:53)
[2020-04-02] MEDS: Folic Acid 1 MG TAB PO SCH (07:57)
[2020-04-02] MEDS: Enoxaparin Sodium 40 MG/0.4 ML SYRINGE SC SCH (07:57)
--- NOTE | 2020-04-02 17:39 | PDOC.HOSPP ---
- Subjective Encounter Date: 04/02/20 Subjective: No new complaints or events since yesterday. The patient is asymptomatic. Awaiting ethics consult. - Objective Vital Signs & Weight: Vital Signs (12 hours) Temp Pulse Resp BP BP BP Pulse Ox 04/02/20 15:04 98.9 F 107 H 20 132/72 95 04/02/20 11:28 98.7 F 100 18 117/73 97 04/02/20 08:00 95 04/02/20 07:21 98.2 F 89 16 131/85 95 Weight Admit Weight 236 lb 9.6 oz Weight 232 lb 3.2 oz Result Diagrams: 03/08/20 07:08 03/06/20 03:55 Hospitalist ROS - Medication Medications: Active Medications Generic Name Dose Route Start Last Admin Trade Name Freq PRN Reason Stop Dose Admin Acetaminophen 650 mg 03/04/20 20:01 03/05/20 05:38 Acetaminophen 325 Mg Tab PO 650 mg Q4H PRN Administration Fever or Pain Cholecalciferol 2,000 units 03/04/20 09:00 04/02/20 07:57 Cholecalciferol 1,000 Units (25 Mcg) Tab PO 2,000 units DAILY BLAZE Administration Enoxaparin Sodium 40 mg 03/02/20 09:00 04/02/20 07:57 Enoxaparin Sodium 40 Mg/0.4 Ml Syringe SC 40 mg 0900 BLAZE Administration Famotidine 20 mg 03/09/20 21:00 04/02/20 07:57 Famotidine 20 Mg Tab PO 20 mg BID BLAZE Administration Folic Acid 1 mg 03/05/20 09:00 04/02/20 07:57 Folic Acid 1 Mg Tab PO 1 mg DAILY BLAZE Administration Iron/Minerals/Multivitamins 1 tab 03/05/20 09:00 04/02/20 07:57 Multivitamin W/ Minerals 1 Tab PO 1 tab DAILY BLAZE Administration Magnesium Oxide 400 mg 03/06/20 09:00 04/02/20 07:57 Magnesium Oxide 400 Mg Tab PO 400 mg DAILY BLAZE Administration Thiamine HCl 100 mg 03/02/20 09:00 04/02/20 07:57 Thiamine 100 Mg Tab PO 100 mg DAILY BLAZE Administration Vitamin B Complex/Vit C/Folic Acid 1 tab 03/02/20 09:00 04/02/20 07:57 Folic Acid/Vit B Comp W-C PO 1 tab DAILY BLAZE Administration - Exam General Appearance: awake alert ENT: normocephalic atraumatic Neck: supple, no JVD Respiratory: normal chest expansion, no tachypnea Neurological: cranial nerve grossly intact, no focal deficits Hosp A/P (1) Klebsiella pneumoniae sepsis Code(s): A41.4 - SEPSIS DUE TO ANAEROBES Status: Resolved (2) Acromioclavicular joint injury Code(s): S49.90XA - UNSP INJURY OF SHOULDER AND UPPER ARM, UNSP ARM, INIT ENCNTR Status: Acute Qualifiers: Laterality: right (3) Alcohol abuse Code(s): F10.10 - ALCOHOL ABUSE, UNCOMPLICATED Status: Chronic (4) Developmental disability Status: Chronic (5) Acute metabolic encephalopathy Code(s): G93.41 - METABOLIC ENCEPHALOPATHY Status: Resolved - Plan This patient is a 39-year-old male with history of mental disability, drug abuse, alcohol abuse, and seizures who was admitted to the hospital initially f or altered mental status and intoxication with alcohol and presumptively K2 and spice illicit drugs. He was found to be volume depleted and multiple alkali disturbances were noted. He was managed supportively with fluids and electrolyte replacements. His hospitalization was complicated by sepsis due to Klebsiella infection status post completed course of antibiotics. His repeat cultures were negative. During his initial work-up chest x-ray revealed grade 3 acromioclavicular joint separation on the right shoulder. Orthopedic service consulted and did not recommend any surgical intervention at this time as the patient is functioning well and is asymptomatic. The patient's family apparen tly unable to take care of the patient and placement was requested and currently pending. The patient is clinically stable and ready for discharge once placement is available.
[2020-04-03] MEDS: Thiamine 100 MG TAB PO SCH (08:23)
[2020-04-03] MEDS: Multivitamin W/ Minerals 1 TAB PO SCH (08:23)
[2020-04-03] MEDS: Famotidine 20 MG TAB PO SCH ×2 (08:23→20:36)
[2020-04-03] MEDS: Enoxaparin Sodium 40 MG/0.4 ML SYRINGE SC SCH (08:23)
[2020-04-03] MEDS: Cholecalciferol 1,000 UNITS (25 MCG) TAB PO SCH (08:23)
[2020-04-03] MEDS: Folic Acid 1 MG TAB PO SCH (08:23)
[2020-04-03] MEDS: Folic Acid/Vit B Comp W-C PO SCH (08:23)
[2020-04-03] MEDS: Magnesium Oxide 400 MG TAB PO SCH (08:23)
--- NOTE | 2020-04-03 10:36 | PDOC.HOSPP ---
- Subjective Encounter Date: 04/03/20 Encounter Time: 10:36 Subjective: alert, no complaints - Objective Vital Signs & Weight: Vital Signs (12 hours) Temp Pulse Resp BP Pulse Ox 04/03/20 08:00 95 04/03/20 07:43 97.7 F 93 14 119/82 95 Weight Admit Weight 236 lb 9.6 oz Weight 232 lb 3.2 oz Result Diagrams: 03/08/20 07:08 03/06/20 03:55 Hospitalist ROS - Medication Medications: Active Medications Generic Name Dose Route Start Last Admin Trade Name Freq PRN Reason Stop Dose Admin Acetaminophen 650 mg 03/04/20 20:01 03/05/20 05:38 Acetaminophen 325 Mg Tab PO 650 mg Q4H PRN Administration Fever or Pain Cholecalciferol 2,000 units 03/04/20 09:00 04/03/20 08:23 Cholecalciferol 1,000 Units (25 Mcg) Tab PO 2,000 units DAILY BLAZE Administration Enoxaparin Sodium 40 mg 03/02/20 09:00 04/03/20 08:23 Enoxaparin Sodium 40 Mg/0.4 Ml Syringe SC 40 mg 0900 BLAZE Administration Famotidine 20 mg 03/09/20 21:00 04/03/20 08:23 Famotidine 20 Mg Tab PO 20 mg BID BLAZE Administration Folic Acid 1 mg 03/05/20 09:00 04/03/20 08:23 Folic Acid 1 Mg Tab PO 1 mg DAILY BLAZE Administration Iron/Minerals/Multivitamins 1 tab 03/05/20 09:00 04/03/20 08:23 Multivitamin W/ Minerals 1 Tab PO 1 tab DAILY BLAZE Administration Magnesium Oxide 400 mg 03/06/20 09:00 04/03/20 08:23 Magnesium Oxide 400 Mg Tab PO 400 mg DAILY BLAZE Administration Thiamine HCl 100 mg 03/02/20 09:00 04/03/20 08:23 Thiamine 100 Mg Tab PO 100 mg DAILY BLAZE Administration Vitamin B Complex/Vit C/Folic Acid 1 tab 03/02/20 09:00 04/03/20 08:23 Folic Acid/Vit B Comp W-C PO 1 tab DAILY BLAZE Administration - Exam General Appearance: awake alert Neck: no JVD Heart: RRR, no murmur Respiratory: CTAB Gastrointestinal: soft, normal bowel sounds Extremities: no edema Hosp A/P (1) Acromioclavicular joint injury Code(s): S49.90XA - UNSP INJURY OF SHOULDER AND UPPER ARM, UNSP ARM, INIT ENCNTR Status: Acute Qualifiers: Laterality: right (2) Developmental disability Status: Chronic (3) Acute metabolic encephalopathy Code(s): G93.41 - METABOLIC ENCEPHALOPATHY Status: Resolved (4) Klebsiella pneumoniae sepsis Code(s): A41.4 - SEPSIS DUE TO ANAEROBES Status: Resolved - Plan stable post therapy for sepsis placement pending
[2020-04-04] MEDS: Thiamine 100 MG TAB PO SCH (08:19)
[2020-04-04] MEDS: Cholecalciferol 1,000 UNITS (25 MCG) TAB PO SCH (08:19)
[2020-04-04] MEDS: Acetaminophen 325 MG TAB PO PRN (08:19)
[2020-04-04] MEDS: Multivitamin W/ Minerals 1 TAB PO SCH (08:20)
[2020-04-04] MEDS: Folic Acid 1 MG TAB PO SCH (08:20)
[2020-04-04] MEDS: Enoxaparin Sodium 40 MG/0.4 ML SYRINGE SC SCH (08:20)
[2020-04-04] MEDS: Magnesium Oxide 400 MG TAB PO SCH (08:20)
[2020-04-04] MEDS: Folic Acid/Vit B Comp W-C PO SCH (08:20)
[2020-04-04] MEDS: Famotidine 20 MG TAB PO SCH ×2 (08:20→19:39)
--- NOTE | 2020-04-04 08:49 | PDOC.HOSPP ---
- Subjective Encounter Date: 04/04/20 Encounter Time: 08:47 Subjective: no distress, no change - Objective Vital Signs & Weight: Vital Signs (12 hours) Temp Pulse Resp BP Pulse Ox 04/04/20 08:17 97.5 F L 82 20 112/75 96 Weight Admit Weight 236 lb 9.6 oz Weight 232 lb 3.2 oz Result Diagrams: 03/08/20 07:08 03/06/20 03:55 Hospitalist ROS - Medication Medications: Active Medications Generic Name Dose Route Start Last Admin Trade Name Freq PRN Reason Stop Dose Admin Acetaminophen 650 mg 03/04/20 20:01 04/04/20 08:19 Acetaminophen 325 Mg Tab PO 650 mg Q4H PRN Administration Fever or Pain Cholecalciferol 2,000 units 03/04/20 09:00 04/04/20 08:19 Cholecalciferol 1,000 Units (25 Mcg) Tab PO 2,000 units DAILY BLAZE Administration Enoxaparin Sodium 40 mg 03/02/20 09:00 04/04/20 08:20 Enoxaparin Sodium 40 Mg/0.4 Ml Syringe SC 40 mg 0900 BLAZE Administration Famotidine 20 mg 03/09/20 21:00 04/04/20 08:20 Famotidine 20 Mg Tab PO 20 mg BID BLAZE Administration Folic Acid 1 mg 03/05/20 09:00 04/04/20 08:20 Folic Acid 1 Mg Tab PO 1 mg DAILY BLAZE Administration Iron/Minerals/Multivitamins 1 tab 03/05/20 09:00 04/04/20 08:20 Multivitamin W/ Minerals 1 Tab PO 1 tab DAILY BLAZE Administration Magnesium Oxide 400 mg 03/06/20 09:00 04/04/20 08:20 Magnesium Oxide 400 Mg Tab PO 400 mg DAILY BLAZE Administration Thiamine HCl 100 mg 03/02/20 09:00 04/04/20 08:19 Thiamine 100 Mg Tab PO 100 mg DAILY BLAZE Administration Vitamin B Complex/Vit C/Folic Acid 1 tab 03/02/20 09:00 04/04/20 08:20 Folic Acid/Vit B Comp W-C PO 1 tab DAILY BLAZE Administration - Exam General Appearance: awake alert Neck: no JVD Heart: RRR, no murmur Respiratory: CTAB Gastrointestinal: soft, normal bowel sounds Extremities: no edema Hosp A/P (1) Acromioclavicular joint injury Code(s): S49.90XA - UNSP INJURY OF SHOULDER AND UPPER ARM, UNSP ARM, INIT ENCNTR Status: Acute Qualifiers: Laterality: right (2) Developmental disability Status: Chronic (3) Acute metabolic encephalopathy Code(s): G93.41 - METABOLIC ENCEPHALOPATHY Status: Resolved (4) Klebsiella pneumoniae sepsis Code(s): A41.4 - SEPSIS DUE TO ANAEROBES Status: Resolved - Plan stable post therapy for sepsis placement pending
--- NOTE | 2020-04-04 15:56 | PDOC.BPN ---
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 He is not competent to make decisions for himself.
[2020-04-05] MEDS: Thiamine 100 MG TAB PO SCH (08:17)
[2020-04-05] MEDS: Folic Acid 1 MG TAB PO SCH (08:17)
[2020-04-05] MEDS: Multivitamin W/ Minerals 1 TAB PO SCH (08:17)
[2020-04-05] MEDS: Famotidine 20 MG TAB PO SCH ×2 (08:17→20:39)
[2020-04-05] MEDS: Cholecalciferol 1,000 UNITS (25 MCG) TAB PO SCH (08:17)
[2020-04-05] MEDS: Magnesium Oxide 400 MG TAB PO SCH (08:17)
[2020-04-05] MEDS: Folic Acid/Vit B Comp W-C PO SCH (08:17)
[2020-04-05] MEDS: Enoxaparin Sodium 40 MG/0.4 ML SYRINGE SC SCH (08:17)
--- NOTE | 2020-04-05 08:22 | PDOC.HOSPP ---
- Subjective Encounter Date: 04/05/20 Encounter Time: 08:20 Subjective: no distress, mental status unchanged - Objective Vital Signs & Weight: Vital Signs (12 hours) Temp Pulse Resp BP Pulse Ox 04/05/20 08:12 98.0 F 78 20 134/80 99 Weight Admit Weight 236 lb 9.6 oz Weight 232 lb 3.2 oz I&O: 04/04/20 04/05/20 04/06/20 06:59 06:59 06:59 Intake Total 1200 Balance 1200 Result Diagrams: 03/08/20 07:08 03/06/20 03:55 Hospitalist ROS - Medication Medications: Active Medications Generic Name Dose Route Start Last Admin Trade Name Freq PRN Reason Stop Dose Admin Acetaminophen 650 mg 03/04/20 20:01 04/04/20 08:19 Acetaminophen 325 Mg Tab PO 650 mg Q4H PRN Administration Fever or Pain Cholecalciferol 2,000 units 03/04/20 09:00 04/05/20 08:17 Cholecalciferol 1,000 Units (25 Mcg) Tab PO 2,000 units DAILY BLAZE Administration Enoxaparin Sodium 40 mg 03/02/20 09:00 04/05/20 08:17 Enoxaparin Sodium 40 Mg/0.4 Ml Syringe SC 40 mg 0900 BLAZE Administration Famotidine 20 mg 03/09/20 21:00 04/05/20 08:17 Famotidine 20 Mg Tab PO 20 mg BID BLAZE Administration Folic Acid 1 mg 03/05/20 09:00 04/05/20 08:17 Folic Acid 1 Mg Tab PO 1 mg DAILY BLAZE Administration Iron/Minerals/Multivitamins 1 tab 03/05/20 09:00 04/05/20 08:17 Multivitamin W/ Minerals 1 Tab PO 1 tab DAILY BLAZE Administration Magnesium Oxide 400 mg 03/06/20 09:00 04/05/20 08:17 Magnesium Oxide 400 Mg Tab PO 400 mg DAILY BLAZE Administration Thiamine HCl 100 mg 03/02/20 09:00 04/05/20 08:17 Thiamine 100 Mg Tab PO 100 mg DAILY BLAZE Administration Vitamin B Complex/Vit C/Folic Acid 1 tab 03/02/20 09:00 04/05/20 08:17 Folic Acid/Vit B Comp W-C PO 1 tab DAILY BLAZE Administration - Exam General Appearance: awake alert Neck: no JVD Heart: RRR, no murmur Respiratory: CTAB Gastrointestinal: soft, normal bowel sounds Extremities: no edema Hosp A/P (1) Acromioclavicular joint injury Code(s): S49.90XA - UNSP INJURY OF SHOULDER AND UPPER ARM, UNSP ARM, INIT ENCNTR Status: Acute Qualifiers: Laterality: right (2) Developmental disability Status: Chronic (3) Acute metabolic encephalopathy Code(s): G93.41 - METABOLIC ENCEPHALOPATHY Status: Resolved (4) Klebsiella pneumoniae sepsis Code(s): A41.4 - SEPSIS DUE TO ANAEROBES Status: Resolved - Plan stable post therapy for sepsis placement pending
[2020-04-06] MEDS: Folic Acid/Vit B Comp W-C PO SCH (09:05)
[2020-04-06] MEDS: Thiamine 100 MG TAB PO SCH (09:05)
[2020-04-06] MEDS: Enoxaparin Sodium 40 MG/0.4 ML SYRINGE SC SCH (09:05)
[2020-04-06] MEDS: Folic Acid 1 MG TAB PO SCH (09:05)
[2020-04-06] MEDS: Magnesium Oxide 400 MG TAB PO SCH (09:05)
[2020-04-06] MEDS: Multivitamin W/ Minerals 1 TAB PO SCH (09:05)
[2020-04-06] MEDS: Famotidine 20 MG TAB PO SCH ×2 (09:05→20:03)
[2020-04-06] MEDS: Cholecalciferol 1,000 UNITS (25 MCG) TAB PO SCH (09:05)
--- NOTE | 2020-04-06 13:59 | PDOC.HOSPP ---
- Subjective Encounter Date: 04/06/20 Subjective: The patient has no new complaints today. - Objective Vital Signs & Weight: Vital Signs (12 hours) Temp Pulse Resp BP Pulse Ox 04/06/20 08:29 98.1 F 91 20 126/82 95 04/06/20 08:00 95 Weight Admit Weight 236 lb 9.6 oz Weight 232 lb 3.2 oz I&O: 04/05/20 04/06/20 04/07/20 06:59 06:59 06:59 Intake Total 1200 1100 240 Balance 1200 1100 240 Result Diagrams: 03/08/20 07:08 03/06/20 03:55 Hospitalist ROS - Medication Medications: Active Medications Generic Name Dose Route Start Last Admin Trade Name Freq PRN Reason Stop Dose Admin Acetaminophen 650 mg 03/04/20 20:01 04/04/20 08:19 Acetaminophen 325 Mg Tab PO 650 mg Q4H PRN Administration Fever or Pain Cholecalciferol 2,000 units 03/04/20 09:00 04/06/20 09:05 Cholecalciferol 1,000 Units (25 Mcg) Tab PO 2,000 units DAILY BLAZE Administration Enoxaparin Sodium 40 mg 03/02/20 09:00 04/06/20 09:05 Enoxaparin Sodium 40 Mg/0.4 Ml Syringe SC 40 mg 09 BLAZE Administration Famotidine 20 mg 03/09/20 21:00 04/06/20 09:05 Famotidine 20 Mg Tab PO 20 mg BID BLAZE Administration Folic Acid 1 mg 03/05/20 09:00 04/06/20 09:05 Folic Acid 1 Mg Tab PO 1 mg DAILY BLAZE Administration Iron/Minerals/Multivitamins 1 tab 03/05/20 09:00 04/06/20 09:05 Multivitamin W/ Minerals 1 Tab PO 1 tab DAILY BLAZE Administration Magnesium Oxide 400 mg 03/06/20 09:00 04/06/20 09:05 Magnesium Oxide 400 Mg Tab PO 400 mg DAILY BLAZE Administration Thiamine HCl 100 mg 03/02/20 09:00 04/06/20 09:05 Thiamine 100 Mg Tab PO 100 mg DAILY BLAZE Administration Vitamin B Complex/Vit C/Folic Acid 1 tab 03/02/20 09:00 04/06/20 09:05 Folic Acid/Vit B Comp W-C PO 1 tab DAILY BLAZE Administration - Exam General Appearance: awake alert ENT: normocephalic atraumatic Neck: supple Respiratory: normal chest expansion, no tachypnea Gastrointestinal: soft Extremities: no cyanosis, no clubbing Neurological: cranial nerve grossly intact, no focal deficits Hosp A/P (1) Klebsiella pneumoniae sepsis Code(s): A41.4 - SEPSIS DUE TO ANAEROBES Status: Resolved (2) Acromioclavicular joint injury Code(s): S49.90XA - UNSP INJURY OF SHOULDER AND UPPER ARM, UNSP ARM, INIT ENCNTR Status: Acute Qualifiers: Laterality: right (3) Alcohol abuse Code(s): F10.10 - ALCOHOL ABUSE, UNCOMPLICATED Status: Chronic (4) Developmental disability Status: Chronic (5) Acute metabolic encephalopathy Code(s): G93.41 - METABOLIC ENCEPHALOPATHY Status: Resolved - Plan This patient is a 39-year-old male with history of mental disability, drug abu se, alcohol abuse, and seizures who was admitted to the hospital initially for altered mental status and intoxication with alcohol and presumptively K2 and spice illicit drugs. He was found to be volume depleted and multiple alkali disturbances were noted. He was managed supportively with fluids and electrolyte replacements. His hospitalization was complicated by sepsis due to Klebsiella infection status post completed course of antibiotics. His repeat cultures were negative. During his initial work-up chest x-ray revealed grade 3 acromioclavicular joint separation on the right shoulder. Orthopedic service consulted and did not recommend any surgical intervention at this time as the pa tient is functioning well and is asymptomatic. The patient's family apparently unable to take care of the patient and placement was requested and currently pending. The patient is clinically stable and ready for discharge once placement is available.
[2020-04-07] MEDS: Multivitamin W/ Minerals 1 TAB PO SCH (09:41)
[2020-04-07] MEDS: Enoxaparin Sodium 40 MG/0.4 ML SYRINGE SC SCH (09:41)
[2020-04-07] MEDS: Magnesium Oxide 400 MG TAB PO SCH (09:41)
[2020-04-07] MEDS: Thiamine 100 MG TAB PO SCH (09:41)
[2020-04-07] MEDS: Folic Acid 1 MG TAB PO SCH (09:41)
[2020-04-07] MEDS: Cholecalciferol 1,000 UNITS (25 MCG) TAB PO SCH (09:42)
[2020-04-07] MEDS: Famotidine 20 MG TAB PO SCH ×2 (09:42→21:56)
[2020-04-07] MEDS: Folic Acid/Vit B Comp W-C PO SCH (09:42)
--- NOTE | 2020-04-07 09:49 | PDOC.HOSPP ---
- Subjective Encounter Date: 04/07/20 Subjective: No new events overnight. No new symptoms or signs. We are waiting on placement. - Objective Vital Signs & Weight: Vital Signs (12 hours) Temp Pulse Resp BP Pulse Ox 04/07/20 07:33 98.5 F 98 20 122/83 96 Weight Admit Weight 236 lb 9.6 oz Weight 232 lb 3.2 oz I&O: 04/06/20 04/07/20 04/08/20 06:59 06:59 06:59 Intake Total 1100 1680 Balance 1100 1680 Result Diagrams: 03/08/20 07:08 03/06/20 03:55 Hospitalist ROS - Medication Medications: Active Medications Generic Name Dose Route Start Last Admin Trade Name Freq PRN Reason Stop Dose Admin Acetaminophen 650 mg 03/04/20 20:01 04/04/20 08:19 Acetaminophen 325 Mg Tab PO 650 mg Q4H PRN Administration Fever or Pain Cholecalciferol 2,000 units 03/04/20 09:00 04/07/20 09:42 Cholecalciferol 1,000 Units (25 Mcg) Tab PO 2,000 units DAILY BLAZE Administration Enoxaparin Sodium 40 mg 03/02/20 09:00 04/07/20 09:41 Enoxaparin Sodium 40 Mg/0.4 Ml Syringe SC 40 mg 09 BLAZE Administration Famotidine 20 mg 03/09/20 21:00 04/07/20 09:42 Famotidine 20 Mg Tab PO 20 mg BID BLAZE Administration Folic Acid 1 mg 03/05/20 09:00 04/07/20 09:41 Folic Acid 1 Mg Tab PO 1 mg DAILY BLAZE Administration Iron/Minerals/Multivitamins 1 tab 03/05/20 09:00 04/07/20 09:41 Multivitamin W/ Minerals 1 Tab PO 1 tab DAILY BLAZE Administration Magnesium Oxide 400 mg 03/06/20 09:00 04/07/20 09:41 Magnesium Oxide 400 Mg Tab PO 400 mg DAILY BLAZE Administration Thiamine HCl 100 mg 03/02/20 09:00 04/07/20 09:41 Thiamine 100 Mg Tab PO 100 mg DAILY BLAZE Administration Vitamin B Complex/Vit C/Folic Acid 1 tab 03/02/20 09:00 04/07/20 09:42 Folic Acid/Vit B Comp W-C PO 1 tab DAILY BLAZE Administration - Exam General Appearance: awake alert Neck: supple, no JVD Respiratory: normal chest expansion, no tachypnea Extremities: no cyanosis, no clubbing Neurological: no weakness, no focal deficits Hosp A/P (1) Klebsiella pneumoniae sepsis Code(s): A41.4 - SEPSIS DUE TO ANAEROBES Status: Resolved (2) Acromioclavicular joint injury Code(s): S49.90XA - UNSP INJURY OF SHOULDER AND UPPER ARM, UNSP ARM, INIT ENCNTR Status: Acute Qualifiers: Laterality: right (3) Alcohol abuse Code(s): F10.10 - ALCOHOL ABUSE, UNCOMPLICATED Status: Chronic (4) Developmental disability Status: Chronic (5) Acute metabolic encephalopathy Code(s): G93.41 - METABOLIC ENCEPHALOPATHY Status: Resolved - Plan This patient is a 39-year-old male with history of mental disability, drug abuse, alcohol abuse, and seizures who was admitted to the hospital initially for altered mental status and intoxication with alcohol and presumptively K2 and spice illicit drugs. He was found to be volume depleted and multiple alkali disturbances were noted. He was managed supportively with fluids and brooke ctrolyte replacements. His hospitalization was complicated by sepsis due to Klebsiella infection status post completed course of antibiotics. His repeat cultures were negative. During his initial work-up chest x-ray revealed grade 3 acromioclavicular joint separation on the right shoulder. Orthopedic service consulted and did not recommend any surgical intervention at this time as the patient is functioning well and is asymptomatic. The patient's family apparently unable to take care of the patient and placement was requested and currently pending. The patient is clinically stable and ready for discharge once placement is available.
[2020-04-08] MEDS: Famotidine 20 MG TAB PO SCH ×2 (12:20→20:49)
[2020-04-08] MEDS: Cholecalciferol 1,000 UNITS (25 MCG) TAB PO SCH (12:23)
[2020-04-08] MEDS: Folic Acid 1 MG TAB PO SCH (12:24)
[2020-04-08] MEDS: Folic Acid/Vit B Comp W-C PO SCH (12:24)
[2020-04-08] MEDS: Multivitamin W/ Minerals 1 TAB PO SCH (12:24)
[2020-04-08] MEDS: Thiamine 100 MG TAB PO SCH (12:25)
[2020-04-08] MEDS: Enoxaparin Sodium 40 MG/0.4 ML SYRINGE SC SCH (12:26)
[2020-04-08] MEDS: Magnesium Oxide 400 MG TAB PO SCH (12:26)
--- NOTE | 2020-04-08 17:40 | PDOC.HOSPP ---
- Subjective Encounter Date: 04/08/20 Encounter Time: 17:30 Subjective: f/u for ETOH/polysubstance abuse, mental disability and inability to live independently. Prolonged hospital course without clear-cut placement options. - Objective Vital Signs & Weight: Vital Signs (12 hours) Temp Pulse Resp BP Pulse Ox 04/08/20 08:00 97 04/08/20 07:19 96.0 F L 88 16 114/70 97 Weight Admit Weight 236 lb 9.6 oz Weight 232 lb 3.2 oz I&O: 04/07/20 04/08/20 04/09/20 06:59 06:59 06:59 Intake Total 1680 1274 Balance 1680 1274 Result Diagrams: 03/08/20 07:08 03/06/20 03:55 Hospitalist ROS - Medication Medications: Active Medications Generic Name Dose Route Start Last Admin Trade Name Freq PRN Reason Stop Dose Admin Acetaminophen 650 mg 03/04/20 20:01 04/04/20 08:19 Acetaminophen 325 Mg Tab PO 650 mg Q4H PRN Administration Fever or Pain Cholecalciferol 2,000 units 03/04/20 09:00 04/08/20 12:23 Cholecalciferol 1,000 Units (25 Mcg) Tab PO 2,000 units DAILY BLAZE Administration Enoxaparin Sodium 40 mg 03/02/20 09:00 04/08/20 12:26 Enoxaparin Sodium 40 Mg/0.4 Ml Syringe SC 40 mg 0900 BLAZE Administration Famotidine 20 mg 03/09/20 21:00 04/08/20 12:20 Famotidine 20 Mg Tab PO 20 mg BID BLAZE Administration Folic Acid 1 mg 03/05/20 09:00 04/08/20 12:24 Folic Acid 1 Mg Tab PO 1 mg DAILY BLAZE Administration Iron/Minerals/Multivitamins 1 tab 03/05/20 09:00 04/08/20 12:24 Multivitamin W/ Minerals 1 Tab PO 1 tab DAILY BLAZE Administration Magnesium Oxide 400 mg 03/06/20 09:00 04/08/20 12:26 Magnesium Oxide 400 Mg Tab PO 400 mg DAILY BLAZE Administration Thiamine HCl 100 mg 03/02/20 09:00 04/08/20 12:25 Thiamine 100 Mg Tab PO 100 mg DAILY BLAZE Administration Vitamin B Complex/Vit C/Folic Acid 1 tab 03/02/20 09:00 04/08/20 12:24 Folic Acid/Vit B Comp W-C PO 1 tab DAILY BLAZE Administration - Exam General Appearance: NAD, awake alert Eye: PERRL, anicteric sclera ENT: normocephalic atraumatic, no oropharyngeal lesions Neck: supple, symmetric, no JVD, no thyromegaly, no lymphadenopathy Heart: RRR, no murmur, no gallops, no rubs, normal peripheral pulses Heart - other findings: S1, S2 Respiratory: CTAB, no wheezes, no rales, no ronchi, normal chest expansion Gastrointestinal: soft, non-tender, non-distended, normal bowel sounds, no palpable masses Extremities: no cyanosis, no clubbing, no edema Skin: normal turgor, no lesions Neurological: cranial nerve grossly intact, no new deficit Musculoskeletal: normal tone, normal strength Psychiatric: A&O x 3, flat affect Hosp A/P (1) Klebsiella pneumoniae sepsis Code(s): A41.4 - SEPSIS DUE TO ANAEROBES Status: Resolved (2) Alcohol abuse Code(s): F10.10 - ALCOHOL ABUSE, UNCOMPLICATED Status: Chronic (3) Acute metabolic encephalopathy Code(s): G93.41 - METABOLIC ENCEPHALOPATHY Status: Resolved (4) Developmental disability Status: Chronic (5) Acromioclavicular joint injury Code(s): S49.90XA - UNSP INJURY OF SHOULDER AND UPPER ARM, UNSP ARM, INIT ENCNTR Status: Acute Qualifiers: Laterality: right - Plan Stable currently Care delay on placement options Prolonged hospital stay due to lack of options for placement given limited resources
[2020-04-09] MEDS: Acetaminophen 325 MG TAB PO PRN (08:13)
[2020-04-09] MEDS: Magnesium Oxide 400 MG TAB PO SCH (08:14)
[2020-04-09] MEDS: Cholecalciferol 1,000 UNITS (25 MCG) TAB PO SCH (08:14)
[2020-04-09] MEDS: Folic Acid/Vit B Comp W-C PO SCH (08:14)
[2020-04-09] MEDS: Multivitamin W/ Minerals 1 TAB PO SCH (08:14)
[2020-04-09] MEDS: Enoxaparin Sodium 40 MG/0.4 ML SYRINGE SC SCH (08:14)
[2020-04-09] MEDS: Folic Acid 1 MG TAB PO SCH (08:14)
[2020-04-09] MEDS: Famotidine 20 MG TAB PO SCH ×2 (08:14→20:49)
[2020-04-09] MEDS: Thiamine 100 MG TAB PO SCH (08:14)
--- NOTE | 2020-04-09 14:50 | PDOC.HOSPP ---
- Subjective Encounter Date: 04/09/20 Encounter Time: 14:40 Subjective: f/u for ETOH/polysubstance abuse with prolonged hospital course(Hospital day #39) due to inability to place patient and family not wanting to take patient back home. Pt was declared incompetent and without capacity for decision making. - Objective Vital Signs & Weight: Vital Signs (12 hours) Temp Pulse Resp BP Pulse Ox 04/09/20 07:10 98.7 F 91 18 129/77 95 Weight Admit Weight 236 lb 9.6 oz Weight 232 lb 3.2 oz I&O: 04/08/20 04/09/20 04/10/20 06:59 06:59 06:59 Intake Total 1274 Balance 1274 Result Diagrams: 03/08/20 07:08 03/06/20 03:55 Hospitalist ROS - Medication Medications: Active Medications Generic Name Dose Route Start Last Admin Trade Name Freq PRN Reason Stop Dose Admin Acetaminophen 650 mg 03/04/20 20:01 04/09/20 08:13 Acetaminophen 325 Mg Tab PO 650 mg Q4H PRN Administration Fever or Pain Cholecalciferol 2,000 units 03/04/20 09:00 04/09/20 08:14 Cholecalciferol 1,000 Units (25 Mcg) Tab PO 2,000 units DAILY BLAZE Administration Enoxaparin Sodium 40 mg 03/02/20 09:00 04/09/20 08:14 Enoxaparin Sodium 40 Mg/0.4 Ml Syringe SC 40 mg 0900 BLAZE Administration Famotidine 20 mg 03/09/20 21:00 04/09/20 08:14 Famotidine 20 Mg Tab PO 20 mg BID BLAZE Administration Folic Acid 1 mg 03/05/20 09:00 04/09/20 08:14 Folic Acid 1 Mg Tab PO 1 mg DAILY BLAZE Administration Iron/Minerals/Multivitamins 1 tab 03/05/20 09:00 04/09/20 08:14 Multivitamin W/ Minerals 1 Tab PO 1 tab DAILY BLAZE Administration Magnesium Oxide 400 mg 03/06/20 09:00 04/09/20 08:14 Magnesium Oxide 400 Mg Tab PO 400 mg DAILY BLAZE Administration Thiamine HCl 100 mg 03/02/20 09:00 04/09/20 08:14 Thiamine 100 Mg Tab PO 100 mg DAILY BLAZE Administration Vitamin B Complex/Vit C/Folic Acid 1 tab 03/02/20 09:00 04/09/20 08:14 Folic Acid/Vit B Comp W-C PO 1 tab DAILY BLAZE Administration - Exam General Appearance: NAD, awake alert Eye: PERRL, anicteric sclera ENT: normocephalic atraumatic, no oropharyngeal lesions Neck: supple, symmetric, no JVD, no thyromegaly, no lymphadenopathy Heart: RRR, no murmur, no gallops, no rubs, normal peripheral pulses Heart - other findings: S1, S2 Respiratory: CTAB, no wheezes, no rales, no ronchi, normal chest expansion, no tachypnea Gastrointestinal: soft, non-tender, non-distended, normal bowel sounds, no palpable masses Extremities: no cyanosis, no clubbing, no edema Skin: normal turgor, no lesions Neurological: cranial nerve grossly intact, no new deficit Musculoskeletal: normal tone, normal strength, no muscle wasting Psychiatric: A&O x 3, flat affect Hosp A/P (1) Klebsiella pneumoniae sepsis Code(s): A41.4 - SEPSIS DUE TO ANAEROBES Status: Resolved (2) Alcohol abuse Code(s): F10.10 - ALCOHOL ABUSE, UNCOMPLICATED Status: Chronic (3) Acute metabolic encephalopathy Code(s): G93.41 - METABOLIC ENCEPHALOPATHY Status: Resolved (4) Developmental disability Status: Chronic (5) Acromioclavicular joint injury Code(s): S49.90XA - UNSP INJURY OF SHOULDER AND UPPER ARM, UNSP ARM, INIT ENCNTR Status: Acute Qualifiers: Laterality: right - 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
[2020-04-10] MEDS: Folic Acid/Vit B Comp W-C PO SCH (08:27)
[2020-04-10] MEDS: Multivitamin W/ Minerals 1 TAB PO SCH (08:27)
[2020-04-10] MEDS: Magnesium Oxide 400 MG TAB PO SCH (08:27)
[2020-04-10] MEDS: Folic Acid 1 MG TAB PO SCH (08:27)
[2020-04-10] MEDS: Famotidine 20 MG TAB PO SCH ×2 (08:27→20:13)
[2020-04-10] MEDS: Cholecalciferol 1,000 UNITS (25 MCG) TAB PO SCH (08:27)
[2020-04-10] MEDS: Thiamine 100 MG TAB PO SCH (08:27)
[2020-04-10] MEDS: Enoxaparin Sodium 40 MG/0.4 ML SYRINGE SC SCH (08:28)
--- NOTE | 2020-04-10 16:39 | PDOC.HOSPP ---
- Subjective Encounter Date: 04/10/20 Encounter Time: 16:35 Subjective: f/u for polysubstance use with prolonged hospital stay(Day #40). Awaiting placement options. - Objective Vital Signs & Weight: Vital Signs (12 hours) Temp Pulse Resp BP Pulse Ox 04/10/20 07:28 97.5 F L 75 20 120/74 96 Weight Admit Weight 236 lb 9.6 oz Weight 232 lb 3.2 oz Result Diagrams: 03/08/20 07:08 03/06/20 03:55 Hospitalist ROS - Medication Medications: Active Medications Generic Name Dose Route Start Last Admin Trade Name Freq PRN Reason Stop Dose Admin Acetaminophen 650 mg 03/04/20 20:01 04/09/20 08:13 Acetaminophen 325 Mg Tab PO 650 mg Q4H PRN Administration Fever or Pain Cholecalciferol 2,000 units 03/04/20 09:00 04/10/20 08:27 Cholecalciferol 1,000 Units (25 Mcg) Tab PO 2,000 units DAILY BLAZE Administration Enoxaparin Sodium 40 mg 03/02/20 09:00 04/10/20 08:28 Enoxaparin Sodium 40 Mg/0.4 Ml Syringe SC 40 mg 0900 BLAZE Administration Famotidine 20 mg 03/09/20 21:00 04/10/20 08:27 Famotidine 20 Mg Tab PO 20 mg BID BLAZE Administration Folic Acid 1 mg 03/05/20 09:00 04/10/20 08:27 Folic Acid 1 Mg Tab PO 1 mg DAILY BLAZE Administration Iron/Minerals/Multivitamins 1 tab 03/05/20 09:00 04/10/20 08:27 Multivitamin W/ Minerals 1 Tab PO 1 tab DAILY BLAZE Administration Magnesium Oxide 400 mg 03/06/20 09:00 04/10/20 08:27 Magnesium Oxide 400 Mg Tab PO 400 mg DAILY BLAZE Administration Thiamine HCl 100 mg 03/02/20 09:00 04/10/20 08:27 Thiamine 100 Mg Tab PO 100 mg DAILY BLAZE Administration Vitamin B Complex/Vit C/Folic Acid 1 tab 03/02/20 09:00 04/10/20 08:27 Folic Acid/Vit B Comp W-C PO 1 tab DAILY BLAZE Administration - Exam General Appearance: NAD, awake alert Eye: PERRL, anicteric sclera ENT: normocephalic atraumatic, no oropharyngeal lesions Neck: supple, symmetric, no JVD, no thyromegaly, no lymphadenopathy Heart: RRR, no murmur, no gallops, no rubs, normal peripheral pulses Heart - other findings: S1, S2 Respiratory: CTAB, no wheezes, no rales, no ronchi, normal chest expansion, no tachypnea Gastrointestinal: soft, non-tender, non-distended, normal bowel sounds, no palpable masses Extremities: no cyanosis, no clubbing, no edema Skin: normal turgor, no lesions Neurological: cranial nerve grossly intact, no new deficit Musculoskeletal: normal tone, normal strength Psychiatric: A&O x 3, flat affect Hosp A/P (1) Klebsiella pneumoniae sepsis Code(s): A41.4 - SEPSIS DUE TO ANAEROBES Status: Resolved (2) Alcohol abuse Code(s): F10.10 - ALCOHOL ABUSE, UNCOMPLICATED Status: Chronic (3) Acute metabolic encephalopathy Code(s): G93.41 - METABOLIC ENCEPHALOPATHY Status: Resolved (4) Developmental disability Status: Chronic (5) Acromioclavicular joint injury Code(s): S49.90XA - UNSP INJURY OF SHOULDER AND UPPER ARM, UNSP ARM, INIT ENCNTR Status: Acute Qualifiers: Laterality: right - 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
[2020-04-11] MEDS: Cholecalciferol 1,000 UNITS (25 MCG) TAB PO SCH (09:10)
[2020-04-11] MEDS: Thiamine 100 MG TAB PO SCH (09:10)
[2020-04-11] MEDS: Folic Acid 1 MG TAB PO SCH (09:10)
[2020-04-11] MEDS: Famotidine 20 MG TAB PO SCH ×2 (09:10→20:13)
[2020-04-11] MEDS: Multivitamin W/ Minerals 1 TAB PO SCH (09:10)
[2020-04-11] MEDS: Folic Acid/Vit B Comp W-C PO SCH (09:10)
[2020-04-11] MEDS: Magnesium Oxide 400 MG TAB PO SCH (09:10)
[2020-04-11] MEDS: Enoxaparin Sodium 40 MG/0.4 ML SYRINGE SC SCH (09:10)
--- NOTE | 2020-04-11 12:08 | PDOC.HOSPP ---
- Subjective Encounter Date: 04/11/20 Encounter Time: 12:00 Subjective: f/u for prolonged hospital stay Day # 41 and unable to dispo to [facility] or d/c home as family refusing to take him back. - Objective Vital Signs & Weight: Vital Signs (12 hours) Temp Pulse Resp BP Pulse Ox 04/11/20 07:43 98.7 F 85 16 129/84 96 Weight Admit Weight 236 lb 9.6 oz Weight 232 lb 3.2 oz Result Diagrams: 03/08/20 07:08 03/06/20 03:55 Hospitalist ROS - Medication Medications: Active Medications Generic Name Dose Route Start Last Admin Trade Name Freq PRN Reason Stop Dose Admin Acetaminophen 650 mg 03/04/20 20:01 04/09/20 08:13 Acetaminophen 325 Mg Tab PO 650 mg Q4H PRN Administration Fever or Pain Cholecalciferol 2,000 units 03/04/20 09:00 04/11/20 09:10 Cholecalciferol 1,000 Units (25 Mcg) Tab PO 2,000 units DAILY BLAZE Administration Enoxaparin Sodium 40 mg 03/02/20 09:00 04/11/20 09:10 Enoxaparin Sodium 40 Mg/0.4 Ml Syringe SC 40 mg 0900 BLAZE Administration Famotidine 20 mg 03/09/20 21:00 04/11/20 09:10 Famotidine 20 Mg Tab PO 20 mg BID BLAZE Administration Folic Acid 1 mg 03/05/20 09:00 04/11/20 09:10 Folic Acid 1 Mg Tab PO 1 mg DAILY BLAZE Administration Iron/Minerals/Multivitamins 1 tab 03/05/20 09:00 04/11/20 09:10 Multivitamin W/ Minerals 1 Tab PO 1 tab DAILY BLAZE Administration Magnesium Oxide 400 mg 03/06/20 09:00 04/11/20 09:10 Magnesium Oxide 400 Mg Tab PO 400 mg DAILY BLAZE Administration Thiamine HCl 100 mg 03/02/20 09:00 04/11/20 09:10 Thiamine 100 Mg Tab PO 100 mg DAILY BLAZE Administration Vitamin B Complex/Vit C/Folic Acid 1 tab 03/02/20 09:00 04/11/20 09:10 Folic Acid/Vit B Comp W-C PO 1 tab DAILY BLAZE Administration - Exam General Appearance: NAD, awake alert Eye: PERRL, anicteric sclera ENT: normocephalic atraumatic, no oropharyngeal lesions Neck: supple, symmetric, no JVD, no thyromegaly, no lymphadenopathy Heart: RRR, no murmur, no gallops, no rubs, normal peripheral pulses Heart - other findings: S1, S2 Respiratory: CTAB, no wheezes, no rales, no ronchi, normal chest expansion, no tachypnea Gastrointestinal: soft, non-tender, non-distended, normal bowel sounds, no palpable masses Extremities: no cyanosis, no clubbing, no edema Skin: normal turgor, no lesions Neurological: cranial nerve grossly intact, no new deficit Musculoskeletal: normal tone, normal strength, no muscle wasting Psychiatric: A&O x 3, flat affect Hosp A/P (1) Klebsiella pneumoniae sepsis Code(s): A41.4 - SEPSIS DUE TO ANAEROBES Status: Resolved (2) Alcohol abuse Code(s): F10.10 - ALCOHOL ABUSE, UNCOMPLICATED Status: Chronic (3) Acute metabolic encephalopathy Code(s): G93.41 - METABOLIC ENCEPHALOPATHY Status: Resolved (4) Developmental disability Status: Chronic (5) Acromioclavicular joint injury Code(s): S49.90XA - UNSP INJURY OF SHOULDER AND UPPER ARM, UNSP ARM, INIT ENCNTR Status: Acute Qualifiers: Laterality: right - Plan aids social worker Stable currently Care delay on placement options, pt has been stable for d/c for over 2-3 weeks Prolonged hospital stay due to lack of options for placement given limited resources Awaiting court appointed guardian after official court determination of lack of capacity to make decisions
[2020-04-12] MEDS: Cholecalciferol 1,000 UNITS (25 MCG) TAB PO SCH (09:50)
[2020-04-12] MEDS: Folic Acid/Vit B Comp W-C PO SCH (09:50)
[2020-04-12] MEDS: Enoxaparin Sodium 40 MG/0.4 ML SYRINGE SC SCH (09:50)
[2020-04-12] MEDS: Thiamine 100 MG TAB PO SCH (09:50)
[2020-04-12] MEDS: Multivitamin W/ Minerals 1 TAB PO SCH (09:50)
[2020-04-12] MEDS: Famotidine 20 MG TAB PO SCH ×2 (09:50→20:14)
[2020-04-12] MEDS: Magnesium Oxide 400 MG TAB PO SCH (09:50)
[2020-04-12] MEDS: Folic Acid 1 MG TAB PO SCH (09:50)
--- NOTE | 2020-04-12 18:25 | PDOC.HOSPP ---
- Subjective Encounter Date: 04/12/20 Encounter Time: 15:00 Subjective: f/u for polysubstance use/mental delay awaiting placement options. - Objective Vital Signs & Weight: Vital Signs (12 hours) Temp Pulse Resp BP Pulse Ox 04/12/20 07:57 97.8 F 83 16 126/84 97 Weight Admit Weight 236 lb 9.6 oz Weight 232 lb 3.2 oz I&O: 04/11/20 04/12/20 04/13/20 06:59 06:59 06:59 Intake Total 980 Balance 980 Result Diagrams: 03/08/20 07:08 03/06/20 03:55 Additional Labs: Microbiology 03/04/20 20:46 Venous blood - Right Hand Blood Culture - Final Klebsiella pneumoniae ssp pneu 03/04/20 20:46 Venous blood - Right Arm Blood Culture - Final Klebsiella pneumoniae ssp pneu 03/07/20 09:14 Venous blood - Right Arm Blood Culture - Preliminary Specimen has been received and culture in progress. No Growth to date. 03/07/20 09:14 Venous blood - Left Arm Blood Culture - Preliminary Specimen has been received and culture in progress. No Growth to date. Laboratory Tests 03/01/20 03/01/20 03/05/20 18:54 22:41 12:00 Plasma Alcohol 107 H SARS-CoV-2 (PCR) Not Detected Not Detected Hospitalist ROS - Medication Medications: Active Medications Generic Name Dose Route Start Last Admin Trade Name Freq PRN Reason Stop Dose Admin Acetaminophen 650 mg 03/04/20 20:01 04/09/20 08:13 Acetaminophen 325 Mg Tab PO 650 mg Q4H PRN Administration Fever or Pain Cholecalciferol 2,000 units 03/04/20 09:00 04/12/20 09:50 Cholecalciferol 1,000 Units (25 Mcg) Tab PO 2,000 units DAILY BLAZE Administration Famotidine 20 mg 03/09/20 21:00 04/12/20 09:50 Famotidine 20 Mg Tab PO 20 mg BID BLAZE Administration Folic Acid 1 mg 03/05/20 09:00 04/12/20 09:50 Folic Acid 1 Mg Tab PO 1 mg DAILY BLAZE Administration Iron/Minerals/Multivitamins 1 tab 03/05/20 09:00 04/12/20 09:50 Multivitamin W/ Minerals 1 Tab PO 1 tab DAILY BLAZE Administration Magnesium Oxide 400 mg 03/06/20 09:00 04/12/20 09:50 Magnesium Oxide 400 Mg Tab PO 400 mg DAILY BLAZE Administration Thiamine HCl 100 mg 03/02/20 09:00 04/12/20 09:50 Thiamine 100 Mg Tab PO 100 mg DAILY BLAZE Administration Vitamin B Complex/Vit C/Folic Acid 1 tab 03/02/20 09:00 04/12/20 09:50 Folic Acid/Vit B Comp W-C PO 1 tab DAILY BLAZE Administration - Exam General Appearance: NAD, awake alert Eye: PERRL, anicteric sclera ENT: normocephalic atraumatic, no oropharyngeal lesions Neck: supple, symmetric, no JVD, no thyromegaly, no lymphadenopathy Heart: RRR, no gallops, no rubs, normal peripheral pulses Heart - other findings: S1, S2 Respiratory: CTAB, no wheezes, no rales, no ronchi, normal chest expansion, no tachypnea Gastrointestinal: soft, non-tender, non-distended, normal bowel sounds, no palpable masses Extremities: no cyanosis, no clubbing, no edema Skin: normal turgor, no lesions, no rashes Neurological: cranial nerve grossly intact, no new deficit Musculoskeletal: normal tone, normal strength, no muscle wasting Psychiatric: A&O x 3, flat affect Hosp A/P (1) Klebsiella pneumoniae sepsis Code(s): A41.4 - SEPSIS DUE TO ANAEROBES Status: Resolved (2) Alcohol abuse Code(s): F10.10 - ALCOHOL ABUSE, UNCOMPLICATED Status: Chronic (3) Acute metabolic encephalopathy Code(s): G93.41 - METABOLIC ENCEPHALOPATHY Status: Resolved (4) Developmental disability Status: Chronic (5) Acromioclavicular joint injury Code(s): S49.90XA - UNSP INJURY OF SHOULDER AND UPPER ARM, UNSP ARM, INIT ENCNTR Status: Acute Qualifiers: Laterality: right - Plan certified social workers in health care Stable currently Care delay on placement options, pt has been stable for d/c for over 2-3 weeks Prolonged hospital stay due to lack of options for placement given limited r esources Awaiting court appointed guardian after official court determination of lack of capacity to make decisions
[2020-04-13] MEDS: Folic Acid 1 MG TAB PO SCH (09:20)
[2020-04-13] MEDS: Folic Acid/Vit B Comp W-C PO SCH (09:20)
[2020-04-13] MEDS: Cholecalciferol 1,000 UNITS (25 MCG) TAB PO SCH (09:20)
[2020-04-13] MEDS: Magnesium Oxide 400 MG TAB PO SCH (09:20)
[2020-04-13] MEDS: Famotidine 20 MG TAB PO SCH ×2 (09:20→19:56)
[2020-04-13] MEDS: Multivitamin W/ Minerals 1 TAB PO SCH (09:20)
[2020-04-13] MEDS: Thiamine 100 MG TAB PO SCH (09:21)
--- NOTE | 2020-04-13 14:46 | PDOC.HOSPP ---
- Subjective Encounter Date: 04/13/20 Encounter Time: 14:00 Subjective: f/u for polysubstance use and prolonged hospital stay day #43. Awaiting dispo with CM assistance. - Objective Vital Signs & Weight: Vital Signs (12 hours) Temp Pulse Resp BP Pulse Ox 04/13/20 08:55 100 04/13/20 08:00 97.8 F 76 16 121/79 100 Weight Admit Weight 236 lb 9.6 oz Weight 232 lb 3.2 oz I&O: 04/12/20 04/13/20 04/14/20 06:59 06:59 06:59 Intake Total 980 Balance 980 Result Diagrams: 03/08/20 07:08 03/06/20 03:55 Hospitalist ROS - Medication Medications: Active Medications Generic Name Dose Route Start Last Admin Trade Name Freq PRN Reason Stop Dose Admin Acetaminophen 650 mg 03/04/20 20:01 04/09/20 08:13 Acetaminophen 325 Mg Tab PO 650 mg Q4H PRN Administration Fever or Pain Cholecalciferol 2,000 units 03/04/20 09:00 04/13/20 09:20 Cholecalciferol 1,000 Units (25 Mcg) Tab PO 2,000 units DAILY BLAZE Administration Famotidine 20 mg 03/09/20 21:00 04/13/20 09:20 Famotidine 20 Mg Tab PO 20 mg BID BLAZE Administration Folic Acid 1 mg 03/05/20 09:00 04/13/20 09:20 Folic Acid 1 Mg Tab PO 1 mg DAILY BLAZE Administration Iron/Minerals/Multivitamins 1 tab 03/05/20 09:00 04/13/20 09:20 Multivitamin W/ Minerals 1 Tab PO 1 tab DAILY BLAZE Administration Magnesium Oxide 400 mg 03/06/20 09:00 04/13/20 09:20 Magnesium Oxide 400 Mg Tab PO 400 mg DAILY BLAZE Administration Thiamine HCl 100 mg 03/02/20 09:00 04/13/20 09:21 Thiamine 100 Mg Tab PO 100 mg DAILY BLAZE Administration Vitamin B Complex/Vit C/Folic Acid 1 tab 03/02/20 09:00 04/13/20 09:20 Folic Acid/Vit B Comp W-C PO 1 tab DAILY BLAZE Administration - Exam General Appearance: NAD, awake alert Eye: PERRL, anicteric sclera ENT: normocephalic atraumatic, no oropharyngeal lesions Neck: supple, symmetric, no JVD, no thyromegaly, no lymphadenopathy Heart: RRR, no murmur, no gallops, no rubs, normal peripheral pulses Heart - other findings: S1, S2 Respiratory: CTAB, no wheezes, no rales, no ronchi, normal chest expansion Gastrointestinal: soft, non-tender, non-distended, normal bowel sounds, no palpable masses Extremities: no cyanosis, no clubbing, no edema Skin: normal turgor, no lesions Neurological: cranial nerve grossly intact, no new deficit Musculoskeletal: normal tone, normal strength, no muscle wasting Psychiatric: A&O x 3, flat affect Hosp A/P (1) Klebsiella pneumoniae sepsis Code(s): A41.4 - SEPSIS DUE TO ANAEROBES Status: Resolved (2) Alcohol abuse Code(s): F10.10 - ALCOHOL ABUSE, UNCOMPLICATED Status: Chronic (3) Acute metabolic encephalopathy Code(s): G93.41 - METABOLIC ENCEPHALOPATHY Status: Resolved (4) Developmental disability Status: Chronic (5) Acromioclavicular joint injury Code(s): S49.90XA - UNSP INJURY OF SHOULDER AND UPPER ARM, UNSP ARM, INIT ENCNTR Status: Acute Qualifiers: Laterality: right - 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
[2020-04-14] MEDS: Folic Acid/Vit B Comp W-C PO SCH (09:21)
[2020-04-14] MEDS: Magnesium Oxide 400 MG TAB PO SCH (09:21)
[2020-04-14] MEDS: Famotidine 20 MG TAB PO SCH ×2 (09:21→21:57)
[2020-04-14] MEDS: Cholecalciferol 1,000 UNITS (25 MCG) TAB PO SCH (09:21)
[2020-04-14] MEDS: Folic Acid 1 MG TAB PO SCH (09:21)
[2020-04-14] MEDS: Thiamine 100 MG TAB PO SCH (09:21)
[2020-04-14] MEDS: Multivitamin W/ Minerals 1 TAB PO SCH (09:21)
--- NOTE | 2020-04-14 15:09 | PDOC.HOSPP ---
- Subjective Encounter Date: 04/14/20 Encounter Time: 14:50 Subjective: f/u for developmental delay and prolonged hospital day#44. No firm dispo plannnig curently - Objective Vital Signs & Weight: Vital Signs (12 hours) Temp Pulse Resp BP BP Pulse Ox 04/14/20 12:18 97.4 F L 118 H 12 119/79 93 L 04/14/20 09:30 96 04/14/20 07:43 98.3 F 97 18 114/79 96 Weight Admit Weight 236 lb 9.6 oz Weight 232 lb 3.2 oz Result Diagrams: 03/08/20 07:08 03/06/20 03:55 Hospitalist ROS - Medication Medications: Active Medications Generic Name Dose Route Start Last Admin Trade Name Freq PRN Reason Stop Dose Admin Acetaminophen 650 mg 03/04/20 20:01 04/09/20 08:13 Acetaminophen 325 Mg Tab PO 650 mg Q4H PRN Administration Fever or Pain Cholecalciferol 2,000 units 03/04/20 09:00 04/14/20 09:21 Cholecalciferol 1,000 Units (25 Mcg) Tab PO 2,000 units DAILY BLAZE Administration Famotidine 20 mg 03/09/20 21:00 04/14/20 09:21 Famotidine 20 Mg Tab PO 20 mg BID BLAZE Administration Folic Acid 1 mg 03/05/20 09:00 04/14/20 09:21 Folic Acid 1 Mg Tab PO 1 mg DAILY BLAZE Administration Iron/Minerals/Multivitamins 1 tab 03/05/20 09:00 04/14/20 09:21 Multivitamin W/ Minerals 1 Tab PO 1 tab DAILY BLAZE Administration Magnesium Oxide 400 mg 03/06/20 09:00 04/14/20 09:21 Magnesium Oxide 400 Mg Tab PO 400 mg DAILY BLAZE Administration Thiamine HCl 100 mg 03/02/20 09:00 04/14/20 09:21 Thiamine 100 Mg Tab PO 100 mg DAILY BLAZE Administration Vitamin B Complex/Vit C/Folic Acid 1 tab 03/02/20 09:00 04/14/20 09:21 Folic Acid/Vit B Comp W-C PO 1 tab DAILY BLAZE Administration - Exam General Appearance: NAD, awake alert Eye: PERRL, anicteric sclera ENT: normocephalic atraumatic, no oropharyngeal lesions Neck: supple, symmetric, no JVD, no thyromegaly, no lymphadenopathy Heart: RRR, no gallops, no rubs, normal peripheral pulses Heart - other findings: S1, S2 Respiratory: CTAB, no wheezes, no rales, no ronchi, normal chest expansion Gastrointestinal: soft, non-tender, non-distended, normal bowel sounds, no palpable masses Extremities: no cyanosis, no clubbing, no edema Skin: normal turgor, no lesions Neurological: cranial nerve grossly intact, no new deficit Musculoskeletal: normal tone, generalized weakness Psychiatric: A&O x 3, flat affect Hosp A/P (1) Klebsiella pneumoniae sepsis Code(s): A41.4 - SEPSIS DUE TO ANAEROBES Status: Resolved (2) Alcohol abuse Code(s): F10.10 - ALCOHOL ABUSE, UNCOMPLICATED Status: Chronic (3) Acute metabolic encephalopathy Code(s): G93.41 - METABOLIC ENCEPHALOPATHY Status: Resolved (4) Developmental disability Status: Chronic (5) Acromioclavicular joint injury Code(s): S49.90XA - UNSP INJURY OF SHOULDER AND UPPER ARM, UNSP ARM, INIT ENCNTR Status: Acute Qualifiers: Laterality: right - Plan director social welfare, 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
[2020-04-15] MEDS: Cholecalciferol 1,000 UNITS (25 MCG) TAB PO SCH (09:45)
[2020-04-15] MEDS: Magnesium Oxide 400 MG TAB PO SCH (09:45)
[2020-04-15] MEDS: Famotidine 20 MG TAB PO SCH ×2 (09:45→21:55)
[2020-04-15] MEDS: Folic Acid/Vit B Comp W-C PO SCH (09:45)
[2020-04-15] MEDS: Folic Acid 1 MG TAB PO SCH (09:46)
[2020-04-15] MEDS: Thiamine 100 MG TAB PO SCH (09:46)
[2020-04-15] MEDS: Multivitamin W/ Minerals 1 TAB PO SCH (09:46)
--- NOTE | 2020-04-15 16:30 | PDOC.HOSPP ---
- Subjective Subjective: no new event. - Objective Vital Signs & Weight: Vital Signs (12 hours) Temp Pulse Resp BP Pulse Ox 04/15/20 09:30 98 04/15/20 07:20 96.8 F L 83 18 114/75 98 Weight Admit Weight 236 lb 9.6 oz Weight 232 lb 3.2 oz Result Diagrams: 03/08/20 07:08 03/06/20 03:55 Radiology Reviewed by me: Yes EKG Reviewed by me: Yes Hospitalist ROS - Medication Medications: Active Medications Generic Name Dose Route Start Last Admin Trade Name Freq PRN Reason Stop Dose Admin Acetaminophen 650 mg 03/04/20 20:01 04/09/20 08:13 Acetaminophen 325 Mg Tab PO 650 mg Q4H PRN Administration Fever or Pain Cholecalciferol 2,000 units 03/04/20 09:00 04/15/20 09:45 Cholecalciferol 1,000 Units (25 Mcg) Tab PO 2,000 units DAILY BLAZE Administration Famotidine 20 mg 03/09/20 21:00 04/15/20 09:45 Famotidine 20 Mg Tab PO 20 mg BID BLAZE Administration Folic Acid 1 mg 03/05/20 09:00 04/15/20 09:46 Folic Acid 1 Mg Tab PO 1 mg DAILY BLAZE Administration Iron/Minerals/Multivitamins 1 tab 03/05/20 09:00 04/15/20 09:46 Multivitamin W/ Minerals 1 Tab PO 1 tab DAILY BLAZE Administration Magnesium Oxide 400 mg 03/06/20 09:00 04/15/20 09:45 Magnesium Oxide 400 Mg Tab PO 400 mg DAILY BLAZE Administration Thiamine HCl 100 mg 03/02/20 09:00 04/15/20 09:46 Thiamine 100 Mg Tab PO 100 mg DAILY BLAZE Administration Vitamin B Complex/Vit C/Folic Acid 1 tab 03/02/20 09:00 04/15/20 09:45 Folic Acid/Vit B Comp W-C PO 1 tab DAILY BLAZE Administration - Exam General Appearance: NAD Eye: PERRL ENT: normocephalic atraumatic Neck: supple Heart: RRR Respiratory: CTAB Gastrointestinal: soft Extremities: no cyanosis Skin: normal turgor Neurological: cranial nerve grossly intact, no new deficit Musculoskeletal: normal tone Psychiatric: normal affect, normal behavior, A&O x 3 Hosp A/P - Plan (1) Klebsiella pneumoniae sepsis Code(s): A41.4 - SEPSIS DUE TO ANAEROBES Status: Resolved (2) Alcohol abuse Code(s): F10.10 - ALCOHOL ABUSE, UNCOMPLICATED Status: Chronic (3) Acute metabolic encephalopathy Code(s): G93.41 - METABOLIC ENCEPHALOPATHY Status: Resolved (4) Developmental disability Status: Chronic (5) Acromioclavicular joint injury Code(s): S49.90XA - UNSP INJURY OF SHOULDER AND UPPER ARM, UNSP ARM, INIT ENCNTR Status: Acute Qualifiers: Laterality: right - Plan Pt has been medically stable to discharge for the last 2-3 weeks Prolonged hospital stay due to lack of options for placement given limited resources Awaiting court appointed guardian after official court determination of lack of capacity to make decisions
[2020-04-16] MEDS: Famotidine 20 MG TAB PO SCH ×2 (09:20→19:51)
[2020-04-16] MEDS: Magnesium Oxide 400 MG TAB PO SCH (09:20)
[2020-04-16] MEDS: Folic Acid 1 MG TAB PO SCH (09:20)
[2020-04-16] MEDS: Cholecalciferol 1,000 UNITS (25 MCG) TAB PO SCH (09:20)
[2020-04-16] MEDS: Thiamine 100 MG TAB PO SCH (09:20)
[2020-04-16] MEDS: Folic Acid/Vit B Comp W-C PO SCH (09:20)
[2020-04-16] MEDS: Multivitamin W/ Minerals 1 TAB PO SCH (09:20)
--- NOTE | 2020-04-16 16:21 | PDOC.HOSPP ---
- Subjective Subjective: no new event. d/w nursing staff. - Objective Vital Signs & Weight: Vital Signs (12 hours) Temp Pulse Resp BP Pulse Ox 04/16/20 09:20 96 04/16/20 07:40 97.8 F 93 20 141/83 H 96 Weight Admit Weight 236 lb 9.6 oz Weight 232 lb 3.2 oz I&O: 04/15/20 04/16/20 04/17/20 06:59 06:59 06:59 Intake Total 1050 Balance 1050 Result Diagrams: 03/08/20 07:08 03/06/20 03:55 Radiology Reviewed by me: Yes EKG Reviewed by me: Yes Hospitalist ROS - Medication Medications: Active Medications Generic Name Dose Route Start Last Admin Trade Name Freq PRN Reason Stop Dose Admin Acetaminophen 650 mg 03/04/20 20:01 04/09/20 08:13 Acetaminophen 325 Mg Tab PO 650 mg Q4H PRN Administration Fever or Pain Cholecalciferol 2,000 units 03/04/20 09:00 04/16/20 09:20 Cholecalciferol 1,000 Units (25 Mcg) Tab PO 2,000 units DAILY BLAZE Administration Famotidine 20 mg 03/09/20 21:00 04/16/20 09:20 Famotidine 20 Mg Tab PO 20 mg BID BLAZE Administration Folic Acid 1 mg 03/05/20 09:00 04/16/20 09:20 Folic Acid 1 Mg Tab PO 1 mg DAILY BLAZE Administration Iron/Minerals/Multivitamins 1 tab 03/05/20 09:00 04/16/20 09:20 Multivitamin W/ Minerals 1 Tab PO 1 tab DAILY BLAZE Administration Magnesium Oxide 400 mg 03/06/20 09:00 04/16/20 09:20 Magnesium Oxide 400 Mg Tab PO 400 mg DAILY BLAZE Administration Thiamine HCl 100 mg 03/02/20 09:00 04/16/20 09:20 Thiamine 100 Mg Tab PO 100 mg DAILY BLAZE Administration Vitamin B Complex/Vit C/Folic Acid 1 tab 03/02/20 09:00 04/16/20 09:20 Folic Acid/Vit B Comp W-C PO 1 tab DAILY BLAZE Administration - Exam General Appearance: NAD Eye: PERRL ENT: normocephalic atraumatic Neck: supple Heart: RRR Respiratory: CTAB Gastrointestinal: soft Extremities: no cyanosis Skin: normal turgor Neurological: cranial nerve grossly intact Musculoskeletal: normal tone Hosp A/P - Plan (1) Klebsiella pneumoniae sepsis Code(s): A41.4 - SEPSIS DUE TO ANAEROBES Status: Resolved (2) Alcohol abuse Code(s): F10.10 - ALCOHOL ABUSE, UNCOMPLICATED Status: Chronic (3) Acute metabolic encephalopathy Code(s): G93.41 - METABOLIC ENCEPHALOPATHY Status: Resolved (4) Developmental disability Status: Chronic (5) Acromioclavicular joint injury Code(s): S49.90XA - UNSP INJURY OF SHOULDER AND UPPER ARM, UNSP ARM, INIT ENCNTR Status: Acute Qualifiers: Laterality: right - Plan Pt has been medically stable to discharge for the last 2-3 weeks Prolonged hospital stay due to lack of options for placement given limited r esources Awaiting court appointed guardian after official court determination of lack of capacity to make decisions
[2020-04-17] MEDS: Folic Acid 1 MG TAB PO SCH (09:07)
[2020-04-17] MEDS: Multivitamin W/ Minerals 1 TAB PO SCH (09:07)
[2020-04-17] MEDS: Folic Acid/Vit B Comp W-C PO SCH (09:07)
[2020-04-17] MEDS: Famotidine 20 MG TAB PO SCH ×2 (09:07→20:59)
[2020-04-17] MEDS: Cholecalciferol 1,000 UNITS (25 MCG) TAB PO SCH (09:07)
[2020-04-17] MEDS: Magnesium Oxide 400 MG TAB PO SCH (09:07)
[2020-04-17] MEDS: Thiamine 100 MG TAB PO SCH (09:08)
--- NOTE | 2020-04-17 16:24 | PDOC.HOSPP ---
- Subjective Subjective: no acute changes. d/w CM - Objective Vital Signs & Weight: Vital Signs (12 hours) Temp Pulse Resp BP Pulse Ox 04/17/20 08:00 99 04/17/20 07:57 97.1 F L 88 20 111/74 99 Weight Admit Weight 236 lb 9.6 oz Weight 232 lb 3.2 oz I&O: 04/16/20 04/17/20 04/18/20 06:59 06:59 06:59 Intake Total 1050 240 Balance 1050 240 Result Diagrams: 03/08/20 07:08 03/06/20 03:55 Hospitalist ROS - Medication Medications: Active Medications Generic Name Dose Route Start Last Admin Trade Name Freq PRN Reason Stop Dose Admin Acetaminophen 650 mg 03/04/20 20:01 04/09/20 08:13 Acetaminophen 325 Mg Tab PO 650 mg Q4H PRN Administration Fever or Pain Cholecalciferol 2,000 units 03/04/20 09:00 04/17/20 09:07 Cholecalciferol 1,000 Units (25 Mcg) Tab PO 2,000 units DAILY BLAZE Administration Famotidine 20 mg 03/09/20 21:00 04/17/20 09:07 Famotidine 20 Mg Tab PO 20 mg BID BLAZE Administration Folic Acid 1 mg 03/05/20 09:00 04/17/20 09:07 Folic Acid 1 Mg Tab PO 1 mg DAILY BLAZE Administration Iron/Minerals/Multivitamins 1 tab 03/05/20 09:00 04/17/20 09:07 Multivitamin W/ Minerals 1 Tab PO 1 tab DAILY BLAZE Administration Magnesium Oxide 400 mg 03/06/20 09:00 04/17/20 09:07 Magnesium Oxide 400 Mg Tab PO 400 mg DAILY BLAZE Administration Thiamine HCl 100 mg 03/02/20 09:00 04/17/20 09:08 Thiamine 100 Mg Tab PO 100 mg DAILY BLAZE Administration Vitamin B Complex/Vit C/Folic Acid 1 tab 03/02/20 09:00 04/17/20 09:07 Folic Acid/Vit B Comp W-C PO 1 tab DAILY BLAZE Administration - Exam General Appearance: NAD Eye: PERRL ENT: normocephalic atraumatic Neck: supple Heart: RRR Respiratory: CTAB Gastrointestinal: soft Skin: normal turgor Neurological: cranial nerve grossly intact Psychiatric: normal affect, normal behavior Hosp A/P - Plan (1) Klebsiella pneumoniae sepsis Code(s): A41.4 - SEPSIS DUE TO ANAEROBES Status: Resolved (2) Alcohol abuse Code(s): F10.10 - ALCOHOL ABUSE, UNCOMPLICATED Status: Chronic (3) Acute metabolic encephalopathy Code(s): G93.41 - METABOLIC ENCEPHALOPATHY Status: Resolved (4) Developmental disability Status: Chronic (5) Acromioclavicular joint injury Code(s): S49.90XA - UNSP INJURY OF SHOULDER AND UPPER ARM, UNSP ARM, INIT ENCNTR Status: Acute Qualifiers: Laterality: right - Plan Pt has been medically stable to discharge for the last 2-3 weeks Prolonged hospital stay due to lack of options for placement given limited resources Awaiting court appointed guardian after official court determination of lack of capacity to make decisions D/w CM no new update at this point.
[2020-04-18] MEDS: Folic Acid 1 MG TAB PO SCH (09:07)
[2020-04-18] MEDS: Folic Acid/Vit B Comp W-C PO SCH (09:07)
[2020-04-18] MEDS: Famotidine 20 MG TAB PO SCH ×2 (09:07→20:29)
[2020-04-18] MEDS: Thiamine 100 MG TAB PO SCH (09:07)
[2020-04-18] MEDS: Multivitamin W/ Minerals 1 TAB PO SCH (09:07)
[2020-04-18] MEDS: Magnesium Oxide 400 MG TAB PO SCH (09:07)
[2020-04-18] MEDS: Cholecalciferol 1,000 UNITS (25 MCG) TAB PO SCH (09:07)
--- NOTE | 2020-04-18 17:47 | PDOC.HOSPP ---
- Subjective Subjective: no new event. d/w CM - no update - Objective Vital Signs & Weight: Vital Signs (12 hours) Temp Pulse Resp BP Pulse Ox 04/18/20 07:36 97.1 F L 89 18 137/87 98 Weight Admit Weight 236 lb 9.6 oz Weight 232 lb 3.2 oz I&O: 04/17/20 04/18/20 04/19/20 06:59 06:59 06:59 Intake Total 720 Balance 720 Result Diagrams: 03/08/20 07:08 03/06/20 03:55 Additional Labs: Accuchecks 04/18/20 06:00 POC Glucose 108 H Hospitalist ROS - Medication Medications: Active Medications Generic Name Dose Route Start Last Admin Trade Name Freq PRN Reason Stop Dose Admin Acetaminophen 650 mg 03/04/20 20:01 04/09/20 08:13 Acetaminophen 325 Mg Tab PO 650 mg Q4H PRN Administration Fever or Pain Cholecalciferol 2,000 units 03/04/20 09:00 04/18/20 09:07 Cholecalciferol 1,000 Units (25 Mcg) Tab PO 2,000 units DAILY BLAZE Administration Famotidine 20 mg 03/09/20 21:00 04/18/20 09:07 Famotidine 20 Mg Tab PO 20 mg BID BLAZE Administration Folic Acid 1 mg 03/05/20 09:00 04/18/20 09:07 Folic Acid 1 Mg Tab PO 1 mg DAILY BLAZE Administration Iron/Minerals/Multivitamins 1 tab 03/05/20 09:00 04/18/20 09:07 Multivitamin W/ Minerals 1 Tab PO 1 tab DAILY BLAZE Administration Magnesium Oxide 400 mg 03/06/20 09:00 04/18/20 09:07 Magnesium Oxide 400 Mg Tab PO 400 mg DAILY BLAZE Administration Thiamine HCl 100 mg 03/02/20 09:00 04/18/20 09:07 Thiamine 100 Mg Tab PO 100 mg DAILY BLAZE Administration Vitamin B Complex/Vit C/Folic Acid 1 tab 03/02/20 09:00 04/18/20 09:07 Folic Acid/Vit B Comp W-C PO 1 tab DAILY BLAZE Administration - Exam General Appearance: NAD Eye: PERRL ENT: normocephalic atraumatic Neck: supple Heart: RRR Respiratory: CTAB Gastrointestinal: soft Skin: normal turgor Neurological: cranial nerve grossly intact Hosp A/P - Plan (1) Klebsiella pneumoniae sepsis Code(s): A41.4 - SEPSIS DUE TO ANAEROBES Status: Resolved (2) Alcohol abuse Code(s): F10.10 - ALCOHOL ABUSE, UNCOMPLICATED Status: Chronic (3) Acute metabolic encephalopathy Code(s): G93.41 - METABOLIC ENCEPHALOPATHY Status: Resolved (4) Developmental disability Status: Chronic (5) Acromioclavicular joint injury Code(s): S49.90XA - UNSP INJURY OF SHOULDER AND UPPER ARM, UNSP ARM, INIT ENCNTR Status: Acute Qualifiers: Laterality: right - Plan Pt has been medically stable to discharge for the last 2-3 weeks Prolonged hospital stay due to lack of options for placement given limited resources Awaiting court appointed guardian after official court determination of lack of capacity to make decisions D/w CM no new update at this point.
[2020-04-19] MEDS: Folic Acid/Vit B Comp W-C PO SCH (08:09)
[2020-04-19] MEDS: Magnesium Oxide 400 MG TAB PO SCH (08:09)
[2020-04-19] MEDS: Famotidine 20 MG TAB PO SCH ×2 (08:09→20:30)
[2020-04-19] MEDS: Multivitamin W/ Minerals 1 TAB PO SCH (08:09)
[2020-04-19] MEDS: Folic Acid 1 MG TAB PO SCH (08:10)
[2020-04-19] MEDS: Cholecalciferol 1,000 UNITS (25 MCG) TAB PO SCH (08:10)
[2020-04-19] MEDS: Thiamine 100 MG TAB PO SCH (08:10)
--- NOTE | 2020-04-19 17:17 | PDOC.HOSPP ---
- Subjective Subjective: no acute event overnight. - Objective Vital Signs & Weight: Vital Signs (12 hours) Temp Pulse Resp BP Pulse Ox 04/19/20 08:00 97.3 F L 68 16 117/74 98 Weight Admit Weight 236 lb 9.6 oz Weight 232 lb 3.2 oz I&O: 04/18/20 04/19/20 04/20/20 06:59 06:59 06:59 Intake Total 720 1000 Balance 720 1000 Result Diagrams: 03/08/20 07:08 03/06/20 03:55 Hospitalist ROS - Medication Medications: Active Medications Generic Name Dose Route Start Last Admin Trade Name Freq PRN Reason Stop Dose Admin Acetaminophen 650 mg 03/04/20 20:01 04/09/20 08:13 Acetaminophen 325 Mg Tab PO 650 mg Q4H PRN Administration Fever or Pain Cholecalciferol 2,000 units 03/04/20 09:00 04/19/20 08:10 Cholecalciferol 1,000 Units (25 Mcg) Tab PO 2,000 units DAILY BLAZE Administration Famotidine 20 mg 03/09/20 21:00 04/19/20 08:09 Famotidine 20 Mg Tab PO 20 mg BID BLAZE Administration Folic Acid 1 mg 03/05/20 09:00 04/19/20 08:10 Folic Acid 1 Mg Tab PO 1 mg DAILY BLAZE Administration Iron/Minerals/Multivitamins 1 tab 03/05/20 09:00 04/19/20 08:09 Multivitamin W/ Minerals 1 Tab PO 1 tab DAILY BLAZE Administration Magnesium Oxide 400 mg 03/06/20 09:00 04/19/20 08:09 Magnesium Oxide 400 Mg Tab PO 400 mg DAILY BLAZE Administration Thiamine HCl 100 mg 03/02/20 09:00 04/19/20 08:10 Thiamine 100 Mg Tab PO 100 mg DAILY BLAZE Administration Vitamin B Complex/Vit C/Folic Acid 1 tab 03/02/20 09:00 04/19/20 08:09 Folic Acid/Vit B Comp W-C PO 1 tab DAILY BLAZE Administration - Exam General Appearance: NAD Eye: PERRL ENT: normocephalic atraumatic Neck: supple Heart: RRR Respiratory: CTAB Gastrointestinal: soft Extremities: no cyanosis Skin: normal turgor Neurological: cranial nerve grossly intact Musculoskeletal: normal tone Psychiatric: normal affect Hosp A/P - Plan (1) Klebsiella pneumoniae sepsis Code(s): A41.4 - SEPSIS DUE TO ANAEROBES Status: Resolved (2) Alcohol abuse Code(s): F10.10 - ALCOHOL ABUSE, UNCOMPLICATED Status: Chronic (3) Acute metabolic encephalopathy Code(s): G93.41 - METABOLIC ENCEPHALOPATHY Status: Resolved (4) Developmental disability Status: Chronic (5) Acromioclavicular joint injury Code(s): S49.90XA - UNSP INJURY OF SHOULDER AND UPPER ARM, UNSP ARM, INIT ENCNTR Status: Acute Qualifiers: Laterality: right - Plan Pt has been medically stable to discharge for the last 2-3 weeks Prolonged hospital stay due to lack of options for placement given limited resources Awaiting court appointed guardian after official court determination of lack of capacity to make decisions D/w CM no new update at this point.
[2020-04-20] MEDS: Famotidine 20 MG TAB PO SCH ×2 (08:37→20:56)
[2020-04-20] MEDS: Folic Acid 1 MG TAB PO SCH (08:37)
[2020-04-20] MEDS: Folic Acid/Vit B Comp W-C PO SCH (08:37)
[2020-04-20] MEDS: Multivitamin W/ Minerals 1 TAB PO SCH (08:37)
[2020-04-20] MEDS: Magnesium Oxide 400 MG TAB PO SCH (08:37)
[2020-04-20] MEDS: Thiamine 100 MG TAB PO SCH (08:37)
[2020-04-20] MEDS: Cholecalciferol 1,000 UNITS (25 MCG) TAB PO SCH (08:37)
--- NOTE | 2020-04-20 16:55 | PDOC.HOSPP ---
- Subjective Subjective: no update on his disposition. pt was sitting up and eating his breakfast. no new complaints - Objective Vital Signs & Weight: Vital Signs (12 hours) Temp Pulse Resp BP Pulse Ox 04/20/20 08:00 98.3 F 90 20 131/88 97 Weight Admit Weight 236 lb 9.6 oz Weight 232 lb 3.2 oz I&O: 04/19/20 04/20/20 04/21/20 06:59 06:59 06:59 Intake Total 1000 1860 Balance 1000 1860 Result Diagrams: 03/08/20 07:08 03/06/20 03:55 Radiology Reviewed by me: Yes EKG Reviewed by me: Yes Hospitalist ROS - Medication Medications: Active Medications Generic Name Dose Route Start Last Admin Trade Name Freq PRN Reason Stop Dose Admin Acetaminophen 650 mg 03/04/20 20:01 04/09/20 08:13 Acetaminophen 325 Mg Tab PO 650 mg Q4H PRN Administration Fever or Pain Cholecalciferol 2,000 units 03/04/20 09:00 04/20/20 08:37 Cholecalciferol 1,000 Units (25 Mcg) Tab PO 2,000 units DAILY BLAZE Administration Famotidine 20 mg 03/09/20 21:00 04/20/20 08:37 Famotidine 20 Mg Tab PO 20 mg BID BLAZE Administration Folic Acid 1 mg 03/05/20 09:00 04/20/20 08:37 Folic Acid 1 Mg Tab PO 1 mg DAILY BLAZE Administration Iron/Minerals/Multivitamins 1 tab 03/05/20 09:00 04/20/20 08:37 Multivitamin W/ Minerals 1 Tab PO 1 tab DAILY BLAZE Administration Magnesium Oxide 400 mg 03/06/20 09:00 04/20/20 08:37 Magnesium Oxide 400 Mg Tab PO 400 mg DAILY BLAZE Administration Thiamine HCl 100 mg 03/02/20 09:00 04/20/20 08:37 Thiamine 100 Mg Tab PO 100 mg DAILY BLAZE Administration Vitamin B Complex/Vit C/Folic Acid 1 tab 03/02/20 09:00 04/20/20 08:37 Folic Acid/Vit B Comp W-C PO 1 tab DAILY BLAZE Administration - Exam General Appearance: NAD Eye: PERRL ENT: normocephalic atraumatic Neck: supple Heart: RRR, no murmur Respiratory: CTAB Gastrointestinal: soft, non-tender Extremities: no cyanosis Skin: normal turgor Neurological: cranial nerve grossly intact Musculoskeletal: normal tone, normal strength Hosp A/P - Plan (1) Klebsiella pneumoniae sepsis Code(s): A41.4 - SEPSIS DUE TO ANAEROBES Status: Resolved (2) Alcohol abuse Code(s): F10.10 - ALCOHOL ABUSE, UNCOMPLICATED Status: Chronic (3) Acute metabolic encephalopathy Code(s): G93.41 - METABOLIC ENCEPHALOPATHY Status: Resolved (4) Developmental disability Status: Chronic (5) Acromioclavicular joint injury Code(s): S49.90XA - UNSP INJURY OF SHOULDER AND UPPER ARM, UNSP ARM, INIT ENCNTR Status: Acute Qualifiers: Laterality: right - Plan Pt has been medically stable to discharge for the last 2-3 weeks Prolonged hospital stay due to lack of options for placement given limited resources Awaiting court appointed guardian after official court determination of lack of capacity to make decisions D/w CM no new update at this point.
[2020-04-21] MEDS: Multivitamin W/ Minerals 1 TAB PO SCH (09:10)
[2020-04-21] MEDS: Cholecalciferol 1,000 UNITS (25 MCG) TAB PO SCH (09:10)
[2020-04-21] MEDS: Famotidine 20 MG TAB PO SCH ×2 (09:11→21:05)
[2020-04-21] MEDS: Magnesium Oxide 400 MG TAB PO SCH (09:11)
[2020-04-21] MEDS: Folic Acid 1 MG TAB PO SCH (09:11)
[2020-04-21] MEDS: Folic Acid/Vit B Comp W-C PO SCH (09:11)
[2020-04-21] MEDS: Thiamine 100 MG TAB PO SCH (09:11)
--- NOTE | 2020-04-21 17:25 | PDOC.HOSPP ---
- Subjective Subjective: d/w CM - no update yet. pt is doing well. pt has no medical necessity to stay in the hospital, but disposition has been a problem as CM has exhausted options, waiting to hear back from court. - Objective Vital Signs & Weight: Vital Signs (12 hours) Temp Pulse Resp BP Pulse Ox 04/21/20 07:23 97.7 F 88 16 131/81 99 Weight Admit Weight 236 lb 9.6 oz Weight 232 lb 3.2 oz I&O: 04/20/20 04/21/20 04/22/20 06:59 06:59 06:59 Intake Total 1000 2340 240 Balance 1000 2340 240 Result Diagrams: 03/08/20 07:08 03/06/20 03:55 Hospitalist ROS - Medication Medications: Active Medications Generic Name Dose Route Start Last Admin Trade Name Freq PRN Reason Stop Dose Admin Acetaminophen 650 mg 03/04/20 20:01 04/09/20 08:13 Acetaminophen 325 Mg Tab PO 650 mg Q4H PRN Administration Fever or Pain Cholecalciferol 2,000 units 03/04/20 09:00 04/21/20 09:10 Cholecalciferol 1,000 Units (25 Mcg) Tab PO 2,000 units DAILY BLAZE Administration Famotidine 20 mg 03/09/20 21:00 04/21/20 09:11 Famotidine 20 Mg Tab PO 20 mg BID BLAZE Administration Folic Acid 1 mg 03/05/20 09:00 04/21/20 09:11 Folic Acid 1 Mg Tab PO 1 mg DAILY BLAZE Administration Iron/Minerals/Multivitamins 1 tab 03/05/20 09:00 04/21/20 09:10 Multivitamin W/ Minerals 1 Tab PO 1 tab DAILY BALZE Administration Magnesium Oxide 400 mg 03/06/20 09:00 04/21/20 09:11 Magnesium Oxide 400 Mg Tab PO 400 mg DAILY BLAZE Administration Thiamine HCl 100 mg 03/02/20 09:00 04/21/20 09:11 Thiamine 100 Mg Tab PO 100 mg DAILY BLAZE Administration Vitamin B Complex/Vit C/Folic Acid 1 tab 03/02/20 09:00 04/21/20 09:11 Folic Acid/Vit B Comp W-C PO 1 tab DAILY BLAZE Administration - Exam General Appearance: NAD Eye: PERRL ENT: normocephalic atraumatic Neck: supple Heart: RRR Respiratory: CTAB Gastrointestinal: soft Extremities: no cyanosis Skin: normal turgor Hosp A/P - Plan (1) Klebsiella pneumoniae sepsis Code(s): A41.4 - SEPSIS DUE TO ANAEROBES Status: Resolved (2) Alcohol abuse Code(s): F10.10 - ALCOHOL ABUSE, UNCOMPLICATED Status: Chronic (3) Acute metabolic encephalopathy Code(s): G93.41 - METABOLIC ENCEPHALOPATHY Status: Resolved (4) Developmental disability Status: Chronic (5) Acromioclavicular joint injury Code(s): S49.90XA - UNSP INJURY OF SHOULDER AND UPPER ARM, UNSP ARM, INIT ENCNTR Status: Acute Qualifiers: Laterality: right - Plan Pt has been medically stable to discharge for the last 2-3 weeks Prolonged hospital stay due to lack of options for placement given limited resources Awaiting court appointed guardian after official court determination of lack of capacity to make decisions D/w CM no new update at this point.
[2020-04-22] MEDS: Magnesium Oxide 400 MG TAB PO SCH (09:49)
[2020-04-22] MEDS: Cholecalciferol 1,000 UNITS (25 MCG) TAB PO SCH (09:49)
[2020-04-22] MEDS: Folic Acid 1 MG TAB PO SCH (09:49)
[2020-04-22] MEDS: Multivitamin W/ Minerals 1 TAB PO SCH (09:50)
[2020-04-22] MEDS: Folic Acid/Vit B Comp W-C PO SCH (09:50)
[2020-04-22] MEDS: Thiamine 100 MG TAB PO SCH (09:50)
[2020-04-22] MEDS: Famotidine 20 MG TAB PO SCH (09:50)
--- NOTE | 2020-04-22 16:48 | PDOC.HOSPP ---
- Subjective Encounter Date: 04/22/20 (f/u hypokalemia) Encounter Time: 16:48 Subjective: 39 y/o male iwth prolonged hospitalization - admitted for encephalopathy, abnormal electrolytes, substance abuse, alcohol abuse, and treated for klebsiella bacteremia with negative follow up blood cultures. Pt has been lacking capacity for medical decision maker and has no one speaking for him and no home to return to. Awaiting the legal process to appoint a guardian for medical decision making. Pt without complaints. He denies any pain, nausea or vomiting. He is requesting a pepsi, ice and a ham sandwich. he states he is ready to go home - Objective Vital Signs & Weight: Vital Signs (12 hours) Temp Pulse Resp BP Pulse Ox 04/22/20 08:00 99 04/22/20 07:20 97.9 F 86 17 122/75 99 Weight Admit Weight 236 lb 9.6 oz Weight 232 lb 3.2 oz I&O: 04/21/20 04/22/20 04/23/20 06:59 06:59 06:59 Intake Total 2340 1460 360 Balance 2340 1460 360 Result Diagrams: 03/08/20 07:08 03/06/20 03:55 Hospitalist ROS - Medication Medications: Active Medications Generic Name Dose Route Start Last Admin Trade Name Freq PRN Reason Stop Dose Admin Acetaminophen 650 mg 03/04/20 20:01 04/09/20 08:13 Acetaminophen 325 Mg Tab PO 650 mg Q4H PRN Administration Fever or Pain Cholecalciferol 2,000 units 03/04/20 09:00 04/22/20 09:49 Cholecalciferol 1,000 Units (25 Mcg) Tab PO 2,000 units DAILY BLAZE Administration Iron/Minerals/Multivitamins 1 tab 03/05/20 09:00 04/22/20 09:50 Multivitamin W/ Minerals 1 Tab PO 1 tab DAILY BLAZE Administration Vitamin B Complex/Vit C/Folic Acid 1 tab 03/02/20 09:00 04/22/20 09:50 Folic Acid/Vit B Comp W-C PO 1 tab DAILY BLAZE Administration - Exam General Appearance: NAD Heart: RRR, no murmur Respiratory: CTAB, no wheezes Gastrointestinal: soft, non-tender, non-distended, normal bowel sounds Extremities: no cyanosis, no clubbing, no edema Psychiatric: normal affect Hosp A/P (1) Developmental disability Status: Chronic (2) Obesity (BMI 30-39.9) Code(s): E66.9 - OBESITY, UNSPECIFIED Status: Chronic (3) Acute metabolic encephalopathy Code(s): G93.41 - METABOLIC ENCEPHALOPATHY Status: Resolved - Plan Overall doing well. s/p Klebsiella bacteremia treatment Hx of substance and alcohol abuse - not a current issue - minimize vitamins/supplements Pt remains medically stable for discharge - is awaiting a legal process for appointment of guardian due to lack of capacity for decision making. Once this occurs, the next step will be placement. dvt prophy - ambulatory gi prophy - not indicated code status full
[2020-04-23] MEDS: Multivitamin W/ Minerals 1 TAB PO SCH (09:10)
[2020-04-23] MEDS: Cholecalciferol 1,000 UNITS (25 MCG) TAB PO SCH (09:10)
[2020-04-23] MEDS: Folic Acid/Vit B Comp W-C PO SCH (09:10)
--- NOTE | 2020-04-23 13:54 | PDOC.HOSPP ---
- Subjective Encounter Date: 04/23/20 (f/u encephalopathy) Encounter Time: 13:53 Subjective: 39 y/o male with prolonged hospitalization - admitted for encephalopathy, abnormal electrolytes, substance abuse, alcohol abuse, and treated for klebsiella bacteremia with negative follow up blood cultures. Pt has been lacking capacity for medical decision maker and has no one speaking for him and no home to return to. Awaiting the legal process to appoint a guardian for medical decision making. No overnight events. Pt would nod yes/no to questions. He did verbalize he would like some Edeni[employer]. - Objective Vital Signs & Weight: Vital Signs (12 hours) Temp Pulse Resp BP Pulse Ox 04/23/20 08:00 97 04/23/20 07:23 97.8 F 81 16 113/69 97 Weight Admit Weight 236 lb 9.6 oz Weight 232 lb 3.2 oz I&O: 04/22/20 04/23/20 04/24/20 06:59 06:59 06:59 Intake Total 1460 1320 360 Balance 1460 1320 360 Result Diagrams: 03/08/20 07:08 03/06/20 03:55 Hospitalist ROS - Medication Medications: Active Medications Generic Name Dose Route Start Last Admin Trade Name Freq PRN Reason Stop Dose Admin Acetaminophen 650 mg 03/04/20 20:01 04/09/20 08:13 Acetaminophen 325 Mg Tab PO 650 mg Q4H PRN Administration Fever or Pain Cholecalciferol 2,000 units 03/04/20 09:00 04/23/20 09:10 Cholecalciferol 1,000 Units (25 Mcg) Tab PO 2,000 units DAILY BLAZE Administration Iron/Minerals/Multivitamins 1 tab 03/05/20 09:00 04/23/20 09:10 Multivitamin W/ Minerals 1 Tab PO 1 tab DAILY BLAZE Administration Vitamin B Complex/Vit C/Folic Acid 1 tab 03/02/20 09:00 04/23/20 09:10 Folic Acid/Vit B Comp W-C PO 1 tab DAILY BLAZE Administration - Exam General Appearance: NAD Heart: RRR, no murmur Respiratory: CTAB, no wheezes, no rales, no ronchi Gastrointestinal: soft, non-tender, non-distended, normal bowel sounds Extremities: no cyanosis, no clubbing, no edema Hosp A/P (1) Developmental disability Status: Chronic (2) Obesity (BMI 30-39.9) Code(s): E66.9 - OBESITY, UNSPECIFIED Status: Chronic (3) Acute metabolic encephalopathy Code(s): G93.41 - METABOLIC ENCEPHALOPATHY Status: Resolved - Plan Overall doing well no change today s/p Klebsiella bacteremia treatment Hx of substance and alcohol abuse - not a current issue - reviewed and minimized vitamins/supplements to the essential ones. Pt remains medically stable for discharge - is awaiting a legal process for appointment of guardian due to lack of capacity for decision making. Once this occurs, the next step will be placement. dvt prophy - ambulatory gi prophy - not indicated code status full
[2020-04-24] MEDS: Cholecalciferol 1,000 UNITS (25 MCG) TAB PO SCH (10:01)
[2020-04-24] MEDS: Folic Acid/Vit B Comp W-C PO SCH (10:01)
[2020-04-24] MEDS: Multivitamin W/ Minerals 1 TAB PO SCH (10:01)
--- NOTE | 2020-04-24 15:12 | PDOC.HOSPP ---
- Subjective Encounter Date: 04/24/20 (f/u placement) Encounter Time: 15:10 Subjective: Nursing staff noticing some behaviors that are different - sharps container by the door, keeping the door closed and curtain drawn, as well as other things that bring up the question on if pt suspicious or paranoid. Pt not talking today. he walked in the room with sheets for his bed, stated no to wanting help. He did not answer any other questions. - Objective Vital Signs & Weight: Vital Signs (12 hours) Temp Pulse Resp BP Pulse Ox 04/24/20 10:00 95 04/24/20 08:00 97.4 F L 84 18 124/83 95 Weight Admit Weight 236 lb 9.6 oz Weight 232 lb 3.2 oz I&O: 04/23/20 04/24/20 04/25/20 06:59 06:59 06:59 Intake Total 1320 1560 Balance 1320 1560 Result Diagrams: 03/08/20 07:08 03/06/20 03:55 Hospitalist ROS - Medication Medications: Active Medications Generic Name Dose Route Start Last Admin Trade Name Freq PRN Reason Stop Dose Admin Acetaminophen 650 mg 03/04/20 20:01 04/09/20 08:13 Acetaminophen 325 Mg Tab PO 650 mg Q4H PRN Administration Fever or Pain Cholecalciferol 2,000 units 03/04/20 09:00 04/24/20 10:01 Cholecalciferol 1,000 Units (25 Mcg) Tab PO 2,000 units DAILY BLAZE Administration Iron/Minerals/Multivitamins 1 tab 03/05/20 09:00 04/24/20 10:01 Multivitamin W/ Minerals 1 Tab PO 1 tab DAILY BLAZE Administration Vitamin B Complex/Vit C/Folic Acid 1 tab 03/02/20 09:00 04/24/20 10:01 Folic Acid/Vit B Comp W-C PO 1 tab DAILY BLAZE Administration - Exam General Appearance: NAD General - other findings: ambulating without difficulty, exam deferred Hosp A/P (1) Developmental disability Status: Chronic (2) Obesity (BMI 30-39.9) Code(s): E66.9 - OBESITY, UNSPECIFIED Status: Chronic (3) Acute metabolic encephalopathy Code(s): G93.41 - METABOLIC ENCEPHALOPATHY Status: Resolved - Plan Uncertain of these new behaviors. Pt does need a psychiatrist which is not available here. Ideally the legal process will occur soon so that a guardian can be obtained and mental health evaluation be performed. s/p Klebsiella bacteremia treatment Hx of substance and alcohol abuse - not a current issue - reviewed and minimized vitamins/supplements to the essential ones. Pt remains medically stable for discharge. dvt prophy - ambulatory gi prophy - not indicated code status full
[2020-04-25] MEDS: Multivitamin W/ Minerals 1 TAB PO SCH (09:56)
[2020-04-25] MEDS: Folic Acid/Vit B Comp W-C PO SCH (09:56)
[2020-04-25] MEDS: Cholecalciferol 1,000 UNITS (25 MCG) TAB PO SCH (09:56)
--- NOTE | 2020-04-26 07:57 | PDOC.HOSPP ---
- Subjective Encounter Date: 04/25/20 Encounter Time: 07:55 Subjective: no change in mental status - Objective Vital Signs & Weight: Vital Signs (12 hours) Temp Pulse Resp BP Pulse Ox 04/26/20 07:54 97.2 F L 83 16 121/80 95 Weight Admit Weight 236 lb 9.6 oz Weight 232 lb 3.2 oz I&O: 04/25/20 04/26/20 04/27/20 06:59 06:59 06:59 Intake Total 960 Balance 960 Result Diagrams: 03/08/20 07:08 03/06/20 03:55 Hospitalist ROS - Medication Medications: Active Medications Generic Name Dose Route Start Last Admin Trade Name Freq PRN Reason Stop Dose Admin Acetaminophen 650 mg 03/04/20 20:01 04/09/20 08:13 Acetaminophen 325 Mg Tab PO 650 mg Q4H PRN Administration Fever or Pain Cholecalciferol 2,000 units 03/04/20 09:00 04/25/20 09:56 Cholecalciferol 1,000 Units (25 Mcg) Tab PO 2,000 units DAILY BLAZE Administration Iron/Minerals/Multivitamins 1 tab 03/05/20 09:00 04/25/20 09:56 Multivitamin W/ Minerals 1 Tab PO 1 tab DAILY BLAZE Administration Vitamin B Complex/Vit C/Folic Acid 1 tab 03/02/20 09:00 04/25/20 09:56 Folic Acid/Vit B Comp W-C PO 1 tab DAILY BLAZE Administration Hosp A/P (1) Acromioclavicular joint injury Code(s): S49.90XA - UNSP INJURY OF SHOULDER AND UPPER ARM, UNSP ARM, INIT ENCNTR Status: Resolved Qualifiers: Laterality: right (2) Developmental disability Status: Chronic (3) Acute metabolic encephalopathy Code(s): G93.41 - METABOLIC ENCEPHALOPATHY Status: Resolved (4) Klebsiella pneumoniae sepsis Code(s): A41.4 - SEPSIS DUE TO ANAEROBES Status: Resolved - Plan stable placement pending major problem is developmental abnormality
[2020-04-26] MEDS: Cholecalciferol 1,000 UNITS (25 MCG) TAB PO SCH (08:31)
[2020-04-26] MEDS: Folic Acid/Vit B Comp W-C PO SCH (08:31)
[2020-04-26] MEDS: Multivitamin W/ Minerals 1 TAB PO SCH (08:31)
--- NOTE | 2020-04-26 16:30 | PDOC.HOSPP ---
- Subjective Encounter Date: 04/26/20 Encounter Time: 16:27 Subjective: alert, oriented to person. no distress - Objective Vital Signs & Weight: Vital Signs (12 hours) Temp Pulse Resp BP Pulse Ox 04/26/20 08:00 95 04/26/20 07:54 97.2 F L 83 16 121/80 95 Weight Admit Weight 236 lb 9.6 oz Weight 232 lb 3.2 oz I&O: 04/25/20 04/26/20 04/27/20 06:59 06:59 06:59 Intake Total 960 Balance 960 Result Diagrams: 03/08/20 07:08 03/06/20 03:55 Hospitalist ROS - Medication Medications: Active Medications Generic Name Dose Route Start Last Admin Trade Name Freq PRN Reason Stop Dose Admin Acetaminophen 650 mg 03/04/20 20:01 04/09/20 08:13 Acetaminophen 325 Mg Tab PO 650 mg Q4H PRN Administration Fever or Pain Cholecalciferol 2,000 units 03/04/20 09:00 04/26/20 08:31 Cholecalciferol 1,000 Units (25 Mcg) Tab PO 2,000 units DAILY BLAZE Administration Iron/Minerals/Multivitamins 1 tab 03/05/20 09:00 04/26/20 08:31 Multivitamin W/ Minerals 1 Tab PO 1 tab DAILY BLAZE Administration Vitamin B Complex/Vit C/Folic Acid 1 tab 03/02/20 09:00 04/26/20 08:31 Folic Acid/Vit B Comp W-C PO 1 tab DAILY BLAZE Administration - Exam General Appearance: NAD, awake alert Hosp A/P (1) Acromioclavicular joint injury Code(s): S49.90XA - UNSP INJURY OF SHOULDER AND UPPER ARM, UNSP ARM, INIT ENCNTR Status: Resolved Qualifiers: Laterality: right (2) Developmental disability Status: Chronic (3) Acute metabolic encephalopathy Code(s): G93.41 - METABOLIC ENCEPHALOPATHY Status: Resolved (4) Klebsiella pneumoniae sepsis Code(s): A41.4 - SEPSIS DUE TO ANAEROBES Status: Resolved - Plan stable placement pending major problem is developmental abnormality
[2020-04-27] MEDS: Multivitamin W/ Minerals 1 TAB PO SCH (08:32)
[2020-04-27] MEDS: Cholecalciferol 1,000 UNITS (25 MCG) TAB PO SCH (08:33)
[2020-04-27] MEDS: Folic Acid/Vit B Comp W-C PO SCH (08:33)
--- NOTE | 2020-04-27 14:51 | PDOC.BPN ---
- Brief Progress Note Encounter Date: 04/27/20 Encounter Time: 14:50 no change in mental status. VSS stable. placement difficult
[2020-04-28] MEDS: Multivitamin W/ Minerals 1 TAB PO SCH (09:37)
[2020-04-28] MEDS: Folic Acid/Vit B Comp W-C PO SCH (09:37)
[2020-04-28] MEDS: Cholecalciferol 1,000 UNITS (25 MCG) TAB PO SCH (09:37)
--- NOTE | 2020-04-28 14:02 | PDOC.HOSPP ---
- Subjective Encounter Date: 04/28/20 Encounter Time: 14:01 Subjective: no change in mental status, no interval events - Objective Vital Signs & Weight: Vital Signs (12 hours) Temp Pulse Resp BP Pulse Ox 04/28/20 07:21 98.0 F 88 16 108/71 96 Weight Admit Weight 236 lb 9.6 oz Weight 232 lb 3.2 oz Result Diagrams: 03/08/20 07:08 03/06/20 03:55 Hospitalist ROS - Medication Medications: Active Medications Generic Name Dose Route Start Last Admin Trade Name Freq PRN Reason Stop Dose Admin Acetaminophen 650 mg 03/04/20 20:01 04/09/20 08:13 Acetaminophen 325 Mg Tab PO 650 mg Q4H PRN Administration Fever or Pain Cholecalciferol 2,000 units 03/04/20 09:00 04/28/20 09:37 Cholecalciferol 1,000 Units (25 Mcg) Tab PO 2,000 units DAILY BLAZE Administration Iron/Minerals/Multivitamins 1 tab 03/05/20 09:00 04/28/20 09:37 Multivitamin W/ Minerals 1 Tab PO 1 tab DAILY BLAZE Administration Vitamin B Complex/Vit C/Folic Acid 1 tab 03/02/20 09:00 04/28/20 09:37 Folic Acid/Vit B Comp W-C PO 1 tab DAILY BLAZE Administration Hosp A/P (1) Acromioclavicular joint injury Code(s): S49.90XA - UNSP INJURY OF SHOULDER AND UPPER ARM, UNSP ARM, INIT ENCNTR Status: Resolved Qualifiers: Laterality: right (2) Developmental disability Status: Chronic (3) Acute metabolic encephalopathy Code(s): G93.41 - METABOLIC ENCEPHALOPATHY Status: Resolved (4) Klebsiella pneumoniae sepsis Code(s): A41.4 - SEPSIS DUE TO ANAEROBES Status: Resolved - Plan stable placement pending major problem is developmental abnormality
[2020-04-29] MEDS: Folic Acid/Vit B Comp W-C PO SCH (09:00)
[2020-04-29] MEDS: Cholecalciferol 1,000 UNITS (25 MCG) TAB PO SCH (09:00)
[2020-04-29] MEDS: Multivitamin W/ Minerals 1 TAB PO SCH (09:00)
--- NOTE | 2020-04-29 14:41 | PDOC.HOSPP ---
- Objective Vital Signs & Weight: Vital Signs (12 hours) Temp Pulse Resp BP Pulse Ox 04/29/20 07:58 97.7 F 89 16 139/81 96 Weight Admit Weight 236 lb 9.6 oz Weight 232 lb 3.2 oz I&O: 04/28/20 04/29/20 04/30/20 06:59 06:59 06:59 Intake Total 1000 Balance 1000 Result Diagrams: 03/08/20 07:08 03/06/20 03:55 Hospitalist ROS - Medication Medications: Active Medications Generic Name Dose Route Start Last Admin Trade Name Freq PRN Reason Stop Dose Admin Acetaminophen 650 mg 03/04/20 20:01 04/09/20 08:13 Acetaminophen 325 Mg Tab PO 650 mg Q4H PRN Administration Fever or Pain Cholecalciferol 2,000 units 03/04/20 09:00 04/29/20 09:00 Cholecalciferol 1,000 Units (25 Mcg) Tab PO 2,000 units DAILY BLAZE Administration Iron/Minerals/Multivitamins 1 tab 03/05/20 09:00 04/29/20 09:00 Multivitamin W/ Minerals 1 Tab PO 1 tab DAILY BLAZE Administration Vitamin B Complex/Vit C/Folic Acid 1 tab 03/02/20 09:00 04/29/20 09:00 Folic Acid/Vit B Comp W-C PO 1 tab DAILY BLAZE Administration - Exam General Appearance: awake alert ENT: normocephalic atraumatic Respiratory: normal chest expansion, no tachypnea Neurological: cranial nerve grossly intact, no focal deficits Hosp A/P (1) Klebsiella pneumoniae sepsis Code(s): A41.4 - SEPSIS DUE TO ANAEROBES Status: Resolved (2) Acromioclavicular joint injury Code(s): S49.90XA - UNSP INJURY OF SHOULDER AND UPPER ARM, UNSP ARM, INIT ENCNTR Status: Resolved Qualifiers: Laterality: right (3) Alcohol abuse Code(s): F10.10 - ALCOHOL ABUSE, UNCOMPLICATED Status: Chronic (4) Developmental disability Status: Chronic (5) Acute metabolic encephalopathy Code(s): G93.41 - METABOLIC ENCEPHALOPATHY Status: Resolved - Plan This patient is a 39-year-old male with history of mental disability, drug abuse, alcohol abuse, and seizures who was admitted to the hospital initially for altered mental status and intoxication with alcohol and presumptively K2 and spice illicit drugs. He was found to be volume depleted and multiple alkali disturbances were noted. He was managed supportively with fluids and electrolyte replacements. His hospitalization was complicated by sepsis due to Klebsiella infection status post completed course of antibiotics. His repeat cultures were negative. During his initial work-up chest x-ray revealed grade 3 acromioclavicular joint separation on the right shoulder. Orthopedic service consulted and did not recommend any surgical intervention at this time as the patient is functioning well and is asymptomatic. The patient's family apparently unable to take care of the patient and placement was requested and currently pending. The patient is clinically stable and ready for discharge once placement is available.
[2020-04-30] MEDS: Folic Acid/Vit B Comp W-C PO SCH (10:13)
[2020-04-30] MEDS: Cholecalciferol 1,000 UNITS (25 MCG) TAB PO SCH (10:13)
[2020-04-30] MEDS: Multivitamin W/ Minerals 1 TAB PO SCH (10:13)
--- NOTE | 2020-04-30 12:36 | PDOC.HOSPP ---
- Subjective Encounter Date: 04/30/20 Subjective: No new events. - Objective Vital Signs & Weight: Vital Signs (12 hours) Temp Pulse Resp BP Pulse Ox 04/30/20 07:16 97.9 F 85 20 118/80 94 L Weight Admit Weight 236 lb 9.6 oz Weight 232 lb 3.2 oz I&O: 04/29/20 04/30/20 05/01/20 06:59 06:59 06:59 Intake Total 1000 Balance 1000 Result Diagrams: 03/08/20 07:08 03/06/20 03:55 Hospitalist ROS - Medication Medications: Active Medications Generic Name Dose Route Start Last Admin Trade Name Freq PRN Reason Stop Dose Admin Acetaminophen 650 mg 03/04/20 20:01 04/09/20 08:13 Acetaminophen 325 Mg Tab PO 650 mg Q4H PRN Administration Fever or Pain Cholecalciferol 2,000 units 03/04/20 09:00 04/30/20 10:13 Cholecalciferol 1,000 Units (25 Mcg) Tab PO 2,000 units DAILY BLAZE Administration Iron/Minerals/Multivitamins 1 tab 03/05/20 09:00 04/30/20 10:13 Multivitamin W/ Minerals 1 Tab PO 1 tab DAILY BLAZE Administration Vitamin B Complex/Vit C/Folic Acid 1 tab 03/02/20 09:00 04/30/20 10:13 Folic Acid/Vit B Comp W-C PO 1 tab DAILY BLAZE Administration - Exam ENT: normocephalic atraumatic Neck: supple Respiratory: normal chest expansion, no tachypnea Hosp A/P (1) Klebsiella pneumoniae sepsis Code(s): A41.4 - SEPSIS DUE TO ANAEROBES Status: Resolved (2) Acromioclavicular joint injury Code(s): S49.90XA - UNSP INJURY OF SHOULDER AND UPPER ARM, UNSP ARM, INIT ENCNTR Status: Resolved Qualifiers: Laterality: right (3) Alcohol abuse Code(s): F10.10 - ALCOHOL ABUSE, UNCOMPLICATED Status: Chronic (4) Developmental disability Status: Chronic (5) Acute metabolic encephalopathy Code(s): G93.41 - METABOLIC ENCEPHALOPATHY Status: Resolved - Plan This patient is a 39-year-old male with history of mental disability, drug abuse, alcohol abuse, and seizures who was admitted to the hospital initially for altered mental status and intoxication with alcohol and presumptively K2 and spice illicit drugs. He was found to be volume depleted and multiple alkali disturbances were noted. He was managed supportively with fluids and electrolyte replacements. His hospitalization was complicated by sepsis due to Klebsiella infection status post completed course of antibiotics. His repeat cultures were negative. During his initial work-up chest x-ray revealed grade 3 acromioclavicular joint separation on the right shoulder. Orthopedic service consulted and did not recommend any surgical intervention at this time as the patient is functioning well and is asymptomatic. The patient's family apparently unable to take care of the patient and placement was requested and currently pending. The patient is clinically stable and ready for discharge once placement is available.
[2020-05-01] MEDS: Folic Acid/Vit B Comp W-C PO SCH (09:13)
[2020-05-01] MEDS: Cholecalciferol 1,000 UNITS (25 MCG) TAB PO SCH (09:14)
[2020-05-01] MEDS: Multivitamin W/ Minerals 1 TAB PO SCH (09:14)
--- NOTE | 2020-05-01 12:16 | PDOC.HOSPP ---
- Subjective Encounter Date: 05/01/20 Subjective: No new events overnight. Pending placement. - Objective Vital Signs & Weight: Vital Signs (12 hours) Temp Pulse Resp BP Pulse Ox 05/01/20 08:09 97.9 F 62 18 123/79 97 05/01/20 08:00 97 Weight Admit Weight 236 lb 9.6 oz Weight 232 lb 3.2 oz I&O: 04/30/20 05/01/20 05/02/20 06:59 06:59 06:59 Intake Total 1000 1000 Balance 1000 1000 Result Diagrams: 03/08/20 07:08 03/06/20 03:55 Hospitalist ROS - Medication Medications: Active Medications Generic Name Dose Route Start Last Admin Trade Name Freq PRN Reason Stop Dose Admin Acetaminophen 650 mg 03/04/20 20:01 04/09/20 08:13 Acetaminophen 325 Mg Tab PO 650 mg Q4H PRN Administration Fever or Pain Cholecalciferol 2,000 units 03/04/20 09:00 05/01/20 09:14 Cholecalciferol 1,000 Units (25 Mcg) Tab PO 2,000 units DAILY BLAZE Administration Iron/Minerals/Multivitamins 1 tab 03/05/20 09:00 05/01/20 09:14 Multivitamin W/ Minerals 1 Tab PO 1 tab DAILY BLAZE Administration Vitamin B Complex/Vit C/Folic Acid 1 tab 03/02/20 09:00 05/01/20 09:13 Folic Acid/Vit B Comp W-C PO 1 tab DAILY BLAZE Administration - Exam ENT: normocephalic atraumatic Neck: supple, no JVD Respiratory: normal chest expansion, no tachypnea Extremities: no cyanosis, no clubbing Hosp A/P (1) Klebsiella pneumoniae sepsis Code(s): A41.4 - SEPSIS DUE TO ANAEROBES Status: Resolved (2) Acromioclavicular joint injury Code(s): S49.90XA - UNSP INJURY OF SHOULDER AND UPPER ARM, UNSP ARM, INIT ENCNTR Status: Resolved Qualifiers: Laterality: right (3) Alcohol abuse Code(s): F10.10 - ALCOHOL ABUSE, UNCOMPLICATED Status: Chronic (4) Developmental disability Status: Chronic (5) Acute metabolic encephalopathy Code(s): G93.41 - METABOLIC ENCEPHALOPATHY Status: Resolved - Plan This patient is a 39-year-old male with history of mental disability, drug abuse, alcohol abuse, and seizures who was admitted to the hospital initially for altered mental status and intoxication with alcohol and presumptively K2 and spice illicit drugs. He was found to be volume depleted and multiple alkali disturbances were noted. He was managed supportively with fluids and electro lyte replacements. His hospitalization was complicated by sepsis due to Klebsiella infection status post completed course of antibiotics. His repeat cultures were negative. During his initial work-up chest x-ray revealed grade 3 acromioclavicular joint separation on the right shoulder. Orthopedic service consulted and did not recommend any surgical intervention at this time as the patient is functioning well and is asymptomatic. The patient's family apparently unable to take care of the patient and placement was requested and currently pending. The patient is clinically stable and ready for discharge once placement is available.
[2020-05-02] MEDS: Multivitamin W/ Minerals 1 TAB PO SCH (09:03)
[2020-05-02] MEDS: Cholecalciferol 1,000 UNITS (25 MCG) TAB PO SCH (09:03)
[2020-05-02] MEDS: Folic Acid/Vit B Comp W-C PO SCH (09:03)
--- NOTE | 2020-05-02 10:57 | PDOC.HOSPP ---
- Subjective Encounter Date: 05/02/20 Subjective: No new events overnight. - Objective Vital Signs & Weight: Vital Signs (12 hours) Temp Pulse Resp BP Pulse Ox 05/02/20 07:28 97.8 F 95 18 148/94 H 95 Weight Admit Weight 236 lb 9.6 oz Weight 232 lb 3.2 oz I&O: 05/01/20 05/02/20 05/03/20 06:59 06:59 06:59 Intake Total 1000 1999 Balance 1000 1999 Result Diagrams: 03/08/20 07:08 03/06/20 03:55 Hospitalist ROS - Medication Medications: Active Medications Generic Name Dose Route Start Last Admin Trade Name Freq PRN Reason Stop Dose Admin Acetaminophen 650 mg 03/04/20 20:01 04/09/20 08:13 Acetaminophen 325 Mg Tab PO 650 mg Q4H PRN Administration Fever or Pain Cholecalciferol 2,000 units 03/04/20 09:00 05/02/20 09:03 Cholecalciferol 1,000 Units (25 Mcg) Tab PO 2,000 units DAILY BLAZE Administration Iron/Minerals/Multivitamins 1 tab 03/05/20 09:00 05/02/20 09:03 Multivitamin W/ Minerals 1 Tab PO 1 tab DAILY BLAZE Administration Vitamin B Complex/Vit C/Folic Acid 1 tab 03/02/20 09:00 05/02/20 09:03 Folic Acid/Vit B Comp W-C PO 1 tab DAILY BLAZE Administration Hosp A/P (1) Klebsiella pneumoniae sepsis Code(s): A41.4 - SEPSIS DUE TO ANAEROBES Status: Resolved (2) Acromioclavicular joint injury Code(s): S49.90XA - UNSP INJURY OF SHOULDER AND UPPER ARM, UNSP ARM, INIT ENCNTR Status: Resolved Qualifiers: Laterality: right (3) Alcohol abuse Code(s): F10.10 - ALCOHOL ABUSE, UNCOMPLICATED Status: Chronic (4) Developmental disability Status: Chronic (5) Acute metabolic encephalopathy Code(s): G93.41 - METABOLIC ENCEPHALOPATHY Status: Resolved - Plan This patient is a 39-year-old male with history of mental disability, drug abuse, alcohol abuse, and seizures who was admitted to the hospital initially for altered mental status and intoxication with alcohol and presumptively K2 and spice illicit drugs. He was found to be volume depleted and multiple alkali disturbances were noted. He was managed supportively with fluids and electrolyt e replacements. His hospitalization was complicated by sepsis due to Klebsiella infection status post completed course of antibiotics. His repeat cultures were negative. During his initial work-up chest x-ray revealed grade 3 acromioclavicular joint separation on the right shoulder. Orthopedic service consulted and did not recommend any surgical intervention at this time as the patient is functioning well and is asymptomatic. The patient's family apparently unable to take care of the patient and placement was requested and currently pending. The patient is clinically stable and ready for discharge once placement is available.
[2020-05-03] MEDS: Cholecalciferol 1,000 UNITS (25 MCG) TAB PO SCH (07:53)
[2020-05-03] MEDS: Multivitamin W/ Minerals 1 TAB PO SCH (07:53)
[2020-05-03] MEDS: Folic Acid/Vit B Comp W-C PO SCH (07:53)
--- NOTE | 2020-05-03 12:03 | PDOC.HOSPP ---
- Subjective Encounter Date: 05/03/20 - Objective Vital Signs & Weight: Vital Signs (12 hours) Temp Pulse Resp BP Pulse Ox 05/03/20 07:17 97.9 F 71 18 120/74 97 Weight Admit Weight 236 lb 9.6 oz Weight 232 lb 3.2 oz I&O: 05/02/20 05/03/20 05/04/20 06:59 06:59 06:59 Intake Total 1000 4160 600 Balance 1000 4160 600 Result Diagrams: 03/08/20 07:08 03/06/20 03:55 Hospitalist ROS - Medication Medications: Active Medications Generic Name Dose Route Start Last Admin Trade Name Freq PRN Reason Stop Dose Admin Acetaminophen 650 mg 03/04/20 20:01 04/09/20 08:13 Acetaminophen 325 Mg Tab PO 650 mg Q4H PRN Administration Fever or Pain Cholecalciferol 2,000 units 03/04/20 09:00 05/03/20 07:53 Cholecalciferol 1,000 Units (25 Mcg) Tab PO 2,000 units DAILY BLAZE Administration Iron/Minerals/Multivitamins 1 tab 03/05/20 09:00 05/03/20 07:53 Multivitamin W/ Minerals 1 Tab PO 1 tab DAILY BLAZE Administration Vitamin B Complex/Vit C/Folic Acid 1 tab 03/02/20 09:00 05/03/20 07:53 Folic Acid/Vit B Comp W-C PO 1 tab DAILY BLAZE Administration - Exam ENT: normocephalic atraumatic Neck: supple Respiratory: normal chest expansion, no tachypnea Extremities: no cyanosis, no clubbing Hosp A/P (1) Klebsiella pneumoniae sepsis Code(s): A41.4 - SEPSIS DUE TO ANAEROBES Status: Resolved (2) Acromioclavicular joint injury Code(s): S49.90XA - UNSP INJURY OF SHOULDER AND UPPER ARM, UNSP ARM, INIT ENCNTR Status: Resolved Qualifiers: Laterality: right (3) Alcohol abuse Code(s): F10.10 - ALCOHOL ABUSE, UNCOMPLICATED Status: Chronic (4) Developmental disability Status: Chronic (5) Acute metabolic encephalopathy Code(s): G93.41 - METABOLIC ENCEPHALOPATHY Status: Resolved - Plan This patient is a 39-year-old male with history of mental disability, drug abuse, alcohol abuse, and seizures who was admitted to the hospital initially for altered mental status and intoxication with alcohol and presumptively K2 and spice illicit drugs. He was found to be volume depleted and multiple alkali disturbances were noted. He was managed supportively with fluids and electrolyte replacements. His hospitalization was complicated by sepsis due to Klebsiella infection status post completed course of antibiotics. His repeat cultures were negative. During his initial work-up chest x-ray revealed grade 3 acromioclavicular joint separation on the right shoulder. Orthopedic service consulted and did not recommend any surgical intervention at this time as the patient is functioning well and is asymptomatic. The patient's family apparently unable to take care of the patient and placement was requested and currently pending. The patient is clinically stable and ready for discharge once placement is available.
[2020-05-04] MEDS: Cholecalciferol 1,000 UNITS (25 MCG) TAB PO SCH (07:53)
[2020-05-04] MEDS: Multivitamin W/ Minerals 1 TAB PO SCH (07:53)
[2020-05-04] MEDS: Folic Acid/Vit B Comp W-C PO SCH (07:54)
--- NOTE | 2020-05-04 12:35 | PDOC.HOSPP ---
- Subjective Encounter Date: 05/04/20 - Objective Vital Signs & Weight: Vital Signs (12 hours) Temp Pulse Resp BP Pulse Ox 05/04/20 07:17 97.9 F 79 16 120/73 96 Weight Admit Weight 236 lb 9.6 oz Weight 232 lb 3.2 oz I&O: 05/03/20 05/04/20 05/05/20 06:59 06:59 06:59 Intake Total 4160 2039 Balance [id number] Result Diagrams: 03/08/20 07:08 03/06/20 03:55 Hospitalist ROS - Medication Medications: Active Medications Generic Name Dose Route Start Last Admin Trade Name Freq PRN Reason Stop Dose Admin Acetaminophen 650 mg 03/04/20 20:01 04/09/20 08:13 Acetaminophen 325 Mg Tab PO 650 mg Q4H PRN Administration Fever or Pain Cholecalciferol 2,000 units 03/04/20 09:00 05/04/20 07:53 Cholecalciferol 1,000 Units (25 Mcg) Tab PO 2,000 units DAILY BLAZE Administration Iron/Minerals/Multivitamins 1 tab 03/05/20 09:00 05/04/20 07:53 Multivitamin W/ Minerals 1 Tab PO 1 tab DAILY BLAZE Administration Vitamin B Complex/Vit C/Folic Acid 1 tab 03/02/20 09:00 05/04/20 07:54 Folic Acid/Vit B Comp W-C PO 1 tab DAILY BLAZE Administration - Exam General Appearance: awake alert ENT: normocephalic atraumatic Neck: supple Respiratory: normal chest expansion, no tachypnea Extremities: no cyanosis, no clubbing Hosp A/P (1) Klebsiella pneumoniae sepsis Code(s): A41.4 - SEPSIS DUE TO ANAEROBES Status: Resolved (2) Acromioclavicular joint injury Code(s): S49.90XA - UNSP INJURY OF SHOULDER AND UPPER ARM, UNSP ARM, INIT ENCNTR Status: Resolved Qualifiers: Laterality: right (3) Alcohol abuse Code(s): F10.10 - ALCOHOL ABUSE, UNCOMPLICATED Status: Chronic (4) Developmental disability Status: Chronic (5) Acute metabolic encephalopathy Code(s): G93.41 - METABOLIC ENCEPHALOPATHY Status: Resolved - Plan This patient is a 39-year-old male with history of mental disability, drug abuse, alcohol abuse, and seizures who was admitted to the hospital initially for altered mental status and intoxication with alcohol and presumptively K2 and spice illicit drugs. He was found to be volume depleted and multiple alkali disturbances were noted. He was managed supportively with fluids and electrolyte replacements. His hospitalization was complicated by sepsis due to Klebsiella infection status post completed course of antibiotics. His repeat cultures were negative. During his initial work-up chest x-ray revealed grade 3 acromioclavicular joint separation on the right shoulder. Orthopedic service consulted and did not recommend any surgical intervention at this time as the patient is functioning well and is asymptomatic. The patient's family apparently unable to take care of the patient and placement was requested and currently pending. 05/04: He is ambulating through the [place] without any significant problems. The patient is clinically stable and ready for discharge once placement is available.
[2020-05-05] MEDS: Folic Acid/Vit B Comp W-C PO SCH (08:47)
[2020-05-05] MEDS: Cholecalciferol 1,000 UNITS (25 MCG) TAB PO SCH (08:47)
[2020-05-05] MEDS: Multivitamin W/ Minerals 1 TAB PO SCH (08:47)
--- NOTE | 2020-05-05 12:26 | PDOC.HOSPP ---
- Subjective Encounter Date: 05/05/20 Subjective: No new events. The patient has no complaints. - Objective Vital Signs & Weight: Vital Signs (12 hours) Temp Pulse Resp BP Pulse Ox 05/05/20 07:53 98.2 F 85 16 125/83 94 L Weight Admit Weight 236 lb 9.6 oz Weight 232 lb 3.2 oz I&O: 05/04/20 05/05/20 05/06/20 06:59 06:59 06:59 Intake Total 2039 Balance 2039 Result Diagrams: 03/08/20 07:08 03/06/20 03:55 Hospitalist ROS - Medication Medications: Active Medications Generic Name Dose Route Start Last Admin Trade Name Freq PRN Reason Stop Dose Admin Acetaminophen 650 mg 03/04/20 20:01 04/09/20 08:13 Acetaminophen 325 Mg Tab PO 650 mg Q4H PRN Administration Fever or Pain Cholecalciferol 2,000 units 03/04/20 09:00 05/05/20 08:47 Cholecalciferol 1,000 Units (25 Mcg) Tab PO 2,000 units DAILY BLAZE Administration Iron/Minerals/Multivitamins 1 tab 03/05/20 09:00 05/05/20 08:47 Multivitamin W/ Minerals 1 Tab PO 1 tab DAILY BLAZE Administration Vitamin B Complex/Vit C/Folic Acid 1 tab 03/02/20 09:00 05/05/20 08:47 Folic Acid/Vit B Comp W-C PO 1 tab DAILY BLAZE Administration - Exam General Appearance: awake alert Neck: supple, no JVD Respiratory: normal chest expansion, no tachypnea Extremities: no cyanosis, no clubbing Neurological: cranial nerve grossly intact, no new deficit Hosp A/P (1) Klebsiella pneumoniae sepsis Code(s): A41.4 - SEPSIS DUE TO ANAEROBES Status: Resolved (2) Acromioclavicular joint injury Code(s): S49.90XA - UNSP INJURY OF SHOULDER AND UPPER ARM, UNSP ARM, INIT ENCNTR Status: Resolved Qualifiers: Laterality: right (3) Alcohol abuse Code(s): F10.10 - ALCOHOL ABUSE, UNCOMPLICATED Status: Chronic (4) Developmental disability Status: Chronic (5) Acute metabolic encephalopathy Code(s): G93.41 - METABOLIC ENCEPHALOPATHY Status: Resolved - Plan This patient is a 39-year-old male with history of mental disability, drug abuse, alcohol abuse, and seizures who was admitted to the hospital initially for altered mental status and intoxication with alcohol and presumptively K2 and spice illicit drugs. He was found to be volume depleted and multiple alkali disturbances were noted. He was managed supportively with fluids and electrolyte replacements. His hospitalization was complicated by sepsis due to Klebsiella infection status post completed course of antibiotics. His repeat cultures were negative. During his initial work-up chest x-ray revealed grade 3 acromioclavicular joint separation on the right shoulder. Orthopedic service consulted and did not recommend any surgical intervention at this time as the patient is functioning well and is asymptomatic. The patient's family apparently unable to take care of the patient and placement was requested and currently pending. 05/05: We are awaiting to credential one of the psychiatrist to be able to see the patient in the hospital and determine whether he is able to make his own decisions or not.
[2020-05-06] MEDS: Cholecalciferol 1,000 UNITS (25 MCG) TAB PO SCH (10:16)
[2020-05-06] MEDS: Multivitamin W/ Minerals 1 TAB PO SCH (10:16)
[2020-05-06] MEDS: Folic Acid/Vit B Comp W-C PO SCH (10:16)
--- NOTE | 2020-05-06 15:38 | PDOC.HOSPP ---
- Subjective Encounter Date: 05/06/20 Encounter Time: 07:00 Subjective: Patient seen in follow-up for - Objective Vital Signs & Weight: Vital Signs (12 hours) Temp Pulse Resp BP Pulse Ox 05/06/20 07:15 98.2 F 69 18 115/74 97 Weight Admit Weight 236 lb 9.6 oz Weight 232 lb 3.2 oz Result Diagrams: 03/08/20 07:08 03/06/20 03:55 Additional Labs: I reviewed patient's labs and MAR Hospitalist ROS - Review of Systems Cardiovascular: denies: chest pain, palpitations, orthopnea, paroxysmal noc. dyspnea, edema, light headedness Gastrointestinal: denies: nausea, vomiting, abdominal pain, diarrhea, constipation, melena, hematochezia - Medication Medications: Active Medications Generic Name Dose Route Start Last Admin Trade Name Freq PRN Reason Stop Dose Admin Acetaminophen 650 mg 03/04/20 20:01 04/09/20 08:13 Acetaminophen 325 Mg Tab PO 650 mg Q4H PRN Administration Fever or Pain Cholecalciferol 2,000 units 03/04/20 09:00 05/06/20 10:16 Cholecalciferol 1,000 Units (25 Mcg) Tab PO 2,000 units DAILY BLAZE Administration Iron/Minerals/Multivitamins 1 tab 03/05/20 09:00 05/06/20 10:16 Multivitamin W/ Minerals 1 Tab PO 1 tab DAILY BLAZE Administration Vitamin B Complex/Vit C/Folic Acid 1 tab 03/02/20 09:00 05/06/20 10:16 Folic Acid/Vit B Comp W-C PO 1 tab DAILY BLAZE Administration - Exam General - other findings: Obese ENT: normocephalic atraumatic Neck: no thyromegaly Heart: RRR Respiratory: CTAB Gastrointestinal: soft, non-tender Skin: no rashes Psychiatric: normal affect, normal behavior Hosp A/P - Plan Hosp A/P (1) Developmental disability Status: Chronic (2) Klebsiella pneumoniae sepsis Code(s): A41.4 - SEPSIS DUE TO ANAEROBES Status: Resolved (3) Acromioclavicular joint injury Code(s): S49.90XA - UNSP INJURY OF SHOULDER AND UPPER ARM, UNSP ARM, INIT ENCNTR Status: Resolved Qualifiers: Laterality: right (4) Alcohol abuse Code(s): F10.10 - ALCOHOL ABUSE, UNCOMPLICATED Status: Chronic (5) Acute metabolic encephalopathy Code(s): G93.41 - METABOLIC ENCEPHALOPATHY Status: Resolved - Plan This patient is a 39-year-old male with history of mental disability, drug abuse, alcohol abuse, and seizures who was admitted to the hospital initially for altered mental status and intoxication with alcohol and presumptively K2 and spice illicit drugs. He was found to be volume depleted and multiple alkali disturbances were noted. He was managed supportively with fluids and electrolyte replacements. His hospitalization was complicated by sepsis due to Klebsiella infection status post completed course of antibiotics. His repeat cultures were negative. During his initial work-up chest x-ray revealed grade 3 acromioclavicular joint separation on the right shoulder. Orthopedic service consulted and did not recommend any surgical intervention at this time as the patient is functioning well and is asymptomatic. The patient's family apparently unable to take care of the patient and placement was requested and currently pending. 05/06: Nil acute
[2020-05-07] MEDS: Cholecalciferol 1,000 UNITS (25 MCG) TAB PO SCH (08:02)
[2020-05-07] MEDS: Multivitamin W/ Minerals 1 TAB PO SCH (08:02)
[2020-05-07] MEDS: Folic Acid/Vit B Comp W-C PO SCH (08:02)
--- NOTE | 2020-05-07 16:27 | PDOC.HOSPP ---
- Subjective Encounter Date: 05/07/20 Encounter Time: 10:30 Subjective: pt up in bed no complains. Awake and alert. - Objective Vital Signs & Weight: Vital Signs (12 hours) Temp Pulse Resp BP Pulse Ox 05/07/20 08:00 96.6 F L 79 16 127/86 96 Weight Admit Weight 236 lb 9.6 oz Weight 232 lb 3.2 oz I&O: 05/06/20 05/07/20 05/08/20 06:59 06:59 06:59 Intake Total 472 Balance 472 Result Diagrams: 03/08/20 07:08 03/06/20 03:55 Hospitalist ROS - Review of Systems Cardiovascular: denies: chest pain, palpitations, orthopnea, paroxysmal noc. dyspnea, edema, light headedness, other Gastrointestinal: denies: nausea, vomiting, abdominal pain, diarrhea, constipation, melena, hematochezia, other Genitourinary: denies: dysuria, frequency, incontinence, hematuria, retention, other - Medication Medications: Active Medications Generic Name Dose Route Start Last Admin Trade Name Freq PRN Reason Stop Dose Admin Acetaminophen 650 mg 03/04/20 20:01 04/09/20 08:13 Acetaminophen 325 Mg Tab PO 650 mg Q4H PRN Administration Fever or Pain Cholecalciferol 2,000 units 03/04/20 09:00 05/07/20 08:02 Cholecalciferol 1,000 Units (25 Mcg) Tab PO 2,000 units DAILY BLAZE Administration Iron/Minerals/Multivitamins 1 tab 03/05/20 09:00 05/07/20 08:02 Multivitamin W/ Minerals 1 Tab PO 1 tab DAILY BLAZE Administration Vitamin B Complex/Vit C/Folic Acid 1 tab 03/02/20 09:00 05/07/20 08:02 Folic Acid/Vit B Comp W-C PO 1 tab DAILY BLAZE Administration - Exam Heart: RRR Respiratory: normal chest expansion Gastrointestinal: soft, normal bowel sounds Hosp A/P (1) Alcohol abuse Code(s): F10.10 - ALCOHOL ABUSE, UNCOMPLICATED Status: Chronic (2) Developmental disability Status: Chronic (3) Obesity (BMI 30-39.9) Code(s): E66.9 - OBESITY, UNSPECIFIED Status: Chronic - Plan This patient is a 39-year-old male with history of mental disability, drug abuse, alcohol abuse, and seizures who was admitted to the hospital initially for altered mental status and intoxication with alcohol and presumptively K2 and spice illicit drugs. He was found to be volume depleted and multiple alkali disturbances were noted. He was managed supportively with fluids and electrolyte replacements. His hospitalization was complicated by sepsis due to Klebsiella infection status post completed course of antibiotics. His repeat cultures were negative. During his initial work-up chest x-ray revealed grade 3 acromioclavicular joint separation on the right shoulder. Orthopedic service consulted and did not recommend any surgical intervention at this time as the patient is functioning well and is asymptomatic. The patient's family apparently unable to take care of the patient and placement was requested and currently pending. plan: Discharge planning in progress. Sepsis has resolved. Unclear if patient is able to make capable decisions.
--- NOTE | 2020-05-08 07:24 | PDOC.HOSPP ---
- Subjective Encounter Date: 05/08/20 Encounter Time: 09:30 Subjective: Patient without complaints. No events overnight. - Objective Vital Signs & Weight: Vital Signs (12 hours) Temp Pulse Resp BP Pulse Ox 05/07/20 19:30 97.4 F L 81 16 143/88 H 98 Weight Admit Weight 236 lb 9.6 oz Weight 232 lb 3.2 oz I&O: 05/07/20 05/08/20 05/09/20 06:59 06:59 06:59 Intake Total 472 1347 Balance 472 1347 Result Diagrams: 03/08/20 07:08 03/06/20 03:55 Hospitalist ROS - Review of Systems Constitutional: denies: fever, chills Respiratory: denies: cough, shortness of breath Cardiovascular: denies: chest pain, palpitations Gastrointestinal: denies: nausea, vomiting, abdominal pain - Medication Medications: Active Medications Generic Name Dose Route Start Last Admin Trade Name Freq PRN Reason Stop Dose Admin Acetaminophen 650 mg 03/04/20 20:01 04/09/20 08:13 Acetaminophen 325 Mg Tab PO 650 mg Q4H PRN Administration Fever or Pain Cholecalciferol 2,000 units 03/04/20 09:00 05/07/20 08:02 Cholecalciferol 1,000 Units (25 Mcg) Tab PO 2,000 units DAILY BLAZE Administration Iron/Minerals/Multivitamins 1 tab 03/05/20 09:00 05/07/20 08:02 Multivitamin W/ Minerals 1 Tab PO 1 tab DAILY BLAZE Administration Vitamin B Complex/Vit C/Folic Acid 1 tab 03/02/20 09:00 05/07/20 08:02 Folic Acid/Vit B Comp W-C PO 1 tab DAILY BLAZE Administration - Exam General Appearance: NAD, awake alert ENT: moist mucosa Heart: RRR, no murmur, no gallops, no rubs Respiratory: CTAB, no wheezes, no rales, no ronchi Gastrointestinal: soft, non-tender, non-distended, normal bowel sounds Psychiatric: normal affect, normal behavior Hosp A/P - Plan (1) Klebsiella pneumoniae sepsis Code(s): A41.4 - SEPSIS DUE TO ANAEROBES Status: Resolved Plan: Continue Levaquin for 2 week course of treatment (2) Alcohol abuse Code(s): F10.10 - ALCOHOL ABUSE, UNCOMPLICATED Status: Acute Plan: Cessation resources, pending [facility] placement (3) Acute metabolic encephalopathy Code(s): G93.41 - METABOLIC ENCEPHALOPATHY Status: Resolved Plan: Improved, baseline cognitive/developemental delay (4) Developmental disability Status: Chronic Plan: Family unable to continue to care for pt at home, [facility] placement pending with [facility] (5) Acromioclavicular joint injury Code(s): S49.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 He was found to be volume depleted and multiple alkali disturbances were noted. He was managed supportively with fluids and electrolyte replacements. His hospitalization was complicated by sepsis due to Klebsiella infection status post completed course of antibiotics. His repeat cultures were negative. During his initial work-up chest x-ray revealed grade 3 acromioclavicular joint separation on the right shoulder. Orthopedic service consulted and did not recommend any surgical intervention at this time as the patient is functioning well and is asymptomatic. The patient's family apparently unable to take care of the patient and placement was requested and currently pending. OOB/ambulate Pepcid 20mg po BID
[2020-05-08 07:37] VITALS: BP 128/86; TEMP 98.4
[2020-05-08] MEDS: Multivitamin W/ Minerals 1 TAB PO SCH (08:03)
[2020-05-08] MEDS: Folic Acid/Vit B Comp W-C PO SCH (08:03)
[2020-05-08] MEDS: Cholecalciferol 1,000 UNITS (25 MCG) TAB PO SCH (08:03)
--- NOTE | 2020-05-08 15:41 | PDOC.DS.DS ---
Provider - Provider Date of Admission: 03/01/20 20:16 Date of Discharge: 05/08/20 Admitting Provider: Emeterio Harris MD Consultations: Orthopedics (Dr. Chicho Jimenez) Primary Care Physician: NO PCP PROVIDER Course - Hospital Course Hospital Course: This is a 39-year-old male with a history of mental disability drug abuse alcohol abuse and seizures who was admitted to the hospital initially for altered mental status. This was thought to be due to alcohol and probably K2 or other illicit drugs. Patient was volume depleted initially he had electrolytes and fluids replaced. Patient was also treated for Klebsiella infection. He completed antibiotic course. He also was noted to have a grade 3 acromioclavicular joint separation of the right shoulder. Dr. Dwyer was consulted and recommended no surgical intervention. Patient has a history of mental disability and so placement was a difficult. Eventually after a prolonged hospital stay the family decided to take the patient home. Resuscitation Status: 03/01/20 20:33 Resuscitation Status Routine Resuscitation Status: FULL: Full Resuscitation - Labs Lab Results: 03/08/20 07:08 03/06/20 03:55 Microbiology - Entire Visit 03/07/20 09:14 Venous blood - Left Arm Blood Culture - Final NO GROWTH IN 5 DAYS 03/07/20 09:14 Venous blood - Right Arm Blood Culture - Final NO GROWTH IN 5 DAYS 03/04/20 20:46 Venous blood - Right Hand Blood Culture - Final Klebsiella pneumoniae ssp pneu 03/04/20 20:46 Venous blood - Right Arm Blood Culture - Final Klebsiella pneumoniae ssp pneu - Physical Exam Vitals: Vital Signs (12 hours) Temp Pulse Resp BP Pulse Ox 05/08/20 08:00 96 05/08/20 07:36 98.4 F 86 16 128/86 96 Weight Admit Weight 236 lb 9.6 oz Weight 232 lb 3.2 oz Physical Exam: The patient was seen and examined on the day of discharge. Problem - Discharge Plan Assessment: (1) Klebsiella pneumoniae sepsis Code(s): A41.4 - SEPSIS DUE TO ANAEROBES Status: Resolved Plan: Continue Levaquin for 2 week course of treatment (2) Alcohol abuse Code(s): F10.10 - ALCOHOL ABUSE, UNCOMPLICATED Status: Acute Plan: Cessation resources, pending [facility] placement (3) Acute metabolic encephalopathy Code(s): G93.41 - METABOLIC ENCEPHALOPATHY Status: Resolved Plan: Improved, baseline cognitive/developemental delay (4) Developmental disability Status: Chronic Plan: Family unable to continue to care for pt at home, [facility] placement pending with [facility] (5) Acromioclavicular joint injury Code(s): S49.90XA - UNSP INJURY OF SHOULDER AND UPPER ARM, UNSP ARM, INIT ENCNTR Status: Chronic per ortho Qualifiers: Laterality: right Plan: Non-operative mgmt, supportive care Plan of Treatment: Patient to be discharged home with family. - Time spent with Patient (mins): 20 Plan - Discharge Medications Home Medications: Medication Instructions Recorded Confirmed Type No Known 03/01/20 03/01/20 History Allergies: No Known Allergies Allergy (Verified 03/01/20 23:26) - Discharge Instructions Activity:: Activity as Tolerated Nourishment:: Regular Diet Therapies:: Not Applicable Equipment/Supplies:: Not Applicable IV Therapy:: Not Applicable - Follow up Plan Referrals: PROVIDER,NO PCP [Primary Care Provider] - Disposition: HOME Quality - Care Measures CORE MEASURES:: N/A
== END 2020-05-08 15:19 | disposition home or self-care (01) | DRG 917 ==
LOC: ERS 18:46 → 2NO 20:16 → T4-B 03-06 23:10 → SURG A 04-30 20:38
PROVIDERS: ADMIT Internal Medicine; ATTEND Emergency Medicine
DX: T40.7X1A Poisoning by cannabis (derivatives), accidental (unintentional), initial encounter (principal); A41.4 Sepsis due to anaerobes; G92 Toxic encephalopathy; Z20.822 Contact with and (suspected) exposure to COVID-19; Y90.5 Blood alcohol level of 100-119 mg/100 ml; E66.9 Obesity, unspecified; E87.6 Hypokalemia; F12.10 Cannabis abuse, uncomplicated; F17.210 Nicotine dependence, cigarettes, uncomplicated; E16.2 Hypoglycemia, unspecified; E86.9 Volume depletion, unspecified; G40.909 Epilepsy, unspecified, not intractable, without status epilepticus; T51.0X1A Toxic effect of ethanol, accidental (unintentional), initial encounter; E55.9 Vitamin D deficiency, unspecified; F10.129 Alcohol abuse with intoxication, unspecified; F79 Unspecified intellectual disabilities; M24.411 Recurrent dislocation, right shoulder; Z68.35 Body mass index [BMI] 35.0-35.9, adult; Z28.21 Immunization not carried out because of patient refusal; Z87.820 Personal history of traumatic brain injury; Z91.5 Personal history of self-harm
CPT/HCPCS: 36415; 36416; 71045; 80053; 80306; 80307; 81001; 82140; 82306; 82550; 82607; 82746; 83605; 83690; 83735; 84443; 84484; 85025; 85027; 87040; 87077; 87149; 87186; 87635; 93005; 93010; 96365; J1650; J2001; J2543; J3411; J3475; J3480; J3490; S0028; U0003

== ENCOUNTER 2020-05-12 13:48 | Inpatient (IN) | payer MEDICARE, MEDICAID ==
[2020-05-12] MEDS ORDERED: Iopamidol-370 76% 500 ML 1 ML ONE (14:17)
[2020-05-12 14:19] LABS: #Basophils 0.1 thou/uL (0.0-0.2); #Eosinphils 0.1 thou/uL (0.0-0.7); #Lymphocytes 2.7 thou/uL (1.20-3.40); #Monocytes 0.6 thou/uL (0.11-0.59); #Neutrophils 4.5 thou/uL (1.40-6.50); %Basophils 0.9 % (0.0-1.0); %Eosinophils 1.3 % (0.0-10.0); %Lymphocytes 34.1 % (21.0-51.0); %Monocytes 7.7 % (0.0-10.0); %Neutrophils 56.1 % (42.0-75.0); Hemoglobin 13.7 g/dL (14.0-18.0); Mean Corpuscular HGB CONC 33.2 g/dL (32.0-36.0); Mean Corpuscular Hemoglobin 29.9 pg (27.0-31.0); Mean Platelet Volume 9.4 fL (7.4-10.4); Platelet Count 177 thou/uL (130-400); RBC Distribution Width 12.4 % (11.5-14.5); Red Blood Cell (RBC) Count 4.59 mill/uL (4.70-6.10)
--- NOTE | 2020-05-12 14:27 | RAD ---
EXAM: CHEST ONE VIEW HISTORY: Patient found unresponsive. COMPARISON: 03/04/2020 FINDINGS: Cardiac silhouette is magnified by projection but does appear at the upper limits of normal to border line enlarged. Pulmonary vasculature is at the upper limits of normal. There is suggestion of minimal patchy parenchymal opacities within the left midlung zone and at each lung base which is over all nonspecific. This could be related to accentuation of bronchovascular markings, but infectious process is a possibility. No other interval change. IMPRESSION: There is minimal patchy opacities in the left midlung zone and at each lung base which could be attri butable to accentuation of bronchovascular markings related to shallow depth inspiration and portable technique. However, infectious process cannot be entirely excluded. A follow-up PA and later al chest x-ray is recommended with better depth inspiration if this is able to be performed.
[2020-05-12 14:30] LABS: Acetaminophen Less than 6.0 mcg/mL (10.0-30.0); Alcohol 37 mg/dL (Less than 10); CK (CPK) 282 U/L (30-200); Salicylate Less than 8.0 mg/dL (15.0-30.0)
[2020-05-12 14:32] LABS: ALT (SGPT) 35 U/L (8-55); AST (SGOT) 26 U/L (5-34); Albumin 4.3 g/dL (3.5-5.0); Alkaline Phosphatase 80 U/L (40-110); Anion Gap 17 mmol/L (10-20); BUN (Urea Nitrogen) 18 mg/dL (8.9-20.6); Bilirubin, Total 0.2 mg/dL (0.2-1.2); Calc. Creatinine Clearance 0 mL/min (70-130); Calcium 8.6 mg/dL (7.8-10.44); Carbon Dioxide 22 mmol/L (22-29); Chloride 108 mmol/L (98-107); Glucose 110 mg/dL (70-105); Protein, Total 7.3 g/dL (6.0-8.3); Sodium 143 mmol/L (136-145)
--- NOTE | 2020-05-12 15:00 | CT ---
CT Cervical Spine WO Con Indication: 39-year-old male with concern for fall; found unresponsive in the street after drinking a lcohol unknown type and smoking K2 COMPARISON: Prior CT cervical spine evaluation dated 01/07/2020 FINDINGS: Spinal alignment: There is reversal the cervical lordosis which may be related to positioning or spas m. Craniocervical junction: Within normal limits. Fracture: None. Vertebral body heights: Maintained. Prevertebral soft tissues:Normal appearing. Cervical spine degenerative change: Mild cervical spondylosis is similar appearing. Lung apices: Clear. IMPRESSION: No acute osseous abnormality.
--- NOTE | 2020-05-12 16:40 | CT ---
CT BRAIN WITHOUT CONTRAST: 05/12/20 HISTORY: Fall, unresponsive in the street after drinking alcohol. COMPARISON: 02/28/20. FINDINGS: Right frontotemporal encephalomalacia and gliosis and changes of right sided frontotemporal craniotom y are again seen. The ventricular size is stable and the basilar cisterns patent. No evidence of acute infarct, hemorrhage, midline shift, or abnormal extra-axial fluid collections ar e seen. No acute calvarial abnormalities are seen. There is a mucous retention cyst versus polyp in t he right maxillary sinus. Mastoid air cells are well aerated. IMPRESSION: No CT evidence of acute intracranial process. POS: OFF
[2020-05-12] MEDS ORDERED: Azithromycin 500 MG VIAL ONE (16:42)
[2020-05-12] MEDS ORDERED: cefTRIAXone\\ROCEPHIN 2 GM VIAL ONE (16:42)
[2020-05-12 17:19] LABS: Lactic Acid 1.3 mmol/L (0.5-2.2)
[2020-05-12 17:20] LABS: Bilirubin Negative (Negative); Blood, Urine Negative (Negative); Clarity Clear (Clear); Glucose, Urine (Dipstick) Normal (Negative); Ketone, Urine Negative (Negative); Leukocyte Negative Leu/uL (Negative); Nitrite Negative (Negative); Protein, Urine (Dipstick) Negative (Neg-Trace); Specific Gravity, Urine 1.013 (1.002-1.036); Urobilinogen Normal mg/dL (Less than 2); pH, Urine 5.5 (5.0-9.0)
[2020-05-12 17:29] LABS: Amphetamine Not Detected (NotDetected); Barbiturates Screen Not Detected (NotDetected); Benzodiazepine Screen Not Detected (NotDetected); Cocaine Metabolite Screen Not Detected (NotDetected); Medtox Control Line Valid? VALID (VALID); Medtox Reader # READER 4; Methadone Not Detected (NotDetected); Methamphetamine Not Detected (NotDetected); Opiate Screen Not Detected (NotDetected); Oxycodone Screen Not Detected (NotDetected); Phencyclidine (PCP) Not Detected (NotDetected); THC/Cannabinoid Screen Not Detected (NotDetected); Tricyclic Screen Not Detected (NotDetected)
[2020-05-12] MEDS ORDERED: Acetaminophen 325 MG TAB PO PRN (17:31)
[2020-05-12] MEDS ORDERED: Acetaminophen 650 MG Suppository PR PRN (17:31)
[2020-05-12 18:05] LABS: SARS-CoV-2 NAA Rapid Test DETECTED (NotDetected)
[2020-05-12] MEDS ORDERED: Albuterol 200 PUFF (6.7GM INHALER) INH PRN (18:15)
[2020-05-12 19:13] LABS: CRP (Inflammatory) Less than 0.50 mg/dL (= or < 0.5); Glucose 107 mg/dL (70-105)
[2020-05-12] MEDS: Famotidine/PF 20 mg/2ml Vial SLOW IVP SCH (21:59)
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
--- NOTE | 2020-05-13 00:05 | CT ---
EXAM: CTA of the chest HISTORY: Hypoxia and tachycardia COMPARISON: 01/07/2020 TECHNIQUE: Multiple contiguous axial images were obtained a CTA of the chest with contrast per pulmon kilo embolism protocol. 3-D oblique MIP reformats and direct coronal reformats were performed. FINDINGS: HEART: Normal in size without focal cardiac abnormality. PULMONARY ARTERIES: Normal in caliber without filling defects to suggest pulmonary emboli. MEDIASTINUM: No hilar or mediastinal lymphadenopathy. LUNGS: No focal infiltrates or masses. Bilateral dependent atelectasis. There is a stable bulla in th e left lung. PLEURAL SPACE: No pleural effusion or pneumothorax. CHEST WALL SOFT TISSUES: Unremarkable VISUALIZED OSSEOUS STRUCTURES: No acute abnormality. VISUALIZED SUBDIAPHRAGMATIC STRUCTURES: Fatty liver IMPRESSION: 1. No evidence of pulmonary thromboembolism 2. Fatty liver
[2020-05-13 04:56] LABS: #Basophils 0.1 thou/uL (0.0-0.2); #Eosinphils 0.1 thou/uL (0.0-0.7); #Lymphocytes 1.9 thou/uL (1.20-3.40); #Monocytes 0.6 thou/uL (0.11-0.59); #Neutrophils 4.9 thou/uL (1.40-6.50); %Basophils 0.9 % (0.0-1.0); %Eosinophils 1.6 % (0.0-10.0); %Lymphocytes 25.1 % (21.0-51.0); %Monocytes 7.6 % (0.0-10.0); %Neutrophils 64.8 % (42.0-75.0); Hemoglobin 12.8 g/dL (14.0-18.0); Mean Corpuscular HGB CONC 33.1 g/dL (32.0-36.0); Mean Corpuscular Hemoglobin 29.7 pg (27.0-31.0); Mean Corpuscular Volume 89.9 fL (78.0-98.0); Mean Platelet Volume 9.4 fL (7.4-10.4); Platelet Count 161 thou/uL (130-400); RBC Distribution Width 12.5 % (11.5-14.5); White Blood Cell (WBC) Count 7.6 thou/uL (4.8-10.8)
[2020-05-13 05:16] LABS: ALT (SGPT) 29 U/L (8-55); AST (SGOT) 20 U/L (5-34); Albumin 3.8 g/dL (3.5-5.0); Alkaline Phosphatase 70 U/L (40-110); Anion Gap 13 mmol/L (10-20); BUN (Urea Nitrogen) 15 mg/dL (8.9-20.6); Bilirubin, Total 0.2 mg/dL (0.2-1.2); Calc. Creatinine Clearance 204 mL/min (70-130); Calcium 8.4 mg/dL (7.8-10.44); Carbon Dioxide 21 mmol/L (22-29); Chloride 108 mmol/L (98-107); Globulin 2.9 g/dL (2.4-3.5); Glucose 126 mg/dL (70-105); Potassium 3.9 mmol/L (3.5-5.1); Protein, Total 6.7 g/dL (6.0-8.3); Sodium 138 mmol/L (136-145)
[2020-05-13] MEDS: Famotidine/PF 20 mg/2ml Vial SLOW IVP SCH ×2 (08:54→20:10)
[2020-05-13] MEDS: Ascorbic Acid 500 mg Chewable Tablet PO SCH (08:54)
[2020-05-13] MEDS: Zinc Sulfate 220 MG CAP PO SCH (08:54)
--- NOTE | 2020-05-13 10:00 | PDOC.HOSPP ---
- Subjective Encounter Date: 05/13/20 Encounter Time: 09:58 Subjective: Patient sitting up on edge of bed. Alert and oriented but has foggy memory why he is here. Patient is adamant that he is not COVID19 positive. Patient denies any over night events. Sister reports that he is intellectually and developmentally delayed. States her parents are trying to seek guardianship but do not have the financial means. States are concerned with him going back home because he will end up right back in the hospital. - Objective Vital Signs & Weight: Vital Signs (12 hours) Temp Pulse Resp BP BP Pulse Ox 05/13/20 04:05 98.4 F 102 H 20 117/56 L 117/56 L 95 05/12/20 23:52 98.2 F 104 H 20 134/76 134/76 98 Weight Weight 277 lb 8 oz I&O: 05/12/20 05/13/20 05/14/20 06:59 06:59 06:59 Intake Total 684 Output Total 930 Balance -246 Result Diagrams: 05/13/20 04:27 05/13/20 04:27 Hospitalist ROS - Review of Systems Constitutional: denies: fever, chills, sweats, weakness, malaise, other Eyes: denies: pain, vision change, conjunctivae inflammation, eyelid inflammation, redness, other ENT: denies: ear pain, ear discharge, nose pain, nose discharge, nose congestion, mouth pain, mouth swelling, throat pain, throat swelling, other Respiratory: denies: cough, dry, shortness of breath, hemoptysis, SOB with excertion, pleuritic pain, sputum, wheezing, other Cardiovascular: denies: chest pain, palpitations, orthopnea, paroxysmal noc. d yspnea, edema, light headedness, other Gastrointestinal: denies: nausea, vomiting, abdominal pain, diarrhea, constipation, melena, hematochezia, other Genitourinary: denies: dysuria, frequency, incontinence, hematuria, retention, other Musculoskeletal: denies: neck pain, shoulder pain, arm pain, back pain, hand pain, leg pain, foot pain, other Skin: denies: rash, lesions, kyakay, bruising, other Neurological: denies: weakness, numbness, incoordination, change in speech, co nfusion, seizures, other All other systems reviewed; all pertinent +/- noted in HPI/Subj - Medication Medications: Active Medications Generic Name Dose Route Start Last Admin Trade Name Freq PRN Reason Stop Dose Admin Ascorbic Acid 1,000 mg 05/13/20 09:00 05/13/20 08:54 Ascorbic Acid 500 Mg Chewable Tablet PO 1,000 mg DAILY BLAZE Administration Famotidine 20 mg 05/12/20 21:00 05/13/20 08:54 Famotidine/Pf 20 Mg/2ml Vial SLOW IVP 20 mg Q12HR BLAZE Administration Sodium Chloride 10 ml 05/12/20 17:31 05/13/20 08:53 Flush - Normal Saline 10 Ml Syringe IVF 10 ml Q12HR PRN Administration Saline Flush Sodium Chloride 10 ml 05/12/20 17:31 05/12/20 22:00 Flush - Normal Saline 10 Ml Syringe IVF 10 ml PRN PRN Administration Saline Flush Zinc Sulfate 220 mg 05/13/20 09:00 05/13/20 08:54 Zinc Sulfate 220 Mg Cap PO 220 mg DAILY BLAZE Administration Hospitalist Exam Vitals: Vital Signs (12 hours) Temp Pulse Resp BP BP Pulse Ox 05/13/20 04:05 98.4 F 102 H 20 117/56 L 117/56 L 95 05/12/20 23:52 98.2 F 104 H 20 134/76 134/76 98 Weight Weight 277 lb 8 oz General Appearance: NAD, awake alert Eye: PERRL, anicteric sclera ENT: normocephalic atraumatic, no oropharyngeal lesions, moist mucosa Neck: supple, symmetric, no JVD, no thyromegaly, no lymphadenopathy, no carotid bruit Heart: RRR, no murmur, no gallops, no rubs, normal peripheral pulses Respiratory: CTAB, no wheezes, no rales, no ronchi, normal chest expansion, no tachypnea, normal percussion Gastrointestinal: soft, non-tender, non-distended, normal bowel sounds, no palpable masses, no hepatomegaly, no splenomegaly, no bruit Extremities: no cyanosis, no clubbing, no edema Skin: normal turgor, no lesions, no rashes Neurological: cranial nerve grossly intact, normal sensation to touch, no weakness, no focal deficits, no new deficit Musculoskeletal: normal tone, normal strength, no muscle wasting Psychiatric: normal affect, normal behavior, A&O x 3 Hosp A/P (1) Acute metabolic encephalopathy Code(s): G93.41 - METABOLIC ENCEPHALOPATHY Status: Acute (2) Alcohol intoxication Status: Acute (3) Polysubstance abuse Code(s): F19.10 - OTHER PSYCHOACTIVE SUBSTANCE ABUSE, UNCOMPLICATED Status: Chronic (4) Developmental disability Status: Chronic (5) Obesity (BMI 30-39.9) Code(s): E66.9 - OBESITY, UNSPECIFIED Status: Chronic (6) Post traumatic seizure disorder Code(s): R56.1 - POST TRAUMATIC SEIZURES Status: Chronic - Plan old records reviewed/req, DVT proph w/SCDs Plan: Continue neuro checks Monitor O2 sats Check D-dimer given hypoxia/tachycardia - D-dimer elevated at 0.51 If elevated, CTA Chest - CTA negative If negative, plain CT chest to assess for underlying pneumonia (hx of klebsiella pneumonia) - Ordered Check lactic acid, monitor WCC and check CRP - normal CRP, negative lactic acid Day team to decide if further antibiotics indicated Albuterol inhalers PRN Isolation precautions, given COVID status Maintain NPO until more awake IV fluids Re-check glucose Will need MHMR eval once medically cleared, consult pending CTA results GI prophylaxis with Famotidine DVT Prophylaxis: Mechanical SCDs. Consider Lovenox if expect prolonged stay. CODE STATUS FULL
--- NOTE | 2020-05-13 15:53 | CT ---
EXAM: Chest CT scan without contrast: HISTORY: Follow-up pneumonia COMPARISON: CTA chest, 05/12/2020 FINDINGS: No mediastinal mass or adenopathy. Minimal vertical linear parenchymal changes in the right and left medial infrahilar regions, possibly mild chronic change or subsegmental atelectasis. Minimal bilateral pleural thickening without pleural or pericardial effusion. Several small up to 0.4 cm diameter pleural-based nodules in the right upper lobe and right middle lo be. These are circumscribed and appears solid. Given their size and appearance no additional follow-up should be needed. Marked fatty changes in the liver with fatty sparing adjacent to the region of the gallbladder. IMPRESSION: Minimal vertically oriented linear parenchymal changes in the right and left infrahilar regions, nons pecific, possibly mild subsegmental atelectasis or less likely very mild pneumonitis. Several less than 0.4 cm circumscribed pleural-based nodules in the right upper lobe and right middle lobe. Fatty changes of the liver. Code lung nodule
[2020-05-14] MEDS: Zinc Sulfate 220 MG CAP PO SCH (07:34)
[2020-05-14] MEDS: Ascorbic Acid 500 mg Chewable Tablet PO SCH (07:34)
[2020-05-14] MEDS: Famotidine/PF 20 mg/2ml Vial SLOW IVP SCH ×2 (07:34→21:16)
--- NOTE | 2020-05-14 09:44 | PDOC.HOSPP ---
- Subjective Encounter Date: 05/14/20 Encounter Time: 08:45 Subjective: This is a 39 y/o male lying in bed resting with eye closed. Easily arousable. Patient is alert to name, states he has a foggy memory why he is hospitalized. Patient is adamant that he is not COVID19 positive. Patient denies any pain or shortness of breath. Patient denies any over night events. Sister reports that he is intellectually and developmentally delayed. States her parents are trying to seek guardianship but do not have the financial means. She states they are concerned with him going back home because he will end up right back in the hospital. - Objective Vital Signs & Weight: Vital Signs (12 hours) Temp Pulse Resp BP BP BP Pulse Ox 05/14/20 07:45 98.6 F 80 12 116/60 98 05/14/20 04:55 97.7 F 80 12 128/73 97 05/14/20 04:00 128/73 Weight Weight 274 lb I&O: 05/13/20 05/14/20 05/15/20 06:59 06:59 06:59 Intake Total 684 1450 Output Total 930 1525 Balance -246 -75 Result Diagrams: 05/13/20 04:27 05/13/20 04:27 Hospitalist ROS - Review of Systems Constitutional: denies: fever, chills, sweats, weakness, malaise Eyes: denies: pain, vision change, conjunctivae inflammation, eyelid inflammation, redness ENT: denies: ear pain, ear discharge, nose pain, nose discharge, nose co ngestion, mouth pain, mouth swelling, throat pain, throat swelling Respiratory: denies: cough, dry, shortness of breath, hemoptysis, SOB with excertion, pleuritic pain, sputum, wheezing Cardiovascular: denies: chest pain, palpitations, orthopnea, paroxysmal noc. dyspnea, edema, light headedness Gastrointestinal: denies: nausea, vomiting, abdominal pain, diarrhea, constipation, melena, hematochezia Genitourinary: denies: dysuria, frequency, incontinence, hematuria, retention Musculoskeletal: denies: neck pain, shoulder pain, arm pain, back pain, hand pain, leg pain, foot pain, other Skin: denies: rash, lesions, kay[place], bruising Neurological: denies: weakness, numbness, incoordination, change in speech, confusion, seizures All other systems reviewed; all pertinent +/- noted in HPI/Subj - Medication Medications: Active Medications Generic Name Dose Route Start Last Admin Trade Name Freq PRN Reason Stop Dose Admin Ascorbic Acid 1,000 mg 05/13/20 09:00 05/14/20 07:34 Ascorbic Acid 500 Mg Chewable Tablet PO 1,000 mg DAILY BLAZE Administration Famotidine 20 mg 05/12/20 21:00 05/14/20 07:34 Famotidine/Pf 20 Mg/2ml Vial SLOW IVP 20 mg Q12HR BLAZE Administration Sodium Chloride 10 ml 05/12/20 17:31 05/14/20 07:34 Flush - Normal Saline 10 Ml Syringe IVF 10 ml Q12HR PRN Administration Saline Flush Sodium Chloride 10 ml 05/12/20 17:31 05/13/20 20:11 Flush - Normal Saline 10 Ml Syringe IVF 10 ml PRN PRN Administration Saline Flush Zinc Sulfate 220 mg 05/13/20 09:00 05/14/20 07:34 Zinc Sulfate 220 Mg Cap PO 220 mg DAILY BLAZE Administration Hospitalist Exam Vitals: Vital Signs (12 hours) Temp Pulse Resp BP BP BP Pulse Ox 05/14/20 07:45 98.6 F 80 12 116/60 98 05/14/20 04:55 97.7 F 80 12 128/73 97 05/14/20 04:00 128/73 Weight Weight 274 lb General Appearance: NAD Eye: PERRL, anicteric sclera ENT: normocephalic atraumatic, no oropharyngeal lesions, moist mucosa Neck: supple, symmetric, no JVD, no thyromegaly, no lymphadenopathy, no carotid bruit Heart: RRR, no murmur, no gallops, no rubs, normal peripheral pulses Respiratory: CTAB, no wheezes, no rales, no ronchi, normal chest expansion, no tachypnea, normal percussion Gastrointestinal: soft, non-tender, non-distended, normal bowel sounds, no palpable masses, no hepatomegaly, no splenomegaly, no bruit Extremities: no cyanosis, no clubbing, no edema Skin: normal turgor, no lesions, no rashes Neurological: cranial nerve grossly intact, normal sensation to touch, no weakness, no focal deficits, no new deficit Musculoskeletal: normal tone, normal strength, no muscle wasting Psychiatric: normal affect, normal behavior, A&O x 3 Hosp A/P (1) Acute metabolic encephalopathy Code(s): G93.41 - METABOLIC ENCEPHALOPATHY Status: Acute (2) Alcohol intoxication Status: Acute (3) Polysubstance abuse Code(s): F19.10 - OTHER PSYCHOACTIVE SUBSTANCE ABUSE, UNCOMPLICATED Status: Chronic (4) Developmental disability Status: Chronic (5) Obesity (BMI 30-39.9) Code(s): E66.9 - OBESITY, UNSPECIFIED Status: Chronic (6) Post traumatic seizure disorder Code(s): R56.1 - POST TRAUMATIC SEIZURES Status: Chronic - Plan This is a 39 y/o male lying in bed resting with eye closed. Easily arousable. Patient is alert to name, states he has a foggy memory why he is hospitalized. Patient is adamant that he is not COVID19 positive. Patient denies any pain or shortness of breath. Patient denies any over night events. Sister reports that he is intellectually and developmentally delayed. States her parents are trying to seek guardianship but do not have the financial means. She states they are co ncerned with him going back home because he will end up right back in the hospital. Plan: Continue neuro checks Monitor O2 sats Check D-dimer given hypoxia/tachycardia - D-dimer elevated at 0.51 If elevated, CTA Chest - CTA negative If negative, plain CT chest to assess for underlying pneumonia (hx of klebsiella pneumonia). Mild pneumonitis identified on Chest CT, Levaquin ordered. Check lactic acid, monitor WCC and check CRP - normal CRP, negative lactic acid Albuterol inhalers PRN Isolation precautions, given COVID status Maintain NPO until more awake IV fluids Re-check glucose Will need [facility] eval once medically cleared, consult placed. GI prophylaxis with Famotidine DVT Prophylaxis: Mechanical SCDs. Consider Lovenox if expect prolonged stay. CODE STATUS FULL
[2020-05-14] MEDS ORDERED: Doxycycline 100 MG CAP PO SCH (10:18)
[2020-05-15] MEDS: Ascorbic Acid 500 mg Chewable Tablet PO SCH (10:49)
[2020-05-15] MEDS: Zinc Sulfate 220 MG CAP PO SCH (10:49)
[2020-05-15] MEDS: Famotidine/PF 20 mg/2ml Vial SLOW IVP SCH ×2 (10:49→20:53)
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
[2020-05-16] MEDS: Cyanocobalamin (Vitamin B-12) 1,000 MCG TAB PO SCH (10:31)
[2020-05-16] MEDS: Ascorbic Acid 500 mg Chewable Tablet PO SCH (10:31)
[2020-05-16] MEDS: Thiamine 100 MG TAB PO SCH (10:32)
[2020-05-16] MEDS: Zinc Sulfate 220 MG CAP PO SCH (10:32)
[2020-05-16] MEDS: Famotidine/PF 20 mg/2ml Vial SLOW IVP SCH ×2 (10:32→20:02)
--- NOTE | 2020-05-16 15:35 | PDOC.HOSPP ---
- Subjective Encounter Date: 05/16/20 Encounter Time: 14:00 Subjective: The patient is doing well, no cough, no shortness of breath. HE denies suicidal ideation or homicidal ideation. He has a sitter in the room - Objective Vital Signs & Weight: Vital Signs (12 hours) Temp Pulse Resp BP BP Pulse Ox 05/16/20 11:30 98 F 80 20 152/103 H 94 L 05/16/20 04:00 111/67 05/16/20 03:35 97.9 F 72 16 111/67 100 Weight Weight 274 lb I&O: 05/15/20 05/16/20 05/17/20 06:59 06:59 06:59 Intake Total 1000 1320 Output Total 800 200 Balance 200 1120 Result Diagrams: 05/13/20 04:27 05/13/20 04:27 Hospitalist ROS - Review of Systems Constitutional: denies: fever, chills - Medication Medications: Active Medications Generic Name Dose Route Start Last Admin Trade Name Freq PRN Reason Stop Dose Admin Ascorbic Acid 1,000 mg 05/13/20 09:00 05/16/20 10:31 Ascorbic Acid 500 Mg Chewable Tablet PO 1,000 mg DAILY BLAZE Administration Cyanocobalamin 1,000 mcg 05/16/20 09:00 05/16/20 10:31 Cyanocobalamin (Vitamin B-12) 1,000 Mcg Tab PO 1,000 mcg DAILY BLAZE Administration Famotidine 20 mg 05/12/20 21:00 05/16/20 10:32 Famotidine/Pf 20 Mg/2ml Vial SLOW IVP 20 mg Q12HR BLAZE Administration Sodium Chloride 10 ml 05/12/20 17:31 05/15/20 20:53 Flush - Normal Saline 10 Ml Syringe IVF 10 ml Q12HR PRN Administration Saline Flush Sodium Chloride 10 ml 05/12/20 17:31 05/15/20 20:53 Flush - Normal Saline 10 Ml Syringe IVF 10 ml PRN PRN Administration Saline Flush Thiamine HCl 100 mg 05/16/20 09:00 05/16/20 10:32 Thiamine 100 Mg Tab PO 100 mg DAILY BLAZE Administration Zinc Sulfate 220 mg 05/13/20 09:00 05/16/20 10:32 Zinc Sulfate 220 Mg Cap PO 220 mg DAILY BLAZE Administration Hospitalist Exam Vitals: Vital Signs (12 hours) Temp Pulse Resp BP BP Pulse Ox 05/16/20 11:30 98 F 80 20 152/103 H 94 L 05/16/20 04:00 111/67 05/16/20 03:35 97.9 F 72 16 111 100 Weight Weight 274 lb General Appearance: NAD, awake alert Eye: PERRL, anicteric sclera ENT: normocephalic atraumatic, no oropharyngeal lesions Neck: no JVD Heart: RRR, no murmur, no gallops, no rubs Respiratory: CTAB, no wheezes, no rales, no ronchi Gastrointestinal: soft, non-tender, non-distended, normal bowel sounds Extremities: no cyanosis, no clubbing, no edema Skin: normal turgor, no lesions, no rashes Neurological: cranial nerve grossly intact, normal sensation to touch Musculoskeletal: normal tone, normal strength, no muscle wasting Hosp A/P - Plan CT chest: fatty liver. 0.4 cm circumscribed pleural based nodules in RUL and RML. Minimal vertically oriented linear parenchymal changes in the right and left infrahilar regions with mild subsegmental atelectasis. CT brain: no evidence CT cervical : no abnormalities CTA chest: No PE This is a 39 year old male with past medical history of developmental delay, seizures, who presented to the ER after he was found down after recent ingestion of K2 and PCP. He also tested positive for COVID S/p fall #Alcohol intoxication #K2 abuse - CT head negative, CT cervical spine negative. CTA chest negative. Alcohol level 37. Currently oriented ties three #COVID + - asymptomatic currently and is on room air. Will monitor, CTA chest showed no PE Suicidal ideation - patient reported suicidal ideation yesterday, but denies today. [facility] consult when off isolation Fatty liver - needs outpatient weight loss Anemia - Hb 12.8, stable Dispo: family wanted placement on Friday, however from last admission, he was declined from all SNF and psychiatric hospitals and group homes. Likely will n eed to go home on discharge
[2020-05-17] MEDS: Thiamine 100 MG TAB PO SCH (07:41)
[2020-05-17] MEDS: Ascorbic Acid 500 mg Chewable Tablet PO SCH (07:41)
[2020-05-17] MEDS: Famotidine/PF 20 mg/2ml Vial SLOW IVP SCH ×2 (07:41→20:25)
[2020-05-17] MEDS: Cyanocobalamin (Vitamin B-12) 1,000 MCG TAB PO SCH (07:42)
[2020-05-17] MEDS: Zinc Sulfate 220 MG CAP PO SCH (07:42)
--- NOTE | 2020-05-17 14:09 | PDOC.HOSPP ---
- Subjective Encounter Date: 05/17/20 Encounter Time: 09:30 Subjective: F/u: COVID The patient is sitting up in bed, about to take a shower. He has no cough or shortness of breath. He denies suicidal ideation . He is pending placement at psychiatric hospital - Objective Vital Signs & Weight: Vital Signs (12 hours) Temp Pulse Resp BP BP Pulse Ox 05/17/20 11:30 98 F 88 20 134/85 95 05/17/20 07:50 98 F 77 18 109/76 97 05/17/20 04:00 140/85 05/17/20 03:36 98.0 F 82 16 140/85 97 Weight Weight 274 lb I&O: 05/16/20 05/17/20 05/18/20 06:59 06:59 06:59 Intake Total 1320 480 Output Total 200 325 Balance 1120 155 Result Diagrams: 05/13/20 04:27 05/13/20 04:27 Hospitalist ROS - Review of Systems Constitutional: denies: fever, chills - Medication Medications: Active Medications Generic Name Dose Route Start Last Admin Trade Name Freq PRN Reason Stop Dose Admin Ascorbic Acid 1,000 mg 05/13/20 09:00 05/17/20 07:41 Ascorbic Acid 500 Mg Chewable Tablet PO 1,000 mg DAILY BLAZE Administration Cyanocobalamin 1,000 mcg 05/16/20 09:00 05/17/20 07:42 Cyanocobalamin (Vitamin B-12) 1,000 Mcg Tab PO 1,000 mcg DAILY BLAZE Administration Famotidine 20 mg 05/12/20 21:00 05/17/20 07:41 Famotidine/Pf 20 Mg/2ml Vial SLOW IVP 20 mg Q12HR BLAZE Administration Sodium Chloride 10 ml 05/12/20 17:31 05/15/20 20:53 Flush - Normal Saline 10 Ml Syringe IVF 10 ml Q12HR PRN Administration Saline Flush Sodium Chloride 10 ml 05/12/20 17:31 05/15/20 20:53 Flush - Normal Saline 10 Ml Syringe IVF 10 ml PRN PRN Administration Saline Flush Thiamine HCl 100 mg 05/16/20 09:00 05/17/20 07:41 Thiamine 100 Mg Tab PO 100 mg DAILY BLAZE Administration Zinc Sulfate 220 mg 05/13/20 09:00 05/17/20 07:42 Zinc Sulfate 220 Mg Cap PO 220 mg DAILY BLAZE Administration Hospitalist Exam Vitals: Vital Signs (12 hours) Temp Pulse Resp BP BP Pulse Ox 05/17/20 11:30 98 F 88 20 134/85 95 05/17/20 07:50 98 F 77 18 109/76 97 05/17/20 04:00 140/85 05/17/20 03:36 98.0 F 82 16 140/85 97 Weight Weight 274 lb General Appearance: NAD, awake alert Eye: PERRL, anicteric sclera ENT: normocephalic atraumatic, no oropharyngeal lesions Neck: no JVD Heart: RRR, no murmur, no gallops, no rubs Respiratory: CTAB, no wheezes, no rales, no ronchi, no tachypnea Gastrointestinal: soft, non-tender, non-distended, normal bowel sounds Extremities: no cyanosis, no clubbing, no edema Skin: normal turgor, no lesions, no rashes Hosp A/P - Plan CT chest: fatty liver. 0.4 cm circumscribed pleural based nodules in RUL and RML. Minimal vertically oriented linear parenchymal changes in the right and left infrahilar regions with mild subsegmental atelectasis. CT brain: no evidence CT cervical : no abnormalities CTA chest: No PE This is a 39 year old male with past medical history of developmental delay, seizures, who presented to the ER after he was found down after recent ingestion of K2 and PCP. He also tested positive for COVID S/p fall #Alcohol intoxication #K2 abuse - CT head negative, CT cervical spine negative. CTA chest negative. Alcohol level 37. Currently oriented times three - PT is evaluating patient Suicidal ideation - patient had reported suicidal ideation two days ago . [facility] consulted, pending placement at [facility] currently #COVID + - asymptomatic currently and is on room air. Will monitor, CTA chest showed no PE Fatty liver - needs outpatient weight loss Anemia - Hb 12.8, stable Dispo: pending placement at [facility]
[2020-05-18 05:35] LABS: Hemoglobin 14.8 g/dL (14.0-18.0); Mean Corpuscular HGB CONC 33.5 g/dL (32.0-36.0); Mean Corpuscular Hemoglobin 29.7 pg (27.0-31.0); Mean Corpuscular Volume 88.8 fL (78.0-98.0); Mean Platelet Volume 9.7 fL (7.4-10.4); Platelet Count 159 thou/uL (130-400); RBC Distribution Width 12.4 % (11.5-14.5); Red Blood Cell (RBC) Count 4.99 mill/uL (4.70-6.10); White Blood Cell (WBC) Count 6.6 thou/uL (4.8-10.8)
[2020-05-18 06:02] LABS: Anion Gap 14 mmol/L (10-20); BUN (Urea Nitrogen) 11 mg/dL (8.9-20.6); Calc. Creatinine Clearance 158 mL/min (70-130); Calcium 8.7 mg/dL (7.8-10.44); Carbon Dioxide 25 mmol/L (22-29); Chloride 101 mmol/L (98-107); Glucose 151 mg/dL (70-105); Potassium 4.1 mmol/L (3.5-5.1); Sodium 136 mmol/L (136-145)
[2020-05-18] MEDS: Zinc Sulfate 220 MG CAP PO SCH (08:08)
[2020-05-18] MEDS: Famotidine/PF 20 mg/2ml Vial SLOW IVP SCH (08:08)
[2020-05-18] MEDS: Thiamine 100 MG TAB PO SCH (08:08)
[2020-05-18] MEDS: Cyanocobalamin (Vitamin B-12) 1,000 MCG TAB PO SCH (08:08)
[2020-05-18] MEDS: Ascorbic Acid 500 mg Chewable Tablet PO SCH (08:08)
[2020-05-18] MEDS: Famotidine 20 MG TAB PO SCH (22:42)
--- NOTE | 2020-05-19 09:27 | PDOC.HOSPP ---
- Subjective Encounter Date: 05/18/20 Encounter Time: 11:00 Subjective: pt up in bed no complains - Objective Vital Signs & Weight: Vital Signs (12 hours) Temp Pulse Resp BP BP BP Pulse Ox 05/19/20 07:18 98 F 78 20 129/72 96 05/19/20 04:00 142/90 H 05/19/20 03:24 98.8 F 96 24 H 142/90 H 95 05/18/20 23:43 98.6 F 95 13 144/74 H 144/74 H 95 Weight Weight 274 lb I&O: 05/18/20 05/19/20 05/20/20 06:59 06:59 06:59 Intake Total 1200 2260 Balance 1200 2260 Result Diagrams: 05/18/20 04:56 05/18/20 04:56 Hospitalist ROS - Review of Systems Cardiovascular: denies: chest pain, palpitations, orthopnea, paroxysmal noc. dyspnea, edema, light headedness, other Gastrointestinal: denies: nausea, vomiting, abdominal pain, diarrhea, constipation, melena, hematochezia, other Genitourinary: denies: dysuria, frequency, incontinence, hematuria, retention, other - Medication Medications: Active Medications Generic Name Dose Route Start Last Admin Trade Name Freq PRN Reason Stop Dose Admin Ascorbic Acid 1,000 mg 05/13/20 09:00 05/18/20 08:08 Ascorbic Acid 500 Mg Chewable Tablet PO 1,000 mg DAILY BLAZE Administration Cyanocobalamin 1,000 mcg 05/16/20 09:00 05/18/20 08:08 Cyanocobalamin (Vitamin B-12) 1,000 Mcg Tab PO 1,000 mcg DAILY BLAZE Administration Famotidine 20 mg 05/18/20 21:00 05/18/20 22:42 Famotidine 20 Mg Tab PO 20 mg BID BLAZE Administration Sodium Chloride 10 ml 05/12/20 17:31 05/15/20 20:53 Flush - Normal Saline 10 Ml Syringe IVF 10 ml Q12HR PRN Administration Saline Flush Sodium Chloride 10 ml 05/12/20 17:31 05/15/20 20:53 Flush - Normal Saline 10 Ml Syringe IVF 10 ml PRN PRN Administration Saline Flush Thiamine HCl 100 mg 05/16/20 09:00 05/18/20 08:08 Thiamine 100 Mg Tab PO 100 mg DAILY BLAZE Administration Zinc Sulfate 220 mg 05/13/20 09:00 05/18/20 08:08 Zinc Sulfate 220 Mg Cap PO 220 mg DAILY BLAZE Administration Hospitalist Exam Vitals: Vital Signs (12 hours) Temp Pulse Resp BP BP BP Pulse Ox 05/19/20 07:18 98 F 78 20 129/72 96 05/19/20 04:00 142/90 H 05/19/20 03:24 98.8 F 96 24 H 142/90 H 95 05/18/20 23:43 98.6 F 95 13 144/74 H 144/74 H 95 Weight Weight 274 lb Neck: supple Heart: RRR, no gallops Respiratory: no wheezes, no rales, no ronchi Gastrointestinal: soft, non-tender, non-distended Extremities: 1+ LE edema Hosp A/P (1) COVID-19 Code(s): U07.1 - COVID-19 Status: Acute (2) Polysubstance abuse Code(s): F19.10 - OTHER PSYCHOACTIVE SUBSTANCE ABUSE, UNCOMPLICATED Status: Chronic (3) Acute metabolic encephalopathy Code(s): G93.41 - METABOLIC ENCEPHALOPATHY Status: Acute (4) Alcohol abuse Code(s): F10.10 - ALCOHOL ABUSE, UNCOMPLICATED Status: Chronic (5) Obesity (BMI 30-39.9) Code(s): E66.9 - OBESITY, UNSPECIFIED Status: Chronic - Plan pt medically stable. pt's is on room air. pt needs to be sent to inpatient psychiatry for suicidal ideation.
[2020-05-19] MEDS: Thiamine 100 MG TAB PO SCH (11:02)
[2020-05-19] MEDS: Ascorbic Acid 500 mg Chewable Tablet PO SCH (11:02)
[2020-05-19] MEDS: Zinc Sulfate 220 MG CAP PO SCH (11:02)
[2020-05-19] MEDS: Cyanocobalamin (Vitamin B-12) 1,000 MCG TAB PO SCH (11:03)
[2020-05-19] MEDS: Famotidine 20 MG TAB PO SCH ×2 (11:03→19:38)
--- NOTE | 2020-05-19 17:58 | PDOC.HOSPP ---
- Subjective Encounter Date: 05/19/20 Encounter Time: 11:15 Subjective: pt up in bed no complains - Objective Vital Signs & Weight: Vital Signs (12 hours) Temp Pulse Resp BP Pulse Ox 05/19/20 15:00 98.6 F 85 20 157/82 H 97 05/19/20 11:03 97 05/19/20 10:50 98.6 F 84 18 133/80 97 05/19/20 07:18 98 F 78 20 129/72 96 Weight Weight 274 lb I&O: 05/18/20 05/19/20 05/20/20 06:59 06:59 06:59 Intake Total 1200 2260 Balance 1200 2260 Result Diagrams: 05/18/20 04:56 05/18/20 04:56 Hospitalist ROS - Review of Systems Respiratory: denies: cough, dry, shortness of breath, hemoptysis, SOB with excertion, pleuritic pain, sputum, wheezing, other Cardiovascular: denies: chest pain, palpitations, orthopnea, paroxysmal noc. dyspnea, edema, light headedness, other Gastrointestinal: denies: nausea, vomiting, abdominal pain, diarrhea, constipation, melena, hematochezia, other - Medication Medications: Active Medications Generic Name Dose Route Start Last Admin Trade Name Freq PRN Reason Stop Dose Admin Ascorbic Acid 1,000 mg 05/13/20 09:00 05/19/20 11:02 Ascorbic Acid 500 Mg Chewable Tablet PO 1,000 mg DAILY BLAZE Administration Cyanocobalamin 1,000 mcg 05/16/20 09:00 05/19/20 11:03 Cyanocobalamin (Vitamin B-12) 1,000 Mcg Tab PO 1,000 mcg DAILY BLAZE Administration Famotidine 20 mg 05/18/20 21:00 05/19/20 11:03 Famotidine 20 Mg Tab PO 20 mg BID BLAZE Administration Sodium Chloride 10 ml 05/12/20 17:31 05/15/20 20:53 Flush - Normal Saline 10 Ml Syringe IVF 10 ml Q12HR PRN Administration Saline Flush Sodium Chloride 10 ml 05/12/20 17:31 05/15/20 20:53 Flush - Normal Saline 10 Ml Syringe IVF 10 ml PRN PRN Administration Saline Flush Thiamine HCl 100 mg 05/16/20 09:00 05/19/20 11:02 Thiamine 100 Mg Tab PO 100 mg DAILY BLAZE Administration Zinc Sulfate 220 mg 05/13/20 09:00 05/19/20 11:02 Zinc Sulfate 220 Mg Cap PO 220 mg DAILY BLAZE Administration Hospitalist Exam Vitals: Vital Signs (12 hours) Temp Pulse Resp BP Pulse Ox 05/19/20 15:00 98.6 F 85 20 157/82 H 97 05/19/20 11:03 97 05/19/20 10:50 98.6 F 84 18 133/80 97 05/19/20 07:18 98 F 78 20 129/72 96 Weight Weight 274 lb Neck: supple Heart: RRR, no murmur Respiratory: no wheezes, no rales Gastrointestinal: soft, non-tender, normal bowel sounds Hosp A/P (1) COVID-19 Code(s): U07.1 - COVID-19 Status: Acute (2) Polysubstance abuse Code(s): F19.10 - OTHER PSYCHOACTIVE SUBSTANCE ABUSE, UNCOMPLICATED Status: Chronic (3) Acute metabolic encephalopathy Code(s): G93.41 - METABOLIC ENCEPHALOPATHY Status: Acute (4) Alcohol abuse Code(s): F10.10 - ALCOHOL ABUSE, UNCOMPLICATED Status: Chronic (5) Obesity (BMI 30-39.9) Code(s): E66.9 - OBESITY, UNSPECIFIED Status: Chronic - Plan pt medically stable. pt's is on room air. pt needs to be sent to inpatient psychiatry for suicidal ideation. 2/ patient medically stable nursing staff notified patient is stable to be discharged to mental health facility.
[2020-05-20] MEDS: Ascorbic Acid 500 mg Chewable Tablet PO SCH (09:24)
[2020-05-20] MEDS: Zinc Sulfate 220 MG CAP PO SCH (09:24)
[2020-05-20] MEDS: Famotidine 20 MG TAB PO SCH ×2 (09:24→19:39)
[2020-05-20] MEDS: Cyanocobalamin (Vitamin B-12) 1,000 MCG TAB PO SCH (09:24)
[2020-05-20] MEDS: Thiamine 100 MG TAB PO SCH (09:26)
--- NOTE | 2020-05-20 14:56 | PDOC.HOSPP ---
- Subjective Encounter Date: 05/20/20 Encounter Time: 11:30 Subjective: pt up in bed no complains - Objective Vital Signs & Weight: Vital Signs (12 hours) Temp Pulse Resp BP BP Pulse Ox 05/20/20 12:15 98.5 F 70 16 125/83 98 05/20/20 09:24 98 05/20/20 08:10 98.2 F 70 16 115/80 98 05/20/20 04:00 115/61 05/20/20 03:25 98.0 F 78 17 115/61 95 Weight Weight 261 lb 6.4 oz I&O: 05/19/20 05/20/20 05/21/20 06:59 06:59 06:59 Intake Total 2260 700 Balance 2260 700 Result Diagrams: 05/18/20 04:56 05/18/20 04:56 Hospitalist ROS - Review of Systems Cardiovascular: denies: chest pain, palpitations, orthopnea, paroxysmal noc. dyspnea, edema, light headedness, other Gastrointestinal: denies: nausea, vomiting, abdominal pain, diarrhea, constipation, melena, hematochezia, other Genitourinary: denies: dysuria, frequency, incontinence, hematuria, retention, other - Medication Medications: Active Medications Generic Name Dose Route Start Last Admin Trade Name Freq PRN Reason Stop Dose Admin Ascorbic Acid 1,000 mg 05/13/20 09:00 05/20/20 09:24 Ascorbic Acid 500 Mg Chewable Tablet PO 1,000 mg DAILY BLAZE Administration Cyanocobalamin 1,000 mcg 05/16/20 09:00 05/20/20 09:24 Cyanocobalamin (Vitamin B-12) 1,000 Mcg Tab PO 1,000 mcg DAILY BLAZE Administration Famotidine 20 mg 05/18/20 21:00 05/20/20 09:24 Famotidine 20 Mg Tab PO 20 mg BID BLAZE Administration Sodium Chloride 10 ml 05/12/20 17:31 05/15/20 20:53 Flush - Normal Saline 10 Ml Syringe IVF 10 ml Q12HR PRN Administration Saline Flush Sodium Chloride 10 ml 05/12/20 17:31 05/15/20 20:53 Flush - Normal Saline 10 Ml Syringe IVF 10 ml PRN PRN Administration Saline Flush Thiamine HCl 100 mg 05/16/20 09:00 05/20/20 09:26 Thiamine 100 Mg Tab PO 100 mg DAILY BLAZE Administration Zinc Sulfate 220 mg 05/13/20 09:00 05/20/20 09:24 Zinc Sulfate 220 Mg Cap PO 220 mg DAILY BLAZE Administration Hospitalist Exam Vitals: Vital Signs (12 hours) Temp Pulse Resp BP BP Pulse Ox 05/20/20 12:15 98.5 F 70 16 125/83 98 05/20/20 09:24 98 05/20/20 08:10 98.2 F 70 16 115/80 98 05/20/20 04:00 115/61 05/20/20 03:25 98.0 F 78 17 115/61 95 Weight Weight 261 lb 6.4 oz Neck: supple Heart: no murmur, no rubs Respiratory: no wheezes, no rales Gastrointestinal: soft, non-tender, normal bowel sounds Extremities: 1+ LE edema Hosp A/P (1) COVID-19 Code(s): U07.1 - COVID-19 Status: Acute (2) Polysubstance abuse Code(s): F19.10 - OTHER PSYCHOACTIVE SUBSTANCE ABUSE, UNCOMPLICATED Status: Chronic (3) Acute metabolic encephalopathy Code(s): G93.41 - METABOLIC ENCEPHALOPATHY Status: Acute (4) Alcohol abuse Code(s): F10.10 - ALCOHOL ABUSE, UNCOMPLICATED Status: Chronic (5) Obesity (BMI 30-39.9) Code(s): E66.9 - OBESITY, UNSPECIFIED Status: Chronic - Plan pt medically stable. pt's is on room air. pt needs to be sent to inpatient psychiatry for suicidal ideation. 2/5 patient medically stable nursing staff notified patient is stable to be discharged to mental health facility. 2/6 pt medically stable ok for discharge to inpatient psychiatry facility.
[2020-05-21] MEDS: Famotidine 20 MG TAB PO SCH ×2 (07:54→19:26)
[2020-05-21] MEDS: Cyanocobalamin (Vitamin B-12) 1,000 MCG TAB PO SCH (07:55)
[2020-05-21] MEDS: Ascorbic Acid 500 mg Chewable Tablet PO SCH (07:55)
[2020-05-21] MEDS: Thiamine 100 MG TAB PO SCH (07:55)
[2020-05-21] MEDS: Zinc Sulfate 220 MG CAP PO SCH (07:55)
--- NOTE | 2020-05-21 12:07 | PDOC.HOSPP ---
- Subjective Encounter Date: 05/21/20 Encounter Time: 10:30 Subjective: pt up in bed no complains. - Objective Vital Signs & Weight: Vital Signs (12 hours) Temp Pulse Resp BP BP Pulse Ox 05/21/20 08:00 97.3 F L 73 18 130/80 97 05/21/20 04:21 96.2 F L 76 20 141/57 H 141/57 H 97 Weight Weight 248 lb 7 oz I&O: 05/20/20 05/21/20 05/22/20 06:59 06:59 06:59 Intake Total 700 1200 Balance 700 1200 Result Diagrams: 05/18/20 04:56 05/18/20 04:56 Hospitalist ROS - Review of Systems Cardiovascular: denies: chest pain, palpitations, orthopnea, paroxysmal noc. dyspnea, edema, light headedness, other Gastrointestinal: denies: nausea, vomiting, abdominal pain, diarrhea, constipation, melena, hematochezia, other Genitourinary: denies: dysuria, frequency, incontinence, hematuria, retention, other - Medication Medications: Active Medications Generic Name Dose Route Start Last Admin Trade Name Freq PRN Reason Stop Dose Admin Ascorbic Acid 1,000 mg 05/13/20 09:00 05/21/20 07:55 Ascorbic Acid 500 Mg Chewable Tablet PO 1,000 mg DAILY BLAZE Administration Cyanocobalamin 1,000 mcg 05/16/20 09:00 05/21/20 07:55 Cyanocobalamin (Vitamin B-12) 1,000 Mcg Tab PO 1,000 mcg DAILY BLAZE Administration Famotidine 20 mg 05/18/20 21:00 05/21/20 07:54 Famotidine 20 Mg Tab PO 20 mg BID BLAZE Administration Sodium Chloride 10 ml 05/12/20 17:31 05/15/20 20:53 Flush - Normal Saline 10 Ml Syringe IVF 10 ml Q12HR PRN Administration Saline Flush Sodium Chloride 10 ml 05/12/20 17:31 05/15/20 20:53 Flush - Normal Saline 10 Ml Syringe IVF 10 ml PRN PRN Administration Saline Flush Thiamine HCl 100 mg 05/16/20 09:00 05/21/20 07:55 Thiamine 100 Mg Tab PO 100 mg DAILY BLAZE Administration Zinc Sulfate 220 mg 05/13/20 09:00 05/21/20 07:55 Zinc Sulfate 220 Mg Cap PO 220 mg DAILY BLAZE Administration Hospitalist Exam Vitals: Vital Signs (12 hours) Temp Pulse Resp BP BP Pulse Ox 05/21/20 08:00 97.3 F L 73 18 130/80 97 05/21/20 04:21 96.2 F L 76 20 141/57 H 141/57 H 97 Weight Weight 248 lb 7 oz Heart: no murmur Respiratory: no wheezes, no rales Gastrointestinal: non-tender, non-distended Extremities: 1+ LE edema Skin: normal turgor Hosp A/P (1) COVID-19 Code(s): U07.1 - COVID-19 Status: Acute (2) Polysubstance abuse Code(s): F19.10 - OTHER PSYCHOACTIVE SUBSTANCE ABUSE, UNCOMPLICATED Status: Chronic (3) Acute metabolic encephalopathy Code(s): G93.41 - METABOLIC ENCEPHALOPATHY Status: Acute (4) Alcohol abuse Code(s): F10.10 - ALCOHOL ABUSE, UNCOMPLICATED Status: Chronic (5) Obesity (BMI 30-39.9) Code(s): E66.9 - OBESITY, UNSPECIFIED Status: Chronic - Plan pt medically stable. pt's is on room air. pt needs to be sent to inpatient psychiatry for suicidal ideation. 2/5 patient medically stable nursing staff notified patient is stable to be discharged to mental health facility. 2/6 pt medically stable ok for discharge to inpatient psychiatry facility. 2/7 pt medically stable and ok for discharge to inpatient psy facility.
[2020-05-22] MEDS: Zinc Sulfate 220 MG CAP PO SCH (08:19)
[2020-05-22] MEDS: Ascorbic Acid 500 mg Chewable Tablet PO SCH (08:19)
[2020-05-22] MEDS: Famotidine 20 MG TAB PO SCH ×2 (08:19→19:42)
[2020-05-22] MEDS: Thiamine 100 MG TAB PO SCH (08:19)
[2020-05-22] MEDS: Cyanocobalamin (Vitamin B-12) 1,000 MCG TAB PO SCH (08:19)
--- NOTE | 2020-05-22 17:21 | PDOC.HOSPP ---
- Subjective Encounter Date: 05/22/20 Encounter Time: 07:30 Subjective: Patient seen for follow-up regarding COVID-19 infection. Denies any complaints. - Objective Vital Signs & Weight: Vital Signs (12 hours) Temp Pulse Resp BP Pulse Ox 05/22/20 08:00 98.4 F 94 18 138/96 H 96 Weight Weight 248 lb 7 oz I&O: 05/21/20 05/22/20 05/23/20 06:59 06:59 06:59 Intake Total 1200 1440 480 Balance 1200 1440 480 Result Diagrams: 05/18/20 04:56 05/18/20 04:56 Additional Labs: I reviewed patient's labs and MAR Hospitalist ROS - Review of Systems Cardiovascular: denies: chest pain, palpitations, orthopnea, paroxysmal noc. dyspnea, edema, light headedness Gastrointestinal: denies: nausea, vomiting, abdominal pain, diarrhea, constipation, melena, hematochezia - Medication Medications: Active Medications Generic Name Dose Route Start Last Admin Trade Name Freq PRN Reason Stop Dose Admin Ascorbic Acid 1,000 mg 05/13/20 09:00 05/22/20 08:19 Ascorbic Acid 500 Mg Chewable Tablet PO 1,000 mg DAILY BLAZE Administration Cyanocobalamin 1,000 mcg 05/16/20 09:00 05/22/20 08:19 Cyanocobalamin (Vitamin B-12) 1,000 Mcg Tab PO 1,000 mcg DAILY BLAZE Administration Famotidine 20 mg 05/18/20 21:00 05/22/20 08:19 Famotidine 20 Mg Tab PO 20 mg BID BLAZE Administration Sodium Chloride 10 ml 05/12/20 17:31 05/15/20 20:53 Flush - Normal Saline 10 Ml Syringe IVF 10 ml Q12HR PRN Administration Saline Flush Sodium Chloride 10 ml 05/12/20 17:31 05/15/20 20:53 Flush - Normal Saline 10 Ml Syringe IVF 10 ml PRN PRN Administration Saline Flush Thiamine HCl 100 mg 05/16/20 09:00 05/22/20 08:19 Thiamine 100 Mg Tab PO 100 mg DAILY BLAZE Administration Zinc Sulfate 220 mg 05/13/20 09:00 05/22/20 08:19 Zinc Sulfate 220 Mg Cap PO 220 mg DAILY BLAZE Administration Hospitalist Exam Vitals: Vital Signs (12 hours) Temp Pulse Resp BP Pulse Ox 05/22/20 08:00 98.4 F 94 18 138/96 H 96 Weight Weight 248 lb 7 oz General Appearance: awake alert Eye: anicteric sclera ENT: normocephalic atraumatic Neck: supple Heart: RRR Respiratory: CTAB Gastrointestinal: soft, non-tender Skin: no rashes Psychiatric: normal affect Hosp A/P - Plan (1) COVID-19 Code(s): U07.1 - COVID-19 Status: Acute (2) Polysubstance abuse Code(s): F19.10 - OTHER PSYCHOACTIVE SUBSTANCE ABUSE, UNCOMPLICATED Status: Chronic (3) Acute metabolic encephalopathy Code(s): G93.41 - METABOLIC ENCEPHALOPATHY Status: Acute (4) Alcohol abuse Code(s): F10.10 - ALCOHOL ABUSE, UNCOMPLICATED Status: Chronic (5) Obesity (BMI 30-39.9) Code(s): E66.9 - OBESITY, UNSPECIFIED Status: Chronic - Plan pt medically stable. pt's is on room air. pt needs to be sent to inpatient psychiatry for suicidal ideation. 2/5 patient medically stable nursing staff notified patient is stable to be discharged to mental health facility. 2/6 pt medically stable ok for discharge to inpatient psychiatry facility. 2/7 pt medically stable and ok for discharge to inpatient psy facility. 2/8 patient awaiting availability of bed at inpatient psychiatric facility. Nil acute medically.
[2020-05-23] MEDS: Famotidine 20 MG TAB PO SCH ×2 (08:06→20:15)
[2020-05-23] MEDS: Thiamine 100 MG TAB PO SCH (08:06)
[2020-05-23] MEDS: Zinc Sulfate 220 MG CAP PO SCH (08:06)
[2020-05-23] MEDS: Ascorbic Acid 500 mg Chewable Tablet PO SCH (08:06)
[2020-05-23] MEDS: Cyanocobalamin (Vitamin B-12) 1,000 MCG TAB PO SCH (08:07)
[2020-05-23 13:04] VITALS: BMI 35.6
--- NOTE | 2020-05-23 18:30 | PDOC.HOSPP ---
- Subjective Encounter Date: 05/23/20 Encounter Time: 14:00 Subjective: Patient seen for follow-up of COVID-19 infection. Denies any complaints. - Objective Vital Signs & Weight: Vital Signs (12 hours) Temp Pulse Resp BP Pulse Ox 05/23/20 08:00 97 05/23/20 07:43 98.3 F 67 16 138/99 H 97 Weight Admit Weight 248 lb 7 oz Weight 248 lb 7 oz I&O: 05/22/20 05/23/20 05/24/20 06:59 06:59 06:59 Intake Total 1440 2340 1080 Balance 1440 2340 1080 Result Diagrams: 05/18/20 04:56 05/18/20 04:56 Additional Labs: Labs and MAR reviewed by me Hospitalist ROS - Review of Systems Musculoskeletal: denies: neck pain, shoulder pain, arm pain, back pain, hand pain, leg pain, foot pain Skin: denies: rash, lesions, kaykay, bruising - Medication Medications: Active Medications Generic Name Dose Route Start Last Admin Trade Name Jimq PRN Reason Stop Dose Admin Ascorbic Acid 1,000 mg 05/13/20 09:00 05/23/20 08:06 Ascorbic Acid 500 Mg Chewable Tablet PO 1,000 mg DAILY BLAZE Administration Cyanocobalamin 1,000 mcg 05/16/20 09:00 05/23/20 08:07 Cyanocobalamin (Vitamin B-12) 1,000 Mcg Tab PO 1,000 mcg DAILY BLAZE Administration Famotidine 20 mg 05/18/20 21:00 05/23/20 08:06 Famotidine 20 Mg Tab PO 20 mg BID BLAZE Administration Sodium Chloride 10 ml 05/12/20 17:31 05/15/20 20:53 Flush - Normal Saline 10 Ml Syringe IVF 10 ml Q12HR PRN Administration Saline Flush Sodium Chloride 10 ml 05/12/20 17:31 05/15/20 20:53 Flush - Normal Saline 10 Ml Syringe IVF 10 ml PRN PRN Administration Saline Flush Thiamine HCl 100 mg 05/16/20 09:00 05/23/20 08:06 Thiamine 100 Mg Tab PO 100 mg DAILY BLAZE Administration Zinc Sulfate 220 mg 05/13/20 09:00 05/23/20 08:06 Zinc Sulfate 220 Mg Cap PO 220 mg DAILY BLAZE Administration Hospitalist Exam Vitals: Vital Signs (12 hours) Temp Pulse Resp BP Pulse Ox 05/23/20 08:00 97 05/23/20 07:43 98.3 F 67 16 138/99 H 97 Weight Admit Weight 248 lb 7 oz Weight 248 lb 7 oz General Appearance: awake alert Eye: anicteric sclera ENT: normocephalic atraumatic Neck: supple Heart: RRR Respiratory: CTAB Gastrointestinal: soft Extremities: no clubbing Skin: no lesions Psychiatric: normal affect Hosp A/P - Plan (1) COVID-19 Code(s): U07.1 - COVID-19 Status: Acute (2) Polysubstance abuse Code(s): F19.10 - OTHER PSYCHOACTIVE SUBSTANCE ABUSE, UNCOMPLICATED Status: Chronic (3) Acute metabolic encephalopathy Code(s): G93.41 - METABOLIC ENCEPHALOPATHY Status: Acute (4) Alcohol abuse Code(s): F10.10 - ALCOHOL ABUSE, UNCOMPLICATED Status: Chronic (5) Obesity (BMI 30-39.9) Code(s): E66.9 - OBESITY, UNSPECIFIED Status: Chronic - Plan pt medically stable. pt's is on room air. pt needs to be sent to inpatient psychiatry for suicidal ideation. 2/5 patient medically stable nursing staff notified patient is stable to be discharged to mental health facility. 2/6 pt medically stable ok for discharge to inpatient psychiatry facility. 2/7 pt medically stable and ok for discharge to inpatient psy facility. 2/8 patient awaiting availability of bed at inpatient psychiatric facility. Nil acute medically. 05/22: Still awaiting bed at [facility]. No acute medical issues.
[2020-05-24] MEDS: Famotidine 20 MG TAB PO SCH ×2 (08:05→20:03)
[2020-05-24] MEDS: Ascorbic Acid 500 mg Chewable Tablet PO SCH (08:05)
[2020-05-24] MEDS: Zinc Sulfate 220 MG CAP PO SCH (08:05)
[2020-05-24] MEDS: Thiamine 100 MG TAB PO SCH (08:05)
[2020-05-24] MEDS: Cyanocobalamin (Vitamin B-12) 1,000 MCG TAB PO SCH (08:05)
--- NOTE | 2020-05-24 12:34 | EKG ---
Test Reason : Blood Pressure : / mmHG Vent. Rate : 112 BPM Atrial Rate : 112 BPM P-R Int : 172 ms QRS Dur : 094 ms QT Int : 336 ms P-R-T Axes : 043 -19 029 degrees QTc Int : 458 ms Sinus tachycardia RSR' or QR pattern in V1 suggests right ventricular conduction delay Borderline ECG Confirmed by STEFANY RICHARDS M.D. ([id number]), editor in chief YANCI REYES ([id number]) on 05/24/2020 12:33:48 PM Referred By: Confirmed By:STEFANY RICHARDS M.D.
--- NOTE | 2020-05-24 17:35 | PDOC.HOSPP ---
- Subjective Encounter Date: 05/24/20 Encounter Time: 12:30 Subjective: Patient seen in follow-up for COVID-19. He has no complaints today. - Objective Vital Signs & Weight: Vital Signs (12 hours) Temp Pulse Resp BP Pulse Ox 05/24/20 08:03 98.6 F 79 16 168/92 H 96 05/24/20 08:00 96 Weight Admit Weight 248 lb 7 oz Weight 248 lb 7 oz I&O: 05/23/20 05/24/20 05/25/20 06:59 06:59 06:59 Intake Total 2340 2280 720 Balance 2340 2280 720 Result Diagrams: 05/18/20 04:56 05/18/20 04:56 Additional Labs: I reviewed patient's labs and MAR Hospitalist ROS - Review of Systems Gastrointestinal: denies: nausea, vomiting, abdominal pain, diarrhea, constipation, melena, hematochezia Skin: denies: rash, lesions, kaykay, bruising - Medication Medications: Active Medications Generic Name Dose Route Start Last Admin Trade Name Jimq PRN Reason Stop Dose Admin Ascorbic Acid 1,000 mg 05/13/20 09:00 05/24/20 08:05 Ascorbic Acid 500 Mg Chewable Tablet PO 1,000 mg DAILY BLAZE Administration Cyanocobalamin 1,000 mcg 05/16/20 09:00 05/24/20 08:05 Cyanocobalamin (Vitamin B-12) 1,000 Mcg Tab PO 1,000 mcg DAILY BLAZE Administration Famotidine 20 mg 05/18/20 21:00 05/24/20 08:05 Famotidine 20 Mg Tab PO 20 mg BID BLAZE Administration Sodium Chloride 10 ml 05/12/20 17:31 05/15/20 20:53 Flush - Normal Saline 10 Ml Syringe IVF 10 ml Q12HR PRN Administration Saline Flush Sodium Chloride 10 ml 05/12/20 17:31 05/15/20 20:53 Flush - Normal Saline 10 Ml Syringe IVF 10 ml PRN PRN Administration Saline Flush Thiamine HCl 100 mg 05/16/20 09:00 05/24/20 08:05 Thiamine 100 Mg Tab PO 100 mg DAILY BLAZE Administration Zinc Sulfate 220 mg 05/13/20 09:00 05/24/20 08:05 Zinc Sulfate 220 Mg Cap PO 220 mg DAILY BLAZE Administration Hospitalist Exam Vitals: Vital Signs (12 hours) Temp Pulse Resp BP Pulse Ox 05/24/20 08:03 98.6 F 79 16 168/92 H 96 05/24/20 08:00 96 Weight Admit Weight 248 lb 7 oz Weight 248 lb 7 oz General Appearance: awake alert ENT: moist mucosa Neck: supple Heart: RRR Respiratory: CTAB Gastrointestinal: soft, non-tender Skin: no rashes Psychiatric: normal affect Hosp A/P - Plan (1) COVID-19 Code(s): U07.1 - COVID-19 Status: Acute (2) Polysubstance abuse Code(s): F19.10 - OTHER PSYCHOACTIVE SUBSTANCE ABUSE, UNCOMPLICATED Status: Chronic (3) Acute metabolic encephalopathy Code(s): G93.41 - METABOLIC ENCEPHALOPATHY Status: Acute (4) Alcohol abuse Code(s): F10.10 - ALCOHOL ABUSE, UNCOMPLICATED Status: Chronic (5) Obesity (BMI 30-39.9) Code(s): E66.9 - OBESITY, UNSPECIFIED Status: Chronic - Plan pt medically stable. pt's is on room air. pt needs to be sent to inpatient psychiatry for suicidal ideation. 05/19 patient medically stable nursing staff notified patient is stable to be discharged to mental health facility. 05/20 pt medically stable ok for discharge to inpatient psychiatry facility. 05/21 pt medically stable and ok for discharge to inpatient psy facility. 05/22 patient awaiting availability of bed at inpatient psychiatric facility. Nil acute medically. 05/23: Still awaiting bed at [facility]. No acute medical issues. 05/24: Awaiting inpt psych bed, nil acute medical issues.
[2020-05-25] MEDS: Ascorbic Acid 500 mg Chewable Tablet PO SCH (08:48)
[2020-05-25] MEDS: Famotidine 20 MG TAB PO SCH ×2 (08:48→20:25)
[2020-05-25] MEDS: Cyanocobalamin (Vitamin B-12) 1,000 MCG TAB PO SCH (08:48)
[2020-05-25] MEDS: Thiamine 100 MG TAB PO SCH (08:48)
[2020-05-25] MEDS: Zinc Sulfate 220 MG CAP PO SCH (08:49)
--- NOTE | 2020-05-25 19:30 | PDOC.HOSPP ---
- Subjective Encounter Date: 05/25/20 Encounter Time: 14:00 Subjective: Seen in follow-up for function from COVID-19 virus. Denies any complaints. - Objective Vital Signs & Weight: Vital Signs (12 hours) Temp Pulse Resp BP Pulse Ox 05/25/20 07:33 98 F 83 19 135/81 94 L Weight Admit Weight 248 lb 7 oz Weight 248 lb 7 oz I&O: 05/24/20 05/25/20 05/26/20 06:59 06:59 06:59 Intake Total 2280 1960 1280 Balance 2280 1960 1280 Result Diagrams: 05/18/20 04:56 05/18/20 04:56 Additional Labs: Labs and MAR reviewed by me Hospitalist ROS - Review of Systems Gastrointestinal: denies: nausea, vomiting, abdominal pain, diarrhea, constipation, melena, hematochezia Genitourinary: denies: dysuria, frequency, incontinence, hematuria, retention - Medication Medications: Active Medications Generic Name Dose Route Start Last Admin Trade Name Freq PRN Reason Stop Dose Admin Ascorbic Acid 1,000 mg 05/13/20 09:00 05/25/20 08:48 Ascorbic Acid 500 Mg Chewable Tablet PO 1,000 mg DAILY BLAZE Administration Cyanocobalamin 1,000 mcg 05/16/20 09:00 05/25/20 08:48 Cyanocobalamin (Vitamin B-12) 1,000 Mcg Tab PO 1,000 mcg DAILY BLAZE Administration Famotidine 20 mg 05/18/20 21:00 05/25/20 08:48 Famotidine 20 Mg Tab PO 20 mg BID BLAZE Administration Sodium Chloride 10 ml 05/12/20 17:31 05/15/20 20:53 Flush - Normal Saline 10 Ml Syringe IVF 10 ml Q12HR PRN Administration Saline Flush Sodium Chloride 10 ml 05/12/20 17:31 05/15/20 20:53 Flush - Normal Saline 10 Ml Syringe IVF 10 ml PRN PRN Administration Saline Flush Thiamine HCl 100 mg 05/16/20 09:00 05/25/20 08:48 Thiamine 100 Mg Tab PO 100 mg DAILY BLAZE Administration Zinc Sulfate 220 mg 05/13/20 09:00 05/25/20 08:49 Zinc Sulfate 220 Mg Cap PO 220 mg DAILY BLAZE Administration Hospitalist Exam Vitals: Vital Signs (12 hours) Temp Pulse Resp BP Pulse Ox 05/25/20 07:33 98 F 83 19 135/81 94 L Weight Admit Weight 248 lb 7 oz Weight 248 lb 7 oz General Appearance: awake alert Eye: anicteric sclera ENT: normocephalic atraumatic Neck: supple Heart: RRR Respiratory: CTAB Gastrointestinal: non-tender, non-distended Skin: no rashes Psychiatric: normal affect, normal behavior Hosp A/P - Plan (1) COVID-19 Code(s): U07.1 - COVID-19 Status: Acute (2) Polysubstance abuse Code(s): F19.10 - OTHER PSYCHOACTIVE SUBSTANCE ABUSE, UNCOMPLICATED Status: C hronic (3) Acute metabolic encephalopathy Code(s): G93.41 - METABOLIC ENCEPHALOPATHY Status: Acute (4) Alcohol abuse Code(s): F10.10 - ALCOHOL ABUSE, UNCOMPLICATED Status: Chronic (5) Obesity (BMI 30-39.9) Code(s): E66.9 - OBESITY, UNSPECIFIED Status: Chronic - Plan pt medically stable. pt's is on room air. pt needs to be sent to inpatient psychiatry for suicidal ideation. 05/19 patient medically stable nursing staff notified patient is stable to be discharged to mental health facility. 05/20 pt medically stable ok for discharge to inpatient psychiatry facility. 05/21 pt medically stable and ok for discharge to inpatient psy facility. 05/22 patient awaiting availability of bed at inpatient psychiatric facility. Nil acute medically. 05/23: Still awaiting bed at [facility]. No acute medical issues. 05/24: Awaiting inpt psych bed, nil acute medical issues. 05/25: Still awaiting [facility] bed.
[2020-05-26] MEDS: Ascorbic Acid 500 mg Chewable Tablet PO SCH (07:34)
[2020-05-26] MEDS: Famotidine 20 MG TAB PO SCH ×2 (07:34→20:02)
[2020-05-26] MEDS: Cyanocobalamin (Vitamin B-12) 1,000 MCG TAB PO SCH (07:35)
[2020-05-26] MEDS: Thiamine 100 MG TAB PO SCH (07:35)
[2020-05-26] MEDS: Zinc Sulfate 220 MG CAP PO SCH (07:35)
--- NOTE | 2020-05-26 14:55 | PQF ---
CLINICAL DOCUMENTATION CLARIFICATION FORM: Dear Dr. JULIANA YADAV Date: 05-31-20 Please exercise your independent, professional judgment in responding to the clarification form. Clinical indicators are provided on the bottom of this form for your review. Please check appropriate box(es) to clarify if the following diagnosis has been ruled in our ruled out: PNEUMONIA [ ] Ruled in diagnosis [ ] Continue to treat [ ] Resolved [ x ] Ruled out diagnosis [ ] Improving [ ] Unable to determine In addition, please specify: Present on Admission (POA): [ ] Yes [ ] No [ ] Unable to determine For continuity of documentation, please document condition throughout progress notes and discharge summary. Thank You. To be completed by CDI/Coding staff for physician review: CLINICAL INDICATORS - SIGNS / SYMPTOMS / LABS / RESULTS AND LOCATION IN MR: ER DX 05-12-20: ALTERED MENTAL STATUS, PNEUMONIA WITH HYPOXIA, POLYSUBSTANCE ABUSE, S/P FALL H&P: 05-12-20: FOUND UNRESPONSIVE IN THE STREET, HAD BEEN DRINKING ALCOHOL AND SMOKED K2 ACCORDING TO NEIGHBOR. HE HAD A GCS 9, BLOOD GLUCOSE OF 99. 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 HE HAD A GCS 9, BLOOD GLUCOSE OF 99. PLAIN CT CHEST TO ASSESS FOR UNDERLYING PNEUMONIA ( HX OF KLEBSIELLA PNEUMONIA) TREATMENTS / RESULTS AND LOCATION IN MR: ER 05-12-20: AZITHROMYCIN IV, ROCEPHIN IV, NS IVF CDS Signature: Aby Allred Phone #: [phone] Date: 05-26-20 This is a permanent part of the Medical Record [facility]
--- NOTE | 2020-05-26 17:24 | PDOC.HOSPP ---
- Subjective Encounter Date: 05/26/20 Encounter Time: 08:00 Subjective: Patient seen for follow-up regarding COVID-19. He denies any complaints. - Objective Vital Signs & Weight: Vital Signs (12 hours) Temp Pulse Resp BP Pulse Ox 05/26/20 07:30 98.5 F 66 16 136/89 95 Weight Admit Weight 248 lb 7 oz Weight 248 lb 7 oz I&O: 05/25/20 05/26/20 05/27/20 06:59 06:59 06:59 Intake Total 1960 2480 Balance 1960 2480 Result Diagrams: 05/18/20 04:56 05/18/20 04:56 Additional Labs: I reviewed patient's labs and MAR Hospitalist ROS - Review of Systems Genitourinary: denies: dysuria, frequency, incontinence, hematuria, retention Skin: denies: rash, lesions, kaykay, bruising - Medication Medications: Active Medications Generic Name Dose Route Start Last Admin Trade Name Freq PRN Reason Stop Dose Admin Ascorbic Acid 1,000 mg 05/13/20 09:00 05/26/20 07:34 Ascorbic Acid 500 Mg Chewable Tablet PO 1,000 mg DAILY BLAZE Administration Cyanocobalamin 1,000 mcg 05/16/20 09:00 05/26/20 07:35 Cyanocobalamin (Vitamin B-12) 1,000 Mcg Tab PO 1,000 mcg DAILY BLAZE Administration Famotidine 20 mg 05/18/20 21:00 05/26/20 07:34 Famotidine 20 Mg Tab PO 20 mg BID BLAZE Administration Sodium Chloride 10 ml 05/12/20 17:31 05/15/20 20:53 Flush - Normal Saline 10 Ml Syringe IVF 10 ml Q12HR PRN Administration Saline Flush Sodium Chloride 10 ml 05/12/20 17:31 05/15/20 20:53 Flush - Normal Saline 10 Ml Syringe IVF 10 ml PRN PRN Administration Saline Flush Thiamine HCl 100 mg 05/16/20 09:00 05/26/20 07:35 Thiamine 100 Mg Tab PO 100 mg DAILY BLAZE Administration Zinc Sulfate 220 mg 05/13/20 09:00 05/26/20 07:35 Zinc Sulfate 220 Mg Cap PO 220 mg DAILY BLAZE Administration Hospitalist Exam Vitals: Vital Signs (12 hours) Temp Pulse Resp BP Pulse Ox 05/26/20 07:30 98.5 F 66 16 136/89 95 Weight Admit Weight 248 lb 7 oz Weight 248 lb 7 oz General Appearance: awake alert Eye: anicteric sclera ENT: normocephalic atraumatic Neck: supple Heart: RRR Respiratory: CTAB Gastrointestinal: soft, non-tender Skin: no rashes Psychiatric: normal affect, normal behavior Hosp A/P - Plan Patient is a pleasant 39-year-old gentleman who was admitted to the hospital on May 12, 2020 for altered mental status, alcohol intoxication and polysubstance abuse. He was also positive for Covid virus. He was relatively asymptomatic from Covid virus. Family members reported that he was suicidal. He was evaluated by [facility] and is currently awaiting inpatient psychiatric bed. It appears that the bed at [facility] should be available on May 29. (1) COVID-19 Code(s): U07.1 - COVID-19 Status: Acute (2) Polysubstance abuse Code(s): F19.10 - OTHER PSYCHOACTIVE SUBSTANCE ABUSE, UNCOMPLICATED Status: Chronic (3) Acute metabolic encephalopathy Code(s): G93.41 - METABOLIC ENCEPHALOPATHY Status: Acute (4) Alcohol abuse Code(s): F10.10 - ALCOHOL ABUSE, UNCOMPLICATED Status: Chronic (5) Obesity (BMI 30-39.9) Code(s): E66.9 - OBESITY, UNSPECIFIED Status: Chronic - Plan pt medically stable. pt's is on room air. pt needs to be sent to inpatient psychiatry for suicidal ideation. 2 patient medically stable nursing staff notified patient is stable to be discharged to mental health facility. 2 pt medically stable ok for discharge to inpatient psychiatry facility. 05/21 pt medically stable and ok for discharge to inpatient psy facility. 05/22 patient awaiting availability of bed at inpatient psychiatric facility. Nil acute medically. 05/23: Still awaiting bed at [facility]. No acute medical issues. 05/24: Awaiting inpt psych bed, nil acute medical issues. 05/25: Still awaiting [facility] bed. 05/26: Nil acute medical issues; [facility] bed will likely be available by FridayMay 29.
[2020-05-27] MEDS: Ascorbic Acid 500 mg Chewable Tablet PO SCH (07:59)
[2020-05-27] MEDS: Cyanocobalamin (Vitamin B-12) 1,000 MCG TAB PO SCH (08:00)
[2020-05-27] MEDS: Thiamine 100 MG TAB PO SCH (08:00)
[2020-05-27] MEDS: Famotidine 20 MG TAB PO SCH ×2 (08:00→21:14)
[2020-05-27] MEDS: Zinc Sulfate 220 MG CAP PO SCH (08:00)
--- NOTE | 2020-05-27 15:42 | PDOC.HOSPP ---
- Subjective Encounter Date: 05/27/20 Encounter Time: 15:35 Subjective: This is a 39-year-old who was admitted to the hospital after he was found on the roadside confused. Reportedly he had overdosed on alcohol. He is also a polysubstance abuser as he smokes marijuana and K2. He reportedly had threatened suicide. He was found to be COVID-19 positive as well. Because of his suicidal ideation there is ongoing plan for him to transfer to a psych facility on discharge. I am told that the facility available by Friday so he can transfer. - Objective Vital Signs & Weight: Vital Signs (12 hours) Temp Pulse Resp BP Pulse Ox 05/27/20 08:10 97.7 F 77 20 125/83 96 05/27/20 08:00 96 Weight Admit Weight 248 lb 7 oz Weight 248 lb 7 oz I&O: 05/26/20 05/27/20 05/28/20 06:59 06:59 06:59 Intake Total 2480 720 Balance 2480 720 Result Diagrams: 05/18/20 04:56 05/18/20 04:56 Radiology Reviewed by me: Yes EKG Reviewed by me: Yes Hospitalist ROS - Review of Systems Gastrointestinal: reports: nausea - Medication Medications: Active Medications Generic Name Dose Route Start Last Admin Trade Name Freq PRN Reason Stop Dose Admin Ascorbic Acid 1,000 mg 05/13/20 09:00 05/27/20 07:59 Ascorbic Acid 500 Mg Chewable Tablet PO 1,000 mg DAILY BLAZE Administration Cyanocobalamin 1,000 mcg 05/16/20 09:00 05/27/20 08:00 Cyanocobalamin (Vitamin B-12) 1,000 Mcg Tab PO 1,000 mcg DAILY BLAZE Administration Famotidine 20 mg 05/18/20 21:00 05/27/20 08:00 Famotidine 20 Mg Tab PO 20 mg BID BLAZE Administration Sodium Chloride 10 ml 05/12/20 17:31 05/15/20 20:53 Flush - Normal Saline 10 Ml Syringe IVF 10 ml Q12HR PRN Administration Saline Flush Sodium Chloride 10 ml 05/12/20 17:31 05/15/20 20:53 Flush - Normal Saline 10 Ml Syringe IVF 10 ml PRN PRN Administration Saline Flush Thiamine HCl 100 mg 05/16/20 09:00 05/27/20 08:00 Thiamine 100 Mg Tab PO 100 mg DAILY BLAZE Administration Zinc Sulfate 220 mg 05/13/20 09:00 05/27/20 08:00 Zinc Sulfate 220 Mg Cap PO 220 mg DAILY BLAZE Administration Hospitalist Exam Vitals: Vital Signs (12 hours) Temp Pulse Resp BP Pulse Ox 05/27/20 08:10 97.7 F 77 20 125/83 96 05/27/20 08:00 96 Weight Admit Weight 248 lb 7 oz Weight 248 lb 7 oz General Appearance: NAD, awake alert Eye: PERRL, anicteric sclera ENT: normocephalic atraumatic, no oropharyngeal lesions Neck: supple, symmetric, no JVD, no thyromegaly Heart: RRR, no murmur, no gallops Respiratory: CTAB, no wheezes Gastrointestinal: soft, non-tender, non-distended, normal bowel sounds Neurological: cranial nerve grossly intact, normal sensation to touch Psychiatric: normal affect, normal behavior, A&O x 3 Hosp A/P (1) Alcohol intoxication Status: Acute (2) COVID-19 Code(s): U07.1 - COVID-19 Status: Acute (3) Polysubstance abuse Code(s): F19.10 - OTHER PSYCHOACTIVE SUBSTANCE ABUSE, UNCOMPLICATED Status: Chronic (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
[2020-05-28] MEDS: Ascorbic Acid 500 mg Chewable Tablet PO SCH (07:52)
[2020-05-28] MEDS: Zinc Sulfate 220 MG CAP PO SCH (07:52)
[2020-05-28] MEDS: Famotidine 20 MG TAB PO SCH ×2 (07:52→20:44)
[2020-05-28] MEDS: Cyanocobalamin (Vitamin B-12) 1,000 MCG TAB PO SCH (07:53)
[2020-05-28] MEDS: Thiamine 100 MG TAB PO SCH (07:53)
--- NOTE | 2020-05-28 15:44 | PDOC.HOSPP ---
- Subjective Encounter Date: 05/28/20 Encounter Time: 15:41 Subjective: Patient pending transfer to psychiatric inpatient unit. No acute issues reported by nursing staff. Patient stable for transfer whenever he is approved. - Objective Vital Signs & Weight: Vital Signs (12 hours) Temp Pulse Resp BP Pulse Ox 05/28/20 08:25 98.4 F 86 20 139/85 98 05/28/20 08:00 98 Weight Admit Weight 248 lb 7 oz Weight 248 lb 7 oz I&O: 05/27/20 05/28/20 05/29/20 06:59 06:59 06:59 Intake Total 1080 720 Balance 1080 720 Result Diagrams: 05/18/20 04:56 05/18/20 04:56 Radiology Reviewed by me: Yes EKG Reviewed by me: Yes Hospitalist ROS - Medication Medications: Active Medications Generic Name Dose Route Start Last Admin Trade Name Freq PRN Reason Stop Dose Admin Ascorbic Acid 1,000 mg 05/13/20 09:00 05/28/20 07:52 Ascorbic Acid 500 Mg Chewable Tablet PO 1,000 mg DAILY BLAZE Administration Cyanocobalamin 1,000 mcg 05/16/20 09:00 05/28/20 07:53 Cyanocobalamin (Vitamin B-12) 1,000 Mcg Tab PO 1,000 mcg DAILY BLAZE Administration Famotidine 20 mg 05/18/20 21:00 05/28/20 07:52 Famotidine 20 Mg Tab PO 20 mg BID BLAZE Administration Sodium Chloride 10 ml 05/12/20 17:31 05/15/20 20:53 Flush - Normal Saline 10 Ml Syringe IVF 10 ml Q12HR PRN Administration Saline Flush Sodium Chloride 10 ml 05/12/20 17:31 05/15/20 20:53 Flush - Normal Saline 10 Ml Syringe IVF 10 ml PRN PRN Administration Saline Flush Thiamine HCl 100 mg 05/16/20 09:00 05/28/20 07:53 Thiamine 100 Mg Tab PO 100 mg DAILY BLAZE Administration Zinc Sulfate 220 mg 05/13/20 09:00 05/28/20 07:52 Zinc Sulfate 220 Mg Cap PO 220 mg DAILY BLAZE Administration Hospitalist Exam Vitals: Vital Signs (12 hours) Temp Pulse Resp BP Pulse Ox 05/28/20 08:25 98.4 F 86 20 139/85 98 05/28/20 08:00 98 Weight Admit Weight 248 lb 7 oz Weight 248 lb 7 oz General Appearance: NAD, awake alert Eye: PERRL, anicteric sclera ENT: normocephalic atraumatic, no oropharyngeal lesions Neck: supple, symmetric, no JVD, no thyromegaly Heart: RRR, no murmur, no gallops, no rubs, normal peripheral pulses Respiratory: CTAB, no wheezes, no rales, no ronchi Gastrointestinal: soft, non-tender, non-distended, normal bowel sounds Neurological: cranial nerve grossly intact, normal sensation to touch Psychiatric: normal affect, normal behavior Hosp A/P (1) Alcohol intoxication Status: Resolved (2) COVID-19 Code(s): U07.1 - COVID-19 Status: Acute (3) Polysubstance abuse Code(s): F19.10 - OTHER PSYCHOACTIVE SUBSTANCE ABUSE, UNCOMPLICATED Status: Chronic (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 05/28/2020. The patient seems to be doing okay for now. He is pending transfer to psychiatric inpatient unit and he can go whenever he is approved.
[2020-05-29] MEDS ORDERED: Cyanocobalamin (Vitamin B-12) 1,000 MCG TAB ONE (08:18)
[2020-05-29] MEDS ORDERED: Zinc Sulfate 220 MG CAP ONE (08:18)
[2020-05-29] MEDS ORDERED: Thiamine 100 MG TAB ONE (08:18)
[2020-05-29] MEDS ORDERED: Ascorbic Acid 500 mg Chewable Tablet ONE (08:18)
[2020-05-29] MEDS ORDERED: Famotidine 20 MG TAB ONE (08:18)
--- NOTE | 2020-05-29 13:43 | PDOC.HOSPP ---
- Subjective Encounter Date: 05/29/20 Encounter Time: 13:41 Subjective: He is pending transfer to psych unit. No issues reported per nursing stuff. Not agitated. - Objective Vital Signs & Weight: Vital Signs (12 hours) Temp Pulse Resp BP Pulse Ox 05/29/20 08:00 95 05/29/20 07:53 98.7 F 65 20 149/86 H 94 L Weight Admit Weight 248 lb 7 oz Weight 248 lb 7 oz I&O: 05/28/20 05/29/20 05/30/20 06:59 06:59 06:59 Intake Total 1080 960 Balance 1080 960 Result Diagrams: 05/18/20 04:56 05/18/20 04:56 Radiology Reviewed by me: Yes EKG Reviewed by me: Yes Hospitalist ROS - Review of Systems Gastrointestinal: reports: nausea - Medication Medications: Active Medications Generic Name Dose Route Start Last Admin Trade Name Freq PRN Reason Stop Dose Admin Ascorbic Acid 1,000 mg 05/13/20 09:00 05/28/20 07:52 Ascorbic Acid 500 Mg Chewable Tablet PO 1,000 mg DAILY BLAZE Administration Cyanocobalamin 1,000 mcg 05/16/20 09:00 05/28/20 07:53 Cyanocobalamin (Vitamin B-12) 1,000 Mcg Tab PO 1,000 mcg DAILY BLAZE Administration Famotidine 20 mg 05/18/20 21:00 05/28/20 20:44 Famotidine 20 Mg Tab PO 20 mg BID BLAZE Administration Sodium Chloride 10 ml 05/12/20 17:31 05/15/20 20:53 Flush - Normal Saline 10 Ml Syringe IVF 10 ml Q12HR PRN Administration Saline Flush Sodium Chloride 10 ml 05/12/20 17:31 05/15/20 20:53 Flush - Normal Saline 10 Ml Syringe IVF 10 ml PRN PRN Administration Saline Flush Thiamine HCl 100 mg 05/16/20 09:00 05/28/20 07:53 Thiamine 100 Mg Tab PO 100 mg DAILY BLAZE Administration Zinc Sulfate 220 mg 05/13/20 09:00 05/28/20 07:52 Zinc Sulfate 220 Mg Cap PO 220 mg DAILY BLAZE Administration Hospitalist Exam Vitals: Vital Signs (12 hours) Temp Pulse Resp BP Pulse Ox 05/29/20 08:00 95 05/29/20 07:53 98.7 F 65 20 149/86 H 94 L Weight Admit Weight 248 lb 7 oz Weight 248 lb 7 oz General Appearance: NAD, awake alert Eye: PERRL, anicteric sclera ENT: normocephalic atraumatic, no oropharyngeal lesions Neck: supple, symmetric, no JVD, no thyromegaly Heart: RRR, no murmur, no gallops, no rubs, normal peripheral pulses Respiratory: CTAB, no wheezes, no rales, no ronchi, normal chest expansion Gastrointestinal: soft, non-tender, non-distended, normal bowel sounds Neurological: cranial nerve grossly intact, normal sensation to touch Psychiatric: normal affect, normal behavior, A&O x 3 Hosp A/P (1) Alcohol intoxication Status: Resolved (2) COVID-19 Code(s): U07.1 - COVID-19 Status: Acute (3) Polysubstance abuse Code(s): F19.10 - OTHER PSYCHOACTIVE SUBSTANCE ABUSE, UNCOMPLICATED Status: Chronic (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 05/28/2020. The patient seems to be doing okay for now. He is pending transfer to psychiatric inpatient unit and he can go whenever he is approved.
[2020-05-29] MEDS: Ascorbic Acid 500 mg Chewable Tablet PO SCH (14:30)
[2020-05-29] MEDS: Cyanocobalamin (Vitamin B-12) 1,000 MCG TAB PO SCH (14:30)
[2020-05-29] MEDS: Thiamine 100 MG TAB PO SCH (14:31)
[2020-05-29] MEDS: Famotidine 20 MG TAB PO SCH ×2 (14:31→21:09)
[2020-05-29] MEDS: Zinc Sulfate 220 MG CAP PO SCH (14:31)
[2020-05-30] MEDS: Famotidine 20 MG TAB PO SCH ×2 (08:07→19:55)
[2020-05-30] MEDS: Thiamine 100 MG TAB PO SCH (08:08)
[2020-05-30] MEDS: Cyanocobalamin (Vitamin B-12) 1,000 MCG TAB PO SCH (08:08)
[2020-05-30] MEDS: Ascorbic Acid 500 mg Chewable Tablet PO SCH (08:08)
[2020-05-30] MEDS: Zinc Sulfate 220 MG CAP PO SCH (08:08)
--- NOTE | 2020-05-30 14:43 | PDOC.HOSPP ---
- Subjective Encounter Date: 05/30/20 Encounter Time: 14:42 Subjective: The patient is pending inpatient psychiatric unit placement. No acute issues per nursing staff. He can go whenever he is approved. - Objective Vital Signs & Weight: Vital Signs (12 hours) Temp Pulse Resp BP Pulse Ox 05/30/20 07:53 95 05/30/20 05:11 98.6 F 79 20 147/65 H 95 Weight Admit Weight 248 lb 7 oz Weight 248 lb 7 oz I&O: 05/29/20 05/30/20 05/31/20 06:59 06:59 06:59 Intake Total 960 Balance 960 Result Diagrams: 05/18/20 04:56 05/18/20 04:56 Radiology Reviewed by me: Yes EKG Reviewed by me: Yes Hospitalist ROS - Review of Systems Constitutional: reports: weakness, malaise Neurological: reports: confusion - Medication Medications: Active Medications Generic Name Dose Route Start Last Admin Trade Name Freq PRN Reason Stop Dose Admin Ascorbic Acid 1,000 mg 05/13/20 09:00 05/30/20 08:08 Ascorbic Acid 500 Mg Chewable Tablet PO 1,000 mg DAILY BLAZE Administration Cyanocobalamin 1,000 mcg 05/16/20 09:00 05/30/20 08:08 Cyanocobalamin (Vitamin B-12) 1,000 Mcg Tab PO 1,000 mcg DAILY BLAZE Administration Famotidine 20 mg 05/18/20 21:00 05/30/20 08:07 Famotidine 20 Mg Tab PO 20 mg BID BLAZE Administration Sodium Chloride 10 ml 05/12/20 17:31 05/15/20 20:53 Flush - Normal Saline 10 Ml Syringe IVF 10 ml Q12HR PRN Administration Saline Flush Sodium Chloride 10 ml 05/12/20 17:31 05/15/20 20:53 Flush - Normal Saline 10 Ml Syringe IVF 10 ml PRN PRN Administration Saline Flush Thiamine HCl 100 mg 05/16/20 09:00 05/30/20 08:08 Thiamine 100 Mg Tab PO 100 mg DAILY BLAZE Administration Zinc Sulfate 220 mg 05/13/20 09:00 05/30/20 08:08 Zinc Sulfate 220 Mg Cap PO 220 mg DAILY BLAZE Administration Hospitalist Exam Vitals: Vital Signs (12 hours) Temp Pulse Resp BP Pulse Ox 05/30/20 07:53 95 05/30/20 05:11 98.6 F 79 20 147/65 H 95 Weight Admit Weight 248 lb 7 oz Weight 248 lb 7 oz General Appearance: NAD, awake alert Eye: PERRL, anicteric sclera, scleral icterus ENT: normocephalic atraumatic, no oropharyngeal lesions Neck: supple, symmetric, no JVD, no thyromegaly Heart: RRR, no murmur, no gallops, no rubs Respiratory: CTAB, no wheezes, no rales Gastrointestinal: soft, non-tender, non-distended Neurological: cranial nerve grossly intact, normal sensation to touch Psychiatric: normal affect, normal behavior Hosp A/P (1) Alcohol intoxication Status: Resolved (2) COVID-19 Code(s): U07.1 - COVID-19 Status: Acute (3) Polysubstance abuse Code(s): F19.10 - OTHER PSYCHOACTIVE SUBSTANCE ABUSE, UNCOMPLICATED Status: Chronic (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 05/28/2020. The patient seems to be doing okay for now. He is pending transfer to psychiatric inpatient unit and he can go whenever he is approved. 05/30/2020. No acute issues reported per nursing staff. Patient is clinically stable for transfer to an inpatient psychiatric unit.
[2020-05-31] MEDS: Thiamine 100 MG TAB PO SCH (08:06)
[2020-05-31] MEDS: Zinc Sulfate 220 MG CAP PO SCH (08:06)
[2020-05-31] MEDS: Famotidine 20 MG TAB PO SCH ×2 (08:06→22:02)
[2020-05-31] MEDS: Ascorbic Acid 500 mg Chewable Tablet PO SCH (08:06)
[2020-05-31] MEDS: Cyanocobalamin (Vitamin B-12) 1,000 MCG TAB PO SCH (08:06)
--- NOTE | 2020-05-31 16:59 | PDOC.HOSPP ---
- Subjective Encounter Date: 05/31/20 Encounter Time: 16:58 Subjective: No acute issues. The patient is wondering when he can be discharged from the hospital. He is pending transfer to the [facility] inpatient facility which I am told is in [facility]. The patient can transfer whenever they are ready for him. - Objective Vital Signs & Weight: Vital Signs (12 hours) Temp Pulse Resp BP Pulse Ox 05/31/20 08:55 98.2 F 88 18 132/88 98 05/31/20 05:35 98.5 F 88 20 145/72 H 98 Weight Admit Weight 248 lb 7 oz Weight 248 lb 7 oz Result Diagrams: 05/18/20 04:56 05/18/20 04:56 Radiology Reviewed by me: Yes EKG Reviewed by me: Yes Hospitalist ROS - Review of Systems Gastrointestinal: reports: nausea Neurological: reports: weakness - Medication Medications: Active Medications Generic Name Dose Route Start Last Admin Trade Name Freq PRN Reason Stop Dose Admin Ascorbic Acid 1,000 mg 05/13/20 09:00 05/31/20 08:06 Ascorbic Acid 500 Mg Chewable Tablet PO 1,000 mg DAILY BLAZE Administration Cyanocobalamin 1,000 mcg 05/16/20 09:00 05/31/20 08:06 Cyanocobalamin (Vitamin B-12) 1,000 Mcg Tab PO 1,000 mcg DAILY BLAZE Administration Famotidine 20 mg 05/18/20 21:00 05/31/20 08:06 Famotidine 20 Mg Tab PO 20 mg BID BLAZE Administration Sodium Chloride 10 ml 05/12/20 17:31 05/15/20 20:53 Flush - Normal Saline 10 Ml Syringe IVF 10 ml Q12HR PRN Administration Saline Flush Sodium Chloride 10 ml 05/12/20 17:31 05/15/20 20:53 Flush - Normal Saline 10 Ml Syringe IVF 10 ml PRN PRN Administration Saline Flush Thiamine HCl 100 mg 05/16/20 09:00 05/31/20 08:06 Thiamine 100 Mg Tab PO 100 mg DAILY BLAZE Administration Zinc Sulfate 220 mg 05/13/20 09:00 05/31/20 08:06 Zinc Sulfate 220 Mg Cap PO 220 mg DAILY BLAZE Administration Hospitalist Exam Vitals: Vital Signs (12 hours) Temp Pulse Resp BP Pulse Ox 05/31/20 08:55 98.2 F 88 18 132/88 98 05/31/20 05:35 98.5 F 88 20 145/72 H 98 Weight Admit Weight 248 lb 7 oz Weight 248 lb 7 oz General Appearance: NAD, awake alert Eye: PERRL, anicteric sclera ENT: normocephalic atraumatic, no oropharyngeal lesions Neck: supple, symmetric, no JVD Heart: RRR, no murmur, no gallops Respiratory: CTAB, no wheezes, no rales, no ronchi, normal chest expansion Gastrointestinal: soft, non-tender, non-distended, normal bowel sounds Neurological: cranial nerve grossly intact Psychiatric: normal affect, normal behavior, A&O x 3 Hosp A/P (1) Alcohol intoxication Status: Resolved (2) COVID-19 Code(s): U07.1 - COVID-19 Status: Acute (3) Polysubstance abuse Code(s): F19.10 - OTHER PSYCHOACTIVE SUBSTANCE ABUSE, UNCOMPLICATED Status: Chronic (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 05/28/2020. The patient seems to be doing okay for now. He is pending transfer to psychiatric inpatient unit and he can go whenever he is approved. 05/30/2020. No acute issues reported per nursing staff. Patient is clinically stable for transfer to an inpatient psychiatric unit. 05/31/2020. The patient is pending transfer to the psych inpatient facility. He can transfer whenever he is approved.
[2020-06-01] MEDS: Cyanocobalamin (Vitamin B-12) 1,000 MCG TAB PO SCH (08:03)
[2020-06-01] MEDS: Thiamine 100 MG TAB PO SCH (08:03)
[2020-06-01] MEDS: Zinc Sulfate 220 MG CAP PO SCH (08:03)
[2020-06-01] MEDS: Famotidine 20 MG TAB PO SCH ×2 (08:03→21:40)
[2020-06-01] MEDS: Ascorbic Acid 500 mg Chewable Tablet PO SCH (08:03)
--- NOTE | 2020-06-01 15:25 | PDOC.HOSPP ---
- Subjective Encounter Date: 06/01/20 Encounter Time: 15:23 Subjective: Patient seen and evaluated. No acute issues reported per nursing staff. He is pending transfer to the inpatient psychiatric unit. - Objective Vital Signs & Weight: Vital Signs (12 hours) Temp Pulse Resp BP Pulse Ox 06/01/20 08:31 98.5 F 74 15 136/82 96 06/01/20 08:03 96 Weight Admit Weight 248 lb 7 oz Weight 248 lb 7 oz I&O: 05/31/20 06/01/20 06/02/20 06:59 06:59 06:59 Intake Total 1040 Balance 1040 Result Diagrams: 05/18/20 04:56 05/18/20 04:56 Radiology Reviewed by me: Yes EKG Reviewed by me: Yes Hospitalist ROS - Medication Medications: Active Medications Generic Name Dose Route Start Last Admin Trade Name Freq PRN Reason Stop Dose Admin Ascorbic Acid 1,000 mg 05/13/20 09:00 06/01/20 08:03 Ascorbic Acid 500 Mg Chewable Tablet PO 1,000 mg DAILY BLAZE Administration Cyanocobalamin 1,000 mcg 05/16/20 09:00 06/01/20 08:03 Cyanocobalamin (Vitamin B-12) 1,000 Mcg Tab PO 1,000 mcg DAILY BLAZE Administration Famotidine 20 mg 05/18/20 21:00 06/01/20 08:03 Famotidine 20 Mg Tab PO 20 mg BID BLAZE Administration Sodium Chloride 10 ml 05/12/20 17:31 05/15/20 20:53 Flush - Normal Saline 10 Ml Syringe IVF 10 ml Q12HR PRN Administration Saline Flush Sodium Chloride 10 ml 05/12/20 17:31 05/15/20 20:53 Flush - Normal Saline 10 Ml Syringe IVF 10 ml PRN PRN Administration Saline Flush Thiamine HCl 100 mg 05/16/20 09:00 06/01/20 08:03 Thiamine 100 Mg Tab PO 100 mg DAILY BLAZE Administration Zinc Sulfate 220 mg 05/13/20 09:00 06/01/20 08:03 Zinc Sulfate 220 Mg Cap PO 220 mg DAILY BLAZE Administration Hospitalist Exam Vitals: Vital Signs (12 hours) Temp Pulse Resp BP Pulse Ox 06/01/20 08:31 98.5 F 74 15 136/82 96 06/01/20 08:03 96 Weight Admit Weight 248 lb 7 oz Weight 248 lb 7 oz General Appearance: NAD, awake alert Eye: PERRL, anicteric sclera ENT: normocephalic atraumatic, no oropharyngeal lesions Neck: supple, symmetric Heart: RRR, no murmur, no gallops, no rubs Respiratory: CTAB, no wheezes Gastrointestinal: non-distended Neurological: cranial nerve grossly intact Psychiatric: normal affect, normal behavior, A&O x 3 Hosp A/P (1) Alcohol intoxication Status: Resolved (2) COVID-19 Code(s): U07.1 - COVID-19 Status: Acute (3) Polysubstance abuse Code(s): F19.10 - OTHER PSYCHOACTIVE SUBSTANCE ABUSE, UNCOMPLICATED Status: Chronic (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 05/28/2020. The patient seems to be doing okay for now. He is pending transfer to psychiatric inpatient unit and he can go whenever he is approved. 05/30/2020. No acute issues reported per nursing staff. Patient is clinically stable for transfer to an inpatient psychiatric unit. 05/31/2020. The patient is pending transfer to the psych inpatient facility. He can transfer whenever he is approved.
[2020-06-02] MEDS: Famotidine 20 MG TAB PO SCH ×2 (09:20→20:11)
[2020-06-02] MEDS: Ascorbic Acid 500 mg Chewable Tablet PO SCH (09:21)
[2020-06-02] MEDS: Zinc Sulfate 220 MG CAP PO SCH (09:21)
[2020-06-02] MEDS: Thiamine 100 MG TAB PO SCH (09:21)
[2020-06-02] MEDS: Cyanocobalamin (Vitamin B-12) 1,000 MCG TAB PO SCH (09:21)
--- NOTE | 2020-06-02 16:03 | PDOC.HOSPP ---
- Subjective Encounter Date: 06/02/20 Encounter Time: 16:01 Subjective: Patient is still pending transfer to an inpatient psychiatric unit. He can go whenever he is approved. There are no other acute issues pending. - Objective Vital Signs & Weight: Vital Signs (12 hours) Temp Pulse Resp BP Pulse Ox 06/02/20 08:00 95 06/02/20 07:52 98.7 F 89 16 133/83 95 Weight Admit Weight 248 lb 7 oz Weight 248 lb 7 oz I&O: 06/01/20 06/02/20 06/03/20 06:59 06:59 06:59 Intake Total 1040 Balance 1040 Result Diagrams: 05/18/20 04:56 05/18/20 04:56 Radiology Reviewed by me: Yes EKG Reviewed by me: Yes Hospitalist ROS - Medication Medications: Active Medications Generic Name Dose Route Start Last Admin Trade Name Freq PRN Reason Stop Dose Admin Ascorbic Acid 1,000 mg 05/13/20 09:00 06/02/20 09:21 Ascorbic Acid 500 Mg Chewable Tablet PO 1,000 mg DAILY BLAZE Administration Cyanocobalamin 1,000 mcg 05/16/20 09:00 06/02/20 09:21 Cyanocobalamin (Vitamin B-12) 1,000 Mcg Tab PO 1,000 mcg DAILY BLAZE Administration Famotidine 20 mg 05/18/20 21:00 06/02/20 09:20 Famotidine 20 Mg Tab PO 20 mg BID BLAZE Administration Sodium Chloride 10 ml 05/12/20 17:31 05/15/20 20:53 Flush - Normal Saline 10 Ml Syringe IVF 10 ml Q12HR PRN Administration Saline Flush Sodium Chloride 10 ml 05/12/20 17:31 05/15/20 20:53 Flush - Normal Saline 10 Ml Syringe IVF 10 ml PRN PRN Administration Saline Flush Thiamine HCl 100 mg 05/16/20 09:00 06/02/20 09:21 Thiamine 100 Mg Tab PO 100 mg DAILY BLAZE Administration Zinc Sulfate 220 mg 05/13/20 09:00 06/02/20 09:21 Zinc Sulfate 220 Mg Cap PO 220 mg DAILY BLAZE Administration Hospitalist Exam Vitals: Vital Signs (12 hours) Temp Pulse Resp BP Pulse Ox 06/02/20 08:00 95 06/02/20 07:52 98.7 F 89 16 133/83 95 Weight Admit Weight 248 lb 7 oz Weight 248 lb 7 oz General Appearance: NAD, awake alert Eye: PERRL, anicteric sclera ENT: normocephalic atraumatic, no oropharyngeal lesions Respiratory: CTAB, no wheezes, no rales, no ronchi Gastrointestinal: soft, non-tender Neurological: cranial nerve grossly intact, normal sensation to touch Psychiatric: normal affect, normal behavior, A&O x 3 Hosp A/P (1) Alcohol intoxication Status: Resolved (2) COVID-19 Code(s): U07.1 - COVID-19 Status: Acute (3) Polysubstance abuse Code(s): F19.10 - OTHER PSYCHOACTIVE SUBSTANCE ABUSE, UNCOMPLICATED Status: Chronic (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 05/28/2020. The patient seems to be doing okay for now. He is pending transfer to psychiatric inpatient unit and he can go whenever he is approved. 05/30/2020. No acute issues reported per nursing staff. Patient is clinically stable for transfer to an inpatient psychiatric unit. 05/31/2020. The patient is pending transfer to the psych inpatient facility. He can transfer whenever he is approved.
[2020-06-03] MEDS: Zinc Sulfate 220 MG CAP PO SCH (09:43)
[2020-06-03] MEDS: Famotidine 20 MG TAB PO SCH ×2 (09:43→20:18)
[2020-06-03] MEDS: Thiamine 100 MG TAB PO SCH (09:43)
[2020-06-03] MEDS: Cyanocobalamin (Vitamin B-12) 1,000 MCG TAB PO SCH (09:43)
[2020-06-03] MEDS: Ascorbic Acid 500 mg Chewable Tablet PO SCH (09:43)
--- NOTE | 2020-06-03 13:49 | PDOC.HOSPP ---
- Subjective Encounter Date: 06/03/20 Encounter Time: 11:25 Subjective: Patient appears well. He has sitter at bedside. I discussed with the sitter. Patient has some mild cognitive impairment. But he is answering the questions appropriately. he has no sign of agitation. - Objective Vital Signs & Weight: Vital Signs (12 hours) Temp Pulse Resp BP Pulse Ox 06/03/20 08:00 98.6 F 67 17 134/84 97 Weight Admit Weight 248 lb 7 oz Weight 248 lb 7 oz I&O: 06/02/20 06/03/20 06/04/20 06:59 06:59 06:59 Intake Total 1000 Balance 1000 Result Diagrams: 05/18/20 04:56 05/18/20 04:56 Hospitalist ROS - Medication Medications: Active Medications Generic Name Dose Route Start Last Admin Trade Name Freq PRN Reason Stop Dose Admin Ascorbic Acid 1,000 mg 05/13/20 09:00 06/03/20 09:43 Ascorbic Acid 500 Mg Chewable Tablet PO 1,000 mg DAILY BLAZE Administration Cyanocobalamin 1,000 mcg 05/16/20 09:00 06/03/20 09:43 Cyanocobalamin (Vitamin B-12) 1,000 Mcg Tab PO 1,000 mcg DAILY BLAZE Administration Famotidine 20 mg 05/18/20 21:00 06/03/20 09:43 Famotidine 20 Mg Tab PO 20 mg BID BLAZE Administration Sodium Chloride 10 ml 05/12/20 17:31 05/15/20 20:53 Flush - Normal Saline 10 Ml Syringe IVF 10 ml Q12HR PRN Administration Saline Flush Sodium Chloride 10 ml 05/12/20 17:31 05/15/20 20:53 Flush - Normal Saline 10 Ml Syringe IVF 10 ml PRN PRN Administration Saline Flush Thiamine HCl 100 mg 05/16/20 09:00 06/03/20 09:43 Thiamine 100 Mg Tab PO 100 mg DAILY BLAZE Administration Zinc Sulfate 220 mg 05/13/20 09:00 06/03/20 09:43 Zinc Sulfate 220 Mg Cap PO 220 mg DAILY BLAZE Administration Hospitalist Exam Vitals: Vital Signs (12 hours) Temp Pulse Resp BP Pulse Ox 06/03/20 08:00 98.6 F 67 17 134/84 97 Weight Admit Weight 248 lb 7 oz Weight 248 lb 7 oz General Appearance: NAD, awake alert Eye: PERRL ENT: normocephalic atraumatic Neck: supple Heart: RRR, normal peripheral pulses Respiratory: CTAB, normal chest expansion Gastrointestinal: soft, normal bowel sounds Extremities: 1+ LE edema Musculoskeletal: normal tone, generalized weakness Psychiatric: A&O x 3 Hosp A/P - Plan Alcohol intoxication Status: Resolved (2) COVID-19 Code(s): U07.1 - COVID-19 Status: Acute (3) Polysubstance abuse Code(s): F19.10 - OTHER PSYCHOACTIVE SUBSTANCE ABUSE, UNCOMPLICATED Status: Chronic (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 pending transfer to the psych inpatient facility. He can transfer whenever he is approved.
[2020-06-04] MEDS: Famotidine 20 MG TAB PO SCH ×2 (08:49→21:01)
[2020-06-04] MEDS: Zinc Sulfate 220 MG CAP PO SCH (08:49)
[2020-06-04] MEDS: Cyanocobalamin (Vitamin B-12) 1,000 MCG TAB PO SCH (08:49)
[2020-06-04] MEDS: Ascorbic Acid 500 mg Chewable Tablet PO SCH (08:49)
[2020-06-04] MEDS: Thiamine 100 MG TAB PO SCH (08:49)
--- NOTE | 2020-06-04 13:54 | PDOC.HOSPP ---
- Subjective Encounter Date: 06/04/20 Encounter Time: 12:20 Subjective: Patient is lying down at the edge of the bed I was concerned whether he would fall. If he is laughing and said he will never fall. Sitter at bedside. - Objective Vital Signs & Weight: Vital Signs (12 hours) Temp Pulse Resp BP Pulse Ox 06/04/20 08:00 96 06/04/20 07:45 98.5 F 77 16 124/71 96 Weight Admit Weight 248 lb 7 oz Weight 248 lb 7 oz I&O: 06/03/20 06/04/20 06/05/20 06:59 06:59 06:59 Intake Total 1000 1200 Balance 1000 1200 Result Diagrams: 05/18/20 04:56 05/18/20 04:56 Hospitalist ROS - Medication Medications: Active Medications Generic Name Dose Route Start Last Admin Trade Name Freq PRN Reason Stop Dose Admin Ascorbic Acid 1,000 mg 05/13/20 09:00 06/04/20 08:49 Ascorbic Acid 500 Mg Chewable Tablet PO 1,000 mg DAILY BLAZE Administration Cyanocobalamin 1,000 mcg 05/16/20 09:00 06/04/20 08:49 Cyanocobalamin (Vitamin B-12) 1,000 Mcg Tab PO 1,000 mcg DAILY BLAZE Administration Famotidine 20 mg 05/18/20 21:00 06/04/20 08:49 Famotidine 20 Mg Tab PO 20 mg BID BLAZE Administration Sodium Chloride 10 ml 05/12/20 17:31 05/15/20 20:53 Flush - Normal Saline 10 Ml Syringe IVF 10 ml Q12HR PRN Administration Saline Flush Sodium Chloride 10 ml 05/12/20 17:31 05/15/20 20:53 Flush - Normal Saline 10 Ml Syringe IVF 10 ml PRN PRN Administration Saline Flush Thiamine HCl 100 mg 05/16/20 09:00 06/04/20 08:49 Thiamine 100 Mg Tab PO 100 mg DAILY BLAZE Administration Zinc Sulfate 220 mg 05/13/20 09:00 06/04/20 08:49 Zinc Sulfate 220 Mg Cap PO 220 mg DAILY BLAZE Administration Hospitalist Exam Vitals: Vital Signs (12 hours) Temp Pulse Resp BP Pulse Ox 06/04/20 08:00 96 06/04/20 07:45 98.5 F 77 16 124/71 96 Weight Admit Weight 248 lb 7 oz Weight 248 lb 7 oz General Appearance: NAD, awake alert Eye: PERRL ENT: normocephalic atraumatic Neck: supple Heart: RRR, normal peripheral pulses Respiratory: CTAB, normal chest expansion Gastrointestinal: soft, normal bowel sounds Neurological: no focal deficits Musculoskeletal: generalized weakness Psychiatric: A&O x 3 Hosp A/P - Plan Alcohol intoxication Status: Resolved (2) COVID-19 Code(s): U07.1 - COVID-19 Status: Acute (3) Polysubstance abuse Code(s): F19.10 - OTHER PSYCHOACTIVE SUBSTANCE ABUSE, UNCOMPLICATED Status: Chronic (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 pending transfer to the psych inpatient facility. He can transfer whenever he is approved. No acuity will follow him closely.
[2020-06-05] MEDS: Zinc Sulfate 220 MG CAP PO SCH (08:18)
[2020-06-05] MEDS: Thiamine 100 MG TAB PO SCH (08:18)
[2020-06-05] MEDS: Famotidine 20 MG TAB PO SCH ×2 (08:18→19:58)
[2020-06-05] MEDS: Ascorbic Acid 500 mg Chewable Tablet PO SCH (08:19)
[2020-06-05] MEDS: Cyanocobalamin (Vitamin B-12) 1,000 MCG TAB PO SCH (08:19)
--- NOTE | 2020-06-05 13:41 | PDOC.HOSPP ---
- Subjective Encounter Date: 06/05/20 Encounter Time: 11:10 Subjective: Patient is again sleep lying down at the edge of the bed. A sitter in the room. patient wants to go home. - Objective Vital Signs & Weight: Vital Signs (12 hours) Temp Pulse Resp BP Pulse Ox 06/05/20 08:24 98.4 F 71 18 137/89 96 06/05/20 08:00 96 Weight Admit Weight 248 lb 7 oz Weight 248 lb 7 oz I&O: 06/04/20 06/05/20 06/06/20 06:59 06:59 06:59 Intake Total 1200 240 Balance 1200 240 Result Diagrams: 05/18/20 04:56 05/18/20 04:56 Hospitalist ROS - Medication Medications: Active Medications Generic Name Dose Route Start Last Admin Trade Name Freq PRN Reason Stop Dose Admin Ascorbic Acid 1,000 mg 05/13/20 09:00 06/05/20 08:19 Ascorbic Acid 500 Mg Chewable Tablet PO 1,000 mg DAILY BLAZE Administration Cyanocobalamin 1,000 mcg 05/16/20 09:00 06/05/20 08:19 Cyanocobalamin (Vitamin B-12) 1,000 Mcg Tab PO 1,000 mcg DAILY BLAZE Administration Famotidine 20 mg 05/18/20 21:00 06/05/20 08:18 Famotidine 20 Mg Tab PO 20 mg BID BLAZE Administration Sodium Chloride 10 ml 05/12/20 17:31 05/15/20 20:53 Flush - Normal Saline 10 Ml Syringe IVF 10 ml Q12HR PRN Administration Saline Flush Sodium Chloride 10 ml 05/12/20 17:31 05/15/20 20:53 Flush - Normal Saline 10 Ml Syringe IVF 10 ml PRN PRN Administration Saline Flush Thiamine HCl 100 mg 05/16/20 09:00 06/05/20 08:18 Thiamine 100 Mg Tab PO 100 mg DAILY BLAZE Administration Zinc Sulfate 220 mg 05/13/20 09:00 06/05/20 08:18 Zinc Sulfate 220 Mg Cap PO 220 mg DAILY BLAZE Administration Hospitalist Exam Vitals: Vital Signs (12 hours) Temp Pulse Resp BP Pulse Ox 06/05/20 08:24 98.4 F 71 18 137/89 96 06/05/20 08:00 96 Weight Admit Weight 248 lb 7 oz Weight 248 lb 7 oz General Appearance: NAD, awake alert Eye: PERRL ENT: normocephalic atraumatic Neck: supple Heart: RRR, normal peripheral pulses Respiratory: CTAB, normal chest expansion Gastrointestinal: soft, normal bowel sounds Neurological: no focal deficits Musculoskeletal: generalized weakness Hosp A/P - Plan Alcohol intoxication Status: Resolved (2) COVID-19 Code(s): U07.1 - COVID-19 Status: Acute (3) Polysubstance abuse Code(s): F19.10 - OTHER PSYCHOACTIVE SUBSTANCE ABUSE, UNCOMPLICATED Status: Chronic (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 pending transfer to the psych inpatient facility. He can transfer whenever he is approved. No acuity will follow him closely. per CM note "Spoke w/Saniya Light with [facility]. She indicates all the systems are down at [facility]. She also reports [facility] isn't doing any transports until at least Friday. " Repeating the Covid test as it appears that they need a second test.
[2020-06-06 08:14] VITALS: TEMP 97.9
[2020-06-06] MEDS: Zinc Sulfate 220 MG CAP PO SCH (08:21)
[2020-06-06] MEDS: Thiamine 100 MG TAB PO SCH (08:22)
[2020-06-06] MEDS: Ascorbic Acid 500 mg Chewable Tablet PO SCH (08:22)
[2020-06-06] MEDS: Famotidine 20 MG TAB PO SCH (08:22)
[2020-06-06] MEDS: Cyanocobalamin (Vitamin B-12) 1,000 MCG TAB PO SCH (08:23)
[2020-06-06 11:37] VITALS: BP 137/87
--- NOTE | 2020-06-06 16:06 | PDOC.DS.DS ---
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 Discharge time less than 30 minutes Lab Results: 05/18/20 04:56 05/18/20 04:56 Microbiology - Entire Visit 05/12/20 15:28 Central Line - Left Brachiocephalic vein Blood Culture - Final NO GROWTH IN 5 DAYS 05/12/20 15:30 Venous blood - Right Arm Blood Culture - Final NO GROWTH IN 5 DAYS Vitals: Vital Signs (12 hours) Temp Pulse Resp BP BP Pulse Ox 06/06/20 11:36 97.9 F 85 19 137/87 96 06/06/20 08:14 97.9 F 78 18 137/82 92 L Weight Admit Weight 248 lb 7 oz Weight 248 lb 7 oz Physical Exam: The patient was seen and examined on the day of discharge. Plan Prescriptions: Thiamine 100 mg PO DAILY 30 Days #30 tab Cyanocobalamin (Vitamin B-12) [Vitamin B-12] 1,000 mcg PO DAILY 30 Days #30 tab Home Medications: Medication Instructions Recorded Confirmed Type Cyanocobalamin (Vitamin B-12) 1,000 mcg PO DAILY 30 Days #30 tab 06/05/20 Rx [Vitamin B-12] Thiamine 100 mg PO DAILY 30 Days #30 tab 06/05/20 Rx Allergies: No Known Allergies Allergy (Verified 05/12/20 21:26) Activity:: Activity as Tolerated Nourishment:: Regular Diet Referrals: Unknown,Unknown [Primary Care Provider] - Disposition: OTHER HOSPITAL INPT Quality CORE MEASURES:: N/A
== END 2020-06-06 11:27 | DRG 896 ==
LOC: ERS 13:48 → 2SW 16:28 → T4-B 05-20 18:36
PROVIDERS: ADMIT Internal Medicine; ATTEND Internal Medicine
PROC: HZ2ZZZZ Detoxification Services for Substance Abuse Treatment (ICD-10-PCS; principal; 2020-05-12)
PROC: 8E0ZXY6 Isolation (ICD-10-PCS; 2020-05-12)
DX: F10.129 Alcohol abuse with intoxication, unspecified (principal); U07.1 COVID-19; G93.41 Metabolic encephalopathy; R56.1 Post traumatic seizures; R45.851 Suicidal ideations; F16.10 Hallucinogen abuse, uncomplicated; F10.10 Alcohol abuse, uncomplicated; F79 Unspecified intellectual disabilities; F17.210 Nicotine dependence, cigarettes, uncomplicated; F12.10 Cannabis abuse, uncomplicated; Y90.1 Blood alcohol level of 20-39 mg/100 ml; I95.9 Hypotension, unspecified; E66.9 Obesity, unspecified; K76.0 Fatty (change of) liver, not elsewhere classified; D64.9 Anemia, unspecified; Z68.35 Body mass index [BMI] 35.0-35.9, adult
CPT/HCPCS: 0240U; 36415; 51701; 70450; 71045; 71250; 71275; 72125; 80048; 80053; 80306; 80307; 81003; 82140; 82550; 82728; 83605; 83735; 84146; 84484; 85025; 85027; 85379; 86140; 87040; 93005; 96365; 96366; 96367; J0456; J0696; Q9967; S0028

== ENCOUNTER 2020-10-06 15:42 | Emergency (ER) | payer MEDICARE, MEDICAID ==
[2020-10-06 17:46] LABS: #Lymphocytes 1.4 thou/uL (1.20-3.40); #Monocytes 0.4 thou/uL (0.11-0.59); #Neutrophils 6.4 thou/uL (1.40-6.50); %Basophils 0.1 % (0.0-1.0); %Eosinophils 0.4 % (0.0-10.0); %Lymphocytes 17.2 % (21.0-51.0); %Monocytes 5.3 % (0.0-10.0); %Neutrophils 77.1 % (42.0-75.0); Hemoglobin 14.7 g/dL (14.0-18.0); Mean Corpuscular HGB CONC 33.9 g/dL (32.0-36.0); Mean Corpuscular Hemoglobin 31.3 pg (27.0-31.0); Mean Corpuscular Volume 92.4 fL (78.0-98.0); Mean Platelet Volume 10.1 fL (7.4-10.4); Platelet Count 141 thou/uL (130-400); RBC Distribution Width 12.6 % (11.5-14.5); Red Blood Cell (RBC) Count 4.68 mill/uL (4.70-6.10); White Blood Cell (WBC) Count 8.3 thou/uL (4.8-10.8)
[2020-10-06 18:06] LABS: Bacteria/HPF None Seen HPF (None Seen); Bilirubin Negative (Negative); Blood, Urine Negative (Negative); Clarity Clear (Clear); Glucose, Urine (Dipstick) Normal (Negative); Ketone, Urine Negative (Negative); Leukocyte Negative Leu/uL (Negative); Nitrite Negative (Negative); Protein, Urine (Dipstick) 30 mg/dL (Neg-Trace); RBC/HPF 0-3 HPF (0-3); Specific Gravity, Urine 1.016 (1.002-1.036); Squamous Epithelial None Seen HPF (0-3); Urobilinogen Normal mg/dL (Less than 2); WBC/HPF 0-3 HPF (0-3); pH, Urine 5.5 (5.0-9.0)
[2020-10-06 18:13] LABS: ALT (SGPT) 39 U/L (8-55); AST (SGOT) 23 U/L (5-34); Acetaminophen Less than 6.0 mcg/mL (10.0-30.0); Albumin 4.4 g/dL (3.5-5.0); Alcohol Less than 10 mg/dL (Less than 10); Alkaline Phosphatase 92 U/L (40-110); Anion Gap 15 mmol/L (10-20); BUN (Urea Nitrogen) 13 mg/dL (8.9-20.6); Bilirubin, Total 0.3 mg/dL (0.2-1.2); CK (CPK) 205 U/L (30-200); Calc. Creatinine Clearance 0 mL/min (70-130); Calcium 8.9 mg/dL (7.8-10.44); Carbon Dioxide 21 mmol/L (22-29); Chloride 106 mmol/L (98-107); Glucose 92 mg/dL (70-105); Potassium 4.1 mmol/L (3.5-5.1); Protein, Total 7.4 g/dL (6.0-8.3); Salicylate Less than 8.0 mg/dL (15.0-30.0); Sodium 138 mmol/L (136-145)
[2020-10-06 18:23] LABS: Amphetamine Not Detected (NotDetected); Barbiturates Screen Not Detected (NotDetected); Benzodiazepine Screen Not Detected (NotDetected); Cocaine Metabolite Screen Not Detected (NotDetected); Medtox Control Line Valid? VALID (VALID); Medtox Reader # READER 1; Methadone Not Detected (NotDetected); Methamphetamine Not Detected (NotDetected); Opiate Screen Not Detected (NotDetected); Oxycodone Screen Not Detected (NotDetected); Phencyclidine (PCP) Not Detected (NotDetected); THC/Cannabinoid Screen Detected (NotDetected); Tricyclic Screen Not Detected (NotDetected)
== END 2020-10-06 18:59 | disposition home or self-care (01) ==
LOC: ERS 15:42
DX: E86.0 Dehydration (principal); F12.10 Cannabis abuse, uncomplicated; Z87.891 Personal history of nicotine dependence
CPT/HCPCS: 36415; 70450; 71045; 80053; 80306; 80307; 81003; 81015; 82550; 83880; 84443; 85025; 93005

== ENCOUNTER 2020-10-13 12:34 | Emergency (ER) | payer MEDICARE, MEDICAID ==
[2020-10-13 12:56] LABS: #Eosinphils 0.1 thou/uL (0.0-0.7); #Lymphocytes 1.3 thou/uL (1.20-3.40); #Monocytes 0.2 thou/uL (0.11-0.59); #Neutrophils 3.5 thou/uL (1.40-6.50); %Basophils 0.5 % (0.0-1.0); %Eosinophils 1.8 % (0.0-10.0); %Monocytes 4.6 % (0.0-10.0); %Neutrophils 67.1 % (42.0-75.0); Hemoglobin 14.4 g/dL (14.0-18.0); Mean Corpuscular HGB CONC 32.7 g/dL (32.0-36.0); Mean Corpuscular Hemoglobin 30.6 pg (27.0-31.0); Mean Corpuscular Volume 93.6 fL (78.0-98.0); Mean Platelet Volume 9.5 fL (7.4-10.4); Platelet Count 161 thou/uL (130-400); RBC Distribution Width 12.4 % (11.5-14.5); Red Blood Cell (RBC) Count 4.72 mill/uL (4.70-6.10); White Blood Cell (WBC) Count 5.2 thou/uL (4.8-10.8)
[2020-10-13 13:16] LABS: ALT (SGPT) 38 U/L (8-55); AST (SGOT) 24 U/L (5-34); Albumin 4.3 g/dL (3.5-5.0); Alkaline Phosphatase 90 U/L (40-110); Anion Gap 16 mmol/L (10-20); BUN (Urea Nitrogen) 9 mg/dL (8.9-20.6); Bilirubin, Total 0.3 mg/dL (0.2-1.2); Calc. Creatinine Clearance 0 mL/min (70-130); Calcium 8.8 mg/dL (7.8-10.44); Carbon Dioxide 21 mmol/L (22-29); Chloride 105 mmol/L (98-107); Globulin 2.7 g/dL (2.4-3.5); Glucose 101 mg/dL (70-105); Potassium 3.9 mmol/L (3.5-5.1); Sodium 138 mmol/L (136-145)
[2020-10-13 15:01] LABS: Bilirubin Negative (Negative); Blood, Urine Negative (Negative); Clarity Clear (Clear); Glucose, Urine (Dipstick) Normal (Negative); Ketone, Urine Negative (Negative); Leukocyte Negative Leu/uL (Negative); Nitrite Negative (Negative); Protein, Urine (Dipstick) 20 mg/dL (Neg-Trace); Specific Gravity, Urine 1.019 (1.002-1.036)
[2020-10-13 15:09] LABS: Amphetamine Not Detected (NotDetected); Barbiturates Screen Not Detected (NotDetected); Benzodiazepine Screen Not Detected (NotDetected); Cocaine Metabolite Screen Not Detected (NotDetected); Medtox Control Line Valid? VALID (VALID); Medtox Reader # READER 4; Methadone Not Detected (NotDetected); Methamphetamine Not Detected (NotDetected); Opiate Screen Not Detected (NotDetected); Oxycodone Screen Not Detected (NotDetected); Phencyclidine (PCP) Not Detected (NotDetected); THC/Cannabinoid Screen Detected (NotDetected); Tricyclic Screen Not Detected (NotDetected)
== END 2020-10-13 19:01 | disposition home or self-care (01) ==
LOC: EEVIPCON 12:34 → ERS 12:34
DX: F19.10 Other psychoactive substance abuse, uncomplicated (principal); Z87.891 Personal history of nicotine dependence
CPT/HCPCS: 80053; 80306; 81003; 85025; 93005

== ENCOUNTER 2021-12-15 14:45 | Emergency (ER) | payer MEDICARE, MEDICAID | END 2021-12-15 16:20 | disposition home or self-care (01) | LOC: ERS 14:45 | DX: F10.929 Alcohol use, unspecified with intoxication, unspecified (principal); Z87.891 Personal history of nicotine dependence | CPT/HCPCS: 99284 ==